=== PATIENT | male | born 1930 | race Caucasian/White ===

== ENCOUNTER 2019-08-16 08:43 | Outpatient (CLI) | payer MEDICARE, OTHER ==
--- NOTE | 2019-08-16 09:22 | XRAY Report ---
Reason: EMPHYSEMA Procedure Date: 08/16/2019 Accession Number: [id number] / [id number] Procedure: XRN - Chest 2 View X-Ray CPT Code: 70067 FULL RESULT: EXAM: CHEST RADIOGRAPHY EXAM DATE: 08/16/2019 08:55 AM. CLINICAL HISTORY: EMPHYSEMA. COMPARISON: XR CHEST PA AND LAT 10/31/2008 12:58 PM; not available. TECHNIQUE: 2 views. FINDINGS: Lungs/Pleura: Mild hyperinflation. No suspicious mass. No pleural effusion. Mediastinum: Heart and mediastinal contours are unremarkable. Other: None. IMPRESSION: 1. COPD. 2. Otherwise negative examination. No acute or suspicious finding. RADIA
== END 2019-08-16 08:44 | disposition home or self-care (01) ==
LOC: DI.N 08:43
PROVIDERS: ATTEND Internal Medicine
DX: J44.9 Chronic obstructive pulmonary disease, unspecified (principal)
CPT/HCPCS: 71046

== ENCOUNTER 2019-08-19 09:09 | Outpatient (CLI) | payer MEDICARE, OTHER | END 2019-08-19 09:10 | disposition home or self-care (01) | LOC: RT 09:09 | PROVIDERS: ATTEND Internal Medicine | DX: J43.9 Emphysema, unspecified (principal); I35.0 Nonrheumatic aortic (valve) stenosis | CPT/HCPCS: 94010 ==

== ENCOUNTER 2020-01-10 10:36 | Outpatient (CLI) | payer MEDICARE, OTHER | END 2020-01-10 10:37 | disposition critical access hospital (66) | LOC: EMS 10:36 | PROVIDERS: ATTEND Surgery | DX: R10.9 Unspecified abdominal pain (principal); R11.2 Nausea with vomiting, unspecified | CPT/HCPCS: A0425; A0427 ==

== ENCOUNTER 2020-01-10 10:50 | Inpatient (IN) | payer MEDICARE, OTHER ==
--- NOTE | 2020-01-10 11:24 | ED Physician Documentation ---
PD HPI ABD PAIN - Stated complaint Stated Complaint: POSS GI BLEED - Chief complaint Chief Complaint: Abd Pain - History obtained from History obtained from: Patient - History of Present Illness Timing - onset: How many days ago (4) Timing - duration: Days (3-4) Timing - details: Gradual onset, Still present, Waxing and waning (more consistent the past day) Quality: Cramping (upper abd), Aching, Fullness/distended, Pain Location: Other (The patient states he had onset of crampy upper abdominal pain associated with a feeling of bloating. He is had nausea with poor appetite and minimal intake the last few days. He did have some vomiting last night overnight and noticed it to be coffee ground type appearance. He has not had any bowel movements. He denies any prior abdominal surgery. He does feel distended in the upper abdomen) Radiation: Upper back. No: Chest Improved by: Vomiting Worsened by: Eating, Palpation. No: Moving, Breathing Associated symptoms: Nausea, Vomiting (just couple of times), Hematemesis (possibly, with cofee ground appearance. No hany blood.), Loss of appetite. No: Fever, Constipation, Melena, Hematochezia, Dysuria, Weight loss Similar symptoms before: Has not had sx before Review of Systems Constitutional: denies: Fever, Chills Nose: denies: Rhinorrhea / runny nose, Congestion Throat: denies: Sore throat Cardiac: denies: Chest pain / pressure, Palpitations Respiratory: denies: Dyspnea GI: reports: Abdominal Pain, Abdominal Swelling, Nausea, Vomiting. denies: Constipation (has not had BM for 3 days though), Diarrhea, Bloody / black stool : denies: Dysuria, Frequency Neurologic: reports: Generalized weakness. denies: Focal weakness, Numbness, Near syncope PD PAST MEDICAL HISTORY - Past Medical History Past Medical History: Yes Cardiovascular: Hypertension, High cholesterol, Murmur Respiratory: None Endocrine/Autoimmune: Type 2 diabetes GI: None, Diverticulitis (He believes he has had a prior episode of diverticulitis or at least diverticula.) : Benign prostate hypertrophy, Retention HEENT: Macular degeneration Psych: None Musculoskeletal: None Derm: None - Past Surgical History Past Surgical History: Yes General: Other (Denies prior abdominal surgery.) HEENT: Tonsil/Adenoidectomy Derm: Other - Present Medications Home Medications: Ambulatory Orders Medication Instructions Recorded Confirmed Glipizide [Glipizide Xl] 2.5 mg ORAL DAILY 07/05/14 01/10/20 Lisinopril 10 mg ORAL BID 07/05/14 01/10/20 Aspirin [Adult Low Dose Aspirin EC] 81 mg PO DAILY 01/10/20 01/10/20 Doxazosin Mesylate 8 mg PO DAILY 01/10/20 01/10/20 Multivit-Min/FA/Lycopen/Lutein 1 each PO DAILY 01/10/20 01/10/20 [Centrum Silver Men Tablet] Rosuvastatin Calcium 20 mg PO DAILY 01/10/20 01/10/20 - Allergies Allergies/Adverse Reactions: Allergies Allergy/AdvReac Type Severity Reaction Status Date / Time No Known Drug Allergies Allergy Verified 01/10/20 11:00 - Social History Does the pt smoke?: No Smoking Status: Never smoker Does the pt drink ETOH?: Yes ETOH Use: Wine Does the pt have substance abuse?: No - Immunizations Immunizations: TDAP >10years/unknown PD ED PE NORMAL - Vitals Vital signs reviewed: Yes - General General: Alert and oriented X 3, Well developed/nourished, Other (He is not in significant distress but does seem a little uncomfortable. His abdomen is distended in the upper aspect. There is no tympany to percussion.) - HEENT HEENT: Pharynx benign - Neck Neck: Supple, no meningeal sign, No adenopathy - Cardiac Cardiac: RRR, No murmur - Respiratory Respiratory: Clear bilaterally - Abdomen Abdomen: No organomegaly, Other (Tender in the upper abdomen with the distention in the upper aspect. Bowel sounds are present and hypoactive. The lower abdomen is less distended. There is no percussion no rebound tenderness. There is no CVA tenderness.) - Male Male : Deferred - Rectal Rectal: Deferred - Back Back: No CVA TTP - Derm Derm: Normal color, Warm and dry - Extremities Extremities: No tenderness to palpate, Normal ROM s pain, No edema - Neuro Neuro: Alert and oriented X 3, No motor deficit, Normal speech Results - Vitals Vitals: Vital Signs - 24 hr 01/10/20 01/10/20 01/10/20 10:52 13:00 14:07 Temperature 37.3 C Heart Rate 95 79 76 Respiratory 15 20 24 Rate Blood Pressure 142/63 H 125/58 L 118/64 O2 Saturation 99 97 97 01/10/20 01/10/20 14:15 14:30 Temperature Heart Rate 78 78 Respiratory 24 19 Rate Blood Pressure 118/64 149/74 H O2 Saturation 98 98 Oxygen O2 Source Room air - Labs Labs: Laboratory Tests 01/10/20 01/10/20 01/10/20 11:38 11:38 12:12 WBC 8.2 RBC 4.07 L Hgb 13.4 L Hct 39.6 L MCV 97.3 H MCH 32.9 H MCHC 33.8 RDW 13.1 Plt Count 215 MPV 10.9 Neut # (Auto) 7.1 H Lymph # (Auto) 0.5 L [place] # (Auto) 0.7 Eos # (Auto) 0.0 Baso # (Auto) 0.0 Absolute Nucleated RBC 0.00 Nucleated RBC % 0.0 Sodium 132 L Potassium 4.3 Chloride 96 L Carbon Dioxide 26 Anion Gap 10.0 BUN 31 H Creatinine 1.1 Estimated GFR (MDRD) 63 L Glucose 171 H Lactic Acid Calcium 8.8 Magnesium 2.2 Total Bilirubin 1.0 AST 20 ALT 17 Alkaline Phosphatase 34 L Total Protein 6.4 L Albumin 4.0 Globulin 2.4 Albumin/Globulin Ratio 1.7 Lipase 25 Urine Color Urine Clarity Urine pH Ur Specific [place] Urine Protein Urine Glucose (UA) Urine Ketones Urine Occult Blood Urine Nitrite Urine Bilirubin Urine Urobilinogen Ur Leukocyte Esterase Ur Microscopic Review Urine Culture Comments 01/10/20 01/10/20 12:12 14:10 WBC RBC Hgb Hct MCV MCH MCHC RDW Plt Count MPV Neut # (Auto) Lymph # (Auto) [place] # (Auto) Eos # (Auto) Baso # (Auto) Absolute Nucleated RBC Nucleated RBC % Sodium Potassium Chloride Carbon Dioxide Anion Gap BUN Creatinine Estimated GFR (MDRD) Glucose Lactic Acid 1.1 Calcium Magnesium Total Bilirubin AST ALT Alkaline Phosphatase Total Protein Albumin Globulin Albumin/Globulin Ratio Lipase Urine Color YELLOW Urine Clarity CLEAR Urine pH 6.0 Ur Specific [place] 1.010 Urine Protein NEGATIVE Urine Glucose (UA) NEGATIVE Urine Ketones 15 H Urine Occult Blood NEGATIVE Urine Nitrite NEGATIVE Urine Bilirubin NEGATIVE Urine Urobilinogen 0.2 (NORMAL) Ur Leukocyte Esterase NEGATIVE Ur Microscopic Review NOT INDICATED Urine Culture Comments NOT INDICATED - Rads (name of study) abd CT Radiology: Prelim report reviewed, See rad report PD MEDICAL DECISION MAKING - ED course Complexity details: reviewed results (CT findings show bowel obstruction with transition at the right lower quadrant. There is an enhancing liver lesion of uncertain pathology. Consider metastatic lesion versus abscess versus inflammatory condition. He does have an enlarged prostate as well which appears symmetric. Appendix seems normal.), re-evaluated patient (His exam and CT scan are compatible with bowel obstruction. No free air nor perforations. No apparent prior abdominal surgery. He has had diverticula in the past so consider some adhesions related to prior diverticulitis. Otherwise consider a mass-effect such as a colon tumor. He does have an enhancing lesion in the liver diet could be consistent with a metastasis. Further evaluation with ultrasound or MRI may be indicated according to radiology.), considered differential, d/w patient, d/w method consultant Departure - Departure Disposition: 66 [facility] DC/Xfer Clinical Impression: Small bowel obstruction, Liver lesion Nausea & vomiting Qualifiers: Vomiting type: unspecified Vomiting Intractability: non-intractable Qualified Code(s): R11.2 - Nausea with vomiting, unspecified Condition: Stable
[2020-01-10 11:43] LABS: BASOPHILS % (AUTO) 0.2 %; EOSINOPHILS % (AUTO) 0.1 %; HGB - HEMOGLOBIN 13.4 g/dL (14.0-18.0); LYMPHOCYTES # (AUTO) 0.5 10^3/uL (1.5-3.5); LYMPHOCYTES % (AUTO) 5.6 %; MEAN CORPUSCULAR HEMOGLOBIN 32.9 pg (27.0-31.0); MEAN CORPUSCULAR HGB CONC 33.8 g/dL (32.0-36.0); MEAN CORPUSCULAR VOLUME 97.3 fL (80.0-94.0); MEAN PLATELET VOLUME 10.9 fL (7.4-11.4); MONOCYTES # (AUTO) 0.7 10^3/uL (0.0-1.0); MONOCYTES % (AUTO) 7.9 %; NEUTROPHILS # (AUTO) 7.1 10^3/uL (1.5-6.6); NEUTROPHILS % (AUTO) 85.8 %; PLT - PLATELET COUNT 215 10^3/uL (130-450); RED BLOOD COUNT 4.07 10^6/uL (4.70-6.10); RED CELL DISTRIBUTION WIDTH 13.1 % (12.0-15.0); WHITE BLOOD COUNT 8.2 x10^3/uL (4.8-10.8)
[2020-01-10] MEDS ORDERED: SODIUM CHLORIDE 0.9% 1,000 ML IV ONE ×2 (11:44→14:36)
[2020-01-10] MEDS ORDERED: MORPHINE 2 MG/ML CARPUJECT IVP STA (11:44)
[2020-01-10] MEDS ORDERED: FAMOTIDINE 20 MG/2 ML VIAL IVP STA (11:45)
[2020-01-10] MEDS ORDERED: ONDANSETRON 4 MG/2 ML VIAL IVP STA (11:45)
[2020-01-10 11:59] LABS: ALBUMIN/GLOBULIN RATIO 1.7 (1.0-2.2); CALCIUM 8.8 mg/dL (8.5-10.3); CREATININE 1.1 mg/dL (0.6-1.2); TOTAL PROTEIN 6.4 g/dL (6.7-8.2)
[2020-01-10] MEDS ORDERED: IOVERSOL 320 100 ML VIAL IVP ONE ×2 (13:11→13:32)
--- NOTE | 2020-01-10 14:11 | CT Report ---
Reason: upper abd pain for 4 days; some distension Procedure Date: 01/10/2020 Accession Number: [id number] / [id number] Procedure: CT - Abdomen/Pelvis W CPT Code: Final Report FULL RESULT: EXAM: CT ABDOMEN AND PELVIS EXAM DATE: 01/10/2020 01:32 PM. CLINICAL HISTORY: Upper abd pain for 4 days; some distension. COMPARISONS: ABDOMEN 04/18/2015 8:20 AM. TECHNIQUE: Routine helical CT imaging was performed through the abdomen and pelvis. IV contrast: 100 mL Optiray 320. Enteric contrast: No. Reconstructions: Coronal and sagittal. In accordance with CT protocol optimization, one or more of the following dose reduction techniques were utilized for this exam: automated exposure control, adjustment of mA and/or KV based on patient size, or use of iterative reconstructive technique. FINDINGS: Lung Bases: Mild dependent atelectasis bilaterally. Extensive moderate/severe three-vessel coronary artery disease versus previous placement of coronary artery stents. The heart is mildly enlarged. Liver: There is a rim-enhancing hypodense lesion in the anterior left hepatic lobe measuring 1.8 x 2.7 x 1.7 cm. Gallbladder/Bile Ducts: Unremarkable. Spleen: There are multiple nonspecific round hypodense lesions in the spleen measuring up to 7 mm in diameter. Pancreas: The pancreatic duct is mildly dilated near the confluence with the common bile duct measuring 4 mm in diameter. The pancreas is otherwise unremarkable. Adrenal Glands: Unremarkable. Kidneys: Symmetric renal enhancement. Borderline dilated ureters bilaterally. Otherwise no hydronephrosis. No nephrolithiasis. Probable cortical cysts in the mid and lower left kidney measuring up to 7 mm in diameter. Peritoneal Cavity/Bowel: There are multiple dilated small bowel loops throughout the abdomen and pelvis, which measure up to 4.3 cm in diameter and demonstrate air-fluid levels. There is a transition point in the right lower abdominal quadrant, which is best seen on the coronal series (images 22 through 28 of series 5). Somewhat dusky appearance of the dilated bowel loops in the lower abdomen/pelvis. The visualized appendix is normal. Small volume ascites. No free intraperitoneal air. Pelvic Organs: The prostate is markedly enlarged and heterogeneous measuring 6.0 x 6.2 x 8.4 cm (volume 163 mL). The enlarged prostate causes mass-effect on the adjacent urinary bladder wall. The urinary bladder otherwise appears unremarkable. Small inguinal hernias bilaterally. There is prolapse of a segment of the descending/sigmoid colon into the left inguinal hernia. No evidence of bowel obstruction. There is ascites in the right inguinal hernia. Vasculature: Calcified atherosclerotic plaque throughout the abdominal aorta and iliac arteries without evidence of aneurysm. Bones: The bones are osteopenic. Moderate multilevel degenerative facet arthropathy. Multilevel degenerative disk disease. Other: None. IMPRESSION: 1. Small bowel obstruction with transition point in the right lower abdominal quadrant. Obstruction is likely related to intra-abdominal adhesions as no obstructing mass or other cause identified. 2. Somewhat dusky appearance of the dilated small bowel loops in the lower abdomen/pelvis, which is nonspecific. Developing bowel ischemia is not excluded. 3. Nonspecific rim-enhancing hypodense lesion in the left hepatic lobe. Differential considerations include hepatocellular carcinoma, metastasis, and abscess or other infectious process. Dedicated liver MRI and/or liver ultrasound may be of further diagnostic benefit. 4. Small nonspecific hypodense lesions in the spleen. Benign and malignant etiologies are included in the differential, as well as microabscesses. 5. Marked prostatomegaly. 6. Mild cardiomegaly. 7. Mild nonspecific dilation of the pancreatic duct near the confluence with the common bile duct. 8. Small volume ascites. 9. Bilateral inguinal hernias, as described above in the "pelvic organs" section. RADIA The call report notification system was initiated by Dr. Markie Camacho at 02:05 PM on 01/10/2020. The above call report findings were discussed with mArik Joaquin by Dr. Markie Camacho at 02:12 PM on 01/10/2020.
[2020-01-10 14:20] LABS: BILIRUBIN,URINE NEGATIVE (NEGATIVE); GLUCOSE, URINE (UA) NEGATIVE (NEGATIVE); KETONES,URINE (UA) 15 mg/dL (NEGATIVE); LEUKOCYTE ESTERASE, URINE NEGATIVE (NEGATIVE); NITRITE,URINE NEGATIVE (NEGATIVE); OCCULT BLOOD,URINE NEGATIVE (NEGATIVE); PROTEIN,URINE NEGATIVE (NEGATIVE); UROBILINOGEN,URINE 0.2 (NORMAL) E.U./dL (NORMAL)
[2020-01-10 14:25] LABS: CLARITY,URINE CLEAR (CLEAR)
[2020-01-10] MEDS ORDERED: SODIUM CHLORIDE FLUSH 0.9% 10 ML SYRINGE IVP PRN (14:58)
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
[2020-01-10] MEDS ORDERED: DIATR MEGLU/DIATRIZOATE SODIUM 120 ML BOTTLE PO ONE (15:46)
[2020-01-10] MEDS ORDERED: ACETAMINOPHEN 1,000 MG/100 ML 100 ML IV PRN (16:19)
[2020-01-10] MEDS ORDERED: HYDROmorphone 0.5 MG/0.5 ML SYRINGE IVP PRN (16:19)
[2020-01-10] MEDS ORDERED: ONDANSETRON 4 MG/2 ML VIAL IVP PRN (16:19)
[2020-01-10] MEDS: SODIUM CHLORIDE 0.9% 1,000 ML IV SCH (18:16)
[2020-01-10] MEDS: SODIUM CHLORIDE FLUSH 0.9% 10 ML SYRINGE IVP SCH (18:16)
[2020-01-10] MEDS ORDERED: DOXAZOSIN 4 MG TABLET PO SCH (21:00)
[2020-01-11] MEDS: SODIUM CHLORIDE FLUSH 0.9% 10 ML SYRINGE IVP SCH ×3 (00:13→16:44)
[2020-01-11] MEDS: SODIUM CHLORIDE 0.9% 1,000 ML IV SCH (05:12)
--- NOTE | 2020-01-11 07:37 | PHARMACY PROGRESS NOTE ---
- Best Possible Medication History Admit Date and Time: 01/10/20 1458 Processed by: Nursing Medication History completed: Yes As the person ultimately responsible for medication therapy, providers are able to order a medication from an existing home medication list in [facility] via the "Reconcile Routine" prior to Confirmation of that medication by technical support technician. Such practice is discouraged except when the physician, in their clinical judgment, deems that a medical need exists for a medication without regard to previous use.
--- NOTE | 2020-01-11 12:09 | XRAY Report ---
Reason: SBO, abdominal pain Procedure Date: 01/11/2020 Accession Number: [id number] / [id number] Procedure: XR - Abdomen 1 View X-Ray CPT Code: 40270 Final Report FULL RESULT: EXAM: ABDOMEN RADIOGRAPHY EXAM DATE: 01/11/2020 09:04 AM. CLINICAL HISTORY: SBO, abdominal pain. COMPARISON: None. TECHNIQUE: 1 view. FINDINGS: Bowel Gas Pattern: Gastrografin is seen throughout the colon and rectum. Multiple loops of air-filled dilated small bowel persist in the central abdomen. Other: None. IMPRESSION: Gastrografin is seen throughout the colon and rectum. Multiple loops of air-filled dilated small bowel persist in the central abdomen. RADIA
--- NOTE | 2020-01-11 15:26 | Discharge Plan ---
Discharge Plan Problem Reviewed?: Yes Disposition: Home, Self Care Condition: Good Prescriptions: Lisinopril [Zestril] 10 mg PO DAILY #30 tablet Wheat Dextrin [Benefiber] 1 each PO DAILY #30 packet Diet: Soft Activity Restrictions: Activity as Tolerated Shower Restrictions: No Driving Restrictions: No Health Concerns: Small bowel obstruction Abdominal pain New liver lesion Aortic stenosis Plan of Treatment: Take daily benefiber or Metamucil to keep your bowels moving nicely. Follow up with your primary care provider to discuss next plan of action since finding your liver lesions. Take of your usual Lisinopril dose because your blood pressure has been low since during your hospital stay. Care Goals: Prevent a recurrence of this event Prevent ED visits or hospital stays Prevent falls Maintain your independence Assessment: You were admitted to the hospital for a small bowel obstruction which was worrisome since it had been going on for the past 4 days. After taking gastro- grafin, this resolved. Luckily, this did not require an NG tube, or any surgical interventions. Your symptoms resolved. You were moving your bowels, and consuming food. There was no contributing factor to this event, so this may never occur again. An incidental rim-enhancing hypodense left liver lesion was discovered. The description of this is concerning for cancer. I spoke to general surgery, Dr. Gerard regarding proper follow up to the liver lesions. Since the ultrasound could not give meaningful information, please have Dr. Umaña order an MRI, which is what is suggested. Please see your PCP within one week. No Smoking: If you smoke, Please STOP! Call for help. Follow-up with: Anuj Umaña MD [Primary Care Provider] -
[2020-01-11 15:53] LABS: BASOPHILS % (AUTO) 0.2 %; EOSINOPHILS # (AUTO) 0.1 10^3/uL (0.0-0.7); EOSINOPHILS % (AUTO) 1.7 %; HGB - HEMOGLOBIN 11.9 g/dL (14.0-18.0); LYMPHOCYTES # (AUTO) 0.7 10^3/uL (1.5-3.5); LYMPHOCYTES % (AUTO) 12.4 %; MEAN CORPUSCULAR HEMOGLOBIN 33.4 pg (27.0-31.0); MEAN CORPUSCULAR HGB CONC 33.6 g/dL (32.0-36.0); MEAN CORPUSCULAR VOLUME 99.4 fL (80.0-94.0); MEAN PLATELET VOLUME 10.5 fL (7.4-11.4); MONOCYTES # (AUTO) 0.6 10^3/uL (0.0-1.0); MONOCYTES % (AUTO) 11.3 %; NEUTROPHILS # (AUTO) 3.9 10^3/uL (1.5-6.6); PLT - PLATELET COUNT 183 10^3/uL (130-450); RED BLOOD COUNT 3.56 10^6/uL (4.70-6.10); RED CELL DISTRIBUTION WIDTH 13.2 % (12.0-15.0); WHITE BLOOD COUNT 5.2 x10^3/uL (4.8-10.8)
[2020-01-11 16:03] LABS: ALBUMIN 3.2 g/dL (3.2-5.5); ALBUMIN/GLOBULIN RATIO 1.5 (1.0-2.2); BILIRUBIN,TOTAL 0.6 mg/dL (0.2-1.0); CREATININE 0.8 mg/dL (0.6-1.2); TOTAL PROTEIN 5.4 g/dL (6.7-8.2)
--- NOTE | 2020-01-11 16:09 | Ultrasound Report ---
Reason: left liver lesion Procedure Date: 01/11/2020 Accession Number: [id number] / [id number] Procedure: US - Abdomen Limited CPT Code: Final Report FULL RESULT: EXAM: ABDOMEN LIMITED EXAM DATE: 01/11/2020 03:30 PM INDICATION: Left liver lesion. COMPARISONS: ABDOMEN/PELVIS W/ 01/10/2020 1:26 PM. TECHNIQUE: Real-time scanning was performed with static images obtained. FINDINGS: Liver: Normal in size and echotexture. No mass identified in the left liver. Evaluation of the left liver is limited due to bowel gas. Right liver measures 14 cm. Main portal vein flow: Hepatopetal. Gallbladder: Gallstones are noted. No pericholecystic fluid or gallbladder wall thickening. Negative sonographic Robles's sign. Biliary System: Common hepatic duct measures 4.3 mm. No intrahepatic bile duct dilation. Common bile duct is obscured by bowel gas. Pancreas: Normal. Right kidney: 11.1 cm. No hydronephrosis. Abdominal aorta and IVC: Normal. Other: None. IMPRESSION: 1. Study limited due to bowel gas. 2. Left liver lesion not seen due to bowel gas. No obvious other liver mass or intrahepatic bile duct dilation. Portal vein is patent. 3. Cholelithiasis. No sonographic findings concerning for acute cholecystitis. Normal common hepatic duct. Common bile duct mass seen. Common bile duct was normal in caliber on the most recent CT performed 01/10/2020. RAD[facility]
[2020-01-11 16:13] LABS: HB2 TOTAL 12.2 g/dL; HEMOGLOBIN A1C 0.56 g/dL; HEMOGLOBIN A1C % 6.4 % (4.6-6.2)
[2020-01-11] MEDS ORDERED: SIMETHICONE CHEW 80 MG TABLET PO ONE (16:47)
--- NOTE | 2020-01-11 17:41 | DISCHARGE SUMMARY ---
Discharge Summary Admit Date: 01/10/20 Discharge Date: 01/11/20 Discharging Provider: TIESHA Draper Primary Care Provider: Dr. Umaña Code Status: Attempt Resuscitation Condition at Discharge: Good Discharge Disposition: 01 Home, Self Care - DIAGNOSES Admission Diagnoses: Small bowel obstruction Abdominal pain Nausea and vomiting Liver lesion Fall Hypertension Aortic stenosis Hyperlipidemia Diabetes mellitus type 2, controlled BPH (benign prostatic hyperplasia) Daily consumption of alcohol Nocturia Hearing impaired Full dentures Discharge Diagnoses with Status of Each Condition: Small bowel obstruction-Present on admission, resolved Abdominal pain-Present on admission, resolved Nausea and vomiting-Present on admission, resolved Liver lesion-New finding on imaging, needs follow up Fall-Chronic, stable Hypertension-Chronic, stable Aortic stenosis-Chronic, still noted as mild, stable Hyperlipidemia-Chronic, stable Diabetes mellitus type 2, controlled-Chronic, HgA1C is 6.4%, stable BPH (benign prostatic hyperplasia)-Chronic, stable Daily consumption of alcohol-Chronic, stable Nocturia-Chronic, stable Hearing impaired-Chronic, stable Full dentures-Chronic, stable - HPI History of Present Illness: Jelani Carreon (Dave) is a pleasant 89-year old white male with a past medical history of hypertension, hyperlipidemia, aortic stenosis, diabetes mellitus type 2, BPH, nocturia, hearing impairment, full dentures, and daily consumption of a glass of wine. The patient was brought in via EMS for a 4-day history of mid to upper abdominal pain described as cramping and severe. The patient states that he was in his usual state of health on Thursday night, then woke up at midnight in severe pain located near his navel. He states that when he went to stand up to get to the bathroom, he was disorientated, like he just got off a rollercoaster. He fell to the floor landing on his right forearm, which caused some skin tears, without losing consciousness or hitting his head. He notes that his last BM was also on Thursday shortly before bed. After getting his left arm bandaged up, he was nauseous and threw up a black substance, but he was not sure if it was blood. He states that the pain kept up, and he has ongoing nausea. He is unable to eat, but sipped on some chicken broth which seems to have stayed down. Today, he saw his PCP, Dr. Umaña, who sent him directly to the ED. Upon arrival to the ED, labs showed H/H of 13.4/39.6, MCV 97.3, sodium 132, chloride 96, BUN 31, GFR 63, glucose 171, alk phos 34, total protein 6.4, a normal urine except for urine ketones of 15 without any other lab abnormalities. Vital signs showed a temp of 37.3 C, heart rate 95, B/P 142/63, RR 15, and 99% on room air. Imaging confirmed a small bowel obstruction concerning for bowel ischemia, hypodense lesions of the left hepatic lobe, recommending further imaging, bilateral inguinal hernias. A general surgery consult was made. I spoke with Dr. Gerard, who will plan to see the patient tomorrow. Given the patients known aortic stenosis, he may not be an ideal surgical candidate, so we will start with Gastro-grafin contrast with abdominal x-rays, NPO, IV fluids, and symptom management. - HOSPITAL COURSE Hospital Course: The patient was admitted to the hospital for a small bowel obstruction which was worrisome since it had been going on for the past 4 days. After taking gastro- grafin, this resolved. Luckily, this did not require an NG tube, or any surgical interventions. The patient's presenting symptoms resolved. He was moving his bowels, and consuming food. There was no contributing factor to this event, so this may never occur again. An incidental rim-enhancing hypodense left liver lesion was discovered. The description of this is concerning for cancer. I spoke to general surgery, Dr. Gerard regarding proper follow up to the liver lesions. Since the ultrasound could not give meaningful information, please have Dr. Umaña order an MRI, which is what is suggested. Please see your PCP within one week. - ALLERGIES Allergies/Adverse Reactions: Allergies Allergy/AdvReac Type Severity Reaction Status Date / Time No Known Drug Allergies Allergy Verified 01/11/20 22:20 - MEDICATIONS Home Medications: Ambulatory Orders Medication Instructions Recorded Confirmed Glipizide [Glipizide Xl] 2.5 mg ORAL DAILY 07/05/14 01/10/20 Aspirin [Adult Low Dose Aspirin EC] 81 mg PO DAILY 01/10/20 01/10/20 Doxazosin Mesylate 8 mg PO DAILY 01/10/20 01/10/20 Multivit-Min/FA/Lycopen/Lutein 1 each PO DAILY 01/10/20 01/10/20 [Centrum Silver Men Tablet] Rosuvastatin Calcium 20 mg PO DAILY 01/10/20 01/10/20 Lisinopril [Zestril] 10 mg PO DAILY #30 tablet 01/11/20 Wheat Dextrin [Benefiber] 1 each PO DAILY #30 packet 01/11/20 - PHYSICAL EXAM AT DISCHARGE General Appearance: positive: No acute distress, Alert Eyes Bilateral: positive: Normal inspection, PERRL ENT: positive: Pharynx nml, No signs of dehydration Neck: positive: Thyroid nml, No JVD, Trachea midline Respiratory: positive: Chest non-tender, No respiratory distress, Breath sounds nml Cardiovascular: positive: Regular rate & rhythm, No gallop, Systolic murmur Peripheral Pulses: positive: 2+ Abdomen: positive: Non-tender, No organomegaly, Nml bowel sounds Back: positive: Nml inspection Skin: positive: Color nml, No rash, Warm, Dry Extremities: positive: Non-tender, Full ROM, Nml appearance, No pedal edema Neurologic/Psychiatric: positive: Oriented x3, CN's nml (2-12), Motor nml, Sensation nml, Mood/affect nml Reflexes: Bicep (R): 3+, Bicep (L): 3+ - LABS Result Diagrams: 01/11/20 15:45 01/11/20 15:45 - FOLLOW UP Follow Up: Since the ultrasound could not give meaningful information, please have Dr. Umaña order an MRI, which is what is suggested. Please see your PCP within one week. - TIME SPENT Time Spent in Discharge (Minutes): 55
[2020-01-11 17:51] VITALS: BP 105/42
== END 2020-01-11 18:09 | disposition home or self-care (01) | DRG 389 ==
LOC: EDBD → EDUNIT# → ED 10:50 → MS2 14:58
PROVIDERS: ADMIT Nurse Practitioner; ATTEND Nurse Practitioner
DX: K56.609 Unspecified intestinal obstruction, unspecified as to partial versus complete obstruction (principal); K76.9 Liver disease, unspecified; C22.8 Malignant neoplasm of liver, primary, unspecified as to type; I11.9 Hypertensive heart disease without heart failure; I10 Essential (primary) hypertension; I35.0 Nonrheumatic aortic (valve) stenosis; E78.5 Hyperlipidemia, unspecified; E11.9 Type 2 diabetes mellitus without complications; N40.1 Benign prostatic hyperplasia with lower urinary tract symptoms; R35.1 Nocturia; R33.8 Other retention of urine; R35.0 Frequency of micturition; H91.90 Unspecified hearing loss, unspecified ear; Z91.81 History of falling; Z79.84 Long term (current) use of oral hypoglycemic drugs; Z79.82 Long term (current) use of aspirin; Z79.899 Other long term (current) drug therapy; Z87.19 Personal history of other diseases of the digestive system
CPT/HCPCS: 36415; 74018; 74177; 76705; 80053; 81003; 82977; 83036; 83605; 83690; 83735; 85025; 93005; 93306; 96361; 96374; 96375; 99284; 99285; A9270; Q9963; Q9967; 81001; 87086

== ENCOUNTER 2020-01-11 22:16 | Emergency (ER) | payer MEDICARE, OTHER ==
[2020-01-11] MEDS ORDERED: SODIUM CHLORIDE 0.9% 500 ML IV STA (22:47)
[2020-01-11 23:10] LABS: BASOPHILS % (AUTO) 0.3 %; EOSINOPHILS # (AUTO) 0.1 10^3/uL (0.0-0.7); EOSINOPHILS % (AUTO) 1.2 %; HGB - HEMOGLOBIN 13.1 g/dL (14.0-18.0); LYMPHOCYTES # (AUTO) 0.8 10^3/uL (1.5-3.5); LYMPHOCYTES % (AUTO) 12.7 %; MEAN CORPUSCULAR HEMOGLOBIN 33.4 pg (27.0-31.0); MEAN CORPUSCULAR HGB CONC 33.5 g/dL (32.0-36.0); MEAN CORPUSCULAR VOLUME 99.7 fL (80.0-94.0); MEAN PLATELET VOLUME 10.7 fL (7.4-11.4); MONOCYTES # (AUTO) 0.6 10^3/uL (0.0-1.0); MONOCYTES % (AUTO) 10.3 %; NEUTROPHILS # (AUTO) 4.5 10^3/uL (1.5-6.6); NEUTROPHILS % (AUTO) 75.2 %; PLT - PLATELET COUNT 197 10^3/uL (130-450); RED BLOOD COUNT 3.92 10^6/uL (4.70-6.10); RED CELL DISTRIBUTION WIDTH 13.2 % (12.0-15.0)
[2020-01-11 23:19] LABS: ALBUMIN 3.7 g/dL (3.2-5.5); ALBUMIN/GLOBULIN RATIO 1.4 (1.0-2.2); BILIRUBIN,TOTAL 0.8 mg/dL (0.2-1.0); CALCIUM 8.3 mg/dL (8.5-10.3); CREATININE 0.9 mg/dL (0.6-1.2); TOTAL PROTEIN 6.3 g/dL (6.7-8.2)
[2020-01-12] MEDS ORDERED: IOVERSOL 320 100 ML VIAL IVP ONE ×2 (00:14→00:48)
--- NOTE | 2020-01-12 01:47 | CT Report ---
Reason: recurrent abdominal pain. hx of SBO Procedure Date: 01/12/2020 Accession Number: [id number] / [id number] Procedure: CT - Abdomen/Pelvis W CPT Code: Final Report FULL RESULT: EXAM: CT ABDOMEN AND PELVIS EXAM DATE: 01/12/2020 12:46 AM. CLINICAL HISTORY: Recurrent abdominal pain. hx of SBO. COMPARISONS: ABDOMEN/PELVIS W/ 01/10/2020 1:26 PM. TECHNIQUE: Routine helical CT imaging was performed through the abdomen and pelvis. IV contrast: 100 cc OPTIRAY 320. Enteric contrast: No. Reconstructions: Coronal and sagittal. In accordance with CT protocol optimization, one or more of the following dose reduction techniques were utilized for this exam: automated exposure control, adjustment of mA and/or KV based on patient size, or use of iterative reconstructive technique. FINDINGS: ABDOMEN: Lung Bases: Incompletely included lower lungs demonstrate dependent atelectasis. Cardiomegaly. Severe coronary artery and aortic valvular calcifications. Liver: Hypoattenuating lesion with rim enhancement measuring 1.8 cm is again seen in the left hepatic lobe. Spleen: Stable multiple low attenuating lesions measuring up to 7 mm. Pancreas: Dilatation of the pancreatic duct to 4 mm at the pancreatic head is again seen. Gallbladder/Bile Ducts: Multiple gallstones are present. Biliary tree is normal caliber. Adrenal Glands: Unremarkable. Kidneys: No mass, calculi, or hydronephrosis. 9 mm low attenuating lesion in the left kidney, likely a cyst. Peritoneum/Mesentery/Bowel: No free fluid, free air, or collection. Persistent small bowel dilatation, with a transition in the left mid abdomen (3/40). Proximal bowel dilatation is improved. Contrast is present throughout nondilated colon and rectum. The appendix is within normal limits. Lymph nodes: No mesenteric, periportal, or retroperitoneal lymphadenopathy. Vasculature: Abdominal aorta is nonaneurysmal. Portal vein is patent. Hepatic veins are patent. PELVIS: Contrast present within the bladder. Large heterogeneous prostate is present. No pelvic lymphadenopathy. Left angle hernia containing otherwise unremarkable sigmoid colon. Right angle hernia containing fluid. Bones: No suspicious osseous lesions. Osteopenia and multilevel degenerative disk disease. IMPRESSION: Small bowel obstruction with improved proximal bowel dilatation. Enteric contrast is present throughout nondilated colon and rectum. Stable indeterminate 1.8 cm low attenuating lesion in the left hepatic lobe with rim enhancement. Contrast enhanced MRI is recommended for further evaluation. This could reflect neoplasm or abscess. Cardiomegaly and extensive coronary artery and aortic valvular calcifications. [facility]
[2020-01-12 02:11] LABS: BILIRUBIN,URINE NEGATIVE (NEGATIVE); GLUCOSE, URINE (UA) NEGATIVE (NEGATIVE); KETONES,URINE (UA) 15 mg/dL (NEGATIVE); LEUKOCYTE ESTERASE, URINE NEGATIVE (NEGATIVE); NITRITE,URINE NEGATIVE (NEGATIVE); OCCULT BLOOD,URINE TRACE-INTA (NEGATIVE); PH,URINE 5.5 PH (5.0-7.5); PROTEIN,URINE NEGATIVE (NEGATIVE); UROBILINOGEN,URINE 0.2 (NORMAL) E.U./dL (NORMAL)
[2020-01-12 02:12] LABS: CLARITY,URINE CLEAR (CLEAR)
--- NOTE | 2020-01-12 02:16 | ED Physician Documentation ---
History of Present Illness - Stated complaint Stated Complaint: ABD PX - Chief complaint Chief Complaint: Abd Pain - History obtained from History obtained from: Patient, Family - History of Present Illness Timing: Prior to arrival Quality: DULL Radiates to: NONE Improved by: NOTHING Worsened by: POSSIBLY AFTER EATING - Additonal information Additional information: 89 YEAR OLD MALE WITH HTN, HLP, DM, WHO WAS RECENTLY ADMITTED TO THE HOSPITAL FOR SMALL BOWEL OBSTRUCTION, RETURNED TO THE EMERGENCY DEPARTMENT WITH MID ABDOMINAL PAIN. PATIENT AND DAUGHTER REPORTED THAT WHILE HE WAS AT THE HOSPITAL, HE WAS HAVING CLEAR LIQUID DIET. PAIN RESOLVED. HE HAD A BOWEL MOVEMENT DURING HOSPITALIZATION. HE WAS AN ABDOMINAL XRAY AFTER ORAL BARIUM CONTRAST THAT SHOWED CONTRAST THROUGHOUT THE COLONS. HE WAS SOFT LIQUID PRIOR TO DISCHARGE AROUND 4PM. DAUGHTER REPORTED THAT THE DIET CHANGE MAY HAVE EXACERBATED HIS SYMPTOMS. PATIENT HAD NO VOMITING. HE DENIES CHEST PAIN, SHORTNESS OF BREATH, DIZZINESS, SYNCOPE OR NEAR SYNCOPE. Review of Systems Constitutional: denies: Fever, Chills Eyes: denies: Photophobia, Discharge Ears: denies: Drainage/discharge Nose: reports: Congestion. denies: Rhinorrhea / runny nose Throat: denies: Sore throat Cardiac: denies: Chest pain / pressure, Palpitations Respiratory: denies: Dyspnea, Cough GI: reports: Abdominal Pain, Nausea. 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 : Benign prostate hypertrophy, Retention, Nocturia, Frequency HEENT: Chronic vision loss, Chronic sinusitis, Macular degeneration, Chronic hearing loss Psych: None Musculoskeletal: None Derm: None - Past Surgical History Past Surgical History: Yes General: Other HEENT: Cataracts, Tonsil/Adenoidectomy Derm: Skin cancer surgery - Present Medications Home Medications: Ambulatory Orders Medication Instructions Recorded Confirmed Glipizide [Glipizide Xl] 2.5 mg ORAL DAILY 07/05/14 01/10/20 Aspirin [Adult Low Dose Aspirin EC] 81 mg PO DAILY 01/10/20 01/10/20 Doxazosin Mesylate 8 mg PO DAILY 01/10/20 01/10/20 Multivit-Min/FA/Lycopen/Lutein 1 each PO DAILY 01/10/20 01/10/20 [Centrum Silver Men Tablet] Rosuvastatin Calcium 20 mg PO DAILY 01/10/20 01/10/20 Lisinopril [Zestril] 10 mg PO DAILY #30 tablet 01/11/20 Wheat Dextrin [Benefiber] 1 each PO DAILY #30 packet 01/11/20 - Allergies Allergies/Adverse Reactions: Allergies Allergy/AdvReac Type Severity Reaction Status Date / Time No Known Drug Allergies Allergy Verified 01/11/20 22:20 - Social History Does the pt smoke?: No Smoking Status: Never smoker Does the pt drink ETOH?: Yes Does the pt have substance abuse?: No - Immunizations Immunizations: TDAP >10years/unknown - POLST Patient has POLST: No POLST Status: Full Code PD ED PE NORMAL - Vitals Vital signs reviewed: Yes - General General: Alert and oriented X 3, No acute distress - HEENT HEENT: Atraumatic, EOMI - Neck Neck: Supple, no meningeal sign - Cardiac Cardiac: RRR - Respiratory Respiratory: No respiratory distress - Abdomen Abdomen: Normal bowel sounds, Soft, Non tender, Non distended - Back Back: No CVA TTP, No spinal TTP - Derm Derm: Normal color, Warm and dry - Extremities Extremities: No deformity, No tenderness to palpate, Normal ROM s pain, No edema - Neuro Neuro: Alert and oriented X 3, salvage diver 2-12 intact Eye Opening: Spontaneous Motor: Obeys Commands Verbal: Oriented GCS Score: 15 Results - Vitals Vitals: Oxygen O2 Source Room air - Labs Labs: Laboratory Tests 01/11/20 01/11/20 01/12/20 22:56 22:56 02:05 WBC 6.0 RBC 3.92 L Hgb 13.1 L Hct 39.1 L MCV 99.7 H MCH 33.4 H MCHC 33.5 RDW 13.2 Plt Count 197 MPV 10.7 Neut # (Auto) 4.5 Lymph # (Auto) 0.8 L [place] # (Auto) 0.6 Eos # (Auto) 0.1 Baso # (Auto) 0.0 Absolute Nucleated RBC 0.00 Nucleated RBC % 0.0 Sodium 137 Potassium 3.9 Chloride 103 Carbon Dioxide 25 Anion Gap 9.0 BUN 27 H Creatinine 0.9 Estimated GFR (MDRD) 80 L Glucose 145 H Calcium 8.3 L Total Bilirubin 0.8 AST 21 ALT 20 Alkaline Phosphatase 32 L Total Protein 6.3 L Albumin 3.7 Globulin 2.6 Albumin/Globulin Ratio 1.4 Lipase 32 Urine Color YELLOW Urine Clarity CLEAR Urine pH 5.5 Ur Specific [place] 1.010 Urine Protein NEGATIVE Urine Glucose (UA) NEGATIVE Urine Ketones 15 H Urine Occult Blood TRACE-INTA Urine Nitrite NEGATIVE Urine Bilirubin NEGATIVE Urine Urobilinogen 0.2 (NORMAL) Ur Leukocyte Esterase NEGATIVE Ur Microscopic Review NOT INDICATED Urine Culture Comments NOT INDICATED PD MEDICAL DECISION MAKING - ED course Complexity details: re-evaluated patient, d/w patient, d/w family ED course: 89 YEAR OLD MALE WITH RECENTLY ADMISSION FOR SMALL BOWEL OBSTRUCTION AND WAS JUST DISCHARGED TODAY, RETURNED TO THE EMERGENCY DEPARTMENT WITH RECURRENT ABDOMINAL PAIN. LABS WERE REVIEWED. WBC WAS NORMAL. MILD ANEMIA NOTED AND PATIENT WAS NOT SHOWING SIGNS OF BLEEDING AT THIS TIME. UA WAS NOT CONSISTENT WITH UTI. CT ABD/ PELVIS WAS REPEATED AND THERE WAS BOWEL DILATATION AND CONTRAST WAS SEEN THROUGHOUT THE COLON. PATIENT HAD 2 BOWEL MOVEMENTS HERE IN THE EMERGENCY DEPARTMENT. THE FIRST ONE WAS PEBBLE LIKE FORMED STOOLS. HE SUBSEQUENTLY HAD ANOTHER BOWEL MOVEMENT WHICH WAS BROWN AND WATERY. OVERALL, HIS PAIN HAS IMPROVED. HE TOLERATED WATER WITHOUT VOMITING OR WORSENING ABDOMINAL PAIN. CLINICALLY, PATIENT IS NOT OBSTRUCTED AT THIS TIME. HE HAD TWO BOWEL MOVEMENTS WHICH IMPROVED HIS ABDOMINAL PAIN. RE-EXAMINATION SHOWED NO ABDOMINAL DISTENTION, TENDERNESS, REBOUND OR GUARDING. BOWEL SOUNDS WERE PRESENT. HE CAN BE DISCHARGED AND CLOSE OUTPATIENT FOLLOW UP WITH PCP. I RECOMMENDED TO CONTINUE TO CLEAR LIQUID DIET IN THE NEXT 3 DAYS TO ENSURE RESOLUTION OF SYMPTOMS. STRICT RETURN INSTRUCTIONS WERE GIVEN. PATIENT AND DAUGHTER EXPRESSED VERBAL UNDERSTANDING. HE WAS DISCHARGED IN IMPROVED CONIDITION. Departure - Departure Disposition: 01 Home, Self Care Clinical Impression: Abdominal pain, History of small bowel obstruction, Liver lesion, left lobe Condition: Stable Instructions: Abdominal Pain, ED Diet Clear Liquid Follow-Up: Anuj Umaña MD [Primary Care Provider] - Within 3 Days Comments: PLEASE CONTINUE WITH CLEAR LIQUID DIET FOR THE NEXT 3 DAYS OR UNTIL YOU ARE 100% BETTER. PLEASE RETURN TO THE EMERGENCY DEPARTMENT IF SYMPTOMS RETURN, WORSEN, FEVER OF 100.4 OR GREATER DEVELOP OR ANY NEW OR CONCERNING SYMPTOMS DEVELOP. PLEASE FOLLOW UP WITH YOUR DOCTOR IN 3 DAYS. Discharge Date/Time: 01/12/20 02:44
[2020-01-12 02:33] VITALS: BP 127/54
== END 2020-01-12 02:44 | disposition home or self-care (01) ==
LOC: ED 22:16
DX: R10.9 Unspecified abdominal pain (principal); K76.9 Liver disease, unspecified; Z87.19 Personal history of other diseases of the digestive system; D64.9 Anemia, unspecified; I10 Essential (primary) hypertension; E78.5 Hyperlipidemia, unspecified; E11.9 Type 2 diabetes mellitus without complications; Z79.84 Long term (current) use of oral hypoglycemic drugs; Z79.82 Long term (current) use of aspirin
CPT/HCPCS: 36415; 74177; 80053; 81003; 83690; 85025; 96360; 99284; Q9967; 81001; 87086

== ENCOUNTER 2021-04-02 07:40 | Outpatient (CLI) | payer MEDICARE, OTHER ==
[2021-04-02 07:59] LABS: BASOPHILS % (AUTO) 0.6 %; EOSINOPHILS # (AUTO) 0.1 10^3/uL (0.0-0.7); EOSINOPHILS % (AUTO) 2.6 %; HGB - HEMOGLOBIN 12.9 g/dL (14.0-18.0); LYMPHOCYTES # (AUTO) 1.7 10^3/uL (1.5-3.5); LYMPHOCYTES % (AUTO) 30.4 %; MEAN CORPUSCULAR HGB CONC 33.1 g/dL (32.0-36.0); MEAN CORPUSCULAR VOLUME 99.7 fL (80.0-94.0); MEAN PLATELET VOLUME 10.5 fL (7.4-11.4); MONOCYTES # (AUTO) 0.7 10^3/uL (0.0-1.0); NEUTROPHILS # (AUTO) 2.9 10^3/uL (1.5-6.6); PLT - PLATELET COUNT 207 10^3/uL (130-450); RED BLOOD COUNT 3.91 10^6/uL (4.70-6.10); RED CELL DISTRIBUTION WIDTH 13.2 % (12.0-15.0); WHITE BLOOD COUNT 5.4 x10^3/uL (4.8-10.8)
[2021-04-02 08:18] LABS: ALBUMIN 4.2 g/dL (3.2-5.5); ALBUMIN/GLOBULIN RATIO 1.6 (1.0-2.2); ALKALINE PHOSPHATASE 41 IU/L (42-121); ALT ALANINE AMINOTRANSFERASE 15 IU/L (10-60); AMYLASE 54 U/L (28-100); AST ASPARTATE AMINOTRANSFERASE 17 IU/L (10-42); BILIRUBIN,TOTAL 0.8 mg/dL (0.2-1.0); BUN - BLOOD UREA NITROGEN 16 mg/dL (6-20); CALCIUM 9.2 mg/dL (8.5-10.3); CARBON DIOXIDE - CO2 28 mmol/L (21-32); CHLORIDE 104 mmol/L (101-111); CHOL/HDL RATIO 2.1 (<5.0); CHOLESTEROL 130 mg/dL; CREATININE 0.9 mg/dL (0.6-1.2); GFR - MDRD 79 (>89); GLUCOSE 125 mg/dL (70-100); HDL CHOLESTEROL 61 mg/dL; LDL CHOLESTEROL,CALCULATED 60 mg/dL; POTASSIUM 4.3 mmol/L (3.5-5.0); SODIUM 140 mmol/L (135-145); TOTAL PROTEIN 6.8 g/dL (6.7-8.2); TRIGLYCERIDES 44 mg/dL; VLDL CHOLESTEROL 9 mg/dL
[2021-04-02 12:59] LABS: ESTIMATED AVERAGE GLUCOSE 166 mg/dL (70-100); HEMOGLOBIN A1c% 7.4 % (4.27-6.07)
== END 2021-04-02 07:41 | disposition home or self-care (01) ==
LOC: LAB 07:40
PROVIDERS: ATTEND Internal Medicine
DX: E11.9 Type 2 diabetes mellitus without complications (principal); I10 Essential (primary) hypertension; E78.5 Hyperlipidemia, unspecified; I35.0 Nonrheumatic aortic (valve) stenosis; I73.9 Peripheral vascular disease, unspecified
CPT/HCPCS: 36415; 80053; 80061; 82150; 83036; 83721; 84443; 85025

== ENCOUNTER 2021-04-18 11:07 | Outpatient (CLI) | payer MEDICARE, OTHER ==
[2021-04-18] MEDS ORDERED: IOVERSOL 320 100 ML VIAL IVP ONE ×2 (11:14→13:14)
[2021-04-18] MEDS ORDERED: IOPAMIDOL-300 50 ML VIAL ONE (11:14)
[2021-04-18] MEDS ORDERED: IOPAMIDOL-300 50 ML VIAL PO ONE (13:14)
--- NOTE | 2021-04-18 17:43 | CT Report ---
PROCEDURE: Abdomen/Pelvis W INDICATIONS: Gastrointestinal disorder CONTRAST: IV CONTRAST: Optiray 320 ml: 100 PO CONTRAST: Isovue 300 ml50 TECHNIQUE: After the administration of intravenous contrast, 5 mm thick sections acquired from the diaphragms to the symphysis. 5 mm thick coronal and sagittal reformats were acquired. For radiation dose reducti on, the following was used: automated exposure control, adjustment of mA and/or kV according to elisa ent size. COMPARISON: None. FINDINGS: Image quality: Excellent. ABDOMEN: Lung bases: Mild bibasilar atelectasis. Liver: There are a total of 3 new liver lesions which were not present on the 01/12/2020 examination. One of these measures approximately 1.9 cm and the right hepatic dome on series 3 image 17. Another i s in the lateral aspect of the right hepatic lobe on series 3 image 21 measuring 1.3 cm. Finally, the re is a hyperenhancing/hyperdense lesion in the inferior right hepatic lobe on series 3 image 32 gwen uring approximately 9 mm. There is a peripherally enhancing lesion in the left hepatic dome on series 3 image 11 which was present on the prior study and most likely represents a hemangioma. The other l esions are indeterminate and because they are new are suspicious for malignancy, specifically metasta tic disease in the context of the suspicious sigmoid wall thickening and suspected regional lymphaden opathy (both described below). Remaining solid abdominal visceral structures: No acute finding of the spleen or pancreas. The gallbl adder is within normal limits. No definite adrenal gland mass, though there is some adrenal form thic kening on the left. No suspicious renal mass, hydronephrosis, or hydroureter. Peritoneum and bowel: An area of eccentric wall thickening in the distal sigmoid colon on series 3 im age 70 measuring up to 1.8 cm is suspicious for malignancy. There is a large volume of formed stool t hroughout the colon. There is no abnormally dilated or obviously thickened loop of bowel otherwise. T here are bilateral inguinal hernias, larger on the right and containing a small short knuckle of larg e bowel along with some omental fat. Nodes and vessels: No retroperitoneal or mesenteric adenopathy by size criteria. Aorta and inferior vena cava are normal in size. Miscellaneous: No ventral hernias. PELVIS: Genitourinary: Markedly enlarged prostate. Urinary bladder is within normal limits. Miscellaneous: There are several suspicious lymph nodes adjacent to the distal sigmoid and proximal r ectum as well as in the left pelvic sidewall. These are not abnormally or threshold enlarged however they are definitely asymmetrically enlarged when compared with nodes in the same stations on the righ t, and a lack a definite fatty hilum. Bones: No suspicious bony lesions. No vertebral body compression fractures. IMPRESSION: Suspicious eccentric wall thickening in the sigmoid colon, concerning for adenocarcinoma or other mal ignancy. Regional pathologic appearing but not threshold enlarged lymph nodes, suspicious for emmanuel metastatic disease. New liver lesions, suspicious for metastatic lesions in the context of the sigmoid mass. If clinically feasible, sigmoidoscopy and colonoscopy is recommended for direct evaluation and visual ization of the sigmoid mass. The liver lesions can further be evaluated with via hepatic protocol MRI. Reviewed by: Chan Root MD on 04/18/2021 5:41 PM PDT Approved by: Chan Root MD on 04/18/2021 5:41 PM PDT Station ID: [id number]
== END 2021-04-18 11:08 | disposition home or self-care (01) ==
LOC: DI 11:07
PROVIDERS: ATTEND Internal Medicine
DX: R59.0 Localized enlarged lymph nodes (principal); R93.2 Abnormal findings on diagnostic imaging of liver and biliary tract; R19.09 Other intra-abdominal and pelvic swelling, mass and lump; A08.39 Other viral enteritis
CPT/HCPCS: 36415; 74177; 82378; 84520; Q9967

== ENCOUNTER 2021-05-14 06:45 | Inpatient (IN) | payer MEDICARE, OTHER ==
[2021-05-14] MEDS ORDERED: LACTATED RINGERS 1,000 ML IV ONE ×3 (06:53→10:31)
[2021-05-14] MEDS ORDERED: MIDAZOLAM 2 MG/2 ML VIAL ONE ×2 (09:32)
[2021-05-14] MEDS ORDERED: fentaNYL 250 MCG/5 ML VIAL ONE (09:32)
--- NOTE | 2021-05-14 11:36 | PHARMACY PROGRESS NOTE ---
- Best Possible Medication History Admit Date and Time: 05/14/21 1050 Processed by: Nursing Medication History completed: Yes As the person ultimately responsible for medication therapy, providers are able to order a medication from an existing home medication list in [facility] via the "Reconcile Routine" prior to Confirmation of that medication by administrative support clerk. Such practice is discouraged except when the physician, in their clinical judgment, deems that a medical need exists for a medication without regard to previous use.
[2021-05-14] MEDS: PANTOPRAZOLE 40 MG VIAL IVP SCH (11:51)
[2021-05-14] MEDS: SODIUM CHLORIDE 0.9% 1,000 ML IV SCH (11:53)
[2021-05-14] MEDS: INSULIN ASPART 300 UNIT/3 ML PEN SUBQ SCH ×3 (11:55→20:15)
[2021-05-14] MEDS: SODIUM CHLORIDE FLUSH 0.9% 10 ML SYRINGE IVP SCH (17:01)
[2021-05-14 18:39] LABS: B. PARAPERTUSSIS- RESP PCR PAN NOT DETECTED; B. PERTUSSIS- RESP PCR PANEL NOT DETECTED; C. PNEUMONIAE- RESP PCR PANEL NOT DETECTED; CORONAVIRUS 229E-RESP PCR NOT DETECTED; CORONAVIRUS HKU1-RESP PCR NOT DETECTED; CORONAVIRUS NL63-RESP PCR NOT DETECTED; CORONAVIRUS OC43-RESP PCR NOT DETECTED; HUMAN METAPNEUMOVIRUS NOT DETECTED; INFLUENZA A- RESP PCR PANEL NOT DETECTED; INFLUENZA B - RESP PCR PANEL NOT DETECTED; M. PNEUMONIAE- RESP PCR PANEL NOT DETECTED; PARAINFLUENZA VIRUS 1 NOT DETECTED; PARAINFLUENZA VIRUS 2 NOT DETECTED; PARAINFLUENZA VIRUS 3 NOT DETECTED; PARAINFLUENZA VIRUS 4 NOT DETECTED; RHINOVIRUS/ENTEROVIRUS NOT DETECTED; RSV- RESP PCR PANEL NOT DETECTED; SARS-CoV-2 -RESP PCR PANEL NOT DETECTED
[2021-05-14] MEDS: DOXAZOSIN 4 MG TABLET PO SCH (20:12)
[2021-05-14] MEDS: ATORVASTATIN 40 MG TABLET PO SCH (20:12)
[2021-05-15] MEDS: SODIUM CHLORIDE 0.9% 1,000 ML IV SCH (00:09)
[2021-05-15] MEDS: SODIUM CHLORIDE FLUSH 0.9% 10 ML SYRINGE IVP SCH ×3 (00:09→17:01)
[2021-05-15 05:38] LABS: INR 1.2 (0.8-1.2); PT - PROTHROMBIN TIME 13.6 secs (9.9-12.6)
[2021-05-15 05:39] LABS: BASOPHILS % (AUTO) 0.6 %; EOSINOPHILS # (AUTO) 0.1 10^3/uL (0.0-0.7); EOSINOPHILS % (AUTO) 1.7 %; HCT - HEMATOCRIT 35.4 % (42.0-52.0); HGB - HEMOGLOBIN 11.9 g/dL (14.0-18.0); LYMPHOCYTES % (AUTO) 15.5 %; MEAN CORPUSCULAR HEMOGLOBIN 32.4 pg (27.0-31.0); MEAN CORPUSCULAR HGB CONC 33.6 g/dL (32.0-36.0); MEAN CORPUSCULAR VOLUME 96.5 fL (80.0-94.0); MEAN PLATELET VOLUME 10.5 fL (7.4-11.4); MONOCYTES # (AUTO) 0.7 10^3/uL (0.0-1.0); MONOCYTES % (AUTO) 11.4 %; NEUTROPHILS # (AUTO) 4.6 10^3/uL (1.5-6.6); NEUTROPHILS % (AUTO) 70.6 %; PLT - PLATELET COUNT 243 10^3/uL (130-450); RED BLOOD COUNT 3.67 10^6/uL (4.70-6.10); RED CELL DISTRIBUTION WIDTH 13.1 % (12.0-15.0); WHITE BLOOD COUNT 6.5 x10^3/uL (4.8-10.8)
[2021-05-15 05:43] LABS: ALBUMIN 3.2 g/dL (3.2-5.5); ALBUMIN/GLOBULIN RATIO 1.6 (1.0-2.2); BILIRUBIN,TOTAL 1.2 mg/dL (0.2-1.0); CALCIUM 7.9 mg/dL (8.5-10.3); CREATININE 0.7 mg/dL (0.6-1.2); POTASSIUM 3.6 mmol/L (3.5-5.0); TOTAL PROTEIN 5.2 g/dL (6.7-8.2)
[2021-05-15] MEDS: PANTOPRAZOLE 40 MG VIAL IVP SCH (06:27)
[2021-05-15] MEDS: INSULIN ASPART 300 UNIT/3 ML PEN SUBQ SCH ×4 (07:41→20:54)
[2021-05-15] MEDS: ENOXAPARIN 40 MG/0.4 ML SYRINGE SUBQ SCH (07:48)
[2021-05-15] MEDS: lisinopriL 5 MG TABLET PO SCH (08:15)
[2021-05-15] MEDS ORDERED: LIDOCAINE-MPF 0.5% 50 ML VIAL ONE (10:00)
[2021-05-15] MEDS ORDERED: fentaNYL 100 MCG/2 ML VIAL ONE ×2 (10:08→13:51)
[2021-05-15] MEDS ORDERED: MIDAZOLAM 2 MG/2 ML VIAL ONE (10:08)
[2021-05-15] MEDS ORDERED: PROPOFOL 200 MG/20 ML VIAL IVP ONE (10:09)
[2021-05-15] MEDS ORDERED: KETAMINE 500 MG/10 ML VIAL ONE (10:09)
[2021-05-15] MEDS ORDERED: CIPROFLOXACIN 400 MG/200 ML 400 MG/200 ML BAG IV ONE (10:40)
[2021-05-15] MEDS ORDERED: metroNIDAZOLE 500 MG/100 ML 500 MG/100 ML BAG ONE (10:40)
--- NOTE | 2021-05-15 10:43 | ANESTHESIA ---
Pre-Anesthesia VS, & Labs - Diagnosis colon mass - Procedure colostomy Vital Signs: Temp Pulse Resp BP Pulse Ox 36.6 C 55 L 18 135/44 H 95 05/15/21 07:37 05/15/21 07:37 05/15/21 07:37 05/15/21 07:37 05/15/21 07:37 Height: 6 ft Weight (kg): 64 kg Body Mass Index: 19.1 BMI Classification: Healthy weight - NPO >8 hours - Lab Results Current Lab Results: Laboratory Tests 05/15/21 07:36: POC Whole Bld Glucose 109 H 05/15/21 04:55: Sodium 138, Potassium 3.6, Chloride 102, Carbon Dioxide 26, Anion Gap 10.0, BUN 10, Creatinine 0.7, Estimated GFR (MDRD) 106, Glucose 102 H, Calcium 7.9 L, Total Bilirubin 1.2 H, AST 14, ALT 12, Alkaline Phosphatase 37 L, Total Protein 5.2 L, Albumin 3.2, Globulin 2.0 L, Albumin/Globulin Ratio 1.6 05/15/21 04:55: PT 13.6 H, INR 1.2 05/15/21 04:55: WBC 6.5, RBC 3.67 L, Hgb 11.9 L, Hct 35.4 L, MCV 96.5 H, MCH 32.4 H, MCHC 33.6, RDW 13.1, Plt Count 243, MPV 10.5, Neut # (Auto) 4.6, Lymph # (Auto) 1.0 L, [place] # (Auto) 0.7, Eos # (Auto) 0.1, Baso # (Auto) 0.0, Absolute Nucleated RBC 0.00, Nucleated RBC % 0.0 05/14/21 20:14: POC Whole Bld Glucose 151 H 05/14/21 16:52: POC Whole Bld Glucose 166 H 05/14/21 11:43: POC Whole Bld Glucose 76 05/14/21 07:14: POC Whole Bld Glucose 124 H Fish Bones: 05/15/21 04:55 05/15/21 04:55 Home Medications and Allergies Home Medications: Ambulatory Orders metFORMIN [Glucophage] 250 mg PO BIDWM 05/13/21 Active Medications Atorvastatin Calcium (Atorvastatin 40 Mg Tablet) 40 mg PO QPM [facility] Last Admin: 05/14/21 20:12 Dose: 40 mg Documented by: Doxazosin Mesylate (Doxazosin 4 Mg Tablet) 8 mg PO QPM [facility] Last Admin: 05/14/21 20:12 Dose: 8 mg Documented by: Enoxaparin Sodium (Enoxaparin 40 Mg/0.4 Ml Syringe) 40 mg SUBQ DAILY [facility] Last Admin: 05/15/21 07:48 Dose: Not Given Documented by: Sodium Chloride (Normal Saline 0.9%) 1,000 mls @ 75 mls/hr IV .[id number] [facility] Last Admin: 05/15/21 00:09 Dose: 75 mls/hr Documented by: Insulin Aspart (Insulin Aspart 300 Unit/3 Ml Pen) 1 - 9 unit SUBQ 0800,1200,1700,2100 [facility]; Protocol Last Admin: 05/15/21 07:41 Dose: Not Given Documented by: Lisinopril (Lisinopril 5 Mg Tablet) 10 mg PO DAILY [facility] Last Admin: 05/15/21 08:15 Dose: 10 mg Documented by: Pantoprazole Sodium (Pantoprazole 40 Mg Vial) 40 mg IVP QDAC [facility] Last Admin: 05/15/21 06:27 Dose: 40 mg Documented by: Sodium Chloride (Sodium Chloride Flush 0.9% 10 Ml Syringe) 10 ml IVP 0100,0900,1700 [facility] Last Admin: 05/15/21 08:15 Dose: Not Given Documented by: Sodium Chloride (Sodium Chloride Flush 0.9% 10 Ml Syringe) 10 ml IVP PRN PRN PRN Reason: NEEDED PER PROVIDER ORDERS Aspirin [Adult Low Dose Aspirin EC] 81 mg PO DAILY 01/10/20 Doxazosin Mesylate 8 mg PO DAILY 01/10/20 Multivit-Min/FA/Lycopen/Lutein [Centrum Silver Men Tablet] 1 each PO DAILY 01/10/20 Rosuvastatin Calcium 20 mg PO DAILY 01/10/20 metFORMIN [Glucophage] 250 mg PO BIDWM 05/13/21 Allergies/Adverse Reactions: Allergies Allergy/AdvReac Type Severity Reaction Status Date / Time No Known Drug Allergies Allergy Verified 05/13/21 13:20 Anes History & Medical History - Anesthetic History Anesthesia Complications: reports: No previous complications Family history of Anesthesia Complications: Denies Family history of Malignant Hyperthermia: Denies - Medical History Cardiovascular: reports: Hypertension, High cholesterol, Murmur Pulmonary: reports: Other Gastrointestinal: reports: GERD, Diverticulitis Urinary: reports: Benign prostate hypertrophy, Retention, Nocturia, Frequency Neuro: reports: None Musculoskeletal: reports: None Endocrine/Autoimmune: reports: Type 2 diabetes Skin: reports: None Smoking Status: Never smoker - Surgical History General: reports: Other Eyes Ears Nose Throat (EENT): reports: Cataracts, Tonsil/Adenoidectomy Dermatologic: reports: Other Exam General: Alert, Oriented x3, Cooperative Dental: Dentures full Upper, Dentures full Lower Mouth Openin Fingerbreadth Neck Mobility: Normal Mallampati classification: I Thyromental Distance: 4-6 cm Respiratory: Lungs clear Cardiovascular: Regular rate Plan Anesthesia Type: General, Transverse Abdominis Plane (TAP) Block Regional Block: Per Surgeon's request for Post Op pain control Consent for Procedure(s) Verified and Reviewed: Yes Code Status: Attempt Resuscitation ASA classification: 2-Mild systemic disease Is this case an emergency?: No
--- NOTE | 2021-05-15 12:34 | SURGERY HX AND PHYSICAL(T) ---
Surgical History & Physical - Chief Complaint/HPI Chief Complaint: Obstructing colon cancer History of Present Illness: 89-year-old male presenting for obstructing sigmoid lesion. Recent development of nausea vomiting and findings concerning for small bowel obstruction. CT at the time of that hospital admission revealed left hepatic node lesion. Unintended weight loss. Colonoscopy the day prior with sigmoid mass not traversable. Questionable history of colon cancer in his father family history. Notable past surgical history to include no prior. Patient denies change in bowel function, denies bleeding per rectum, and also denies reflux associated symptoms. Patient does not use tobacco. Patient has a history of alcohol use but denies any associated abuse. No history of heart attack or stroke. Patient takes no systemic anticoagulation. Endoscopic history includes colonoscopy this week. 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 Urinary: Benign prostate hypertrophy, Retention, Nocturia, Frequency Musculoskeletal: None Psychiatric: None General: Other Eyes Ears Nose Throat (EENT): Cataracts, Tonsil/Adenoidectomy Dermatologic: Other Smoking Status: Never smoker Does the pt drink ETOH?: Yes Frequency: Daily Number: 1 Amount/day: Glasses/day Does the pt have substance abuse?: No - Home Meds and Allergies Home Medications: Aspirin [Adult Low Dose Aspirin EC] 81 mg PO DAILY 01/10/20 Doxazosin Mesylate 8 mg PO DAILY 01/10/20 Multivit-Min/FA/Lycopen/Lutein [Centrum Silver Men Tablet] 1 each PO DAILY 01/10/20 Rosuvastatin Calcium 20 mg PO DAILY 01/10/20 metFORMIN [Glucophage] 250 mg PO BIDWM 05/13/21 Allergies/Adverse Reactions: Allergies Allergy/AdvReac Type Severity Reaction Status Date / Time No Known Drug Allergies Allergy Verified 05/13/21 13:20 - Review of Systems Constitutional: Fatigue, Weakness Gastrointestinal: Nausea, Vomiting - Vital Signs Heart Rate: 49 Blood Pressure: 143/50 Temperature: 36.6 C Respiratory Rate: 18 O2 Saturation: 95 Weight (kg): 64 kg Height: 1.83 m - Physical Exam Comments/Other: General Appearance: positive: No acute distress Eyes Bilateral: positive: Normal inspection ENT: positive: ENT inspection nml Neck: positive: Nml inspection Respiratory: positive: Chest non-tender, No respiratory distress, Breath sounds nml. negative: Wheezes, Rales, Rhonchi Cardiovascular: positive: Regular rate & rhythm Abdomen: positive: No distention, Other. negative: Guarding, Rebound Extremities: positive: Non-tender, Full ROM, Nml appearance Neurologic/Psychiatric: positive: Oriented x3, CN's nml (2-12) - Patient Review Patient Review: Problems were reviewed with the patient during this visit. Medications were reviewed with the patient during this visit. Allergies were reviewed this patient during this visit. Pertinent Tests Reviewed: All pertitent test for this patient were reviewed. 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 Endoscopically not traversable. Discussed options and this case was referred to me by Dr. Fiona Hernández who performed the colonoscopy. We will proceed with laparoscopic loop colostomy. Defer Mediport placement at this time. Intraoperative core needle biopsy to evaluate for metastatic disease. Palliative intent. Patient was advised of risks as a relates to colectomy including but not limited to, anastomotic leak, injury to local structures including the ureter and nerves, potential for proximal diversion including loop ileostomy, possible conversion to open intervention, need for additional surgeries, as well as the development of postoperative surgical site hernias and infection. Moreover, there were the anesthesia and operative risks of heart attack, stroke, . Please note that voice recognition software was used to transcribe this note and inadvertent errors might persist in spite of review and editing. I am obliged to you for your attention. I am thankful to you for allowing me to participate with you in this care of this patient.
[2021-05-15] MEDS ORDERED: ePHEDrine 50 MG/ML VIAL IVP ONE (13:00)
[2021-05-15] MEDS ORDERED: ROPIVACAINE 0.5% PF 20 ML AMPULE ONE (13:50)
[2021-05-15] MEDS ORDERED: SODIUM CHLORIDE 0.9% 10 ML VIAL IVP ONE ×2 (13:51→14:40)
[2021-05-15] MEDS ORDERED: DEXAMETHASONE 4 MG/ML VIAL ONE ×2 (13:51→14:40)
[2021-05-15] MEDS ORDERED: SUGAMMADEX 200 MG/2 ML VIAL IVP ONE (14:38)
[2021-05-15] MEDS ORDERED: ONDANSETRON 4 MG/2 ML VIAL ONE (15:17)
[2021-05-15] MEDS ORDERED: oxyCODONE 5 MG TABLET PO PRN (15:31)
[2021-05-15] MEDS ORDERED: ONDANSETRON 4 MG/2 ML VIAL IVP PRN ×2 (15:31→15:55)
[2021-05-15] MEDS ORDERED: LACTATED RINGERS 1,000 ML IV ONE (15:37)
--- NOTE | 2021-05-15 15:44 | OPERATIVE REPORT ---
Operative Report - General Admit Date: 05/14/21 Procedure Date: 05/15/21 Planned Procedure: 1. Diagnostic laparoscopy 2. Laparoscopic-assisted loop colostomy 3. Laparoscopic assisted possible core biopsies 4. Laparoscopic assisted peritoneal washings and aspiration 5. Other indicated procedures Pre-Op Diagnosis: Obstructing sigmoid colonic mass; likely metastatic disease hepatic mets Procedure Performed: 1. Diagnostic laparoscopy 2. Laparoscopic-assisted loop colostomy 3. Laparoscopic assisted Left lobe of liver core biopsies 4. Laparoscopic assisted peritoneal washings and aspiration 5. Transversus abdominis plane block per anesthesia 6. Open umbilical hernia repair Post Op Diagnosis: Same; umbilical hernia; liver mass biopsied; viable loop colostomy - Procedure Note Primary Surgeon: Jesus Secondary Surgeon: Libby Anesthesia Provider: Della Anesthesia Technique: General ET tube, Local, Regional block Pathology: 1. Left liver lobe biopsies multiple 2. Peritoneal washings and aspirate Estimated Blood Loss (mL): 20 Drain/Tube Type: Other (Stoma bolster) Indications: See EMR Findings: 1. Umbilical hernia performed for repair 2. Sparse adhesions lysed 3. Left hepatic lobe mass biopsied 4. No diffuse peritoneal studding or omental caking 5. Fiber loop colostomy 6. Obvious distal sigmoid/rectosigmoid mass with tattoo 7. Viable colostomy, loop over bolster Complications: None - Other Other Information/Narrative: Procedure report: The patient was taken to the operating room, placed supine on the operating table. Informed consent was confirmed. The patient was placed for bilateral lower extremity serial compression devices and thereafter induced for general endotracheal anesthesia. The patient at this time was placed in lithotomy with Fernando stirrups with all pressure points offloaded and padded. The patient had already been placed for a Hernadez catheter. Abdomen was prepped and draped in the usual sterile fashion. A time-out was called and agreed to by all in the room. We planned to proceed as follows: 1. Diagnostic laparoscopy 2. Laparoscopic-assisted loop colostomy 3. Laparoscopic assisted liver biopsy 4. Laparoscopic adhesiolysis 5. Laparoscopic assisted abdominal washings with aspirate 6. Open umbilical hernia repair Diagnostic laparoscopy was performed through an open Nayana technique with a 10 mm trocar through the umbilicus which was achieved by incising sharply, dividing down through the fascia using Bovie electrocautery, elevating fascia, dividing the peritoneum, and entering sharply without any noted injury. A [facility] umbilical hernia was noted for which the defect was enlarged in order to accommodate the Chun trocar. This was plan to be close at the conclusion of the case. Nayana trocar was inserted. Abdomen was insufflated without any complication. A laparoscope was thereafter placed, and the abdomen was examined. There were minimal adhesions. There were no areas of gross peritoneal studding or omental metastatic disease. We proceeded with peritoneal lavage and aspirate for cytology. This was performed laparoscopically after additional trochars were placed as follows: 1. Suprapubic 5 mm trocar 2. Right lower quadrant 5 mm trocar 3. Right upper quadrant 5 mm trocar These were performed under direct vision with laparoscopic guidance. Once these 2 ports were placed, the patient was placed in steep Trendelenburg with left side up, and the small bowel was reflected into the right upper quadrant. Once additional trochars were placed we performed laparoscopic adhesiolysis. Case began with adhesiolysis as follows: Trochars were sequentially placed towards affording appropriate abdominal access for laparoscopic and ultimately laparoscopic adhesiolysis and enterolysis. This was performed in such a way as to maximize exposure and minimize abdominal trauma. We clearly visualized, after appropriate and lengthy laparoscopic adhesiolysis, each trocar placement. Thereafter once appropriate and safe exposure was achieved without any inadvertent injuries or other complicating factors, we proceeded in such a way as to take down the patient's intra-abdominal adhesions using sharp laparoscopic dissection, diligent electrocautery, and appropriate countertraction. Please note for multiple reasons as listed above under brief procedural findings, this patient was best suited to minimal access adhesiolysis towards avoiding open intervention, reducing the associated risks thereof, maximizing recovery, minimizing postoperative morbidity and associated stigmata, and enhancing the patient's convalescence towards assuring safe and expeditious ushering of patient into the next step of therapeutic intervention which was crucial in overall plan of care. This proceeded without any untoward complications, and without any inadvertent injuries or other adverse effect events. Please note a great amount of time was spent deciding how to proceed appropriately in this patient's unique case. In the setting of radiographic concerns for metastatic disease, obstructing cancer, advanced age, performing any oncologic resection would be futile and could potentially delay the possibility for consideration of palliative chemotherapy. Thus laparoscopic loop colostomy was the optimal choice. The patient could be considered for transfer for endoluminal stenting however given the size of the tumor and the need for hepatic biopsies this appeared the best of all possible options given the opportunity to endoscopically stage this patient as well. Sigmoid colon at this time was elevated, and the white line of Toldt was divided laparoscopically using laparoscopic norris with cautery. This was performed all of the way through to the splenic flexure. This afforded adequate mobilization of the left colon, and at this time, the patient was felt appropriate to proceed with diverting colostomy. There was no attempt at dividing any mesentery and the plan was to perform a diverting loop descending colostomy. Before completing the colostomy we proceeded with laparoscopic assisted hepatic biopsy. There was in a area over the left lobe of the liver that was concerning for abnormality. This was plan for localized core needle biopsy. A final trocar was placed in the epigastrium for access. Under direct laparoscopic vision several passes was made with the laparoscopic core needle biopsy device through the trocar to avoid any seeding of the skin and subcutaneous fat. These were 2 passes and sent for permanent pathology. Hemostasis was achieved with Bovie electrocautery. Through a stoma marking performed preoperatively by me and which consequently was scored prior to abdominal prepping, an ultimate trephine of skin was excised and discarded. This was, thereafter, divided for its subcutaneous fat using Bovie electrocautery. Once the fascia was encountered, this was divided with electrocautery as well. The rectus muscle was using Meghan clamps, and the underlying peritoneum was elevated using hemostats. This was ultimately divided, and thereafter, pneumoperitoneum was discontinued. An small Adam wound ring was placed through the stoma site, and the sigmoid colon was thereafter and passed through the Adam ring using a Zenon. Please note that the colon was already oriented with a laparoscopic clip cooperage shop supervisor to assure efferent and afferent loops were identified for appropriate brooking. The red rubber catheter was used as a bolster. The proximal end was able to be adequately prolapsed without excess tension or torsion, and it was felt appropriate to proceed with colostomy maturation. With this completed, the trocar sites thereafter were appropriately closed with the umbilical trocar reapproximated with multiple [id number] of 0 Vicryl, in the manner of an umbilical hernia repair. Umbilical plasty was performed also. Skin was reapproximated after irrigation with skin staplers. The 5 mm trocar sites were similarly reapproximated with a skin stapler as well. The Adam wound ring was divided and thereafter removed. With Babcocks in place along the colon, it was partially divided and thereafter sutured to the deep dermis through the associated tenia as part of colostomy maturation. This was performed circumferentially as we slowly continued to divide the colon and ultimately circumferentially mature this colostomy to its mucocutaneous junction, again, assuring full-thickness bites and involving the deep dermal layer at the cutaneous aspect. This was performed in a Lin fashion. With the mucocutaneous junction created and efferent limb of the stoma patent, we proceeded to place a stoma appliance, with the stoma pink and viable. Patient tolerated procedure well which is no complication. All counts for sponges, needles and instruments were correct conclusion of the case. I was present for the entirety of this operative intervention. No complications. Patient was taken to postanesthesia care unit in stable condition. Please note that voice recognition software was used to transcribe this note and inadvertent errors might persist in spite of review and editing. I am obliged to you for your attention. I am thankful to you for allowing me to participate with you in this care of this patient.
[2021-05-15] MEDS ORDERED: fentaNYL 100 MCG/2 ML VIAL IVP PRN (15:55)
[2021-05-15] MEDS ORDERED: ATROPINE ABBOJECT 1 MG/10 ML SYRINGE IVP PRN (15:55)
[2021-05-15] MEDS ORDERED: HYDROmorphone 0.5 MG/0.5 ML SYRINGE IVP PRN (15:55)
[2021-05-15] MEDS ORDERED: NALOXONE 0.4 MG/ML VIAL IVP PRN (15:55)
[2021-05-15] MEDS ORDERED: METOCLOPRAMIDE 10 MG/2 ML VIAL IVP PRN (15:55)
[2021-05-15] MEDS ORDERED: ePHEDrine 50 MG/ML VIAL IVP PRN (15:55)
[2021-05-15] MEDS ORDERED: MORPHINE 2 MG/ML CARPUJECT IVP PRN (15:55)
[2021-05-15] MEDS ORDERED: LACTATED RINGERS 1,000 ML IV SCH (16:00)
--- NOTE | 2021-05-15 16:00 | PROVIDER PROGRESS NOTE ---
Progress Note BRIEF Operative Report - General Admit Date: 05/14/21 Procedure Date: 05/15/21 Planned Procedure: 1. Diagnostic laparoscopy 2. Laparoscopic-assisted loop colostomy 3. Laparoscopic assisted possible core biopsies 4. Laparoscopic assisted peritoneal washings and aspiration 5. Other indicated procedures Pre-Op Diagnosis: Obstructing sigmoid colonic mass; likely metastatic disease hepatic mets Procedure Performed: 1. Diagnostic laparoscopy 2. Laparoscopic-assisted loop colostomy 3. Laparoscopic assisted Left lobe of liver core biopsies 4. Laparoscopic assisted peritoneal washings and aspiration 5. Transversus abdominis plane block per anesthesia 6. Open umbilical hernia repair - Procedure Note Primary Surgeon: Jesus Secondary Surgeon: Libby Anesthesia Provider: Della Anesthesia Technique: General ET tube, Local, Regional block Pathology: 1. Left liver lobe biopsies multiple 2. Peritoneal washings and aspirate Estimated Blood Loss (mL): 20 Drain/Tube Type: Other (Stoma bolster) Indications: See EMR Findings: See Below Complications: None
[2021-05-15] MEDS: D5NS W/20 MEQ KCL 1,000 ML IV SCH (17:01)
[2021-05-15] MEDS: KETOROLAC 15 MG/ML VIAL IVP SCH (17:20)
[2021-05-15] MEDS: METOCLOPRAMIDE 10 MG/2 ML VIAL IVP SCH (18:10)
[2021-05-15] MEDS: methocarbamoL 500 MG TABLET PO SCH (18:13)
[2021-05-15] MEDS: ATORVASTATIN 40 MG TABLET PO SCH (20:27)
[2021-05-15] MEDS: DOCUSATE SODIUM 100 MG CAPSULE PO SCH (20:27)
[2021-05-15] MEDS: DOXAZOSIN 4 MG TABLET PO SCH (20:28)
[2021-05-15] MEDS: polyethylene glycoL 3350 17 GM PACKET PO SCH (20:28)
[2021-05-15] MEDS: PREGABALIN 100 MG CAPSULE PO SCH (20:28)
[2021-05-16] MEDS ORDERED: IOVERSOL 320 100 ML VIAL IVP ONE ×2 (00:46→01:47)
[2021-05-16] MEDS: METOCLOPRAMIDE 10 MG/2 ML VIAL IVP SCH ×4 (00:47→18:22)
[2021-05-16] MEDS: methocarbamoL 500 MG TABLET PO SCH ×4 (00:47→18:21)
[2021-05-16] MEDS: SODIUM CHLORIDE FLUSH 0.9% 10 ML SYRINGE IVP PRN ×4 (00:48→12:28)
[2021-05-16] MEDS: SODIUM CHLORIDE FLUSH 0.9% 10 ML SYRINGE IVP SCH ×3 (00:48→17:05)
[2021-05-16] MEDS: D5NS W/20 MEQ KCL 1,000 ML IV SCH ×2 (00:48→08:13)
[2021-05-16] MEDS: KETOROLAC 15 MG/ML VIAL IVP SCH ×4 (00:48→18:22)
[2021-05-16 04:42] LABS: BASOPHILS % (AUTO) 0.1 %; HCT - HEMATOCRIT 36.9 % (42.0-52.0); LYMPHOCYTES # (AUTO) 0.3 10^3/uL (1.5-3.5); LYMPHOCYTES % (AUTO) 2.8 %; MEAN CORPUSCULAR HEMOGLOBIN 32.3 pg (27.0-31.0); MEAN CORPUSCULAR HGB CONC 32.5 g/dL (32.0-36.0); MEAN CORPUSCULAR VOLUME 99.5 fL (80.0-94.0); MEAN PLATELET VOLUME 10.5 fL (7.4-11.4); MONOCYTES # (AUTO) 0.6 10^3/uL (0.0-1.0); MONOCYTES % (AUTO) 5.5 %; NEUTROPHILS # (AUTO) 9.5 10^3/uL (1.5-6.6); NEUTROPHILS % (AUTO) 91.2 %; PLT - PLATELET COUNT 235 10^3/uL (130-450); RED BLOOD COUNT 3.71 10^6/uL (4.70-6.10); RED CELL DISTRIBUTION WIDTH 13.3 % (12.0-15.0); WHITE BLOOD COUNT 10.4 x10^3/uL (4.8-10.8)
[2021-05-16 04:48] LABS: ALBUMIN 2.9 g/dL (3.2-5.5); ALBUMIN/GLOBULIN RATIO 1.3 (1.0-2.2); BILIRUBIN,TOTAL 0.9 mg/dL (0.2-1.0); CALCIUM 7.6 mg/dL (8.5-10.3); CREATININE 0.7 mg/dL (0.6-1.2); MAGNESIUM 1.9 mg/dL (1.7-2.8); PHOSPHORUS 3.7 mg/dL (2.5-4.6); POTASSIUM 4.2 mmol/L (3.5-5.0); TOTAL PROTEIN 5.2 g/dL (6.7-8.2)
[2021-05-16] MEDS: PANTOPRAZOLE 40 MG VIAL IVP SCH (05:49)
[2021-05-16] MEDS ORDERED: INSULIN ASPART 300 UNIT/3 ML PEN SUBQ SCH (08:00)
[2021-05-16] MEDS ORDERED: INSULIN REGULAR HUMAN 300 UNIT/3 ML VIAL SUBQ SCH (08:00)
[2021-05-16] MEDS: lisinopriL 5 MG TABLET PO SCH (08:10)
[2021-05-16] MEDS: TAMSULOSIN 0.4 MG CAPSULE PO SCH (08:10)
[2021-05-16] MEDS: PREGABALIN 100 MG CAPSULE PO SCH ×2 (08:10→20:43)
[2021-05-16] MEDS: ENOXAPARIN 40 MG/0.4 ML SYRINGE SUBQ SCH (08:11)
[2021-05-16] MEDS: DOCUSATE SODIUM 100 MG CAPSULE PO SCH ×2 (08:11→20:43)
[2021-05-16] MEDS: polyethylene glycoL 3350 17 GM PACKET PO SCH ×3 (08:12→20:42)
--- NOTE | 2021-05-16 11:59 | CT Report ---
PROCEDURE: CHEST W INDICATIONS: evaluate for metastases CONTRAST: IV CONTRAST: Optiray 320 ml: 100 PO CONTRAST: *NO PO CONTRAST TECHNIQUE: After the administration of intravenous contrast, 5 mm thick sections acquired from the pulmonary api silva to the posterior costophrenic angles. 7 mm thick coronal MIP reformats were acquired. For radia tion dose reduction, the following was used: automated exposure control, adjustment of mA and/or kV according to patient size. COMPARISON: CT abdomen and pelvis with contrast, 04/18/2021. FINDINGS: Image quality: Excellent. Lungs and pleura: Small pleural effusions are present. There are bibasilar consolidation or atelecta sis. Central and peripheral airways are patent and normal in caliber. Mediastinum: Heart size is normal. Severe coronary medications.. No pericardial effusion. No media stinal or hilar adenopathy by size criteria. Thoracic aorta and central pulmonary arteries are magui l in size. Esophagus is normal in caliber. No hiatal hernia. Bones and chest wall: No suspicious bony lesions. No vertebral body compression fractures. No axil khoa or supraclavicular adenopathy by size criteria. The thyroid is normal in size and there are no incidental findings.. Abdomen: Small amount of free air present in peritoneal cavity likely related to recent surgery. There is a 3.2 x 4.6 cm exophytic mass in the left upper anterior abdominal wall, partially visualize d. There are multiple hepatic and splenic masses suspicious for liver metastases. These lesions were see n on 04/18/2021 and appear minimally changed. There are gallstones. A small low-density cortical nodule in the superior pole of the left kidney is most likely renal cyst. IMPRESSION: 1. Small pleural effusions laterally with bibasilar consolidations or atelectasis. 2. No pulmonary nodules. 3. There are multiple masses in liver and spleen, consistent with metastases. 4. Cholelithiasis. 5. Free peritoneal air likely related to recent surgery. 6. Partial visualization of a mass in the left anterior abdominal wall. Please correlate clinically. No significant discrepancy with the preliminary interpretation. CLINICAL RECOMMENDATION STATEMENTS: In patients <35 years with an ITN detected on CT, MRI, or extrathyroidal ultrasound, the Committee re commends further evaluation with dedicated thyroid ultrasound if the nodule is ?1 cm and has no suspi cious imaging features, and if the patient has normal life expectancy. In patients ?35 years with an ITN detected on CT, MRI, or extrathyroidal ultrasound, the Committee re commends further evaluation with dedicated thyroid ultrasound if the nodule is ?1.5 cm and has no torres picious imaging features, and if the patient has normal life expectancy. (ACR, 2014) Reviewed by: Italo Dodson MD on 05/16/2021 11:58 AM PDT Approved by: Italo Dodson MD on 05/16/2021 11:58 AM PDT Station ID: [id number]
[2021-05-16] MEDS: INSULIN ASPART 300 UNIT/3 ML PEN SUBQ SCH ×3 (12:26→20:43)
--- NOTE | 2021-05-16 12:56 | PROVIDER PROGRESS NOTE ---
Progress Note Subjective Stop day #1. Positive flatus per stoma. No pain. Pending trial of void. Objective Zeinab hemodynamically acceptable. General Appearance: positive: No acute distress Eyes Bilateral: positive: Normal inspection ENT: positive: ENT inspection nml Neck: positive: Nml inspection Respiratory: positive: Chest non-tender, No respiratory distress, Breath sounds nml. negative: Wheezes, Rales, Rhonchi Cardiovascular: positive: Regular rate & rhythm Abdomen: positive: No distention, Other. negative: Guarding, Rebound Extremities: positive: Non-tender, Full ROM, Nml appearance Neurologic/Psychiatric: positive: Oriented x3, CN's nml (2-12) Stoma pink and productive of flatus only. No stool. Impression/Plan Obstructing colon cancer. Metastatic. Status post loop colostomy. Awaiting liver biopsy. CT chest with no evidence of pulmonary metastases. (1) GI - IVF, bowel regimen, advance diet as tolerated. GI ppx. Opiate sparring analgesia. (2) SURGERY - May need port for palliative chemotherapy pending oncology referral. (3) Renal/Lytes - continue IVF. Renal indices within normal limits. Trial of void. (4) Respiratory - O2 as necessary. Continue IS. (5) Heme - Will continue with DVT ppx. H/H stable. (6) Cardiovascular - HD acceptable. (7) Neuro - Opiate sparring analgesia. Antispasmodics with Robaxin. Neuropathic agents. (8) PT OT and discharge planning
[2021-05-16] MEDS: DOXAZOSIN 4 MG TABLET PO SCH (20:42)
[2021-05-16] MEDS: ATORVASTATIN 40 MG TABLET PO SCH (20:43)
[2021-05-17] MEDS: methocarbamoL 500 MG TABLET PO SCH ×4 (00:19→18:51)
[2021-05-17] MEDS: KETOROLAC 15 MG/ML VIAL IVP SCH ×4 (00:19→18:51)
[2021-05-17] MEDS: METOCLOPRAMIDE 10 MG/2 ML VIAL IVP SCH ×4 (00:19→18:51)
[2021-05-17] MEDS: SODIUM CHLORIDE FLUSH 0.9% 10 ML SYRINGE IVP PRN ×2 (00:20→05:34)
[2021-05-17] MEDS: SODIUM CHLORIDE FLUSH 0.9% 10 ML SYRINGE IVP SCH ×3 (00:20→17:04)
[2021-05-17] MEDS: PANTOPRAZOLE 40 MG VIAL IVP SCH (05:34)
[2021-05-17 05:44] LABS: BASOPHILS % (AUTO) 0.4 %; EOSINOPHILS # (AUTO) 0.1 10^3/uL (0.0-0.7); EOSINOPHILS % (AUTO) 1.6 %; HCT - HEMATOCRIT 35.5 % (42.0-52.0); HGB - HEMOGLOBIN 11.6 g/dL (14.0-18.0); LYMPHOCYTES # (AUTO) 1.2 10^3/uL (1.5-3.5); LYMPHOCYTES % (AUTO) 17.1 %; MEAN CORPUSCULAR HEMOGLOBIN 31.9 pg (27.0-31.0); MEAN CORPUSCULAR HGB CONC 32.7 g/dL (32.0-36.0); MEAN CORPUSCULAR VOLUME 97.5 fL (80.0-94.0); MEAN PLATELET VOLUME 10.5 fL (7.4-11.4); MONOCYTES # (AUTO) 0.5 10^3/uL (0.0-1.0); MONOCYTES % (AUTO) 7.8 %; NEUTROPHILS # (AUTO) 4.9 10^3/uL (1.5-6.6); NEUTROPHILS % (AUTO) 72.5 %; PLT - PLATELET COUNT 232 10^3/uL (130-450); RED BLOOD COUNT 3.64 10^6/uL (4.70-6.10); RED CELL DISTRIBUTION WIDTH 13.2 % (12.0-15.0); WHITE BLOOD COUNT 6.8 x10^3/uL (4.8-10.8)
[2021-05-17 05:54] LABS: ALBUMIN 2.6 g/dL (3.2-5.5); ALBUMIN/GLOBULIN RATIO 1.2 (1.0-2.2); BILIRUBIN,TOTAL 0.7 mg/dL (0.2-1.0); CALCIUM 7.9 mg/dL (8.5-10.3); CREATININE 0.8 mg/dL (0.6-1.2); MAGNESIUM 2.2 mg/dL (1.7-2.8); PHOSPHORUS 2.3 mg/dL (2.5-4.6); POTASSIUM 3.8 mmol/L (3.5-5.0); TOTAL PROTEIN 4.7 g/dL (6.7-8.2)
[2021-05-17] MEDS: INSULIN ASPART 300 UNIT/3 ML PEN SUBQ SCH ×4 (09:16→20:57)
[2021-05-17] MEDS: ENOXAPARIN 40 MG/0.4 ML SYRINGE SUBQ SCH (09:27)
[2021-05-17] MEDS: PREGABALIN 100 MG CAPSULE PO SCH ×2 (09:27→20:56)
[2021-05-17] MEDS: TAMSULOSIN 0.4 MG CAPSULE PO SCH (09:27)
[2021-05-17] MEDS: lisinopriL 5 MG TABLET PO SCH (09:27)
[2021-05-17] MEDS: DOCUSATE SODIUM 100 MG CAPSULE PO SCH ×2 (09:27→20:56)
[2021-05-17] MEDS: polyethylene glycoL 3350 17 GM PACKET PO SCH ×2 (09:27→20:56)
[2021-05-17] MEDS: ATORVASTATIN 40 MG TABLET PO SCH (20:56)
[2021-05-17] MEDS: DOXAZOSIN 4 MG TABLET PO SCH (20:56)
[2021-05-18] MEDS: SODIUM CHLORIDE FLUSH 0.9% 10 ML SYRINGE IVP SCH ×2 (01:08→08:38)
[2021-05-18] MEDS: SODIUM CHLORIDE FLUSH 0.9% 10 ML SYRINGE IVP PRN ×2 (01:08→07:05)
[2021-05-18] MEDS: methocarbamoL 500 MG TABLET PO SCH ×3 (04:59→11:19)
[2021-05-18] MEDS: KETOROLAC 15 MG/ML VIAL IVP SCH ×3 (04:59→11:19)
[2021-05-18] MEDS: METOCLOPRAMIDE 10 MG/2 ML VIAL IVP SCH ×3 (05:00→11:20)
[2021-05-18 05:53] LABS: BASOPHILS % (AUTO) 0.5 %; EOSINOPHILS # (AUTO) 0.2 10^3/uL (0.0-0.7); EOSINOPHILS % (AUTO) 3.4 %; HCT - HEMATOCRIT 39.9 % (42.0-52.0); HGB - HEMOGLOBIN 13.1 g/dL (14.0-18.0); LYMPHOCYTES # (AUTO) 1.1 10^3/uL (1.5-3.5); LYMPHOCYTES % (AUTO) 18.4 %; MEAN CORPUSCULAR HGB CONC 32.8 g/dL (32.0-36.0); MEAN CORPUSCULAR VOLUME 97.6 fL (80.0-94.0); MEAN PLATELET VOLUME 10.4 fL (7.4-11.4); MONOCYTES # (AUTO) 0.6 10^3/uL (0.0-1.0); MONOCYTES % (AUTO) 9.5 %; NEUTROPHILS % (AUTO) 67.9 %; PLT - PLATELET COUNT 270 10^3/uL (130-450); RED BLOOD COUNT 4.09 10^6/uL (4.70-6.10); RED CELL DISTRIBUTION WIDTH 13.2 % (12.0-15.0); WHITE BLOOD COUNT 5.9 x10^3/uL (4.8-10.8)
[2021-05-18 06:10] LABS: ALBUMIN 2.9 g/dL (3.2-5.5); ALBUMIN/GLOBULIN RATIO 1.3 (1.0-2.2); BILIRUBIN,TOTAL 0.7 mg/dL (0.2-1.0); CALCIUM 8.2 mg/dL (8.5-10.3); CREATININE 0.7 mg/dL (0.6-1.2); PHOSPHORUS 2.7 mg/dL (2.5-4.6); POTASSIUM 4.1 mmol/L (3.5-5.0); TOTAL PROTEIN 5.1 g/dL (6.7-8.2)
[2021-05-18] MEDS: PANTOPRAZOLE 40 MG VIAL IVP SCH (07:05)
[2021-05-18] MEDS: INSULIN ASPART 300 UNIT/3 ML PEN SUBQ SCH ×2 (08:36→11:17)
[2021-05-18] MEDS: polyethylene glycoL 3350 17 GM PACKET PO SCH (08:37)
[2021-05-18] MEDS: ENOXAPARIN 40 MG/0.4 ML SYRINGE SUBQ SCH (08:37)
[2021-05-18] MEDS: DOCUSATE SODIUM 100 MG CAPSULE PO SCH (08:37)
[2021-05-18] MEDS: lisinopriL 5 MG TABLET PO SCH (08:37)
[2021-05-18] MEDS: TAMSULOSIN 0.4 MG CAPSULE PO SCH (08:38)
[2021-05-18] MEDS: PREGABALIN 100 MG CAPSULE PO SCH (08:38)
--- NOTE | 2021-05-18 10:24 | PROVIDER PROGRESS NOTE ---
Progress Note Subjective Stop day #2. Positive flatus per stoma. No pain. 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 Diagnostic laparoscopy 2. Laparoscopic-assisted loop colostomy 3. Laparoscopic assisted Left lobe of liver core biopsies 4. Laparoscopic assisted peritoneal washings and aspiration 5. Transversus abdominis plane block per anesthesia 6. Open umbilical hernia repair Objective Zeinab hemodynamically acceptable. General Appearance: positive: No acute distress Eyes Bilateral: positive: Normal inspection ENT: positive: ENT inspection nml Neck: positive: Nml inspection Respiratory: positive: Chest non-tender, No respiratory distress, Breath sounds nml. negative: Wheezes, Rales, Rhonchi Cardiovascular: positive: Regular rate & rhythm Abdomen: positive: No distention, Other. negative: Guarding, Rebound Extremities: positive: Non-tender, Full ROM, Nml appearance Neurologic/Psychiatric: positive: Oriented x3, CN's nml (2-12) Stoma pink and productive of flatus only. No stool. Impression/Plan Obstructing colon cancer. Metastatic. Status post loop colostomy. Awaiting liver biopsy. CT chest with no evidence of pulmonary metastases. (1) GI - IVF, bowel regimen, advance diet as tolerated. GI ppx. Opiate sparring analgesia. (2) SURGERY - May need port for palliative chemotherapy pending oncology referral. (3) Renal/Lytes - continue IVF. Renal indices within normal limits. Trial of void. (4) Respiratory - O2 as necessary. Continue IS. (5) Heme - Will continue with DVT ppx. H/H stable. (6) Cardiovascular - HD acceptable. (7) Neuro - Opiate sparring analgesia. Antispasmodics with Robaxin. Neuropathic agents. (8) PT OT and discharge planning likely within 24 hours
[2021-05-18 14:03] VITALS: BP 100/50
--- NOTE | 2021-05-18 14:05 | Discharge Plan ---
Discharge Plan Problem Reviewed?: Yes Disposition: Home, Self Care Condition: Good Diet: Regular Activity Restrictions: Activity as Tolerated Shower Restrictions: No (you may shower and get the dressings wet) Weight Bearing: Full Weight Additional Instructions or Follow Up instructions: Call the surgery office to make a follow up appointment for this coming week [phone] No Smoking: If you smoke, Please STOP! Call for help. Follow-up with: Anuj Umaña MD [Primary Care Provider] -
--- NOTE | 2021-05-18 14:07 | DISCHARGE SUMMARY ---
"Discharge Summary Admit Date: 06/14/21 Discharge Date: 05/18/21 Code Status: Attempt Resuscitation - DIAGNOSES Admission Diagnoses: obstructing colon mass Discharge Diagnoses with Status of Each Condition: Home in good condition after loop colostomy procedure. Tolerating diet. Family feels comfortable with care. - HPI History of Present Illness: Present with large bowel obstruction. - CONSULTS | PROCEDURES Procedures: Loop colostomy procedure for obstructing mass - HOSPITAL COURSE Hospital Course: Unremarkable hospital course. Doing well, taking diet well, ambulating shortly after surgery. - ALLERGIES Allergies/Adverse Reactions: Allergies Allergy/AdvReac Type Severity Reaction Status Date / Time No Known Drug Allergies Allergy Verified 05/13/21 13:20 - MEDICATIONS Home Medications: Ambulatory Orders Medication Instructions Recorded Confirmed Aspirin [Adult Low Dose Aspirin EC] 81 mg PO DAILY 01/10/20 05/13/21 Doxazosin Mesylate 8 mg PO DAILY 01/10/20 05/13/21 Multivit-Min/FA/Lycopen/Lutein 1 each PO DAILY 01/10/20 05/13/21 [Centrum Silver Men Tablet] Rosuvastatin Calcium 20 mg PO DAILY 01/10/20 05/13/21 Lisinopril [Zestril] 10 mg PO DAILY #30 tablet 01/11/20 05/13/21 metFORMIN [Glucophage] 250 mg PO BIDWM 05/13/21 05/13/21 - PHYSICAL EXAM AT DISCHARGE General Appearance: positive: Alert Eyes Bilateral: positive: PERRL, EOMI ENT: positive: No signs of dehydration Neck: positive: No JVD Respiratory: positive: No respiratory distress Abdomen: positive: Non-tender, No distention, Other (pink functional stoma. dressings c/d/i) Neurologic/Psychiatric: positive: Oriented x3 - LABS Result Diagrams: 05/18/21 05:36 05/18/21 05:36 - FOLLOW UP Follow Up: Surgery office. Please call with any concerns and call to make a follow up appointment in the surgery office this coming week [phone]"
== END 2021-05-18 14:53 | disposition home or self-care (01) | DRG 330 ==
LOC: SDS 06:45 → MS3 10:50 → MS2 10:51
PROVIDERS: ADMIT Surgery; ATTEND Surgery
PROC: 0DBN8ZX Excision of Sigmoid Colon, Via Natural or Artificial Opening Endoscopic, Diagnostic (ICD-10-PCS; 2021-05-14)
PROC: 0FB20ZX Excision of Left Lobe Liver, Open Approach, Diagnostic (ICD-10-PCS; 2021-05-15)
PROC: 3E1M38X Irrigation of Peritoneal Cavity using Irrigating Substance, Percutaneous Approach, Diagnostic (ICD-10-PCS; 2021-05-15)
PROC: 0D1M0Z4 Bypass Descending Colon to Cutaneous, Open Approach (ICD-10-PCS; principal; 2021-05-15 11:45)
DX: C18.7 Malignant neoplasm of sigmoid colon (principal); Z68.1 Body mass index [BMI] 19.9 or less, adult; R63.4 Abnormal weight loss; D64.9 Anemia, unspecified; K86.9 Disease of pancreas, unspecified; K76.9 Liver disease, unspecified; K42.9 Umbilical hernia without obstruction or gangrene; R59.9 Enlarged lymph nodes, unspecified; I10 Essential (primary) hypertension; E11.9 Type 2 diabetes mellitus without complications; K21.9 Gastro-esophageal reflux disease without esophagitis; E78.00 Pure hypercholesterolemia, unspecified; R01.1 Cardiac murmur, unspecified; N40.1 Benign prostatic hyperplasia with lower urinary tract symptoms; R33.9 Retention of urine, unspecified; R35.1 Nocturia; R35.0 Frequency of micturition; H54.7 Unspecified visual loss; H35.30 Unspecified macular degeneration; H91.90 Unspecified hearing loss, unspecified ear; Z20.822 Contact with and (suspected) exposure to COVID-19; Z79.84 Long term (current) use of oral hypoglycemic drugs; Z79.82 Long term (current) use of aspirin; K64.4 Residual hemorrhoidal skin tags; Z79.899 Other long term (current) drug therapy; Z87.19 Personal history of other diseases of the digestive system
CPT/HCPCS: 36415; 45380; 45381; 71260; 80053; 82378; 83735; 84100; 85025; 85610; 87631; 97112; 97116; 97161; 97165; 97535; A9270; J1650; J1815; J2765; J3010; J3490; J7120; Q9967; 0202U

== ENCOUNTER 2021-05-18 20:52 | Outpatient (CLI) | payer MEDICARE, OTHER | END 2021-05-18 20:53 | disposition critical access hospital (66) | LOC: EMS 20:52 | DX: G89.18 Other acute postprocedural pain (principal); R53.1 Weakness | CPT/HCPCS: A0425; A0427 ==

== ENCOUNTER 2021-05-18 21:21 | Inpatient (IN) | payer MEDICARE, OTHER ==
[2021-05-18 21:50] LABS: BASOPHILS % (AUTO) 0.3 %; EOSINOPHILS % (AUTO) 0.3 %
[2021-05-18 21:53] LABS: HCT - HEMATOCRIT 41.1 % (42.0-52.0); HGB - HEMOGLOBIN 13.8 g/dL (14.0-18.0); LYMPHOCYTES % (AUTO) 9.1 %; MEAN CORPUSCULAR HEMOGLOBIN 32.6 pg (27.0-31.0); MEAN CORPUSCULAR HGB CONC 33.6 g/dL (32.0-36.0); MEAN CORPUSCULAR VOLUME 97.2 fL (80.0-94.0); MEAN PLATELET VOLUME 10.1 fL (7.4-11.4); MONOCYTES % (AUTO) 5.6 %; NEUTROPHILS % (AUTO) 84.4 %; PLT - PLATELET COUNT 264 10^3/uL (130-450); RED BLOOD COUNT 4.23 10^6/uL (4.70-6.10); RED CELL DISTRIBUTION WIDTH 13.2 % (12.0-15.0); WHITE BLOOD COUNT 3.7 x10^3/uL (4.8-10.8)
[2021-05-18 21:58] LABS: SLIDE REVIEW? Indicated
[2021-05-18 22:00] LABS: ABNORMAL LYMPHS % (MANUAL) 0 %
[2021-05-18 22:03] LABS: ALBUMIN 3.4 g/dL (3.2-5.5); ALBUMIN/GLOBULIN RATIO 1.4 (1.0-2.2); BILIRUBIN,TOTAL 0.9 mg/dL (0.2-1.0); CALCIUM 8.4 mg/dL (8.5-10.3); CREATININE 0.9 mg/dL (0.6-1.2); POTASSIUM 4.2 mmol/L (3.5-5.0); TOTAL PROTEIN 5.8 g/dL (6.7-8.2)
--- NOTE | 2021-05-18 22:03 | ED Physician Documentation ---
PD HPI ABD PAIN - Stated complaint Stated Complaint: ABD PAIN S/P COLOSTOMY PLACEMENT 2 DAYS AGO - Chief complaint Chief Complaint: Abd Pain - History obtained from History obtained from: Patient - History of Present Illness Timing - onset: Today (recent colostomy due to obstructing mass, with mets. Discharged okay earlier in the day. Onset of abd pain with feeling of bloating abruptly this evening.) Timing - duration: Hours (onset significant abd pain and bloating the past few hours. Just released from hospital earlier in the day today.) Quality: Cramping, Aching, Fullness/distended Location: Periumbilical, Other (lower abd in particular but feeling of bloating diffusely.) Radiation: Lower back. No: Chest, Left flank, Right flank Worsened by: Moving, Palpation Associated symptoms: Nausea, Loss of appetite. No: Fever, Vomiting, Dysuria, Near syncope / syncope Recently seen: Emergency Dept, Admitted, Surgery (had colostomy 5 days ago due to obstructing mass. Was doing okay with pain meds in hospital. Discharged this morning feeling okay. Onset of pain few hours ago.) Review of Systems Constitutional: denies: Fever, Chills Nose: denies: Rhinorrhea / runny nose, Congestion Throat: denies: Sore throat Cardiac: reports: Palpitations. denies: Chest pain / pressure, Pedal edema Respiratory: denies: Cough GI: reports: Abdominal Pain, Nausea, Vomiting. denies: Constipation (he is still having output from ostomy.), Diarrhea PD PAST MEDICAL HISTORY - Past Medical History Past Medical History: Yes Cardiovascular: Hypertension, High cholesterol, Atrial fibrillation (noted on ECHO report in the past and possible on telemetry recent admission. ), Murmur Respiratory: Other Neuro: None Endocrine/Autoimmune: Type 2 diabetes GI: GERD, Diverticulitis, Other (colon cancer with liver mets. 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 : Benign prostate hypertrophy, Retention, Nocturia, Frequency HEENT: Chronic vision loss, Chronic sinusitis, Macular degeneration, Chronic hearing loss Psych: None Musculoskeletal: None Derm: None - Past Surgical History Past Surgical History: Yes General: Other HEENT: Cataracts, Tonsil/Adenoidectomy Derm: Other - Present Medications Home Medications: Ambulatory Orders Medication Instructions Recorded Confirmed Aspirin [Adult Low Dose Aspirin EC] 81 mg PO DAILY 01/10/20 05/18/21 Doxazosin Mesylate 8 mg PO DAILY 01/10/20 05/18/21 Multivit-Min/FA/Lycopen/Lutein 1 each PO DAILY 01/10/20 05/18/21 [Centrum Silver Men Tablet] Rosuvastatin Calcium 20 mg PO DAILY 01/10/20 05/18/21 Lisinopril [Zestril] 10 mg PO DAILY #30 tablet 01/11/20 05/18/21 metFORMIN [Glucophage] 250 mg PO BIDWM 05/13/21 05/18/21 - Allergies Allergies/Adverse Reactions: Allergies Allergy/AdvReac Type Severity Reaction Status Date / Time No Known Drug Allergies Allergy Verified 05/13/21 13:20 - Social History Does the pt smoke?: No Smoking Status: Never smoker Does the pt drink ETOH?: Yes Does the pt have substance abuse?: No - Immunizations Immunizations are current?: No Immunizations: TDAP >10years/unknown - POLST Patient has POLST: No POLST Status: Full Code PD ED PE NORMAL - Vitals Vital signs reviewed: Yes - General General: Alert and oriented X 3, Well developed/nourished, Other (appears in pain mid to lower abd, with some bloating. There is output from the ostomy. No apparent infection of skin at the area. ) - HEENT HEENT: Pharynx benign - Neck Neck: Supple, no meningeal sign, No adenopathy - Cardiac Cardiac: No murmur. No: RRR (irregular and mild tachycardia c/w atrial fib, and may be appropriate for condition.) - Respiratory Respiratory: No respiratory distress. No: Clear bilaterally (mild crackles at lower bases. ) - Abdomen Abdomen: Other (Some distention of the abdomen with general tenderness. Mostly tender in the lower abdomen. Bowel sounds are slightly hyperactive. Output from the ostomy.) - Male Male : Deferred - Rectal Rectal: Deferred - Back Back: No CVA TTP - Derm Derm: Warm and dry. No: Normal color (pallor) - Extremities Extremities: No tenderness to palpate, No edema, No calf tenderness / cord - Neuro Neuro: Alert and oriented X 3, No motor deficit, Normal speech Results - Vitals Vitals: Vital Signs - 24 hr 05/18/21 05/18/21 05/18/21 21:20 21:33 21:57 Temperature 37.3 C 37.7 C 36.8 C Heart Rate 116 H 115 H 118 H Heart Rate [ Brachial] Respiratory 24 25 H 26 H Rate Blood Pressure 115/70 135/74 H 135/74 H Blood Pressure [Right Brachial artery] O2 Saturation 94 94 94 05/18/21 05/18/21 05/19/21 23:20 23:26 01:00 Temperature 37.1 C 36.6 C Heart Rate 112 H 110 H 112 H Heart Rate [ Brachial] Respiratory 18 18 15 Rate Blood Pressure 95/54 L 96/56 L 87/51 L Blood Pressure [Right Brachial artery] O2 Saturation 96 96 97 05/19/21 05/19/21 02:20 04:50 Temperature 36.4 C L 37.4 C Heart Rate Heart Rate [ 109 H 107 H Brachial] Respiratory 21 18 Rate Blood Pressure Blood Pressure 141/121 H 79/40 L [Right Brachial artery] O2 Saturation 90 L 91 L Oxygen O2 Source Oxymask - EKG (time done) 23:48 Rate: Rate (enter#) (112) Rhythm: Atrial fibrillation QRS: Low voltage Ischemia: Normal ST segments, ST depression (anterior). No: ST elevation c/w ischemia - Labs Labs: Laboratory Tests 05/18/21 05/18/21 05/18/21 21:45 21:45 22:33 WBC 3.7 L RBC 4.23 L Hgb 13.8 L Hct 41.1 L MCV 97.2 H MCH 32.6 H MCHC 33.6 RDW 13.2 Plt Count 264 MPV 10.1 Neut # (Auto) Not Reportable Lymph # (Auto) Not Reportable Drew # (Auto) Not Reportable Eos # (Auto) Not Reportable Baso # (Auto) Not Reportable Absolute Nucleated RBC Not Reportable Total Counted 100 Band Neuts % (Manual) 13 H Abnorm Lymph % (Manual) 0 Metamyelocytes % 4 H Nucleated RBC % Not Reportable Neutrophils # (Manual) 3.1 Lymphocytes # (Manual) 0.3 L Monocytes # (Manual) 0.1 Eosinophils # (Manual) 0.0 Basophils # (Manual) 0.0 Differential Comment MANUAL DIFFERENTIAL Manual Slide Review Indicated Platelet Estimate NORMAL (130-450,000) Platelet Morphology NORMAL APPEARANCE RBC Morph Micro Appear NORMAL APPEARANCE Sodium 135 Potassium 4.2 Chloride 101 Carbon Dioxide 25 Anion Gap 9.0 BUN 18 Creatinine 0.9 Estimated GFR (MDRD) 79 L Glucose 234 H Lactic Acid 1.8 Calcium 8.4 L Total Bilirubin 0.9 AST 18 ALT 18 Alkaline Phosphatase 43 Total Protein 5.8 L Albumin 3.4 Globulin 2.4 Albumin/Globulin Ratio 1.4 Lipase 24 - Rads (name of study) abd/pelvic CT Radiology: Prelim report reviewed (free air (likely post operative still), some mild free fluid. Atelectasis lower lung. Some effusion in both bases lungs. Prior mets again seen. ), See rad report PD MEDICAL DECISION MAKING - ED course Complexity details: re-evaluated patient (Concern for post op complication but hard to distinguish post op free air from new perf or such. Abrupt worse pain today with some bloating concerning. ), considered differential (recent colostomy due to obstructing mass, with mets. Discharged okay earlier in the day. Onset of abd pain with feeling of bloating abruptly this evening. ), d/w patient, d/w hospice care consultant (Dr. Marcus, inclusion special educator for Surgery. ) Departure - Departure Disposition: ED Place in Observation Condition: Stable Discharge Date/Time: 05/19/21 01:09
[2021-05-18 22:13] LABS: BAND NEUTROPHILS % (MANUAL) 13 %; LYMPHOCYTES # (MANUAL) 0.3 10^3/uL (1.5-3.5); LYMPHOCYTES % (MANUAL) 9 %; METAMYELOCYTES % (MANUAL) 4 %; MONOCYTES # (MANUAL) 0.1 10^3/uL (0.0-1.0); NEUTROPHILS # (MANUAL) 3.1 10^3/uL (1.5-6.6)
[2021-05-18 22:15] LABS: DIFFERENTIAL COMMENT MANUAL DIFFERENTIAL; PLATELET ESTIMATE, MANUAL NORMAL (130-450,000) (NORMAL); PLATELET MORPHOLOGY NORMAL APPEARANCE (NORMAL); RBC MORPHOLOGY (MULTIPLE) NORMAL APPEARANCE (NORMAL)
[2021-05-18] MEDS ORDERED: HYDROmorphone 1 MG/ML CARPUJECT IVP STA (22:22)
[2021-05-18] MEDS ORDERED: SODIUM CHLORIDE 0.9% 1,000 ML IV STA ×3 (22:22→23:46)
[2021-05-18] MEDS ORDERED: ONDANSETRON 4 MG/2 ML VIAL IVP STA (22:22)
[2021-05-18] MEDS ORDERED: IOVERSOL 320 100 ML VIAL IVP ONE ×2 (22:32→23:24)
[2021-05-18] MEDS ORDERED: D5.45NS W/20 MEQ KCL 1,000 ML IV SCH (23:45)
[2021-05-18] MEDS ORDERED: SODIUM CHLORIDE FLUSH 0.9% 10 ML SYRINGE IVP PRN (23:57)
[2021-05-18] MEDS ORDERED: ONDANSETRON ODT 4 MG TABLET TL PRN (23:57)
[2021-05-18] MEDS ORDERED: HYDROmorphone 0.5 MG/0.5 ML SYRINGE IVP PRN (23:57)
[2021-05-19] MEDS ORDERED: SODIUM CHLORIDE FLUSH 0.9% 10 ML SYRINGE IVP SCH (01:00)
--- NOTE | 2021-05-19 04:56 | CONSULTATION NOTE ---
Referring Provider Name of Referring Provider:: Dr Charles Marcus Chief Complaint - Chief Complaint Chief Complaint: Hypotension History of Present Illness - Admitted From Admitted From:: ED - History Obtained From History obtained from: Chart and patient - History of Present Illness HPI Comment/Other: This is an 89-year-old WM with history of diabetes on Metformin, hypertension on lisinopril, hyperlipidemia on Crestor, aortic stenosis mild-moderate by Echo done 12/2019, who was recently admitted with an obstructing sigmoid mass and underwent a loop colostomy 2 days ago. Metastases were found. 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 The patient and family had training for colostomy care. He was discharged yesterday. He developed abdominal pain upon return home and presented to the emergency room yesterday evening and is admitted on the surgical service. Several hours after admission the RN informed the surgeon that the patient's blood pressure was 79/40. IV fluids of D5 LR are infusing at 100 cc/hr. A Medicine consult has been requested to evaluate and manage hypotension. Review of the recent events from his chart show: The patient had normal sinus rhythm on his EKG in December 2019. A telemetry strip from the admission 3 days ago shows that he was in atrial fib. He was not on telemetry during that hospitalization 3 days ago. The progress notes indicate that he was in regular rate and rhythm however. The EKG on presentation last night shows that he is in atrial fib and also findings of low voltage in the limb leads, inferior Q waves with ST elevation in lead II and also diffusely flat T waves, suggesting ischemia, which are all new findings since his 12-lead EKG from December 2019. There is no past cardiac history. There was no recent preop evaluation by [facility], no new Echo or [facility]. The surgical report shows that he had uncomplicated procedure and was able to pass flatus and was discharged yesterday daytime in stable condition. A CT abdomen was done and showed recto-sigmoid colitis, free air in the abdomen, bilateral moderate pleural effusions. Labs from this admission show that his lactic acid is normal, hemoglobin is 13.8 (and was 13 at discharge yesterday), normal white blood count, and no fever. History - Past Medical History Cardiovascular: reports: Hypertension, High cholesterol, Murmur Respiratory: reports: Other Neuro: reports: None Endocrine/Autoimmune: reports: Type 2 diabetes GI: reports: GERD, Diverticulitis WATER TAXI CAPTAIN: reports: None : reports: Benign prostate hypertrophy, Retention, Nocturia, Frequency HEENT: reports: Chronic vision loss, Chronic sinusitis, Macular degeneration, Chronic hearing loss Psych: reports: None Musculoskeletal: reports: None Derm: reports: None MRSA Hx?: No - Past Surgical History General: reports: Other HEENT: reports: Cataracts, Tonsil/Adenoidectomy Derm: reports: Other - Family & Social History Family History: Mother: , Father: Family History Comment/Other: Mother: lived until age 94, HTN. Father: Had rectal cancer, at age 62 from other causes. 2 brothers: both smoked, of CAD, aortic anerysm Social History Notes: The patient is retired and lives alone since being 8 years ago when his from lung CA. He is retired after working off duty, and at [employer] since 1995. 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 He enjoys cross word puzzles, taking care of his home but gave up mowing his lawn last summer due to his age. He works out at [employer] several times per week. He has very supportive and attentive neighbors close by. He has a great relationship with is daughter and son who live near [place]. He states that he often drives to [place] to visit. He denies tobacco or illicit drug use. He admits to one glass of wine nightly. He wishes to be a FULL code. - Substance History Use: Uses substance without health or social issues: NONE - POLST Patient has POLST: No POLST Status: Full Code Meds/Allgy - Home Medications Home Medications: Ambulatory Orders Medication Instructions Recorded Confirmed Aspirin [Adult Low Dose Aspirin EC] 81 mg PO DAILY 01/10/20 05/18/21 Doxazosin Mesylate 8 mg PO DAILY 01/10/20 05/18/21 Multivit-Min/FA/Lycopen/Lutein 1 each PO DAILY 01/10/20 05/18/21 [Centrum Silver Men Tablet] Rosuvastatin Calcium 20 mg PO DAILY 01/10/20 05/18/21 Lisinopril [Zestril] 10 mg PO DAILY #30 tablet 01/11/20 05/18/21 metFORMIN [Glucophage] 250 mg PO BIDWM 05/13/21 05/18/21 - Allergies Allergies/Adverse Reactions: Allergies Allergy/AdvReac Type Severity Reaction Status Date / Time No Known Drug Allergies Allergy Verified 05/13/21 13:20 Review of Systems - Cardiovascular Cariovascular: reports: Other (Daughter is at bedside and was able to tell me he had no complaints of chest pain) - Respiratory Respiratory: reports: Other (He is currently somnolent from having received Dilaudid several hours ago) - All Other Systems All Other Systems: reports: Other (Despite the daughter being at bedside, he is not awake to do a complete set of review of systems) Exam - Vital Signs Vital Signs: Vital Signs x48h Temp Pulse Pulse Resp BP BP Pulse Ox 05/19/21 02:20 36.4 C L 109 H 21 141/121 H 90 L 05/19/21 01:00 36.6 C 112 H 15 87/51 L 97 05/18/21 23:26 110 H 18 96/56 L 96 05/18/21 23:20 37.1 C 112 H 18 95/54 L 96 05/18/21 21:57 36.8 C 118 H 26 H 135/74 H 94 05/18/21 21:33 37.7 C 115 H 25 H 135/74 H 94 05/18/21 21:20 37.3 C 116 H 24 115/70 94 - Physical Exam General Appearance: positive: Other (Sleeping comfortably on O2 to supplemental. He appears cachectic, temporal wasting, eyes are sunken) Eyes Bilateral: positive: Other (sleeping, eyes are closed) ENT: positive: No signs of dehydration Neck: positive: Other ((+) LVD at a 45 degree upright angle) Respiratory: positive: Other (Diminished and both ant bases, thin chest ribs palpable) Cardiovascular: positive: Tachycardia, Systolic murmur (2/6 harsh syst murmur) Abdomen: positive: No distention, Other (No bowel sounds) Skin: positive: Warm, Dry Extremities: positive: No pedal edema Neurologic/Psychiatric: positive: Other (Currently sedated after Dilaudid iv was given) Conclusion/Plan - Diagnosis Diagnosis: Shock, R/O septic vs cardiogenic shock. Acute respiratory failure with hypoxia. Afib with RVR (?new Afib during the last admnission). Pleural effusion. Abnormal EKG suggesting diffuse ischemia. Colitis on CT imaging. S/P colostomy with free air in abdomen on imaging. Adenocarcinoma of colon with mets. DM. Aortic stenosis - Plan Plan: Transfer patient to the ICU. I discussed the plan with his daughter, who was at bedside. Order a CVP line. Cycle troponins x3. Obtain new EKG to look for evolving changes. Resume aspirin daily, if okay from a surgical standpoint. Obtain lactic acid level. Draw blood culture x1. Begin empiric IV antibiotic coverage for GI source of potential sepsis using Vanco, Zosyn and Flagyl. Begin Levophed for blood pressure support, titrating to keep mean arterial pressure 60 mmHg or greater. Continue with Hernadez and monitor I's and O's carefully. Digoxin for rate control will be given IV x1. Continue IV fluids but slow rate down to 40 cc an hour, due moderate-sized pleural effusions. Lasix cannot be given until blood pressure has improved to about 90 systolic or better. Continue with supplemental oxygen. Obtain a chest x-ray. Obtain abdomen flatplate x-ray. Stop the BPH medication which is lowering his blood pressure, since he has a Hernadez currently. Decrease and spread out the use of the Dilaudid which is adding to the low blood pressure. Give Narcan x1, less sedation desired. His condition is now critical. I confirmed with the daughter that his CODE STATUS that he wishes is Full Code. Critical care time spent: 75 minutes (reviewing the chart, speaking to the ED provider, speaking to the daughter, examining the patient, reviewing the current orders, writing new orders, writing the consult note) - Lab Results Fish Bones: 05/18/21 21:45 05/18/21 21:45 - EKG Results EKG Interpreted Independently: Yes EKG Comparison: Changed from prior EKG EKG Findings: A. fib, ventricular rate 1012, low voltage in the limb leads, Q wave inferiorly, possible ST elevation inferiorly, diffusely flat T waves in all leads suggesting diffuse ischemia.
[2021-05-19 05:47] LABS: ABG PH 7.42 (7.35-7.45)
[2021-05-19 05:48] LABS: ABG BASE EXCESS -1.7 mmol/L (-2.0-3.0); ABG HCO3 22.4 mmol/L (22.0-26.0); ABG OXYGEN SATURATION 95 % (94-98); ABG PCO2 36 mmHg (34-45); ABG PO2 71 mmHg (80-100); ABG TCO2 23.5 MMOL/L (21.0-29.0); ALLEN TEST POSITIVE
[2021-05-19] MEDS ORDERED: NALOXONE 0.4 MG/ML VIAL IVP ONE (05:52)
[2021-05-19] MEDS ORDERED: PIPERACILLIN/TAZOBACTAM 3.375 GM in SODIUM CHLORIDE 0.9% MINIBAG 100 ML IV SCH ×2 (06:00→10:00)
[2021-05-19] MEDS: INSULIN REGULAR HUMAN 300 UNIT/3 ML VIAL SUBQ SCH ×3 (06:16→17:57)
[2021-05-19] MEDS ORDERED: DIGOXIN 500 MCG/2 ML AMP IVP ONE (06:16)
[2021-05-19] MEDS ORDERED: D5.45NS W/20 MEQ KCL 1,000 ML IV SCH (06:17)
[2021-05-19 06:32] LABS: BILIRUBIN,URINE NEGATIVE (NEGATIVE); GLUCOSE, URINE (UA) 250 mg/dL (NEGATIVE); KETONES,URINE (UA) TRACE mg/dL (NEGATIVE); LEUKOCYTE ESTERASE, URINE NEGATIVE (NEGATIVE); NITRITE,URINE NEGATIVE (NEGATIVE); OCCULT BLOOD,URINE NEGATIVE (NEGATIVE); PH,URINE 5.5 PH (5.0-7.5); PROTEIN,URINE TRACE mg/dL (NEGATIVE); UROBILINOGEN,URINE 0.2 (NORMAL) E.U./dL (NORMAL)
[2021-05-19 06:33] LABS: CLARITY,URINE CLEAR (CLEAR)
[2021-05-19] MEDS: metroNIDAZOLE 500 MG/100 ML 500 MG/100 ML BAG IV SCH ×3 (06:38→22:22)
[2021-05-19] MEDS ORDERED: VANCOMYCIN INJ 1 GM, VANCOMYCIN INJ 500 MG in SODIUM CHLORIDE 0.9% 500 ML IV SCH (08:00)
--- NOTE | 2021-05-19 08:15 | CT Report ---
PROCEDURE: Abdomen/Pelvis W INDICATIONS: abrupt abd pain, 4 days s/p colostomy CONTRAST: IV CONTRAST: Optiray 320 ml: 100 PO CONTRAST: *NO PO CONTRAST TECHNIQUE: After the administration of intravenous contrast, 5 mm thick sections acquired from the diaphragms to the symphysis. 5 mm thick coronal and sagittal reformats were acquired. For radiation dose reducti on, the following was used: automated exposure control, adjustment of mA and/or kV according to elisa ent size. COMPARISON: 04/18/2021 FINDINGS: Image quality: Excellent. ABDOMEN: Lung bases: Small bilateral pleural effusions and bibasilar atelectasis. Heart size is normal. Moder ately severe diffuse coronary artery calcifications. Solid organs: Definite interval increase in the size and number of hepatic metastatic lesions. Exampl es are as follows: On image 32/3, there are 3 separate right lobe liver lesions which were not identifiable on the previ ous study. Each of these lesions measure slightly less than 1 cm. An example of a lesion which has increased in size is a posterior segment right lobe liver lesion jay r the inferior tip of the liver, on current image 42/3. It previously measured 1.3 cm and currently m easures 2.1 cm. Gallbladder is distended. There are multiple layering gallstones. There is no gallbladder wall thicke ashleigh. Biliary system is non dilated. Pancreas enhances normally. Multiple nonspecific splenic hypod ensities. These are typically benign. No adrenal nodules. Kidneys demonstrate normal size and enhanc ement, without hydronephrosis. Peritoneum and bowel: Recent colostomy. Prominent amount of free air may be postsurgical. Mild genera lized ascites. Large amount of fecal debris in the cecum. No abnormal dilated bowel loops. Sigmoid re gion wall thickening. Nodes and vessels: No retroperitoneal or mesenteric adenopathy by size criteria. Aorta and inferior vena cava are normal in size. Atherosclerotic calcifications. Miscellaneous: No ventral hernias. Diffuse anasarca. PELVIS: Genitourinary: Enlarged prostate. Minimal bladder wall prominence. Air in the bladder may be from rec ent Hernadez. Miscellaneous: No inguinal hernias or adenopathy. Bones: No suspicious bony lesions. No vertebral body compression fractures. Lumbar degenerative shobha nge. IMPRESSION: 1. Small bilateral pleural effusions and bibasilar atelectasis. 2. Recent colostomy. Generalized free air may be secondary to recent surgery. 3. Interval progression of hepatic metastatic disease. 4. Anasarca 5. Cholelithiasis. 6. Prostate enlargement. 7. Air present in the bladder may be secondary to previous Hernadez. 8. Moderately severe coronary artery calcifications. Findings are concordant with the preliminary report provided at the time of the study by [facility]. Reviewed by: Ambrocio Arredondo MD on 05/19/2021 7:14 AM JORGITO Approved by: Ambrocio Arredondo MD on 05/19/2021 7:14 AM JORGITO Station ID: [id number]
[2021-05-19] MEDS ORDERED: VANCOMYCIN INJ 1 GM, VANCOMYCIN INJ 500 MG in SODIUM CHLORIDE 0.9% 500 ML IV ONE (08:30)
[2021-05-19] MEDS ORDERED: DOXAZOSIN 1 MG TABLET PO SCH (09:00)
[2021-05-19] MEDS ORDERED: DOXAZOSIN 4 MG TABLET PO SCH ×2 (09:00→21:00)
[2021-05-19] MEDS ORDERED: SODIUM CHLORIDE 0.9% 1,000 ML IV ONE ×2 (09:16→12:11)
[2021-05-19] MEDS ORDERED: SODIUM CHLORIDE 0.9% 500 ML IV ONE (09:18)
--- NOTE | 2021-05-19 09:27 | PROVIDER PROGRESS NOTE ---
Subjective - Prog Note Date Prog Note Date: 05/19/21 - Subjective Pt reports feeling: Worse (came in not feeling well and with low bp) Objective - Vital Signs/Intake & Output Reviewed Vital Signs: Yes Vital Signs: Vital Signs x48h Temp Pulse Pulse Resp BP BP Pulse Ox 05/19/21 08:36 90 22 61/41 L 92 05/19/21 08:30 86 19 70/52 L 97 05/19/21 08:20 96 22 70/41 L 93 05/19/21 08:13 89 05/19/21 08:00 101 H 22 61/41 L 92 05/19/21 07:55 91 75/37 L 05/19/21 07:50 72 23 63/35 L 94 05/19/21 07:45 96 70/39 L 05/19/21 07:40 87 65/38 L 05/19/21 07:35 95 61/42 L 05/19/21 07:30 99 118/30 L 05/19/21 07:25 94 73/47 L 05/19/21 07:20 94 68/38 L 05/19/21 07:15 91 72/45 L 05/19/21 07:10 88 69/45 L 05/19/21 07:06 88 22 68/43 L 97 05/19/21 07:02 95 24 71/41 L 96 05/19/21 07:00 97 25 H 67/43 L 97 05/19/21 06:56 93 24 69/48 L 98 05/19/21 06:52 92 23 61/42 L 97 05/19/21 06:50 90 24 72/37 L 97 05/19/21 06:45 98 26 H 71/46 L 98 05/19/21 06:40 96 26 H 71/35 L 101 H 05/19/21 06:37 103 H 28 H 92/42 L 98 05/19/21 06:32 97 22 77/44 L 98 05/19/21 06:30 96 21 64/40 L 98 05/19/21 06:27 95 20 66/46 L 98 05/19/21 06:26 96 20 59/45 L 98 05/19/21 06:24 95 20 66/33 L 98 05/19/21 06:22 97 19 62/33 L 98 05/19/21 06:19 94 21 72/41 L 99 05/19/21 06:18 96 20 90/45 L 98 05/19/21 06:16 98 20 63/39 L 99 05/19/21 06:15 94 21 80/54 L 98 05/19/21 06:12 93 19 71/49 L 99 05/19/21 06:10 98 20 66/37 L 98 05/19/21 06:05 95 20 73/41 L 98 05/19/21 06:00 100 21 64/37 L 98 05/19/21 05:55 106 H 24 77/38 L 97 05/19/21 05:51 102 H 20 72/39 L 97 05/19/21 05:46 107 H 96/65 94 05/19/21 04:50 37.4 C 107 H 18 79/40 L 91 L 05/19/21 02:20 36.4 C L 109 H 21 141/121 H 90 L Intake & Output: Intake & Output 05/16/21 05/17/21 05/18/21 05/19/21 23:59 23:59 23:59 23:59 Intake Total 1236.375 Output Total 295 Balance 941.375 - Objective General Appearance: positive: Mild distress Eyes Bilateral: positive: Other (closed) Respiratory: positive: No respiratory distress Cardiovascular: positive: Irregularly irregular Abdomen: positive: Non-tender, No distention, Other (pink loop colostomy with output. benign abdomen) Neurologic/Psychiatric: positive: Weakness - Lab Results Fish Bones: 05/18/21 21:45 05/18/21 21:45 Other Labs: Lab Results x24hrs 05/19/21 05/19/21 05/19/21 Range/Units 06:05 06:00 05:35 WBC (4.8-10.8) x10^3/uL RBC (4.70-6.10) 10^6/uL Hgb (14.0-18.0) g/dL Hct (42.0-52.0) % MCV (80.0-94.0) fL MCH (27.0-31.0) pg MCHC (32.0-36.0) g/dL RDW (12.0-15.0) % Plt Count (130-450) 10^3/uL MPV (7.4-11.4) fL Neut # (Auto) Lymph # (Auto) [place] # (Auto) Eos # (Auto) Baso # (Auto) Absolute Nucleated RBC Total Counted Band Neuts % (Manual) (0 - 10) % Abnorm Lymph % (Manual) % Metamyelocytes % ( - 0) % Nucleated RBC % Neutrophils # (Manual) (1.5-6.6) 10^3/uL Lymphocytes # (Manual) (1.5-3.5) 10^3/uL Monocytes # (Manual) (0.0-1.0) 10^3/uL Eosinophils # (Manual) (0-0.7) 10^3/uL Basophils # (Manual) (0-0.1) 10^3/uL Differential Comment Manual Slide Review Platelet Estimate (NORMAL) Platelet Morphology (NORMAL) RBC Morph Micro Appear (NORMAL) Bld Gas Analysis Time 0545 Sample Site RIGHT RADIAL ABG pH 7.42 (7.35-7.45) ABG pCO2 36 (34-45) mmHg ABG pO2 71 L (80-100) mmHg ABG HCO3 22.4 (22.0-26.0) mmol/L ABG Total CO2 23.5 (21.0-29.0) MMOL/L ABG O2 Saturation 95 (94-98) % ABG Base Excess -1.7 (-2.0-3.0) mmol/L Fernando Test POSITIVE O2 Delivery Device NON REBREATHER MASK O2 Liters/Min 15.00 LPM FiO2 100.00 Sodium (135-145) mmol/L Potassium (3.5-5.0) mmol/L Chloride (101-111) mmol/L Carbon Dioxide (21-32) mmol/L Anion Gap (6-13) BUN (6-20) mg/dL Creatinine (0.6-1.2) mg/dL Estimated GFR (MDRD) (>89) Glucose (70-100) mg/dL Lactic Acid (0.5-2.2) mmol/L Calcium (8.5-10.3) mg/dL Total Bilirubin (0.2-1.0) mg/dL AST (10-42) IU/L ALT (10-60) IU/L Alkaline Phosphatase (42-121) IU/L Troponin I High Sens (2.3-19.7) ng/L B-Natriuretic Peptide (5-100) pg/mL Total Protein (6.7-8.2) g/dL Albumin (3.2-5.5) g/dL Globulin (2.1-4.2) g/dL Albumin/Globulin Ratio (1.0-2.2) Lipase (22-51) U/L Urine Color YELLOW Urine Clarity CLEAR (CLEAR) Urine pH 5.5 (5.0-7.5) PH Ur Specific [place] <=1.005 (1.002-1.030) Urine Protein TRACE (NEGATIVE) mg/dL Urine Glucose (UA) 250 H (NEGATIVE) mg/dL Urine Ketones TRACE (NEGATIVE) mg/dL Urine Occult Blood NEGATIVE (NEGATIVE) Urine Nitrite NEGATIVE (NEGATIVE) Urine Bilirubin NEGATIVE (NEGATIVE) Urine Urobilinogen 0.2 (NORMAL) (NORMAL) E.U./dL Ur Leukocyte Esterase NEGATIVE (NEGATIVE) Ur Microscopic Review NOT INDICATED Urine Culture Comments NOT INDICATED Nasal Screen MRSA (PCR) NEGATIVE (NEGATIVE) 05/19/21 05/19/21 05/19/21 Range/Units 05:20 05:20 05:20 WBC (4.8-10.8) x10^3/uL RBC (4.70-6.10) 10^6/uL Hgb (14.0-18.0) g/dL Hct (42.0-52.0) % MCV (80.0-94.0) fL MCH (27.0-31.0) pg MCHC (32.0-36.0) g/dL RDW (12.0-15.0) % Plt Count (130-450) 10^3/uL MPV (7.4-11.4) fL Neut # (Auto) Lymph # (Auto) [place] # (Auto) Eos # (Auto) Baso # (Auto) Absolute Nucleated RBC Total Counted Band Neuts % (Manual) (0 - 10) % Abnorm Lymph % (Manual) % Metamyelocytes % ( - 0) % Nucleated RBC % Neutrophils # (Manual) (1.5-6.6) 10^3/uL Lymphocytes # (Manual) (1.5-3.5) 10^3/uL Monocytes # (Manual) (0.0-1.0) 10^3/uL Eosinophils # (Manual) (0-0.7) 10^3/uL Basophils # (Manual) (0-0.1) 10^3/uL Differential Comment Manual Slide Review Platelet Estimate (NORMAL) Platelet Morphology (NORMAL) RBC Morph Micro Appear (NORMAL) Bld Gas Analysis Time Sample Site ABG pH (7.35-7.45) ABG pCO2 (34-45) mmHg ABG pO2 (80-100) mmHg ABG HCO3 (22.0-26.0) mmol/L ABG Total CO2 (21.0-29.0) MMOL/L ABG O2 Saturation (94-98) % ABG Base Excess (-2.0-3.0) mmol/L Fernando Test O2 Delivery Device O2 Liters/Min LPM FiO2 Sodium (135-145) mmol/L Potassium (3.5-5.0) mmol/L Chloride (101-111) mmol/L Carbon Dioxide (21-32) mmol/L Anion Gap (6-13) BUN (6-20) mg/dL Creatinine (0.6-1.2) mg/dL Estimated GFR (MDRD) (>89) Glucose (70-100) mg/dL Lactic Acid 2.4 H (0.5-2.2) mmol/L Calcium (8.5-10.3) mg/dL Total Bilirubin (0.2-1.0) mg/dL AST (10-42) IU/L ALT (10-60) IU/L Alkaline Phosphatase (42-121) IU/L Troponin I High Sens 16.6 (2.3-19.7) ng/L B-Natriuretic Peptide 569 H (5-100) pg/mL Total Protein (6.7-8.2) g/dL Albumin (3.2-5.5) g/dL Globulin (2.1-4.2) g/dL Albumin/Globulin Ratio (1.0-2.2) Lipase (22-51) U/L Urine Color Urine Clarity (CLEAR) Urine pH (5.0-7.5) PH Ur Specific [place] (1.002-1.030) Urine Protein (NEGATIVE) mg/dL Urine Glucose (UA) (NEGATIVE) mg/dL Urine Ketones (NEGATIVE) mg/dL Urine Occult Blood (NEGATIVE) Urine Nitrite (NEGATIVE) Urine Bilirubin (NEGATIVE) Urine Urobilinogen (NORMAL) E.U./dL Ur Leukocyte Esterase (NEGATIVE) Ur Microscopic Review Urine Culture Comments Nasal Screen MRSA (PCR) (NEGATIVE) 05/18/21 05/18/21 05/18/21 Range/Units 22:33 21:45 21:45 WBC 3.7 L (4.8-10.8) x10^3/uL RBC 4.23 L (4.70-6.10) 10^6/uL Hgb 13.8 L (14.0-18.0) g/dL Hct 41.1 L (42.0-52.0) % MCV 97.2 H (80.0-94.0) fL MCH 32.6 H (27.0-31.0) pg MCHC 33.6 (32.0-36.0) g/dL RDW 13.2 (12.0-15.0) % Plt Count 264 (130-450) 10^3/uL MPV 10.1 (7.4-11.4) fL Neut # (Auto) Not Reportable Lymph # (Auto) Not Reportable [place] # (Auto) Not Reportable Eos # (Auto) Not Reportable Baso # (Auto) Not Reportable Absolute Nucleated RBC Not Reportable Total Counted 100 Band Neuts % (Manual) 13 H (0 - 10) % Abnorm Lymph % (Manual) 0 % Metamyelocytes % 4 H ( - 0) % Nucleated RBC % Not Reportable Neutrophils # (Manual) 3.1 (1.5-6.6) 10^3/uL Lymphocytes # (Manual) 0.3 L (1.5-3.5) 10^3/uL Monocytes # (Manual) 0.1 (0.0-1.0) 10^3/uL Eosinophils # (Manual) 0.0 (0-0.7) 10^3/uL Basophils # (Manual) 0.0 (0-0.1) 10^3/uL Differential Comment MANUAL DIFFERENTIAL Manual Slide Review Indicated Platelet Estimate NORMAL (130-450,000) (NORMAL) Platelet Morphology NORMAL APPEARANCE (NORMAL) RBC Morph Micro Appear NORMAL APPEARANCE (NORMAL) Bld Gas Analysis Time Sample Site ABG pH (7.35-7.45) ABG pCO2 (34-45) mmHg ABG pO2 (80-100) mmHg ABG HCO3 (22.0-26.0) mmol/L ABG Total CO2 (21.0-29.0) MMOL/L ABG O2 Saturation (94-98) % ABG Base Excess (-2.0-3.0) mmol/L Fernando Test O2 Delivery Device O2 Liters/Min LPM FiO2 Sodium 135 (135-145) mmol/L Potassium 4.2 (3.5-5.0) mmol/L Chloride 101 (101-111) mmol/L Carbon Dioxide 25 (21-32) mmol/L Anion Gap 9.0 (6-13) BUN 18 (6-20) mg/dL Creatinine 0.9 (0.6-1.2) mg/dL Estimated GFR (MDRD) 79 L (>89) Glucose 234 H (70-100) mg/dL Lactic Acid 1.8 (0.5-2.2) mmol/L Calcium 8.4 L (8.5-10.3) mg/dL Total Bilirubin 0.9 (0.2-1.0) mg/dL AST 18 (10-42) IU/L ALT 18 (10-60) IU/L Alkaline Phosphatase 43 (42-121) IU/L Troponin I High Sens (2.3-19.7) ng/L B-Natriuretic Peptide (5-100) pg/mL Total Protein 5.8 L (6.7-8.2) g/dL Albumin 3.4 (3.2-5.5) g/dL Globulin 2.4 (2.1-4.2) g/dL Albumin/Globulin Ratio 1.4 (1.0-2.2) Lipase 24 (22-51) U/L Urine Color Urine Clarity (CLEAR) Urine pH (5.0-7.5) PH Ur Specific [place] (1.002-1.030) Urine Protein (NEGATIVE) mg/dL Urine Glucose (UA) (NEGATIVE) mg/dL Urine Ketones (NEGATIVE) mg/dL Urine Occult Blood (NEGATIVE) Urine Nitrite (NEGATIVE) Urine Bilirubin (NEGATIVE) Urine Urobilinogen (NORMAL) E.U./dL Ur Leukocyte Esterase (NEGATIVE) Ur Microscopic Review Urine Culture Comments Nasal Screen MRSA (PCR) (NEGATIVE) - Diagnostic Imaging Diagnostic Imaging Results: positive: Read independently (normal postop change and bilateral pleural effusions and progressive liver disease) Assessment/Plan - Problem List (1) Aortic stenosis Impression: normal postop ct and abdominal exam. no evidence bleeding or abdominal sepsis. he had a loop colostomy without resection. his bowel is clearly viable. appreciate medical care and treatment for his low blood pressure/ heart disease
--- NOTE | 2021-05-19 09:52 | XRAY Report ---
PROCEDURE: Abdomen 1 View X-Ray INDICATIONS: abd pain, post-op colostomy TECHNIQUE: 1 view of the abdomen were acquired. COMPARISON: CT abdomen and pelvis dated 05/18/2021 FINDINGS: Surgical changes and devices: None. Bowel: No pneumoperitoneum. Question mild postoperative ileus pattern. Colostomy. Soft tissues: No masses; visualized solid organ contours appear normal in size. No suspicious abdom inal calcifications. Contrast is present in the collecting systems of the kidneys from recent CT. Bones: No suspicious bony abnormalities. IMPRESSION: Question postop ileus. Findings are concordant with the preliminary report provided at the time of the study by [email or web address]. Reviewed by: Ambrocio Arredondo MD on 05/19/2021 8:50 AM JOR[place] Approved by: Ambrocio Arredondo MD on 05/19/2021 8:50 AM J[place] Station ID: [id number]
--- NOTE | 2021-05-19 09:54 | XRAY Report ---
PROCEDURE: Chest 1 View X-Ray INDICATIONS: Oxygen Desaturation TECHNIQUE: One view of the chest was acquired. COMPARISON: Chest film dated 08/16/2019, CT abdomen and pelvis from yesterday FINDINGS: Surgical changes and devices: None. Lungs and pleura: No pleural effusions or pneumothorax. Lungs are clear. There is postoperative fr ee air noted. Patchy bibasilar atelectasis and small bilateral pleural effusions. Mediastinum: Mediastinal contours appear normal. Heart size is normal. Bones and chest wall: No suspicious bony lesions. Overlying soft tissues appear unremarkable. IMPRESSION: 1. Patchy bibasilar atelectasis and small bilateral pleural effusions. 2. Postoperative free abdominal air noted. Findings are concordant with the preliminary report provided at the time of the study by [employer] [facility]. Reviewed by: Ambrocio Arredondo MD on 05/19/2021 8:53 AM JORGITO Approved by: Ambrocio Arredondo MD on 05/19/2021 8:53 AM [place] Station ID: [id number]
--- NOTE | 2021-05-19 09:55 | XRAY Report ---
PROCEDURE: Chest for Line Placement INDICATIONS: central line placed TECHNIQUE: One view of the chest was acquired. COMPARISON: 05/19/2021 at 0430 hours FINDINGS: Surgical changes and devices: Interval placement of a right IJ line, the tip of which projects to the SVC right atrial junction. Lungs and pleura: Patchy bibasilar atelectasis and small bilateral pleural effusions. Mediastinum: Mediastinal contours appear normal. Heart size is normal. Bones and chest wall: No suspicious bony lesions. Overlying soft tissues appear unremarkable. IMPRESSION: 1. Central line projects to SVC right atrial junction. 2. Patchy bibasilar atelectasis and small bilateral pleural effusions. Reviewed by: Ambrocio Arredondo MD on 05/19/2021 8:54 AM J[place] Approved by: Ambrocio Arredondo MD on 05/19/2021 8:54 AM [place] Station ID: [id number]
[2021-05-19] MEDS ORDERED: SODIUM CHLORIDE 0.9% 1,000 ML IV SCH (10:00)
--- NOTE | 2021-05-19 10:39 | ANESTHESIA PROCEDURE NOTE ---
Anesth Central Line Template - Central Line Central Line Preparation: Unable to obtain consent (emergency CVL access requ ested by hospitalist) Central line location: Right IJ Central line type: Triple lumen Central line catheter tip site resides: [facility], right
[2021-05-19] MEDS: ACETAMINOPHEN 325 MG TABLET PO PRN (10:40)
[2021-05-19] MEDS: SODIUM CHLORIDE FLUSH 0.9% 10 ML SYRINGE IVP SCH ×2 (10:40→17:22)
--- NOTE | 2021-05-19 10:45 | CONSULTATION NOTE ---
Consultation Report: consulted by Hospitalist for emergency CVL access due to hemodynamic instability and need for vasopressor treatment. Daughter at the bedisde. Pt and daughter informed. 7Fr 3-lumen CVL placed in RIJ under U/S guidance. Sterile technique maintained. All ports flushed easily and aspirated heme easily. Line secured at 17cm. Portable CXR obtained and tip verified in the RA. No change in pt condition while performing procedure. See anesthesia record.
[2021-05-19] MEDS: FAMOTIDINE 20 MG TABLET PO SCH (10:49)
[2021-05-19 11:05] LABS: BASOPHILS % (AUTO) 0.4 %; MONOCYTES # (AUTO) 0.4 10^3/uL (0.0-1.0); PLT - PLATELET COUNT 235 10^3/uL (130-450)
[2021-05-19 11:08] LABS: CALCIUM 7.8 mg/dL (8.5-10.3); CREATININE 1.4 mg/dL (0.6-1.2); POTASSIUM 4.1 mmol/L (3.5-5.0)
[2021-05-19 11:09] LABS: EOSINOPHILS # (AUTO) 0.2 10^3/uL (0.0-0.7); EOSINOPHILS % (AUTO) 7.1 %; HCT - HEMATOCRIT 35.3 % (42.0-52.0); HGB - HEMOGLOBIN 11.5 g/dL (14.0-18.0); LYMPHOCYTES # (AUTO) 0.2 10^3/uL (1.5-3.5); LYMPHOCYTES % (AUTO) 8.1 %; MEAN CORPUSCULAR HEMOGLOBIN 32.5 pg (27.0-31.0); MEAN CORPUSCULAR HGB CONC 32.6 g/dL (32.0-36.0); MEAN CORPUSCULAR VOLUME 99.7 fL (80.0-94.0); MEAN PLATELET VOLUME 11.5 fL (7.4-11.4); MONOCYTES % (AUTO) 12.7 %; RED BLOOD COUNT 3.54 10^6/uL (4.70-6.10); RED CELL DISTRIBUTION WIDTH 13.5 % (12.0-15.0); WHITE BLOOD COUNT 2.8 x10^3/uL (4.8-10.8)
[2021-05-19] MEDS: HEPARIN 5,000 UNIT/ML VIAL SUBQ SCH ×2 (11:22→21:37)
[2021-05-19] MEDS: SODIUM CHLORIDE 0.9% 1,000 ML IV SCH ×2 (11:28→16:33)
[2021-05-19 11:55] LABS: RBC MORPHOLOGY (MULTIPLE) 1+ OVALOCYTES (NORMAL)
[2021-05-19 11:56] LABS: DIFFERENTIAL COMMENT Y; PLATELET ESTIMATE, MANUAL NORMAL (130-450,000) (NORMAL); PLATELET MORPHOLOGY NORMAL APPEARANCE (NORMAL); WBC MORPHOLOGY (MULTIPLE) NORMAL APPEARANCE (NORMAL)
[2021-05-19] MEDS: VASOPRESSIN 20 UNIT in DEXTROSE 5% 99 ML IV SCH ×2 (13:07→19:47)
[2021-05-19 13:10] LABS: CALCIUM 7.1 mg/dL (8.5-10.3); CREATININE 1.3 mg/dL (0.6-1.2); MAGNESIUM 1.5 mg/dL (1.7-2.8); PHOSPHORUS 2.8 mg/dL (2.5-4.6); POTASSIUM 4.1 mmol/L (3.5-5.0)
[2021-05-19 13:13] LABS: BASOPHILS % (AUTO) 0.7 %; EOSINOPHILS % (AUTO) 0.2 %; HCT - HEMATOCRIT 32.5 % (42.0-52.0); HGB - HEMOGLOBIN 10.8 g/dL (14.0-18.0); LYMPHOCYTES # (AUTO) 0.3 10^3/uL (1.5-3.5); LYMPHOCYTES % (AUTO) 7.7 %; MEAN CORPUSCULAR HEMOGLOBIN 32.9 pg (27.0-31.0); MEAN CORPUSCULAR HGB CONC 33.2 g/dL (32.0-36.0); MEAN CORPUSCULAR VOLUME 99.1 fL (80.0-94.0); MEAN PLATELET VOLUME 11.2 fL (7.4-11.4); MONOCYTES # (AUTO) 0.3 10^3/uL (0.0-1.0); NEUTROPHILS # (AUTO) 3.5 10^3/uL (1.5-6.6); NEUTROPHILS % (AUTO) 82.9 %; PLT - PLATELET COUNT 232 10^3/uL (130-450); RED BLOOD COUNT 3.28 10^6/uL (4.70-6.10); RED CELL DISTRIBUTION WIDTH 13.6 % (12.0-15.0); WHITE BLOOD COUNT 4.3 x10^3/uL (4.8-10.8)
[2021-05-19] MEDS: SODIUM CHLORIDE FLUSH 0.9% 10 ML SYRINGE IVP PRN (13:40)
[2021-05-19] MEDS: CEFEPIME 2 GM in SODIUM CHLORIDE 0.9% MINIBAG 100 ML IV SCH ×2 (13:50→21:23)
[2021-05-19] MEDS ORDERED: MAGNESIUM SULFATE 2 GRAM 2 GM/50 ML BAG IV ONE (13:55)
[2021-05-19] MEDS ORDERED: CEFEPIME 2 GM in SODIUM CHLORIDE 0.9% MINIBAG 100 ML IV SCH (14:00)
[2021-05-19 14:14] LABS: DIFFERENTIAL COMMENT Y; PLATELET ESTIMATE, MANUAL NORMAL (130-450,000) (NORMAL); PLATELET MORPHOLOGY NORMAL APPEARANCE (NORMAL); WBC MORPHOLOGY (MULTIPLE) 1+ DOHLE B (NORMAL)
[2021-05-19] MEDS: HYDROmorphone 0.5 MG/0.5 ML SYRINGE IVP PRN (14:41)
--- NOTE | 2021-05-19 16:29 | XRAY Report ---
PROCEDURE: Chest 1 View X-Ray INDICATIONS: hypoxia, elevated BNP, ?fluid overload TECHNIQUE: One view of the chest was acquired. COMPARISON: Prior chest x-ray studies from 05/19/2021 and 05/16/[address] FINDINGS: Surgical changes and devices: Right internal jugular catheter redemonstrated with the tip extending t o the cavoatrial junction. Lungs and pleura: There are low lung volumes. Increased bony edema is demonstrated bilaterally. Pers istent small bilateral pleural effusions are present as well as medial bibasilar atelectasis or conso lidation. No pneumothorax. Mediastinum: Mediastinal contours appear unchanged. Heart size is mildly enlarged. Bones and chest wall: No suspicious bony lesions. Overlying soft tissues appear unremarkable. IMPRESSION: 1. Increased pulmonary edema with persistent small pleural effusions and medial bibasilar atelectasis or consolidation. Reviewed by: Fran Pope MD on 05/19/2021 4:28 PM PDT Approved by: Fran Pope MD on 05/19/2021 4:28 PM PDT Station ID: [id number]
--- NOTE | 2021-05-19 16:40 | PROVIDER PROGRESS NOTE ---
Progress Note At the beginning of shift this morning the patient's blood pressure was in the 60s. Levophed drip had been initiated. I reached out to anesthesia who came in and placed a central line. A liter bolus of normal saline was ordered to be administered over 2 hours. The patient's fluids were switched to normal saline at 150 mL/h. His systolic blood pressure mainly fluctuated between 60 and 70. As a result a second bolus of fluid was administered over 2 more hours. By early afternoon Levophed had been titrated to the maximum level as a result vasopressin was initiated. Initially the patient's urine output was 20 to 30 mL of urine per hour. This steadily decreased to 10 and then 2 0 by late afternoon. The patient's daughter was at bedside. I updated her each step of the patient's treatment. I highlighted that #1 working diagnosis was sepsis/septic shock. And stated we were not definite on the source at the moment but the patient was covered with broad-spectrum antibiotics. His troponin trend was 16.6, 27.1, 46.2, 83.5. I also had a conversation with the patient's son and her Y highlighting how critical the patient's clinical condition was. I revisited the topic of the patient's CODE STATUS with the daughter and son individually and together. They wanted to come for a month himself before making any decision. I am still waiting to hear their final decision. For now the patient remains full code. His initial lactic acid was 1.8. This was trended. The highest reading was 3.9 and The most recent lactic acid level by end of shift was 2.5. The patient's heart rate was mostly in the high 90s. He would intermittently go into Atrial fibrillation and then converted back to sinus. His initial BMP was 569. Repeat level later in the afternoon was 1426. By the end of shift the patient's systolic blood pressure was in the 80s. This was at max level of Levophed and vasopressin. Assessment and plan: Septic shock: Etiology undetermined but possibly due to pneumonia and colitis. Patient is on broad-spectrum antibiotics to include vancomycin, cefepime, Flagyl and azithromycin. NSTEMI: This is likely related to demand ischemia due to patient's septic shock. His troponin trend was 16.6, 27.1, 46.2, 83.5. 90 minutes of critical care time was spent on this patient's care today.
--- NOTE | 2021-05-19 21:35 | PROVIDER PROGRESS NOTE ---
Speech Language Pathologist Note - Speech Language Pathologist Note Speech Language Pathologist Note: I was asked to address that he is on maximum doses of 2 pressors. Blood pressure is 90s/50s and the patient is awake, lethargic, answers appropriately however. I reviewed the chart and the labs. Troponins are increasing from 20 to 40 to 80 consistent with NSTEMI, this is probably demand ischemia from his hypotension. BNP is 1400's. The daughter reported to me today that he sees a Job Developer once a year for his heart murmur, except he probably did not go in 2019 dye to [facility]. There has been no Hx of CAD or CHF, per the daughter. Lactic acid is 3.9 and the entire picture is consistent with septic shock. I performed a limited bedside Echo (as a Job Developer), to eval LV function and the murmur. The Echo showed 4-chamber dilitation, severe global LV hypokinesis, LVEF 20% (approx), depressed RVEF also, very calcified aortic valve with restricted mobility, gradient across Aov is 36mmHg peak, in face of low cardiac output (from low LVEF), this suggests severe . 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 Will give iv albumen with iv Lasix. If BP improves will start low dose B-blockers. Continue empiric iv antibx for GI source and add Zithromax for pneumonia. Await cx results Bowel rest Colostomy care, per surgery service Check TSH, regarding the ? cause of Afib I updated the daughter, otside the patient's room, about all the above. He is critical and has a very poor prognosis. She had told Dr Rush that the patient is a Full Code. I readdressed that after the information about the severe and severe cardiomyopathy and that he may not survive a Code Blue. She does want him to remain a Full Code. CRITICAL CARE TIME SPENT: 45 MIN (chart review, performing bedside Echo, discussion with daughter, new orders, writing this note).
[2021-05-19] MEDS: ACETAMINOPHEN 1,000 MG/100 ML 100 ML IV PRN (21:42)
[2021-05-19] MEDS: AZITHROMYCIN INJ 500 MG in SODIUM CHLORIDE 0.9% 250 ML IV SCH (22:23)
[2021-05-20] MEDS: INSULIN REGULAR HUMAN 300 UNIT/3 ML VIAL SUBQ SCH ×4 (00:04→18:51)
[2021-05-20] MEDS: SODIUM CHLORIDE FLUSH 0.9% 10 ML SYRINGE IVP SCH ×3 (00:05→17:04)
[2021-05-20] MEDS: VASOPRESSIN 20 UNIT in DEXTROSE 5% 99 ML IV SCH ×2 (00:31→05:42)
[2021-05-20] MEDS ORDERED: ALBUMIN 25% 12.5 GM/50 ML VIAL IV STA ×2 (00:37→13:55)
[2021-05-20] MEDS ORDERED: FUROSEMIDE 20 MG/2 ML VIAL IVP ONE (01:30)
[2021-05-20] MEDS: HYDROmorphone 0.5 MG/0.5 ML SYRINGE IVP PRN (02:35)
[2021-05-20] MEDS: CEFEPIME 2 GM in SODIUM CHLORIDE 0.9% MINIBAG 100 ML IV SCH ×3 (05:44→21:44)
[2021-05-20] MEDS: metroNIDAZOLE 500 MG/100 ML 500 MG/100 ML BAG IV SCH ×3 (05:45→22:51)
[2021-05-20] MEDS: SODIUM CHLORIDE FLUSH 0.9% 10 ML SYRINGE IVP PRN (05:54)
[2021-05-20 06:58] LABS: CALCIUM 7.4 mg/dL (8.5-10.3); CREATININE 1.1 mg/dL (0.6-1.2); POTASSIUM 4.2 mmol/L (3.5-5.0)
[2021-05-20 07:27] LABS: BASOPHILS % (AUTO) 0.1 %; EOSINOPHILS % (AUTO) 0.2 %; HCT - HEMATOCRIT 32.2 % (42.0-52.0); HGB - HEMOGLOBIN 10.6 g/dL (14.0-18.0); LYMPHOCYTES # (AUTO) 0.5 10^3/uL (1.5-3.5); LYMPHOCYTES % (AUTO) 5.5 %; MEAN CORPUSCULAR HEMOGLOBIN 32.6 pg (27.0-31.0); MEAN CORPUSCULAR HGB CONC 32.9 g/dL (32.0-36.0); MEAN CORPUSCULAR VOLUME 99.1 fL (80.0-94.0); MEAN PLATELET VOLUME 11.6 fL (7.4-11.4); MONOCYTES # (AUTO) 0.6 10^3/uL (0.0-1.0); MONOCYTES % (AUTO) 6.6 %; NEUTROPHILS # (AUTO) 6.7 10^3/uL (1.5-6.6); NEUTROPHILS % (AUTO) 77.8 %; PLT - PLATELET COUNT 190 10^3/uL (130-450); RED BLOOD COUNT 3.25 10^6/uL (4.70-6.10); RED CELL DISTRIBUTION WIDTH 13.9 % (12.0-15.0); WHITE BLOOD COUNT 8.6 x10^3/uL (4.8-10.8)
[2021-05-20 07:36] LABS: MAGNESIUM 1.9 mg/dL (1.7-2.8); PHOSPHORUS 3.8 mg/dL (2.5-4.6)
[2021-05-20 08:19] LABS: PLATELET ESTIMATE, MANUAL NORMAL (130-450,000) (NORMAL); PLATELET MORPHOLOGY NORMAL APPEARANCE (NORMAL); RBC MORPHOLOGY (MULTIPLE) 2+ BURR CELLS (NORMAL)
[2021-05-20 08:20] LABS: DIFFERENTIAL COMMENT Y; WBC MORPHOLOGY (MULTIPLE) 1+ DOHLE BODIES (NORMAL)
--- NOTE | 2021-05-20 09:02 | PROVIDER PROGRESS NOTE ---
Assessment/Plan - Current Meds Current Meds: Current Medications Generic Name Dose Route Start Last Admin Trade Name Freq PRN Reason Stop Dose Admin Acetaminophen 650 mg 05/18/21 23:57 05/19/21 10:40 Acetaminophen 325 Mg Tablet PO 650 mg Q4HR PRN Administration Pain 1 to 4 Famotidine 20 mg 05/19/21 09:00 05/19/21 10:49 Famotidine 20 Mg Tablet PO 20 mg DAILY DOROTHEA Administration Heparin Sodium (Porcine) 5,000 unit 05/19/21 09:00 05/19/21 21:37 Heparin 5,000 Unit/Ml Vial SUBQ 5,000 unit BID DOROTHEA Administration Hydromorphone HCl 0.5 mg 05/19/21 05:22 05/20/21 02:35 Hydromorphone 0.5 Mg/0.5 Ml Syringe IVP 0.5 mg Q6H PRN Administration Pain 8 to 10 Norepinephrine Bitartrate 8 mg 250 mls @ 15 mls/hr 05/19/21 06:00 05/20/21 07:07 / Dextrose IV 29.97 mcg/min .[id number] DOROTHEA 56.194 mls/hr Administration Protocol 8 MCG/MIN Metronidazole 500 mg in 100 mls @ 100 mls/hr 05/19/21 06:00 05/20/21 07:10 Flagyl 500 Mg/100 Ml IV Infused Q8H DOROTHEA Infusion Cefepime HCl 2 gm/ Sodium 100 mls @ 200 mls/hr 05/19/21 14:00 05/20/21 07:10 Chloride IV Infused TID DOROTHEA Infusion Vasopressin 20 unit/ Dextrose 100 mls @ 6 mls/hr 05/19/21 13:00 05/20/21 06:04 IV 0.03 unit/min .[id number] DOROTHEA 9 mls/hr Titration 0.02 UNIT/MIN Acetaminophen 100 mls @ 400 mls/hr 05/19/21 16:23 05/19/21 22:11 Ofirmev IV Infused Q8HR PRN Infusion PAIN Azithromycin 500 mg/ Sodium 250 mls @ 250 mls/hr 05/19/21 21:00 05/19/21 23:25 Chloride IV 05/21/21 21:59 Infused Q24H DOROTHEA Infusion Insulin Human Regular 1 - 5 unit 05/19/21 06:00 05/20/21 06:39 Insulin Regular Human 300 Unit/3 Ml Vial SUBQ 2 unit Q6HR DOROTHEA Administration Protocol Sodium Chloride 10 ml 05/19/21 09:00 05/20/21 00:05 Sodium Chloride Flush 0.9% 10 Ml Syringe IVP 20 ml 0100,[id number],1700 DOROTHEA Administration Sodium Chloride 20 ml 05/19/21 13:49 05/20/21 05:54 Sodium Chloride Flush 0.9% 10 Ml Syringe IVP 20 ml PRN PRN Administration After Blood Draw - Lab Result Fish Bone Diagrams: 05/20/21 05:50 05/20/21 05:50 - Additional Planning My Orders: My Active Orders 05/19/21 13:00 Dextrose 5% [D5w] 99 ml Vasopressin 20 unit IV 0.02 unit/min 05/19/21 14:00 Cefepime 2 gm Sodium Chloride 0.9% Minibag [Normal Saline 0.9% Minibag] 100 ml IV TID 05/19/21 16:23 Acetaminophen 1,000 mg/100 ml [Ofirmev] 100 ml IV Q8HR 05/19/21 21:00 Azithromycin Inj [Zithromax Inj] 500 mg Sodium Chloride 0.9% [Normal Saline 0.9%] 250 ml IV Q24H 05/21/21 05:00 BMP - BASIC METABOLIC PANEL [CHEM] DAILYLAB CBC - COMP BLD CT W/AUTO DIFF [HEME] DAILYLAB MAGNESIUM [CHEM] DAILYLAB PHOSPHORUS [CHEM] DAILYLAB 05/22/21 05:00 BMP - BASIC METABOLIC PANEL [CHEM] DAILYLAB CBC - COMP BLD CT W/AUTO DIFF [HEME] DAILYLAB MAGNESIUM [CHEM] DAILYLAB PHOSPHORUS [CHEM] DAILYLAB 05/23/21 05:00 BMP - BASIC METABOLIC PANEL [CHEM] DAILYLAB CBC - COMP BLD CT W/AUTO DIFF [HEME] DAILYLAB MAGNESIUM [CHEM] DAILYLAB PHOSPHORUS [CHEM] DAILYLAB 05/24/21 05:00 BMP - BASIC METABOLIC PANEL [CHEM] DAILYLAB CBC - COMP BLD CT W/AUTO DIFF [HEME] DAILYLAB Additional Planning Notes: Assessment/Plan: 1. Septic Shock: Etiology: Likely Colitis and/or Pneumonia Patient was maxed out on Levophed and vasopressin yesterday. He received a total of about 6 L of IV fluid yesterday. Blood cultures appear to be growing Gram variable bacilli and anaerobic cultures. This is a likely contaminant versus gastrointestinal source given recent colectomy. Patient was weaned off vasopressin today. Levophed is being titrated down with intention to wean off. IV fluids were discontinued at the end of shift on 05/19/21 due to CHF exacerbation/significant pulmonary edema Clinically the patient appears to be doing better today. He was more alert, awake and oriented to the point that he could follow attending's program on TV. 2. CHF Exacerbation: Patient received about 6 L of IV fluids yesterday 05/19/21 in an attempt to treat a suspected septic shock. The fluids were discontinued by his 7 PM. On 05/19/21. Chest x-ray showed pulmonary edema. BNP was 1421. Bedside echocardiogram showed an EF of about 20%. The patient was administered Lasix and albumin. 20 mg Lasix and 12.5 g albumin was repeated this afternoon. The patient has been diuresing well. His systolic blood pressure has fluctuated between 90 and low 100. Coreg 3.125 mg p.o. twice daily was ordered to be given if the patient's blood pressure tolerates. 3. NSTEMI: Suspect this was due to demand ischemia. Patient's troponin trend was 16.6, 27.1, 46.2 and 83.5. 4. Paroxysmal Atrial Fibrillation: He is currently in sinus rhythm. Will administer Coreg when patient's blood pressure permits. 5. Aortic Stenosis: Will obtain an official 2D echocardiogram when available. Probably on 05/21/21 6. 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 This is managed by Dr. Charles Marcus with general surgery. I had a conversation with the patient's son and daughter yesterday when his clinical condition was critical regarding CODE STATUS. After deliberation amongst themselves they maintain that they wish for him to be a full code. To intubate and or do CPR if indicated. Subjective - Subjective Patient Reports: Other (Patient was very awake alert and oriented today. He appeared very comfortable and was intently following tennis on TV.) Objective Vital Signs: Vital Signs - 24 hr 05/19/21 05/19/21 05/19/21 09:10 09:20 09:30 Temperature Heart Rate Heart Rate [ 100 93 92 Brachial] Heart Rate [ Monitoring electrodes] Respiratory Rate Blood Pressure Blood Pressure 56/36 L 73/46 L 67/41 L [Left Brachial artery] Blood Pressure [Right Brachial artery] O2 Saturation 05/19/21 05/19/21 05/19/21 09:40 09:50 10:00 Temperature Heart Rate Heart Rate [ 92 92 93 Brachial] Heart Rate [ Monitoring electrodes] Respiratory 22 Rate Blood Pressure Blood Pressure 68/43 L 64/45 L 73/43 L [Left Brachial artery] Blood Pressure [Right Brachial artery] O2 Saturation 91 L 05/19/21 05/19/21 05/19/21 10:10 10:20 10:30 Temperature Heart Rate Heart Rate [ 93 94 102 H Brachial] Heart Rate [ Monitoring electrodes] Respiratory Rate Blood Pressure Blood Pressure 61/42 L 74/48 L 78/46 L [Left Brachial artery] Blood Pressure [Right Brachial artery] O2 Saturation 05/19/21 05/19/21 05/19/21 10:40 10:50 11:00 Temperature Heart Rate Heart Rate [ 96 94 103 H Brachial] Heart Rate [ Monitoring electrodes] Respiratory 22 Rate Blood Pressure Blood Pressure 65/51 L 59/47 L 59/47 L [Left Brachial artery] Blood Pressure [Right Brachial artery] O2 Saturation 94 05/19/21 05/19/21 05/19/21 11:10 11:20 11:30 Temperature Heart Rate Heart Rate [ 101 H 102 H 103 H Brachial] Heart Rate [ Monitoring electrodes] Respiratory Rate Blood Pressure Blood Pressure 66/43 L 64/41 L 66/38 L [Left Brachial artery] Blood Pressure [Right Brachial artery] O2 Saturation 05/19/21 05/19/21 05/19/21 11:40 11:50 12:00 Temperature 37.2 C Heart Rate Heart Rate [ 102 H 106 H 112 H Brachial] Heart Rate [ Monitoring electrodes] Respiratory 24 Rate Blood Pressure Blood Pressure 67/47 L 95/72 66/40 L [Left Brachial artery] Blood Pressure [Right Brachial artery] O2 Saturation 94 05/19/21 05/19/21 05/19/21 13:00 13:10 13:20 Temperature Heart Rate Heart Rate [ 103 H 107 H 101 H Brachial] Heart Rate [ Monitoring electrodes] Respiratory 23 Rate Blood Pressure Blood Pressure 70/43 L 68/43 L 72/45 L [Left Brachial artery] Blood Pressure [Right Brachial artery] O2 Saturation 95 05/19/21 05/19/21 05/19/21 13:30 14:00 14:20 Temperature Heart Rate Heart Rate [ 99 105 H 102 H Brachial] Heart Rate [ Monitoring electrodes] Respiratory 23 Rate Blood Pressure Blood Pressure 74/47 L 68/44 L 89/69 L [Left Brachial artery] Blood Pressure [Right Brachial artery] O2 Saturation 96 05/19/21 05/19/21 05/19/21 14:30 15:16 15:51 Temperature Heart Rate Heart Rate [ 102 H 104 H 96 Brachial] Heart Rate [ Monitoring electrodes] Respiratory 17 16 Rate Blood Pressure Blood Pressure 90/48 L 86/45 L 74/45 L [Left Brachial artery] Blood Pressure [Right Brachial artery] O2 Saturation 92 91 L 05/19/21 05/19/21 05/19/21 16:00 16:34 17:00 Temperature Heart Rate Heart Rate [ 86 90 87 Brachial] Heart Rate [ Monitoring electrodes] Respiratory 18 21 22 Rate Blood Pressure Blood Pressure 72/48 L 69/52 L 77/55 L [Left Brachial artery] Blood Pressure [Right Brachial artery] O2 Saturation 91 L 95 96 05/19/21 05/19/21 05/19/21 17:21 17:25 17:30 Temperature Heart Rate 91 101 H 103 H Heart Rate [ Brachial] Heart Rate [ Monitoring electrodes] Respiratory 22 23 22 Rate Blood Pressure Blood Pressure [Left Brachial artery] Blood Pressure [Right Brachial artery] O2 Saturation 05/19/21 05/19/21 05/19/21 17:35 17:39 17:40 Temperature Heart Rate 97 93 95 Heart Rate [ Brachial] Heart Rate [ Monitoring electrodes] Respiratory 21 20 19 Rate Blood Pressure 76/44 L Blood Pressure [Left Brachial artery] Blood Pressure [Right Brachial artery] O2 Saturation 05/19/21 05/19/21 05/19/21 17:41 17:45 17:50 Temperature Heart Rate 103 H 91 103 H Heart Rate [ Brachial] Heart Rate [ Monitoring electrodes] Respiratory 24 25 H 24 Rate Blood Pressure Blood Pressure [Left Brachial artery] Blood Pressure [Right Brachial artery] O2 Saturation 05/19/21 05/19/21 05/19/21 17:55 17:59 18:00 Temperature Heart Rate 102 H 104 H 96 Heart Rate [ 103 H Brachial] Heart Rate [ Monitoring electrodes] Respiratory 21 21 22 Rate Blood Pressure 79/63 L Blood Pressure 79/63 L [Left Brachial artery] Blood Pressure [Right Brachial artery] O2 Saturation 98 05/19/21 05/19/21 05/19/21 18:01 18:05 18:10 Temperature Heart Rate 94 104 H 92 Heart Rate [ Brachial] Heart Rate [ Monitoring electrodes] Respiratory 20 25 H 24 Rate Blood Pressure Blood Pressure [Left Brachial artery] Blood Pressure [Right Brachial artery] O2 Saturation 05/19/21 05/19/21 05/19/21 18:15 18:19 18:20 Temperature Heart Rate 95 97 96 Heart Rate [ Brachial] Heart Rate [ Monitoring electrodes] Respiratory 23 24 22 Rate Blood Pressure 90/69 Blood Pressure [Left Brachial artery] Blood Pressure [Right Brachial artery] O2 Saturation 05/19/21 05/19/21 05/19/21 18:21 18:25 18:30 Temperature Heart Rate 87 94 102 H Heart Rate [ Brachial] Heart Rate [ Monitoring electrodes] Respiratory 21 29 H 24 Rate Blood Pressure Blood Pressure [Left Brachial artery] Blood Pressure [Right Brachial artery] O2 Saturation 05/19/21 05/19/21 05/19/21 18:35 18:39 18:40 Temperature Heart Rate 105 H 100 85 Heart Rate [ Brachial] Heart Rate [ Monitoring electrodes] Respiratory 23 23 21 Rate Blood Pressure 83/54 L Blood Pressure [Left Brachial artery] Blood Pressure [Right Brachial artery] O2 Saturation 05/19/21 05/19/21 05/19/21 18:41 18:45 18:50 Temperature Heart Rate 98 97 95 Heart Rate [ Brachial] Heart Rate [ Monitoring electrodes] Respiratory 23 20 21 Rate Blood Pressure Blood Pressure [Left Brachial artery] Blood Pressure [Right Brachial artery] O2 Saturation 05/19/21 05/19/21 05/19/21 18:55 18:59 19:00 Temperature Heart Rate 97 104 H 101 H Heart Rate [ 100 Brachial] Heart Rate [ Monitoring electrodes] Respiratory 24 20 21 Rate Blood Pressure 74/54 L Blood Pressure 74/54 L [Left Brachial artery] Blood Pressure [Right Brachial artery] O2 Saturation 98 05/19/21 05/19/21 05/19/21 19:01 19:05 19:40 Temperature Heart Rate 99 92 101 H Heart Rate [ Brachial] Heart Rate [ Monitoring electrodes] Respiratory 20 21 19 Rate Blood Pressure Blood Pressure [Left Brachial artery] Blood Pressure [Right Brachial artery] O2 Saturation 05/19/21 05/19/21 05/19/21 19:41 19:42 20:00 Temperature 37.0 C Heart Rate 100 100 Heart Rate [ 97 Brachial] Heart Rate [ Monitoring electrodes] Respiratory 19 19 22 Rate Blood Pressure 87/49 L Blood Pressure 89/49 L [Left Brachial artery] Blood Pressure [Right Brachial artery] O2 Saturation 98 05/19/21 05/19/21 05/19/21 20:09 20:10 20:15 Temperature Heart Rate 99 99 99 Heart Rate [ Brachial] Heart Rate [ Monitoring electrodes] Respiratory 23 22 24 Rate Blood Pressure 89/49 L Blood Pressure [Left Brachial artery] Blood Pressure [Right Brachial artery] O2 Saturation 05/19/21 05/19/21 05/19/21 20:19 20:20 20:21 Temperature Heart Rate 98 98 104 H Heart Rate [ Brachial] Heart Rate [ Monitoring electrodes] Respiratory 21 22 21 Rate Blood Pressure 94/56 L Blood Pressure [Left Brachial artery] Blood Pressure [Right Brachial artery] O2 Saturation 05/19/21 05/19/21 05/19/21 20:25 20:52 21:00 Temperature Heart Rate 98 86 Heart Rate [ 100 Brachial] Heart Rate [ Monitoring electrodes] Respiratory 21 23 22 Rate Blood Pressure Blood Pressure 87/49 L [Left Brachial artery] Blood Pressure [Right Brachial artery] O2 Saturation 98 05/19/21 05/19/21 05/19/21 21:05 21:37 21:38 Temperature Heart Rate 80 85 91 Heart Rate [ Brachial] Heart Rate [ Monitoring electrodes] Respiratory 21 24 24 Rate Blood Pressure Blood Pressure [Left Brachial artery] Blood Pressure [Right Brachial artery] O2 Saturation 05/19/21 05/19/21 05/19/21 21:39 21:40 21:41 Temperature Heart Rate 90 92 95 Heart Rate [ Brachial] Heart Rate [ Monitoring electrodes] Respiratory 23 24 26 H Rate Blood Pressure 109/65 97/72 Blood Pressure [Left Brachial artery] Blood Pressure [Right Brachial artery] O2 Saturation 05/19/21 05/19/21 05/19/21 21:45 21:46 22:00 Temperature Heart Rate 91 84 Heart Rate [ 91 Brachial] Heart Rate [ Monitoring electrodes] Respiratory 24 24 20 Rate Blood Pressure Blood Pressure 96/52 L [Left Brachial artery] Blood Pressure [Right Brachial artery] O2 Saturation 95 05/19/21 05/19/21 05/19/21 22:06 22:10 22:15 Temperature Heart Rate 89 88 88 Heart Rate [ Brachial] Heart Rate [ Monitoring electrodes] Respiratory 19 17 16 Rate Blood Pressure Blood Pressure [Left Brachial artery] Blood Pressure [Right Brachial artery] O2 Saturation 05/19/21 05/19/21 05/19/21 22:20 22:21 22:33 Temperature Heart Rate 85 88 91 Heart Rate [ Brachial] Heart Rate [ Monitoring electrodes] Respiratory 24 18 19 Rate Blood Pressure 96/52 L 96/52 L Blood Pressure [Left Brachial artery] Blood Pressure [Right Brachial artery] O2 Saturation 05/19/21 05/19/21 05/19/21 22:38 22:39 22:40 Temperature Heart Rate 93 92 84 Heart Rate [ Brachial] Heart Rate [ Monitoring electrodes] Respiratory 25 H 25 H 24 Rate Blood Pressure 103/62 Blood Pressure [Left Brachial artery] Blood Pressure [Right Brachial artery] O2 Saturation 05/19/21 05/19/21 05/19/21 22:41 22:49 22:50 Temperature Heart Rate 93 93 91 Heart Rate [ Brachial] Heart Rate [ Monitoring electrodes] Respiratory 23 27 H 26 H Rate Blood Pressure Blood Pressure [Left Brachial artery] Blood Pressure [Right Brachial artery] O2 Saturation 05/19/21 05/19/21 05/19/21 22:55 22:59 23:00 Temperature Heart Rate 92 92 95 Heart Rate [ 92 Brachial] Heart Rate [ Monitoring electrodes] Respiratory 27 H Rate Blood Pressure 91/62 Blood Pressure [Left Brachial artery] Blood Pressure 91/62 [Right Brachial artery] O2 Saturation 96 05/19/21 05/19/21 05/19/21 23:12 23:29 23:30 Temperature Heart Rate 93 93 93 Heart Rate [ Brachial] Heart Rate [ Monitoring electrodes] Respiratory 25 H 25 H 25 H Rate Blood Pressure 91/62 Blood Pressure [Left Brachial artery] Blood Pressure [Right Brachial artery] O2 Saturation 05/19/21 05/19/21 05/20/21 23:35 23:58 00:00 Temperature Heart Rate 92 89 Heart Rate [ Brachial] Heart Rate [ 89 Monitoring electrodes] Respiratory 21 21 Rate Blood Pressure Blood Pressure 103/63 [Left Brachial artery] Blood Pressure [Right Brachial artery] O2 Saturation 98 05/20/21 05/20/21 05/20/21 00:03 00:05 00:20 Temperature Heart Rate 88 76 89 Heart Rate [ Brachial] Heart Rate [ Monitoring electrodes] Respiratory 24 25 H 20 Rate Blood Pressure Blood Pressure [Left Brachial artery] Blood Pressure [Right Brachial artery] O2 Saturation 07/05/21 07/05/21 07/05/21 00:21 00:24 00:25 Temperature Heart Rate 88 89 80 Heart Rate [ Brachial] Heart Rate [ Monitoring electrodes] Respiratory 22 22 20 Rate Blood Pressure 106/69 106/69 Blood Pressure [Left Brachial artery] Blood Pressure [Right Brachial artery] O2 Saturation 05/20/21 05/20/21 05/20/21 00:30 00:35 00:45 Temperature Heart Rate 86 87 80 Heart Rate [ Brachial] Heart Rate [ Monitoring electrodes] Respiratory 20 18 22 Rate Blood Pressure Blood Pressure [Left Brachial artery] Blood Pressure [Right Brachial artery] O2 Saturation 05/20/21 05/20/21 05/20/21 00:50 00:55 00:59 Temperature Heart Rate 87 90 86 Heart Rate [ Brachial] Heart Rate [ Monitoring electrodes] Respiratory 19 22 22 Rate Blood Pressure Blood Pressure [Left Brachial artery] Blood Pressure [Right Brachial artery] O2 Saturation 05/20/21 05/20/21 05/20/21 01:00 01:01 01:05 Temperature Heart Rate 86 77 88 Heart Rate [ Brachial] Heart Rate [ 86 Monitoring electrodes] Respiratory 18 19 20 Rate Blood Pressure 111/59 L Blood Pressure [Left Brachial artery] Blood Pressure 103/73 [Right Brachial artery] O2 Saturation 97 05/20/21 05/20/21 05/20/21 01:10 01:15 01:19 Temperature Heart Rate 91 82 76 Heart Rate [ Brachial] Heart Rate [ Monitoring electrodes] Respiratory 20 18 17 Rate Blood Pressure Blood Pressure [Left Brachial artery] Blood Pressure [Right Brachial artery] O2 Saturation 05/20/21 05/20/21 05/20/21 01:20 01:21 01:25 Temperature Heart Rate 77 80 85 Heart Rate [ Brachial] Heart Rate [ Monitoring electrodes] Respiratory 17 17 21 Rate Blood Pressure 103/73 Blood Pressure [Left Brachial artery] Blood Pressure [Right Brachial artery] O2 Saturation 05/20/21 05/20/21 05/20/21 01:30 01:35 01:39 Temperature Heart Rate 76 91 85 Heart Rate [ Brachial] Heart Rate [ Monitoring electrodes] Respiratory 16 23 20 Rate Blood Pressure Blood Pressure [Left Brachial artery] Blood Pressure [Right Brachial artery] O2 Saturation 05/20/21 05/20/21 05/20/21 01:40 01:41 01:45 Temperature Heart Rate 84 83 70 Heart Rate [ Brachial] Heart Rate [ Monitoring electrodes] Respiratory 18 18 17 Rate Blood Pressure 110/74 Blood Pressure [Left Brachial artery] Blood Pressure [Right Brachial artery] O2 Saturation 05/20/21 05/20/21 05/20/21 01:50 01:55 01:59 Temperature Heart Rate 76 83 82 Heart Rate [ Brachial] Heart Rate [ Monitoring electrodes] Respiratory 16 18 17 Rate Blood Pressure Blood Pressure [Left Brachial artery] Blood Pressure [Right Brachial artery] O2 Saturation 05/20/21 05/20/21 05/20/21 02:00 02:01 02:05 Temperature Heart Rate 87 90 86 Heart Rate [ Brachial] Heart Rate [ 77 Monitoring electrodes] Respiratory 24 21 20 Rate Blood Pressure 86/58 L Blood Pressure [Left Brachial artery] Blood Pressure 86/58 L [Right Brachial artery] O2 Saturation 96 05/20/21 05/20/21 05/20/21 02:10 02:15 02:19 Temperature Heart Rate 85 88 88 Heart Rate [ Brachial] Heart Rate [ Monitoring electrodes] Respiratory 23 29 H 21 Rate Blood Pressure Blood Pressure [Left Brachial artery] Blood Pressure [Right Brachial artery] O2 Saturation 05/20/21 05/20/21 05/20/21 02:20 02:21 02:25 Temperature Heart Rate 87 85 72 Heart Rate [ Brachial] Heart Rate [ Monitoring electrodes] Respiratory 27 H 20 24 Rate Blood Pressure 107/59 L Blood Pressure [Left Brachial artery] Blood Pressure [Right Brachial artery] O2 Saturation 05/20/21 05/20/21 05/20/21 02:30 02:35 02:39 Temperature Heart Rate 86 70 69 Heart Rate [ Brachial] Heart Rate [ Monitoring electrodes] Respiratory 24 21 19 Rate Blood Pressure Blood Pressure [Left Brachial artery] Blood Pressure [Right Brachial artery] O2 Saturation 05/20/21 05/20/21 05/20/21 02:40 02:41 02:45 Temperature Heart Rate 78 82 84 Heart Rate [ Brachial] Heart Rate [ Monitoring electrodes] Respiratory 18 17 15 Rate Blood Pressure 97/62 Blood Pressure [Left Brachial artery] Blood Pressure [Right Brachial artery] O2 Saturation 05/20/21 05/20/21 05/20/21 02:50 02:55 03:00 Temperature Heart Rate 75 84 84 Heart Rate [ Brachial] Heart Rate [ 85 Monitoring electrodes] Respiratory 13 14 14 Rate Blood Pressure Blood Pressure [Left Brachial artery] Blood Pressure 89/59 L [Right Brachial artery] O2 Saturation 97 05/20/21 05/20/21 05/20/21 03:01 03:05 03:10 Temperature Heart Rate 78 78 78 Heart Rate [ Brachial] Heart Rate [ Monitoring electrodes] Respiratory 13 13 12 Rate Blood Pressure 89/59 L Blood Pressure [Left Brachial artery] Blood Pressure [Right Brachial artery] O2 Saturation 05/20/21 05/20/21 05/20/21 03:15 03:19 03:20 Temperature Heart Rate 85 85 85 Heart Rate [ Brachial] Heart Rate [ Monitoring electrodes] Respiratory 13 13 12 Rate Blood Pressure 96/61 Blood Pressure [Left Brachial artery] Blood Pressure [Right Brachial artery] O2 Saturation 05/20/21 05/20/21 05/20/21 03:21 03:25 03:30 Temperature Heart Rate 86 84 85 Heart Rate [ Brachial] Heart Rate [ Monitoring electrodes] Respiratory 13 12 12 Rate Blood Pressure Blood Pressure [Left Brachial artery] Blood Pressure [Right Brachial artery] O2 Saturation 05/20/21 05/20/21 05/20/21 03:35 03:39 03:40 Temperature Heart Rate 79 78 77 Heart Rate [ Brachial] Heart Rate [ Monitoring electrodes] Respiratory 13 14 13 Rate Blood Pressure 95/53 L Blood Pressure [Left Brachial artery] Blood Pressure [Right Brachial artery] O2 Saturation 05/20/21 05/20/21 05/20/21 03:41 03:45 03:50 Temperature Heart Rate 79 72 79 Heart Rate [ Brachial] Heart Rate [ Monitoring electrodes] Respiratory 13 12 13 Rate Blood Pressure Blood Pressure [Left Brachial artery] Blood Pressure [Right Brachial artery] O2 Saturation 05/20/21 05/20/21 05/20/21 03:55 04:00 05:00 Temperature 37.0 C Heart Rate 72 Heart Rate [ Brachial] Heart Rate [ 83 74 Monitoring electrodes] Respiratory 13 13 12 Rate Blood Pressure Blood Pressure [Left Brachial artery] Blood Pressure 99/57 L 99/59 L [Right Brachial artery] O2 Saturation 97 97 05/20/21 05/20/21 05/20/21 05:07 05:10 05:15 Temperature Heart Rate 83 72 83 Heart Rate [ Brachial] Heart Rate [ Monitoring electrodes] Respiratory 12 13 12 Rate Blood Pressure Blood Pressure [Left Brachial artery] Blood Pressure [Right Brachial artery] O2 Saturation 05/20/21 05/20/21 05/20/21 05:20 05:25 06:00 Temperature Heart Rate 83 80 Heart Rate [ Brachial] Heart Rate [ 81 Monitoring electrodes] Respiratory 13 12 21 Rate Blood Pressure Blood Pressure [Left Brachial artery] Blood Pressure 105/57 L [Right Brachial artery] O2 Saturation 94 05/20/21 07:00 Temperature Heart Rate Heart Rate [ Brachial] Heart Rate [ 81 Monitoring electrodes] Respiratory 21 Rate Blood Pressure Blood Pressure [Left Brachial artery] Blood Pressure 99/47 L [Right Brachial artery] O2 Saturation 95 Oxygen O2 Source Oxymask I&O (Last 24 Hrs): Intake and Output Totals x24h 05/18/21 05/19/21 05/20/21 23:59 23:59 23:59 Intake Total 8866.125 954.2 Output Total 659 1506 Balance 8207.125 -551.8 General: Alert, Oriented x3, No acute distress HEENT: PERRLA, EOMI Neck: Supple, No JVD Neuro: Alert, Non Focal, Oriented Times 3 Cardiovascular: Regular rate Respiratory: Chest non-tender, No respiratory distress, Breath sounds nml, Other (coarse breath sound,) Abdomen: Normal bowel sounds, Soft, Other (mild abdominal tenderness) Extremities: No clubbing, No cyanosis, No edema, No tenderness/swelling Skin: No rashes, No breakdown, No significant lesion - Results Results: Laboratory Results WBC 8.6 x10^3/uL (4.8-10.8) 05/20/21 05:50 RBC 3.25 10^6/uL (4.70-6.10) L 05/20/21 05:50 Hgb 10.6 g/dL (14.0-18.0) L 05/20/21 05:50 Hct 32.2 % (42.0-52.0) L 05/20/21 05:50 MCV 99.1 fL (80.0-94.0) H 05/20/21 05:50 MCH 32.6 pg (27.0-31.0) H 05/20/21 05:50 MCHC 32.9 g/dL (32.0-36.0) 05/20/21 05:50 RDW 13.9 % (12.0-15.0) 05/20/21 05:50 Plt Count 190 10^3/uL (130-450) 05/20/21 05:50 MPV 11.6 fL (7.4-11.4) H 05/20/21 05:50 Neut # (Auto) 6.7 10^3/uL (1.5-6.6) H 05/20/21 05:50 Lymph # (Auto) 0.5 10^3/uL (1.5-3.5) L 05/20/21 05:50 [place] # (Auto) 0.6 10^3/uL (0.0-1.0) 05/20/21 05:50 Eos # (Auto) 0.0 10^3/uL (0.0-0.7) 05/20/21 05:50 Baso # (Auto) 0.0 10^3/uL (0.0-0.1) 05/20/21 05:50 Absolute Nucleated RBC 0.00 x10^3/uL 05/20/21 05:50 Total Counted 100 05/18/21 21:45 Band Neuts % (Manual) Not Reportable 05/20/21 05:50 Abnorm Lymph % (Manual) Not Reportable 05/20/21 05:50 Metamyelocytes % 4 % (-0) H 05/18/21 21:45 Nucleated RBC % 0.0 /100WBC 05/20/21 05:50 Neutrophils # (Manual) Not Reportable 05/20/21 05:50 Lymphocytes # (Manual) Not Reportable 05/20/21 05:50 Monocytes # (Manual) Not Reportable 05/20/21 05:50 Eosinophils # (Manual) Not Reportable 05/20/21 05:50 Basophils # (Manual) Not Reportable 05/20/21 05:50 Differential Comment Y 05/20/21 05:50 Manual Slide Review Indicated 05/18/21 21:45 WBC Morphology 1+ DOHLE BODIES (NORMAL) 05/20/21 05:50 Platelet Estimate NORMAL (130-450,000) (NORMAL) 05/20/21 05:50 Platelet Morphology NORMAL APPEARANCE (NORMAL) 05/20/21 05:50 RBC Morph Micro Appear 2+ MERRY CELLS (NORMAL) 05/20/21 05:50 Bld Gas Analysis Time 0545 05/19/21 05:35 Sample Site RIGHT RADIAL 05/19/21 05:35 ABG pH 7.42 (7.35-7.45) 05/19/21 05:35 ABG pCO2 36 mmHg (34-45) 05/19/21 05:35 ABG pO2 71 mmHg (80-100) L 05/19/21 05:35 ABG HCO3 22.4 mmol/L (22.0-26.0) 05/19/21 05:35 ABG Total CO2 23.5 MMOL/L (21.0-29.0) 05/19/21 05:35 ABG O2 Saturation 95 % (94-98) 05/19/21 05:35 ABG Base Excess -1.7 mmol/L (-2.0-3.0) 05/19/21 05:35 Fernando Test POSITIVE 05/19/21 05:35 O2 Delivery Device NON REBREATHER MASK 05/19/21 05:35 O2 Liters/Min 15.00 LPM 05/19/21 05:35 FiO2 100.00 05/19/21 05:35 Sodium 134 mmol/L (135-145) L 05/20/21 05:50 Potassium 4.2 mmol/L (3.5-5.0) 05/20/21 05:50 Chloride 106 mmol/L (101-111) 05/20/21 05:50 Carbon Dioxide 21 mmol/L (21-32) 05/20/21 05:50 Anion Gap 7.0 (6-13) 05/20/21 05:50 BUN 30 mg/dL (6-20) H 05/20/21 05:50 Creatinine 1.1 mg/dL (0.6-1.2) 05/20/21 05:50 Estimated GFR (MDRD) 63 (>89) L 05/20/21 05:50 Glucose 203 mg/dL (70-100) H 05/20/21 05:50 Lactic Acid 2.4 mmol/L (0.5-2.2) H 05/19/21 21:20 Calcium 7.4 mg/dL (8.5-10.3) L 05/20/21 05:50 Phosphorus 3.8 mg/dL (2.5-4.6) 05/20/21 05:50 Magnesium 1.9 mg/dL (1.7-2.8) 05/20/21 05:50 Total Bilirubin 0.9 mg/dL (0.2-1.0) 05/18/21 21:45 AST 18 IU/L (10-42) 05/18/21 21:45 ALT 18 IU/L (10-60) 05/18/21 21:45 Alkaline Phosphatase 43 IU/L (42-121) 05/18/21 21:45 Troponin I High Sens 83.5 ng/L (2.3-19.7) H* 05/19/21 17:40 B-Natriuretic Peptide 1426 pg/mL (5-100) H 05/19/21 17:40 Total Protein 5.8 g/dL (6.7-8.2) L 05/18/21 21:45 Albumin 2.5 g/dL (3.2-5.5) L 05/20/21 05:50 Globulin 2.4 g/dL (2.1-4.2) 05/18/21 21:45 Albumin/Globulin Ratio 1.4 (1.0-2.2) 05/18/21 21:45 Lipase 24 U/L (22-51) 05/18/21 21:45 Urine Color YELLOW 05/19/21 06:05 Urine Clarity CLEAR (CLEAR) 05/19/21 06:05 Urine pH 5.5 PH (5.0-7.5) 05/19/21 06:05 Ur Specific [place] <=1.005 (1.002-1.030) 05/19/21 06:05 Urine Protein TRACE mg/dL (NEGATIVE) 05/19/21 06:05 Urine Glucose (UA) 250 mg/dL (NEGATIVE) H 05/19/21 06:05 Urine Ketones TRACE mg/dL (NEGATIVE) 05/19/21 06:05 Urine Occult Blood NEGATIVE (NEGATIVE) 05/19/21 06:05 Urine Nitrite NEGATIVE (NEGATIVE) 05/19/21 06:05 Urine Bilirubin NEGATIVE (NEGATIVE) 05/19/21 06:05 Urine Urobilinogen 0.2 (NORMAL) E.U./dL (NORMAL) 05/19/21 06:05 Ur Leukocyte Esterase NEGATIVE (NEGATIVE) 05/19/21 06:05 Ur Microscopic Review NOT INDICATED 05/19/21 06:05 Urine Culture Comments NOT INDICATED 05/19/21 06:05 Nasal Screen MRSA (PCR) NEGATIVE (NEGATIVE) 05/19/21 06:00 - Procedures Procedures: Procedures CATARAC PHACOEMULS/ASPIR (12/28/14) INSERT LENS AT CATAR EXT (12/28/14) ABX Reporting Has patient been on IV antibiotics over the past 48 hours?: Yes
[2021-05-20] MEDS: VANCOMYCIN INJ 1 GM in SODIUM CHLORIDE 0.9% 250 ML IV SCH (09:38)
[2021-05-20] MEDS: FAMOTIDINE 20 MG TABLET PO SCH (09:40)
[2021-05-20] MEDS: HEPARIN 5,000 UNIT/ML VIAL SUBQ SCH ×2 (09:40→21:31)
[2021-05-20] MEDS ORDERED: FUROSEMIDE 20 MG/2 ML VIAL IVP SCH (12:00)
--- NOTE | 2021-05-20 16:18 | PHARMACY PROGRESS NOTE ---
- Best Possible Medication History Admit Date and Time: 05/19/21 0519 Processed by: Nursing Medication History completed: Yes As the person ultimately responsible for medication therapy, providers are able to order a medication from an existing home medication list in [facility] via the "Reconcile Routine" prior to Confirmation of that medication by microcomputer support specialist. Such practice is discouraged except when the physician, in their clinical judgment, deems that a medical need exists for a medication without regard to previous use.
[2021-05-20] MEDS: ACETAMINOPHEN 1,000 MG/100 ML 100 ML IV PRN (19:43)
[2021-05-20] MEDS: carvediloL 3.125 MG TABLET PO SCH (21:27)
[2021-05-20] MEDS: AZITHROMYCIN INJ 500 MG in SODIUM CHLORIDE 0.9% 250 ML IV SCH (21:28)
[2021-05-20] MEDS: ONDANSETRON 4 MG/2 ML VIAL IVP PRN (22:47)
[2021-05-21] MEDS: SODIUM CHLORIDE FLUSH 0.9% 10 ML SYRINGE IVP SCH ×3 (00:41→17:00)
[2021-05-21] MEDS: INSULIN REGULAR HUMAN 300 UNIT/3 ML VIAL SUBQ SCH ×4 (00:41→18:00)
[2021-05-21] MEDS: ONDANSETRON 4 MG/2 ML VIAL IVP PRN ×2 (05:06→11:48)
[2021-05-21] MEDS: SODIUM CHLORIDE FLUSH 0.9% 10 ML SYRINGE IVP PRN ×2 (05:06→12:07)
[2021-05-21] MEDS: metroNIDAZOLE 500 MG/100 ML 500 MG/100 ML BAG IV SCH ×3 (05:23→22:13)
[2021-05-21] MEDS: CALCIUM CARBONATE CHEW 500 MG TABLET PO PRN ×2 (05:28→13:28)
[2021-05-21] MEDS: CEFEPIME 2 GM in SODIUM CHLORIDE 0.9% MINIBAG 100 ML IV SCH ×3 (05:46→21:30)
[2021-05-21 06:02] LABS: BASOPHILS % (AUTO) 0.1 %; EOSINOPHILS % (AUTO) 0.2 %; HCT - HEMATOCRIT 31.3 % (42.0-52.0); HGB - HEMOGLOBIN 10.6 g/dL (14.0-18.0); LYMPHOCYTES % (AUTO) 4.6 %; MEAN CORPUSCULAR HEMOGLOBIN 32.5 pg (27.0-31.0); MEAN CORPUSCULAR HGB CONC 33.9 g/dL (32.0-36.0); MEAN PLATELET VOLUME 10.8 fL (7.4-11.4); NEUTROPHILS % (AUTO) 90.7 %; PLT - PLATELET COUNT 150 10^3/uL (130-450); RED BLOOD COUNT 3.26 10^6/uL (4.70-6.10); RED CELL DISTRIBUTION WIDTH 13.7 % (12.0-15.0); WHITE BLOOD COUNT 8.1 x10^3/uL (4.8-10.8)
[2021-05-21 06:03] LABS: ABNORMAL LYMPHS % (MANUAL) 0 %
[2021-05-21 06:15] LABS: CALCIUM 7.5 mg/dL (8.5-10.3); CREATININE 0.9 mg/dL (0.6-1.2); PHOSPHORUS 2.4 mg/dL (2.5-4.6); POTASSIUM 3.7 mmol/L (3.5-5.0)
[2021-05-21 06:39] LABS: BAND NEUTROPHILS % (MANUAL) 5 %; LYMPHOCYTES # (MANUAL) 0.8 10^3/uL (1.5-3.5); LYMPHOCYTES % (MANUAL) 10 %; METAMYELOCYTES % (MANUAL) 1 %; MONOCYTES # (MANUAL) 0.3 10^3/uL (0.0-1.0); NEUTROPHILS # (MANUAL) 6.9 10^3/uL (1.5-6.6)
[2021-05-21 06:40] LABS: DIFFERENTIAL COMMENT MANUAL DIFFERENTIAL; PLATELET ESTIMATE, MANUAL NORMAL (130-450,000) (NORMAL); PLATELET MORPHOLOGY NORMAL APPEARANCE (NORMAL); RBC MORPHOLOGY (MULTIPLE) 2+ BURR CELLS (NORMAL); WBC MORPHOLOGY (MULTIPLE) NORMAL APPEARANCE (NORMAL)
[2021-05-21] MEDS: carvediloL 3.125 MG TABLET PO SCH (08:01)
[2021-05-21] MEDS: VANCOMYCIN INJ 1 GM in SODIUM CHLORIDE 0.9% 250 ML IV SCH (08:14)
--- NOTE | 2021-05-21 08:19 | PROVIDER PROGRESS NOTE ---
Subjective - Prog Note Date Prog Note Date: 05/21/21 - Subjective Subjective: He reports feeling like there is fluid in his lungs and that he is drowning. He does feel short of breath. He denies any chest pain or abdominal pain. Current Medications - Current Medications Current Medications: Active Medications Acetaminophen (Acetaminophen 325 Mg Tablet) 650 mg PO Q4HR PRN PRN Reason: Pain 1 to 4 Last Admin: 05/21/21 09:34 Dose: 650 mg Documented by: Calcium Carbonate/Glycine (Calcium Carbonate Chew 500 Mg Tablet) 500 mg PO BID PRN PRN Reason: NEEDED PER PROVIDER ORDERS Last Admin: 05/21/21 05:28 Dose: 500 mg Documented by: Famotidine (Famotidine 20 Mg Tablet) 20 mg PO DAILY [facility] Last Admin: 05/21/21 09:34 Dose: 20 mg Documented by: Heparin Sodium (Porcine) (Heparin 1,000 Unit/Ml Vial) 1,950 unit 25 unit/kg (1950 unit) IVP Q6H PRN PRN Reason: ANTI-XA < 0.2 Heparin Sodium (Porcine) (Heparin 1,000 Unit/Ml Vial) 3,950 unit 50 unit/kg (3950 unit) IVP ONCE ONE Stop: 05/21/21 11:02 Hydromorphone HCl (Hydromorphone 0.5 Mg/0.5 Ml Syringe) 0.5 mg IVP Q6H PRN PRN Reason: Pain 8 to 10 Last Admin: 05/20/21 02:35 Dose: 0.5 mg Documented by: Norepinephrine Bitartrate 8 mg (/ Dextrose) 250 mls @ 15 mls/hr IV .[id number] [facility]; Protocol Last Titration: 05/21/21 02:49 Dose: 0 mcg/min, 0 mls/hr Documented by: Metronidazole (Flagyl 500 Mg/100 Ml) 500 mg in 100 mls @ 100 mls/hr IV Q8H [facility] Last Admin: 05/21/21 05:23 Dose: Not Given Documented by: Vancomycin HCl 1 gm/ Sodium (Chloride) 250 mls @ 250 mls/hr IV Q24H [facility] Last Infusion: 05/21/21 09:35 Dose: Infused Documented by: Cefepime HCl 2 gm/ Sodium (Chloride) 100 mls @ 200 mls/hr IV TID [facility] Last Infusion: 05/21/21 06:20 Dose: Infused Documented by: Vasopressin 20 unit/ Dextrose 100 mls @ 6 mls/hr IV .[id number] [facility] Last Titration: 05/20/21 11:15 Dose: 0 unit/min, 0 mls/hr Documented by: Acetaminophen (Ofirmev) 100 mls @ 400 mls/hr IV Q8HR PRN PRN Reason: PAIN Last Infusion: 05/20/21 20:13 Dose: Infused Documented by: Azithromycin 500 mg/ Sodium (Chloride) 250 mls @ 250 mls/hr IV Q24H [facility] Stop: 05/21/21 21:59 Last Infusion: 05/20/21 22:30 Dose: Infused Documented by: Sodium Chloride (Normal Saline 0.9%) 500 mls @ 20 mls/hr IV Q24H PRN PRN Reason: TKO RATE Potassium Phosphate 15 mmol/ (Sodium Chloride) 255 mls @ 63 mls/hr IV ONCE ONE; Protocol Stop: 05/21/21 13:02 Heparin Sodium/Dextrose (Heparin Sodium/Dextrose) 25,000 unit in 500 mls @ 18.84 mls/hr IV .[id number] [facility]; Protocol Insulin Human Regular (Insulin Regular Human 300 Unit/3 Ml Vial) 1 - 5 unit SUBQ Q6HR [facility]; Protocol Last Admin: 05/21/21 05:46 Dose: Not Given Documented by: Ondansetron HCl (Ondansetron Odt 4 Mg Tablet) 4 mg TL Q6HR PRN PRN Reason: Nausea / Vomiting Ondansetron HCl (Ondansetron 4 Mg/2 Ml Vial) 4 mg IVP Q6HR PRN PRN Reason: Nausea / Vomiting Last Admin: 05/21/21 05:06 Dose: 4 mg Documented by: Sodium Chloride (Sodium Chloride Flush 0.9% 10 Ml Syringe) 10 ml IVP 0100,0900,1700 [facility] Last Admin: 05/21/21 00:41 Dose: 10 ml Documented by: Sodium Chloride (Sodium Chloride Flush 0.9% 10 Ml Syringe) 10 ml IVP PRN PRN PRN Reason: NEEDED PER PROVIDER ORDERS Sodium Chloride (Sodium Chloride Flush 0.9% 10 Ml Syringe) 20 ml IVP PRN PRN PRN Reason: After Blood Draw Last Admin: 05/21/21 05:06 Dose: 20 ml Documented by: Aspirin [Adult Low Dose Aspirin EC] 81 mg PO DAILY 01/10/20 Doxazosin Mesylate 8 mg PO DAILY 01/10/20 Multivit-Min/FA/Lycopen/Lutein [Centrum Silver Men Tablet] 1 each PO DAILY 01/10/20 Rosuvastatin Calcium 20 mg PO DAILY 01/10/20 metFORMIN [Glucophage] 250 mg PO BIDWM 05/13/21 Objective - Vital Signs/Intake & Output Reviewed Vital Signs: Yes Vital Signs: Vital Signs Temp Pulse Resp BP Pulse Ox 05/21/21 07:57 36.4 C L 96 21 95/62 05/21/21 07:00 97 22 95/62 96 05/21/21 06:00 96 19 94/61 96 05/21/21 05:00 90 24 98/67 96 Intake & Output: Intake & Output 05/18/21 05/19/21 05/20/21 05/21/21 23:59 23:59 23:59 23:59 Intake Total 8866.125 3524.450 155.188 Output Total 659 3416 386 Balance 8207.125 108.450 -230.812 - Objective General Appearance: positive: No acute distress, Alert Eyes Bilateral: positive: Normal inspection, Conjunctivae nml ENT: positive: ENT inspection nml Neck: positive: Nml inspection Respiratory: positive: No respiratory distress, Rales. negative: Wheezes Cardiovascular: positive: Irregularly irregular, Systolic murmur. negative: No murmur, Tachycardia, Bradycardia Abdomen: positive: Nml bowel sounds, Tenderness (Mild diffuse tenderness.), Other (Colostomy in place with minimal output.). negative: Guarding, Rebound Skin: positive: Warm, Dry Extremities: positive: Pedal edema (+2 pitting edema in bilateral lower extremities.) Neurologic/Psychiatric: negative: Disoriented to person, Disoriented to place - Lab Results Fish Bones: 05/21/21 05:10 05/21/21 05:10 Other Labs: Lab Results x24hrs 05/21/21 05/21/21 05/21/21 Range/Units 05:10 05:10 05:10 WBC 8.1 (4.8-10.8) x10^3/uL RBC 3.26 L (4.70-6.10) 10^6/uL Hgb 10.6 L (14.0-18.0) g/dL Hct 31.3 L (42.0-52.0) % MCV 96.0 H (80.0-94.0) fL MCH 32.5 H (27.0-31.0) pg MCHC 33.9 (32.0-36.0) g/dL RDW 13.7 (12.0-15.0) % Plt Count 150 (130-450) 10^3/uL MPV 10.8 (7.4-11.4) fL Neut # (Auto) Not Reportable Lymph # (Auto) Not Reportable [place] # (Auto) Not Reportable Eos # (Auto) Not Reportable Baso # (Auto) Not Reportable Absolute Nucleated RBC Not Reportable Total Counted 100 Band Neuts % (Manual) 5 Abnorm Lymph % (Manual) 0 Metamyelocytes % 1 H ( - 0) % Nucleated RBC % Not Reportable Neutrophils # (Manual) 6.9 H Lymphocytes # (Manual) 0.8 L Monocytes # (Manual) 0.3 Eosinophils # (Manual) 0.0 Basophils # (Manual) 0.0 Differential Comment MANUAL DIFFERENTIAL WBC Morphology NORMAL APPEARANCE (NORMAL) Platelet Estimate NORMAL (130-450,000) (NORMAL) Platelet Morphology NORMAL APPEARANCE (NORMAL) RBC Morph Micro Appear 2+ MERRY CELLS (NORMAL) Sodium 134 L (135-145) mmol/L Potassium 3.7 (3.5-5.0) mmol/L Chloride 104 (101-111) mmol/L Carbon Dioxide 23 (21-32) mmol/L Anion Gap 7.0 (6-13) BUN 30 H (6-20) mg/dL Creatinine 0.9 (0.6-1.2) mg/dL Estimated GFR (MDRD) 79 L (>89) Glucose 98 (70-100) mg/dL Calcium 7.5 L (8.5-10.3) mg/dL Phosphorus 2.4 L (2.5-4.6) mg/dL Magnesium 2.0 (1.7-2.8) mg/dL Albumin 2.4 L (3.2-5.5) g/dL 05/20/21 05/20/21 Range/Units 05:50 05:50 WBC (4.8-10.8) x10^3/uL RBC (4.70-6.10) 10^6/uL Hgb (14.0-18.0) g/dL Hct (42.0-52.0) % MCV (80.0-94.0) fL MCH (27.0-31.0) pg MCHC (32.0-36.0) g/dL RDW (12.0-15.0) % Plt Count (130-450) 10^3/uL MPV (7.4-11.4) fL Neut # (Auto) Lymph # (Auto) [place] # (Auto) Eos # (Auto) Baso # (Auto) Absolute Nucleated RBC Total Counted Band Neuts % (Manual) Not Reportable Abnorm Lymph % (Manual) Not Reportable Metamyelocytes % ( - 0) % Nucleated RBC % Neutrophils # (Manual) Not Reportable Lymphocytes # (Manual) Not Reportable Monocytes # (Manual) Not Reportable Eosinophils # (Manual) Not Reportable Basophils # (Manual) Not Reportable Differential Comment Y WBC Morphology 1+ DOHLE BODIES (NORMAL) Platelet Estimate NORMAL (130-450,000) (NORMAL) Platelet Morphology NORMAL APPEARANCE (NORMAL) RBC Morph Micro Appear 2+ MERRY CELLS (NORMAL) Sodium (135-145) mmol/L Potassium (3.5-5.0) mmol/L Chloride (101-111) mmol/L Carbon Dioxide (21-32) mmol/L Anion Gap (6-13) BUN (6-20) mg/dL Creatinine (0.6-1.2) mg/dL Estimated GFR (MDRD) (>89) Glucose (70-100) mg/dL Calcium (8.5-10.3) mg/dL Phosphorus (2.5-4.6) mg/dL Magnesium (1.7-2.8) mg/dL Albumin 2.5 L (3.2-5.5) g/dL Assessment/Plan - Problem List (1) Septic shock Impression: He was hypotensive requiring pressor support with norepinephrine and vasopressin. The concern was for sepsis given his blood cultures are positive. I also do believe there is concern for cardiogenic shock given his NSTEMI. This morning his blood pressure was still low with a mean arterial pressure of 60 mmHg. Although he is improved, we will keep him on IV antibiotics with vancomycin, cefepime, Flagyl IV. We do not have an obvious source of infection except for his positive blood culture as his chest x-ray and urinalysis are unremarkable. His chest x-ray is more suggestive of pulmonary edema. He could have had bacterial translocation secondary to his recent surgical intervention. We will also restart him on norepinephrine for goal mean arterial pressure greater than 65 mmHg. We will repeat blood cultures. (2) NSTEMI (non-ST elevated myocardial infarction) Impression: Her repeat troponin was checked today as it had been increasing slowly but was not checked in over a day. Today it was nearly 8000. Repeat EKG showed atrial relation without any evidence of obvious ischemia. He also has no chest pain. The concern is for NSTEMI and so we have given him aspirin and start him on a heparin drip. We have ordered an echocardiogram for today and this is pending. We have started him on norepinephrine as well given the hypotension and concern for a component of cardiogenic shock. We did discuss potential transfer to higher level of care but we are awaiting the echocardiogram results first and then will discuss with patient and family as they are not sure if they would want more advanced measures given his advanced age and recent diagnosis of colon cancer. (3) Bacteremia Impression: His blood cultures are positive for gram variable bacilli. Clinically he appears to be improving and is only on a touch of Levophed which was resumed this morning. The vasopressin has been discontinued. We will keep him on vancomycin, cefepime, Flagyl IV for the time being. We will repeat blood cultures today. 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 Biopsies from the liver lesion are still pending but concern is for metastatic colon cancer. He will need outpatient follow-up with oncology once discharged depending on his clinical course. (5) Status post colostomy Impression: He is status post a loop colostomy with general surgery last week after colonoscopy revealed a mass in the sigmoid/rectal junction which ultimately has revealed invasive adenocarcinoma. (6) Aortic stenosis Impression: His last echocardiogram revealed moderate stenosis. Repeat echocardiogram today is pending. (7) Diabetes mellitus type 2, controlled Impression: His blood glucose is well controlled. We will continue sliding scale.
[2021-05-21] MEDS ORDERED: POTASSIUM PHOSPHATE 15 MMOL in SODIUM CHLORIDE 0.9% 250 ML IV ONE (09:00)
[2021-05-21] MEDS: FAMOTIDINE 20 MG TABLET PO SCH (09:34)
[2021-05-21] MEDS: ACETAMINOPHEN 325 MG TABLET PO PRN (09:34)
[2021-05-21] MEDS: HEPARIN 5,000 UNIT/ML VIAL SUBQ SCH (09:38)
[2021-05-21] MEDS ORDERED: ASPIRIN CHEW 81 MG TABLET PO STA (10:32)
[2021-05-21] MEDS: HEPARIN 25000UNITS/500ML (D5W) 25,000 UNIT/500 ML BAG IV SCH (12:22)
[2021-05-21] MEDS ORDERED: PROCHLORPERAZINE 10 MG/2 ML VIAL IVP PRN (14:24)
[2021-05-21] MEDS: oxyCODONE 5 MG TABLET PO PRN (15:37)
[2021-05-21] MEDS: AZITHROMYCIN INJ 500 MG in SODIUM CHLORIDE 0.9% 250 ML IV SCH (21:25)
[2021-05-21] MEDS: VASOPRESSIN 20 UNIT in DEXTROSE 5% 99 ML IV SCH (21:34)
[2021-05-21] MEDS ORDERED: TEMAZEPAM 15 MG CAPSULE PO PRN (21:37)
[2021-05-22] MEDS: INSULIN REGULAR HUMAN 300 UNIT/3 ML VIAL SUBQ SCH ×4 (01:17→18:19)
[2021-05-22] MEDS: SODIUM CHLORIDE FLUSH 0.9% 10 ML SYRINGE IVP SCH ×3 (01:19→18:21)
[2021-05-22] MEDS: SODIUM CHLORIDE 0.9% 500 ML IV PRN (01:20)
[2021-05-22 05:14] LABS: BASOPHILS % (AUTO) 0.9 %; EOSINOPHILS % (AUTO) 0.2 %; HGB - HEMOGLOBIN 10.9 g/dL (14.0-18.0); LYMPHOCYTES % (AUTO) 3.2 %; MEAN CORPUSCULAR HEMOGLOBIN 32.5 pg (27.0-31.0); MEAN CORPUSCULAR HGB CONC 34.1 g/dL (32.0-36.0); MEAN CORPUSCULAR VOLUME 95.5 fL (80.0-94.0); MEAN PLATELET VOLUME 11.7 fL (7.4-11.4); MONOCYTES % (AUTO) 4.2 %; NEUTROPHILS % (AUTO) 90.5 %; PLT - PLATELET COUNT 146 10^3/uL (130-450); RED BLOOD COUNT 3.35 10^6/uL (4.70-6.10); RED CELL DISTRIBUTION WIDTH 13.7 % (12.0-15.0); WHITE BLOOD COUNT 11.7 x10^3/uL (4.8-10.8)
[2021-05-22 05:22] LABS: CALCIUM 7.7 mg/dL (8.5-10.3); CREATININE 0.9 mg/dL (0.6-1.2); MAGNESIUM 2.2 mg/dL (1.7-2.8); PHOSPHORUS 2.4 mg/dL (2.5-4.6); POTASSIUM 3.6 mmol/L (3.5-5.0)
[2021-05-22 05:26] LABS: ABNORMAL LYMPHS % (MANUAL) 0 %
[2021-05-22] MEDS: CEFEPIME 2 GM in SODIUM CHLORIDE 0.9% MINIBAG 100 ML IV SCH ×3 (05:37→21:53)
[2021-05-22 05:51] LABS: BAND NEUTROPHILS % (MANUAL) 13 %; DIFFERENTIAL COMMENT MANUAL DIFFERENTIAL; LYMPHOCYTES # (MANUAL) 0.6 10^3/uL (1.5-3.5); LYMPHOCYTES % (MANUAL) 5 %; MONOCYTES # (MANUAL) 0.4 10^3/uL (0.0-1.0); NEUTROPHILS # (MANUAL) 10.8 10^3/uL (1.5-6.6); PLATELET ESTIMATE, MANUAL NORMAL (130-450,000) (NORMAL); RBC MORPHOLOGY (MULTIPLE) NORMAL APPEARANCE (NORMAL)
[2021-05-22] MEDS: metroNIDAZOLE 500 MG/100 ML 500 MG/100 ML BAG IV SCH ×3 (06:22→21:53)
[2021-05-22] MEDS: VASOPRESSIN 20 UNIT in DEXTROSE 5% 99 ML IV SCH (07:42)
[2021-05-22] MEDS: VANCOMYCIN INJ 1 GM in SODIUM CHLORIDE 0.9% 250 ML IV SCH (08:05)
--- NOTE | 2021-05-22 08:18 | PROVIDER PROGRESS NOTE ---
Subjective - Prog Note Date Prog Note Date: 05/22/21 - Subjective Subjective: He reports doing well today. He feels like his abdominal distention has improved. No nausea or vomiting today. Denies any dyspnea or chest pain. He is having output from the ostomy. Current Medications - Current Medications Current Medications: Active Medications Acetaminophen (Acetaminophen 325 Mg Tablet) 650 mg PO Q4HR PRN PRN Reason: Pain 1 to 4 Last Admin: 05/21/21 09:34 Dose: 650 mg Documented by: Calcium Carbonate/Glycine (Calcium Carbonate Chew 500 Mg Tablet) 500 mg PO BID PRN PRN Reason: NEEDED PER PROVIDER ORDERS Last Admin: 05/21/21 13:28 Dose: 500 mg Documented by: Famotidine (Famotidine 20 Mg Tablet) 20 mg PO DAILY [facility] Last Admin: 05/22/21 09:03 Dose: 20 mg Documented by: Heparin Sodium (Porcine) (Heparin 1,000 Unit/Ml Vial) 1,950 unit 25 unit/kg (1950 unit) IVP Q6H PRN PRN Reason: ANTI-XA < 0.2 Last Admin: 05/22/21 05:40 Dose: 1,950 unit Documented by: Hydromorphone HCl (Hydromorphone 0.5 Mg/0.5 Ml Syringe) 0.5 mg IVP Q6H PRN PRN Reason: Pain 8 to 10 Last Admin: 05/20/21 02:35 Dose: 0.5 mg Documented by: Norepinephrine Bitartrate 8 mg (/ Dextrose) 250 mls @ 15 mls/hr IV .[id number] [facility]; Protocol Last Admin: 05/22/21 05:46 Dose: 8 mcg/min, 15 mls/hr Documented by: Metronidazole (Flagyl 500 Mg/100 Ml) 500 mg in 100 mls @ 100 mls/hr IV Q8H [facility] [place] Last Admin: 05/22/21 14:27 Dose: 100 mls/hr Documented by: Vancomycin HCl 1 gm/ Sodium (Chloride) 250 mls @ 250 mls/hr IV Q24H [facility] [place] Last Infusion: 05/22/21 09:05 Dose: Infused Documented by: Cefepime HCl 2 gm/ Sodium (Chloride) 100 mls @ 200 mls/hr IV TID [facility] [place] Last Admin: 05/22/21 13:43 Dose: 200 mls/hr Documented by: Acetaminophen (Ofirmev) 100 mls @ 400 mls/hr IV Q8HR PRN PRN Reason: PAIN Last Infusion: 05/20/21 20:13 Dose: Infused Documented by: Sodium Chloride (Normal Saline 0.9%) 500 mls @ 20 mls/hr IV Q24H PRN PRN Reason: TKO RATE Last Admin: 05/22/21 01:20 Dose: 20 mls/hr Documented by: Heparin Sodium/Dextrose (Heparin Sodium/Dextrose) 25,000 unit in 500 mls @ 18.84 mls/hr IV .[id number] [facility]; Protocol Last Admin: 05/22/21 14:34 Dose: 20 unit/kg/hr, 31.4 mls/hr Documented by: Insulin Human Regular (Insulin Regular Human 300 Unit/3 Ml Vial) 1 - 5 unit SUBQ Q6HR [facility]; Protocol Last Admin: 05/22/21 11:50 Dose: 1 unit Documented by: Ondansetron HCl (Ondansetron Odt 4 Mg Tablet) 4 mg TL Q6HR PRN PRN Reason: Nausea / Vomiting Ondansetron HCl (Ondansetron 4 Mg/2 Ml Vial) 4 mg IVP Q6HR PRN PRN Reason: Nausea / Vomiting Last Admin: 05/21/21 11:48 Dose: 4 mg Documented by: Oxycodone HCl (Oxycodone 5 Mg Tablet) 5 mg PO Q4HR PRN PRN Reason: PAIN Last Admin: 05/21/21 15:37 Dose: 5 mg Documented by: Prochlorperazine Edisylate (Prochlorperazine 10 Mg/2 Ml Vial) 10 mg IVP Q6HR PRN PRN Reason: Nausea / Vomiting Last Admin: 05/21/21 15:38 Dose: 10 mg Documented by: Sodium Chloride (Sodium Chloride Flush 0.9% 10 Ml Syringe) 10 ml IVP 0100,0900,1700 [facility] [place] Last Admin: 05/22/21 09:03 Dose: 10 ml Documented by: Sodium Chloride (Sodium Chloride Flush 0.9% 10 Ml Syringe) 10 ml IVP PRN PRN PRN Reason: NEEDED PER PROVIDER ORDERS Last Admin: 05/22/21 16:57 Dose: 10 ml Documented by: Sodium Chloride (Sodium Chloride Flush 0.9% 10 Ml Syringe) 20 ml IVP PRN PRN PRN Reason: After Blood Draw Last Admin: 05/22/21 12:03 Dose: 20 ml Documented by: Temazepam (Temazepam 15 Mg Capsule) 15 mg PO QPM PRN PRN Reason: Insomnia Aspirin [Adult Low Dose Aspirin EC] 81 mg PO DAILY 01/10/20 Doxazosin Mesylate 8 mg PO DAILY 01/10/20 Multivit-Min/FA/Lycopen/Lutein [Centrum Silver Men Tablet] 1 each PO DAILY 01/10/20 Rosuvastatin Calcium 20 mg PO DAILY 01/10/20 metFORMIN [Glucophage] 250 mg PO BIDWM 05/13/21 Objective - Vital Signs/Intake & Output Reviewed Vital Signs: Yes Vital Signs: Vital Signs Pulse Resp BP Pulse Ox 05/22/21 07:00 94 15 98/53 L 95 05/22/21 06:00 85 15 104/63 95 05/22/21 05:00 90 14 88/60 L 93 Intake & Output: Intake & Output 05/19/21 05/20/21 05/21/21 05/22/21 23:59 23:59 23:59 23:59 Intake Total 8866.125 3524.450 1496.915 459.713 Output Total 659 3416 700 304 Balance 8207.125 108.450 796.915 155.713 - Objective General Appearance: positive: No acute distress, Alert Eyes Bilateral: positive: Normal inspection, Conjunctivae nml ENT: positive: ENT inspection nml Neck: positive: Nml inspection Respiratory: positive: No respiratory distress. negative: Wheezes, Rales Cardiovascular: positive: Irregularly irregular, Systolic murmur. negative: Regular rate & rhythm, Tachycardia Abdomen: positive: Tenderness (Minimal epigastric tenderness.), Other (Colostomy with liquid brown output.). negative: Guarding, Rebound Skin: positive: Warm, Dry Extremities: positive: Pedal edema (+2 pitting edema in bilateral lower extremities.) Neurologic/Psychiatric: negative: Disoriented to person, Disoriented to place - Lab Results Fish Bones: 05/22/21 04:20 05/22/21 04:20 Other Labs: Lab Results x24hrs 05/22/21 05/22/21 05/22/21 Range/Units 04:20 04:20 04:20 WBC (4.8-10.8) x10^3/uL RBC (4.70-6.10) 10^6/uL Hgb (14.0-18.0) g/dL Hct (42.0-52.0) % MCV (80.0-94.0) fL MCH (27.0-31.0) pg MCHC (32.0-36.0) g/dL RDW (12.0-15.0) % Plt Count (130-450) 10^3/uL MPV (7.4-11.4) fL Neut # (Auto) Lymph # (Auto) [place] # (Auto) Eos # (Auto) Baso # (Auto) Absolute Nucleated RBC Total Counted Band Neuts % (Manual) (0 - 10) % Abnorm Lymph % (Manual) % Nucleated RBC % Neutrophils # (Manual) (1.5-6.6) 10^3/uL Lymphocytes # (Manual) (1.5-3.5) 10^3/uL Monocytes # (Manual) (0.0-1.0) 10^3/uL Eosinophils # (Manual) (0-0.7) 10^3/uL Basophils # (Manual) (0-0.1) 10^3/uL Differential Comment Platelet Estimate (NORMAL) RBC Morph Micro Appear (NORMAL) Anti-Xa Level 0.1 ( - 0.7) U/mL Sodium 138 (135-145) mmol/L Potassium 3.6 (3.5-5.0) mmol/L Chloride 108 (101-111) mmol/L Carbon Dioxide 20 L (21-32) mmol/L Anion Gap 10.0 (6-13) BUN 39 H (6-20) mg/dL Creatinine 0.9 (0.6-1.2) mg/dL Estimated GFR (MDRD) 79 L (>89) Glucose 168 H (70-100) mg/dL Lactic Acid (0.5-2.2) mmol/L Calcium 7.7 L (8.5-10.3) mg/dL Phosphorus 2.4 L (2.5-4.6) mg/dL Magnesium 2.2 (1.7-2.8) mg/dL Troponin I High Sens (2.3-19.7) ng/L Albumin 2.2 L (3.2-5.5) g/dL 05/22/21 05/21/21 05/21/21 Range/Units 04:20 21:23 12:13 WBC 11.7 H (4.8-10.8) x10^3/uL RBC 3.35 L (4.70-6.10) 10^6/uL Hgb 10.9 L (14.0-18.0) g/dL Hct 32.0 L (42.0-52.0) % MCV 95.5 H (80.0-94.0) fL MCH 32.5 H (27.0-31.0) pg MCHC 34.1 (32.0-36.0) g/dL RDW 13.7 (12.0-15.0) % Plt Count 146 (130-450) 10^3/uL MPV 11.7 H (7.4-11.4) fL Neut # (Auto) Not Reportable Lymph # (Auto) Not Reportable [place] # (Auto) Not Reportable Eos # (Auto) Not Reportable Baso # (Auto) Not Reportable Absolute Nucleated RBC Not Reportable Total Counted 100 Band Neuts % (Manual) 13 H (0 - 10) % Abnorm Lymph % (Manual) 0 % Nucleated RBC % Not Reportable Neutrophils # (Manual) 10.8 H (1.5-6.6) 10^3/uL Lymphocytes # (Manual) 0.6 L (1.5-3.5) 10^3/uL Monocytes # (Manual) 0.4 (0.0-1.0) 10^3/uL Eosinophils # (Manual) 0.0 (0-0.7) 10^3/uL Basophils # (Manual) 0.0 (0-0.1) 10^3/uL Differential Comment MANUAL DIFFERENTIAL Platelet Estimate NORMAL (130-450,000) (NORMAL) RBC Morph Micro Appear NORMAL APPEARANCE (NORMAL) Anti-Xa Level 0.2 ( - 0.7) U/mL Sodium (135-145) mmol/L Potassium (3.5-5.0) mmol/L Chloride (101-111) mmol/L Carbon Dioxide (21-32) mmol/L Anion Gap (6-13) BUN (6-20) mg/dL Creatinine (0.6-1.2) mg/dL Estimated GFR (MDRD) (>89) Glucose (70-100) mg/dL Lactic Acid (0.5-2.2) mmol/L Calcium (8.5-10.3) mg/dL Phosphorus (2.5-4.6) mg/dL Magnesium (1.7-2.8) mg/dL Troponin I High Sens 6861.0 H* (2.3-19.7) ng/L Albumin (3.2-5.5) g/dL 05/21/21 05/21/21 05/21/21 Range/Units 11:20 09:08 09:08 WBC (4.8-10.8) x10^3/uL RBC (4.70-6.10) 10^6/uL Hgb (14.0-18.0) g/dL Hct (42.0-52.0) % MCV (80.0-94.0) fL MCH (27.0-31.0) pg MCHC (32.0-36.0) g/dL RDW (12.0-15.0) % Plt Count (130-450) 10^3/uL MPV (7.4-11.4) fL Neut # (Auto) Lymph # (Auto) [place] # (Auto) Eos # (Auto) Baso # (Auto) Absolute Nucleated RBC Total Counted Band Neuts % (Manual) (0 - 10) % Abnorm Lymph % (Manual) % Nucleated RBC % Neutrophils # (Manual) (1.5-6.6) 10^3/uL Lymphocytes # (Manual) (1.5-3.5) 10^3/uL Monocytes # (Manual) (0.0-1.0) 10^3/uL Eosinophils # (Manual) (0-0.7) 10^3/uL Basophils # (Manual) (0-0.1) 10^3/uL Differential Comment Platelet Estimate (NORMAL) RBC Morph Micro Appear (NORMAL) Anti-Xa Level 0.0 ( - 0.7) U/mL Sodium (135-145) mmol/L Potassium (3.5-5.0) mmol/L Chloride (101-111) mmol/L Carbon Dioxide (21-32) mmol/L Anion Gap (6-13) BUN (6-20) mg/dL Creatinine (0.6-1.2) mg/dL Estimated GFR (MDRD) (>89) Glucose (70-100) mg/dL Lactic Acid 1.5 (0.5-2.2) mmol/L Calcium (8.5-10.3) mg/dL Phosphorus (2.5-4.6) mg/dL Magnesium (1.7-2.8) mg/dL Troponin I High Sens 7932.4 H* (2.3-19.7) ng/L Albumin (3.2-5.5) g/dL Assessment/Plan - Problem List (1) Septic shock Impression: Concern for septic shock and a component of cardiogenic shock given the NSTEMI. He does remain on low-dose norepinephrine. Clinically he appears improved overall. Vasopressin has been discontinued and we are weaning his norepinephrine as tolerated. He will need to be diuresed at some point given the heart failure but given he is on room air and still on norepinephrine we will hold off on this for the time being. We believe the sepsis secondary to his bacteremia although the etiology of this is not clear. We have ordered repeat cultures. We will continue broad-spectrum antibiotics. We will continue norepinephrine for a goal mean arterial pressure of 65 mmHg. We will continue to follow-up cultures. I am hopeful to wean the norepinephrine over next 24 hours. (2) NSTEMI (non-ST elevated myocardial infarction) Impression: We are treating him for NSTEMI given his troponin was nearly 8000. His EKG did not reveal any obvious ischemia. Echocardiogram revealed ejection fraction abou t 40 to 45%. No obvious wall motion abnormalities. Continue IV heparin for 48 hours. Continue daily aspirin and Lipitor. He is not on beta-tom given concern for component of cardiogenic shock. We did discuss once again potential need for transfer but at this time he will continue to manage his other acute problem putting sepsis his recent gastrointestinal surgery. Family will consider cardiology evaluation at some point. (3) Bacteremia Impression: Initial blood culture grew gram variable bacilli and repeat cultures are pending. This was the cause of his sepsis and the concern for possible translocation given his recent surgical intervention. He remains on vancomycin, cefepime, Flagyl IV until we have speciation sensitivities. Follow-up blood cultures. (4) Ileus following gastrointestinal surgery Impression: He does appear that he had a ileus following his surgical intervention. CT today is concerning for ileus versus obstruction. Clinically he appears to be improved now as he is having output from his colostomy and no nausea or vomiting. We will start him on a clear liquid diet and monitor. 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 He will need outpatient follow-up once discharged with oncology. (6) Atrial fibrillation Impression: This is new this admission. He is rate controlled at this time. Will consider beta-tom once he is off of the norepinephrine. He is on heparin for the NSTEMI and we will need to discuss the risks and benefit of continuing anticoagulation. (7) Status post colostomy Impression: He is status post a loop colostomy with general surgery last week after colonoscopy revealed a mass in the sigmoid/rectal junction which ultimately has revealed invasive adenocarcinoma. (8) Aortic stenosis Impression: Echocardiogram reveals moderate to severe aortic stenosis with an aortic valve area of 1.0 cm. (9) Diabetes mellitus type 2, controlled Impression: His blood glucose is well controlled. We will continue sliding scale.
[2021-05-22] MEDS ORDERED: POTASSIUM PHOSPHATE 15 MMOL in SODIUM CHLORIDE 0.9% 250 ML IV ONE (09:00)
[2021-05-22] MEDS ORDERED: IOVERSOL 320 100 ML VIAL IVP ONE ×2 (09:03→13:51)
[2021-05-22] MEDS: FAMOTIDINE 20 MG TABLET PO SCH (09:03)
[2021-05-22] MEDS ORDERED: IOVERSOL 320 50 ML VIAL ONE (09:03)
[2021-05-22] MEDS: SODIUM CHLORIDE FLUSH 0.9% 10 ML SYRINGE IVP PRN ×2 (12:03→16:57)
[2021-05-22] MEDS ORDERED: IOVERSOL 320 50 ML VIAL PO ONE (13:51)
--- NOTE | 2021-05-22 14:26 | CT Report ---
PROCEDURE: Abdomen/Pelvis W INDICATIONS: no bowel bmm, distension, postop CONTRAST: IV CONTRAST: Optiray 320 ml: 100 PO CONTRAST: Isovue 300 ml50 TECHNIQUE: After the administration of intravenous contrast, 5 mm thick sections acquired from the diaphragms to the symphysis. 5 mm thick coronal and sagittal reformats were acquired. For radiation dose reducti on, the following was used: automated exposure control, adjustment of mA and/or kV according to elisa ent size. COMPARISON: CT abdomen and pelvis 02/16/2021. FINDINGS: Image quality: Excellent. ABDOMEN: Lung bases: Bilateral pleural effusions, increased. Bibasilar compressive atelectasis. Heart size is prominent. Solid organs: Bolus timing is in the arterial phase. Several hypodense hepatic lesions are not well e valuated due to contrast bolus timing. Suspect rim calcified lesion in the left lobe liver. Gallbladd er is not significantly distended. Small layering gallstones. Biliary system is non dilated. Pancre as enhances normally. No adrenal nodules. Kidneys demonstrate normal size and enhancement, without hydronephrosis. Peritoneum and bowel: Gaseous distention of the stomach. Small lipoma suspected in the third portion the duodenum, (3/48). Recent colostomy. Left paramedian ostomy. Majority of the oral contrast is in the proximal small bowel. There are dilated loops of small bowel in the left abdomen measuring up to 3.7 cm in diameter, (6/20). No discrete transition point is identified. There are air-fluid levels. T here is a small volume of pneumoperitoneum which appears decreased and is likely iatrogenic from rece nt surgery. Moderate volume of ascites. Presacral edema. Nodes and vessels: No retroperitoneal or mesenteric adenopathy by size criteria. Aorta and inferior vena cava are normal in size. Miscellaneous: No ventral hernias. Anasarca. PELVIS: Genitourinary: Bladder is decompressed with Hernadez catheter. Prostatomegaly. Miscellaneous: Right inguinal hernia containing ascites fluid. Bones: No suspicious bony lesions. No vertebral body compression fractures. IMPRESSION: 1. Dilated loops of small bowel in the left abdomen. Small air-fluid levels. Findings suspect for connor namic ileus versus small bowel obstruction. Gaseous distention of the stomach. 2. Moderate volume of ascites, increased. Anasarca. 3. Bilateral pleural effusions, increased. 4. Hypodense hepatic lesions most compatible with metastatic disease. These are not well evaluated on this exam due to contrast bolus timing. 5. Small volume of pneumoperitoneum is decreased. This is likely iatrogenic from recent colectomy. Reviewed by: Omar Shen MD on 05/22/2021 2:25 PM PDT Approved by: Omar Shen MD on 05/22/2021 2:25 PM PDT Station ID: [id number]
[2021-05-22] MEDS: HEPARIN 25000UNITS/500ML (D5W) 25,000 UNIT/500 ML BAG IV SCH (14:34)
[2021-05-22] MEDS ORDERED: SODIUM CHLORIDE 0.9% 500 ML IV ONE (19:00)
[2021-05-22] MEDS: ATORVASTATIN 40 MG TABLET PO SCH (20:47)
[2021-05-23] MEDS: INSULIN REGULAR HUMAN 300 UNIT/3 ML VIAL SUBQ SCH ×5 (00:49→23:16)
[2021-05-23] MEDS: SODIUM CHLORIDE FLUSH 0.9% 10 ML SYRINGE IVP SCH ×4 (00:50→23:17)
[2021-05-23] MEDS: SODIUM CHLORIDE FLUSH 0.9% 10 ML SYRINGE IVP PRN ×5 (02:36→07:30)
[2021-05-23] MEDS: HEPARIN 25000UNITS/500ML (D5W) 25,000 UNIT/500 ML BAG IV SCH ×2 (04:42→21:12)
[2021-05-23] MEDS: metroNIDAZOLE 500 MG/100 ML 500 MG/100 ML BAG IV SCH ×3 (05:44→21:15)
[2021-05-23] MEDS: CEFEPIME 2 GM in SODIUM CHLORIDE 0.9% MINIBAG 100 ML IV SCH ×3 (05:44→21:13)
[2021-05-23 05:50] LABS: BASOPHILS % (AUTO) 0.8 %; EOSINOPHILS % (AUTO) 0.1 %; HGB - HEMOGLOBIN 11.1 g/dL (14.0-18.0); LYMPHOCYTES % (AUTO) 5.2 %; MEAN CORPUSCULAR HEMOGLOBIN 32.3 pg (27.0-31.0); MEAN CORPUSCULAR HGB CONC 33.6 g/dL (32.0-36.0); MEAN CORPUSCULAR VOLUME 95.9 fL (80.0-94.0); MEAN PLATELET VOLUME 11.9 fL (7.4-11.4); MONOCYTES % (AUTO) 5.1 %; NEUTROPHILS % (AUTO) 86.1 %; PLT - PLATELET COUNT 137 10^3/uL (130-450); RED BLOOD COUNT 3.44 10^6/uL (4.70-6.10); RED CELL DISTRIBUTION WIDTH 13.6 % (12.0-15.0); WHITE BLOOD COUNT 10.8 x10^3/uL (4.8-10.8)
[2021-05-23 06:00] LABS: CALCIUM 7.7 mg/dL (8.5-10.3); CREATININE 0.8 mg/dL (0.6-1.2); MAGNESIUM 2.1 mg/dL (1.7-2.8); PHOSPHORUS 2.4 mg/dL (2.5-4.6); POTASSIUM 3.6 mmol/L (3.5-5.0)
[2021-05-23 06:05] LABS: ABNORMAL LYMPHS % (MANUAL) 0 %
[2021-05-23 06:27] LABS: BAND NEUTROPHILS % (MANUAL) 11 %; DIFFERENTIAL COMMENT MANUAL DIFFERENTIAL; LYMPHOCYTES # (MANUAL) 0.8 10^3/uL (1.5-3.5); LYMPHOCYTES % (MANUAL) 7 %; MONOCYTES # (MANUAL) 0.4 10^3/uL (0.0-1.0); NEUTROPHILS # (MANUAL) 9.6 10^3/uL (1.5-6.6); PLATELET ESTIMATE, MANUAL NORMAL (130-450,000) (NORMAL); RBC MORPHOLOGY (MULTIPLE) NORMAL APPEARANCE (NORMAL)
--- NOTE | 2021-05-23 08:03 | PROVIDER PROGRESS NOTE ---
Subjective - Prog Note Date Prog Note Date: 05/23/21 - Subjective Subjective: He reports feeling well today. He denies any abdominal pain today. No nausea or vomiting. He has been tolerating a clear liquid diet. No chest pain or dyspnea. Current Medications - Current Medications Current Medications: Active Medications Acetaminophen (Acetaminophen 325 Mg Tablet) 650 mg PO Q4HR PRN PRN Reason: Pain 1 to 4 Last Admin: 05/21/21 09:34 Dose: 650 mg Documented by: Aspirin (Aspirin Chew 81 Mg Tablet) 81 mg PO DAILY [facility] Last Admin: 05/23/21 08:33 Dose: 81 mg Documented by: Atorvastatin Calcium (Atorvastatin 40 Mg Tablet) 40 mg PO QPM [facility] Last Admin: 05/22/21 20:47 Dose: 40 mg Documented by: Calcium Carbonate/Glycine (Calcium Carbonate Chew 500 Mg Tablet) 500 mg PO BID PRN PRN Reason: NEEDED PER PROVIDER ORDERS Last Admin: 05/21/21 13:28 Dose: 500 mg Documented by: Famotidine (Famotidine 20 Mg Tablet) 20 mg PO DAILY [facility] Last Admin: 05/23/21 08:35 Dose: 20 mg Documented by: Heparin Sodium (Porcine) (Heparin 1,000 Unit/Ml Vial) 1,950 unit 25 unit/kg (1950 unit) IVP Q6H PRN PRN Reason: ANTI-XA < 0.2 Last Admin: 05/22/21 05:40 Dose: 1,950 unit Documented by: Hydromorphone HCl (Hydromorphone 0.5 Mg/0.5 Ml Syringe) 0.5 mg IVP Q6H PRN PRN Reason: Pain 8 to 10 Last Admin: 05/20/21 02:35 Dose: 0.5 mg Documented by: Norepinephrine Bitartrate 8 mg (/ Dextrose) 250 mls @ 15 mls/hr IV .[id number] [facility]; Protocol Last Titration: 05/23/21 00:58 Dose: Infused Documented by: Metronidazole (Flagyl 500 Mg/100 Ml) 500 mg in 100 mls @ 100 mls/hr IV Q8H [facility] Last Infusion: 05/23/21 06:55 Dose: Infused Documented by: Cefepime HCl 2 gm/ Sodium (Chloride) 100 mls @ 200 mls/hr IV TID [facility] Last Infusion: 05/23/21 06:33 Dose: Infused Documented by: Sodium Chloride (Normal Saline 0.9%) 500 mls @ 20 mls/hr IV Q24H PRN PRN Reason: TKO RATE Last Infusion: 05/23/21 02:34 Dose: Infused Documented by: Heparin Sodium/Dextrose (Heparin Sodium/Dextrose) 25,000 unit in 500 mls @ 18.84 mls/hr IV .[id number] [facility]; Protocol Last Admin: 05/23/21 04:42 Dose: 20 unit/kg/hr, 31.4 mls/hr Documented by: Potassium Phosphate 15 mmol/ (Sodium Chloride) 255 mls @ 63 mls/hr IV ONCE ONE; Protocol Stop: 05/23/21 13:02 Last Admin: 05/23/21 08:55 Dose: 63 mls/hr Documented by: Vancomycin HCl 1 gm/Vancomycin HCl 500 mg/ Sodium Chloride 500 mls @ 250 mls/hr IV ONCE [facility] Stop: 05/23/21 13:00 Last Admin: 05/23/21 10:18 Dose: 250 mls/hr Documented by: Vancomycin HCl 1 gm/ Sodium (Chloride) 250 mls @ 167 mls/hr IV Q12H [facility] Insulin Human Regular (Insulin Regular Human 300 Unit/3 Ml Vial) 1 - 5 unit SUBQ Q6HR [facility]; Protocol Last Admin: 05/23/21 06:08 Dose: 1 unit Documented by: Ondansetron HCl (Ondansetron Odt 4 Mg Tablet) 4 mg TL Q6HR PRN PRN Reason: Nausea / Vomiting Ondansetron HCl (Ondansetron 4 Mg/2 Ml Vial) 4 mg IVP Q6HR PRN PRN Reason: Nausea / Vomiting Last Admin: 05/21/21 11:48 Dose: 4 mg Documented by: Oxycodone HCl (Oxycodone 5 Mg Tablet) 5 mg PO Q4HR PRN PRN Reason: PAIN Last Admin: 05/21/21 15:37 Dose: 5 mg Documented by: Polyethylene Glycol (Polyethylene Glycol 3350 17 Gm Packet) 17 gm PO DAILY [facility] Last Admin: 05/23/21 08:32 Dose: 17 gm Documented by: Prochlorperazine Edisylate (Prochlorperazine 10 Mg/2 Ml Vial) 10 mg IVP Q6HR PRN PRN Reason: Nausea / Vomiting Last Admin: 05/21/21 15:38 Dose: 10 mg Documented by: Sodium Chloride (Sodium Chloride Flush 0.9% 10 Ml Syringe) 10 ml IVP 0100,0900,1700 [facility] Last Admin: 05/23/21 08:38 Dose: 10 ml Documented by: Sodium Chloride (Sodium Chloride Flush 0.9% 10 Ml Syringe) 10 ml IVP PRN PRN PRN Reason: NEEDED PER PROVIDER ORDERS Last Admin: 05/23/21 04:57 Dose: 10 ml Documented by: Sodium Chloride (Sodium Chloride Flush 0.9% 10 Ml Syringe) 20 ml IVP PRN PRN PRN Reason: After Blood Draw Last Admin: 05/23/21 07:30 Dose: 20 ml Documented by: Temazepam (Temazepam 15 Mg Capsule) 15 mg PO QPM PRN PRN Reason: Insomnia Aspirin [Adult Low Dose Aspirin EC] 81 mg PO DAILY 01/10/20 Doxazosin Mesylate 8 mg PO DAILY 01/10/20 Multivit-Min/FA/Lycopen/Lutein [Centrum Silver Men Tablet] 1 each PO DAILY 01/10/20 Rosuvastatin Calcium 20 mg PO DAILY 01/10/20 metFORMIN [Glucophage] 250 mg PO BIDWM 05/13/21 Objective - Vital Signs/Intake & Output Reviewed Vital Signs: Yes Vital Signs: Vital Signs Temp Pulse Resp BP Pulse Ox 05/23/21 07:54 36.7 C 89 27 H 99/63 94 05/23/21 07:00 92 17 98/68 92 05/23/21 06:06 89 22 98/64 93 05/23/21 05:00 85 20 99/61 93 Intake & Output: Intake & Output 05/20/21 05/21/21 05/22/21 05/23/21 23:59 23:59 23:59 23:59 Intake Total 3524.450 5879.593 2029.023 1145.849 Output Total 3416 700 905 288 Balance 108.450 796.915 856.023 857.849 - Lab Results Fish Bones: 05/23/21 05:00 05/23/21 05:00 Other Labs: Lab Results x24hrs 05/23/21 05/23/21 05/23/21 Range/Units 05:00 05:00 05:00 WBC 10.8 (4.8-10.8) x10^3/uL RBC 3.44 L (4.70-6.10) 10^6/uL Hgb 11.1 L (14.0-18.0) g/dL Hct 33.0 L (42.0-52.0) % MCV 95.9 H (80.0-94.0) fL MCH 32.3 H (27.0-31.0) pg MCHC 33.6 (32.0-36.0) g/dL RDW 13.6 (12.0-15.0) % Plt Count 137 (130-450) 10^3/uL MPV 11.9 H (7.4-11.4) fL Neut # (Auto) Not Reportable Lymph # (Auto) Not Reportable [place] # (Auto) Not Reportable Eos # (Auto) Not Reportable Baso # (Auto) Not Reportable Absolute Nucleated RBC Not Reportable Total Counted 100 Band Neuts % (Manual) 11 H (0 - 10) % Abnorm Lymph % (Manual) 0 % Nucleated RBC % Not Reportable Neutrophils # (Manual) 9.6 H (1.5-6.6) 10^3/uL Lymphocytes # (Manual) 0.8 L (1.5-3.5) 10^3/uL Monocytes # (Manual) 0.4 (0.0-1.0) 10^3/uL Eosinophils # (Manual) 0.0 (0-0.7) 10^3/uL Basophils # (Manual) 0.0 (0-0.1) 10^3/uL Differential Comment MANUAL DIFFERENTIAL Platelet Estimate NORMAL (130-450,000) (NORMAL) RBC Morph Micro Appear NORMAL APPEARANCE (NORMAL) Anti-Xa Level ( - 0.7) U/mL Sodium 137 (135-145) mmol/L Potassium 3.6 (3.5-5.0) mmol/L Chloride 108 (101-111) mmol/L Carbon Dioxide 21 (21-32) mmol/L Anion Gap 8.0 (6-13) BUN 37 H (6-20) mg/dL Creatinine 0.8 (0.6-1.2) mg/dL Estimated GFR (MDRD) 91 (>89) Glucose 165 H (70-100) mg/dL Calcium 7.7 L (8.5-10.3) mg/dL Phosphorus 2.4 L (2.5-4.6) mg/dL Magnesium 2.1 (1.7-2.8) mg/dL Albumin 2.0 L (3.2-5.5) g/dL 05/23/21 05/22/21 05/22/21 Range/Units 02:35 20:35 12:00 WBC (4.8-10.8) x10^3/uL RBC (4.70-6.10) 10^6/uL Hgb (14.0-18.0) g/dL Hct (42.0-52.0) % MCV (80.0-94.0) fL MCH (27.0-31.0) pg MCHC (32.0-36.0) g/dL RDW (12.0-15.0) % Plt Count (130-450) 10^3/uL MPV (7.4-11.4) fL Neut # (Auto) Lymph # (Auto) [place] # (Auto) Eos # (Auto) Baso # (Auto) Absolute Nucleated RBC Total Counted Band Neuts % (Manual) (0 - 10) % Abnorm Lymph % (Manual) % Nucleated RBC % Neutrophils # (Manual) (1.5-6.6) 10^3/uL Lymphocytes # (Manual) (1.5-3.5) 10^3/uL Monocytes # (Manual) (0.0-1.0) 10^3/uL Eosinophils # (Manual) (0-0.7) 10^3/uL Basophils # (Manual) (0-0.1) 10^3/uL Differential Comment Platelet Estimate (NORMAL) RBC Morph Micro Appear (NORMAL) Anti-Xa Level 0.3 0.3 0.2 ( - 0.7) U/mL Sodium (135-145) mmol/L Potassium (3.5-5.0) mmol/L Chloride (101-111) mmol/L Carbon Dioxide (21-32) mmol/L Anion Gap (6-13) BUN (6-20) mg/dL Creatinine (0.6-1.2) mg/dL Estimated GFR (MDRD) (>89) Glucose (70-100) mg/dL Calcium (8.5-10.3) mg/dL Phosphorus (2.5-4.6) mg/dL Magnesium (1.7-2.8) mg/dL Albumin (3.2-5.5) g/dL Assessment/Plan - Problem List (1) Septic shock Impression: He is now off of the norepinephrine. Suspect this shock was multifactorial related to sepsis and potentially cardiogenic given the NSTEMI. We are continuing IV antibiotics given the bacteremia and we are still awaiting speciation and sensitivities. He remains on vancomycin, cefepime, Flagyl. Overall he is improving we will continue supportive measures. (2) NSTEMI (non-ST elevated myocardial infarction) Impression: We are treating him for NSTEMI given his troponin was nearly 8000. His EKG did not reveal any obvious ischemia. Echocardiogram revealed ejection fraction about 40 to 45%. No obvious wall motion abnormalities. We will discontinue the IV heparin once it has been for 8 hours of anticoagulation. We will continue aspirin and Lipitor. We will look to resume a beta-tom now that he is off of pressors. Will discuss with his shade bander once he improves from a sepsis standpoint regarding consideration of an angiogram although family still wants to discuss this further in the evening considering doing this on an outpatient basis. He will also need diuresis given his edema we will hold off on this until ensure his hemodynamics are stable. (3) Bacteremia Impression: Initial blood cultures grew gram variable bacilli. Speciation and sensitivities are still pending as this required to be sent out. Repeat cultures are negative to date for 24 hours. We will continue him on vancomycin, cefepime, Fl agyl until we have the results of the blood cultures. (4) Atrial fibrillation Impression: He currently is rate controlled. We are unable to use any AV emmanuel blocking agents due to his hypotension. If he does develop bradycardic response we can consider the use of amiodarone or digoxin. We will continue to monitor on telemetry. As he medically improves, will need to discuss anticoagulation to reduce risk of stroke. (5) Colon cancer Impression: He is status post loop colostomy. There is concern this is metastatic initially given the liver lesion but pathology came back negative malignant cells and this was more consistent with hemangioma. 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 He will follow-up with oncology once discharged. (6) Status post colostomy Impression: He is status post a loop colostomy with general surgery last week after colonoscopy revealed a mass in the sigmoid/rectal junction which ultimately has revealed invasive adenocarcinoma. (7) Aortic stenosis Impression: Echocardiogram revealed moderate to severe aortic stenosis with an aortic valve area of 1.0 cm. (8) Diabetes mellitus type 2, controlled Impression: Stable. Continue diet as tolerated which will be advanced to full liquid diet today. Continue sliding scale. (9) Ileus following gastrointestinal surgery Impression: This has resolved. He is tolerating a diet. Continue bowel regimen and advance diet to full liquid diet today.
[2021-05-23 08:08] LABS: VANCOMYCIN,TROUGH 10.7 ug/mL (10.0-20.0)
[2021-05-23] MEDS: polyethylene glycoL 3350 17 GM PACKET PO SCH (08:32)
[2021-05-23] MEDS: ASPIRIN CHEW 81 MG TABLET PO SCH (08:33)
[2021-05-23] MEDS: FAMOTIDINE 20 MG TABLET PO SCH (08:35)
[2021-05-23] MEDS ORDERED: POTASSIUM PHOSPHATE 15 MMOL in SODIUM CHLORIDE 0.9% 250 ML IV ONE (09:00)
[2021-05-23] MEDS ORDERED: VANCOMYCIN INJ 1 GM, VANCOMYCIN INJ 500 MG in SODIUM CHLORIDE 0.9% 500 ML IV SCH (10:00)
--- NOTE | 2021-05-23 20:02 | Ultrasound Report ---
PROCEDURE: Duplex Ext Veins Bilateral INDICATIONS: HILLARY YOURADHIKA TECHNIQUE: Real-time imaging, as well as color and pulse Doppler interrogation, were performed of the deep veins of both legs from the inguinal ligament to the popliteal fossa. COMPARISON: None FINDINGS: The deep veins are normally compressible, and free of intraluminal thrombus. Color and pu lse Doppler demonstrate normal phasic intravascular flow. There is normal augmentation response to d istal compression maneuver. A right Wilkinson's cyst measures 4.7 x 0.8 x 4.3 cm. A left Wilkinson's cyst measures 5.3 x 0.9 x 3.4 cm. IMPRESSION: 1. No evidence of DVT bilaterally. 2. Bilateral Wilkinson cysts. 3. Fluid collection in the left proximal calf, of uncertain cause, possibly a hematoma, but benign in appearance. Reviewed by: Meng Dickinson on 05/23/2021 8:00 PM PDT Approved by: Meng Dickinson on 05/23/2021 8:00 PM PDT Station ID: [id number]
[2021-05-23] MEDS: guaiFENesin 600 MG TABLET PO SCH (20:14)
[2021-05-23] MEDS: ATORVASTATIN 40 MG TABLET PO SCH (20:14)
[2021-05-23] MEDS ORDERED: VANCOMYCIN INJ 1 GM in SODIUM CHLORIDE 0.9% 250 ML IV SCH (22:00)
[2021-05-24 05:08] LABS: BASOPHILS % (AUTO) 0.7 %; EOSINOPHILS % (AUTO) 0.8 %; HGB - HEMOGLOBIN 11.5 g/dL (14.0-18.0); LYMPHOCYTES % (AUTO) 8.1 %; MEAN CORPUSCULAR HGB CONC 33.8 g/dL (32.0-36.0); MEAN CORPUSCULAR VOLUME 94.7 fL (80.0-94.0); MEAN PLATELET VOLUME 11.7 fL (7.4-11.4); NEUTROPHILS % (AUTO) 78.7 %; PLT - PLATELET COUNT 150 10^3/uL (130-450); RED BLOOD COUNT 3.59 10^6/uL (4.70-6.10); WHITE BLOOD COUNT 10.6 x10^3/uL (4.8-10.8)
[2021-05-24 05:16] LABS: CALCIUM 7.7 mg/dL (8.5-10.3); CREATININE 0.8 mg/dL (0.6-1.2); POTASSIUM 3.4 mmol/L (3.5-5.0)
[2021-05-24 05:35] LABS: ABNORMAL LYMPHS % (MANUAL) 2 %; BAND NEUTROPHILS % (MANUAL) 1 %; LYMPHOCYTES # (MANUAL) 0.8 10^3/uL (1.5-3.5); LYMPHOCYTES % (MANUAL) 6 %; MONOCYTES # (MANUAL) 0.8 10^3/uL (0.0-1.0); MYELOCYTES % (MANUAL) 1 %; NEUTROPHILS # (MANUAL) 8.8 10^3/uL (1.5-6.6)
[2021-05-24 05:37] LABS: DIFFERENTIAL COMMENT MANUAL DIFFERENTIAL; PLATELET ESTIMATE, MANUAL NORMAL (130-450,000) (NORMAL); PLATELET MORPHOLOGY NORMAL APPEARANCE (NORMAL); RBC MORPHOLOGY (MULTIPLE) 1+ BURR CELLS (NORMAL); WBC MORPHOLOGY (MULTIPLE) NORMAL APPEARANCE (NORMAL)
[2021-05-24] MEDS: CEFEPIME 2 GM in SODIUM CHLORIDE 0.9% MINIBAG 100 ML IV SCH ×3 (05:40→21:21)
[2021-05-24] MEDS: metroNIDAZOLE 500 MG/100 ML 500 MG/100 ML BAG IV SCH ×3 (05:41→22:23)
[2021-05-24] MEDS: SODIUM CHLORIDE FLUSH 0.9% 10 ML SYRINGE IVP PRN ×5 (05:50→14:56)
[2021-05-24] MEDS: SODIUM CHLORIDE 0.9% 500 ML IV PRN (05:50)
[2021-05-24] MEDS: INSULIN REGULAR HUMAN 300 UNIT/3 ML VIAL SUBQ SCH (06:05)
[2021-05-24] MEDS: POTASSIUM CHLOR 20 MEQ/100 ML 20 MEQ/100 ML BAG IV SCH ×2 (07:00→08:03)
[2021-05-24 08:15] LABS: MAGNESIUM 2.4 mg/dL (1.7-2.8); PHOSPHORUS 2.6 mg/dL (2.5-4.6)
[2021-05-24] MEDS ORDERED: FUROSEMIDE 20 MG/2 ML VIAL IVP STA (08:43)
[2021-05-24] MEDS: guaiFENesin 600 MG TABLET PO SCH ×2 (08:48→20:16)
[2021-05-24] MEDS: ASPIRIN CHEW 81 MG TABLET PO SCH (08:48)
[2021-05-24] MEDS: ACETAMINOPHEN 325 MG TABLET PO PRN ×2 (08:48→18:22)
[2021-05-24] MEDS: FAMOTIDINE 20 MG TABLET PO SCH (08:48)
--- NOTE | 2021-05-24 08:49 | PROVIDER PROGRESS NOTE ---
Subjective - Prog Note Date Prog Note Date: 05/24/21 - Subjective Subjective: Reports that he feels quite well today. Feels stronger each day. Has been tolerating a diet without nausea or vomiting. Has had good output from the ostomy. Has been able to walk and work with physical therapy. Still has lower extremity edema but no dyspnea. Current Medications - Current Medications Current Medications: Active Medications Acetaminophen (Acetaminophen 325 Mg Tablet) 650 mg PO Q4HR PRN PRN Reason: Pain 1 to 4 Last Admin: 05/21/21 09:34 Dose: 650 mg Documented by: Aspirin (Aspirin Chew 81 Mg Tablet) 81 mg PO DAILY [facility] Last Admin: 05/23/21 08:33 Dose: 81 mg Documented by: Atorvastatin Calcium (Atorvastatin 40 Mg Tablet) 40 mg PO QPM [facility] Last Admin: 05/23/21 20:14 Dose: 40 mg Documented by: Calcium Carbonate/Glycine (Calcium Carbonate Chew 500 Mg Tablet) 500 mg PO BID PRN PRN Reason: NEEDED PER PROVIDER ORDERS Last Admin: 05/21/21 13:28 Dose: 500 mg Documented by: Enoxaparin Sodium (Enoxaparin 40 Mg/0.4 Ml Syringe) 40 mg SUBQ DAILY [facility] Famotidine (Famotidine 20 Mg Tablet) 20 mg PO DAILY [facility] Last Admin: 05/23/21 08:35 Dose: 20 mg Documented by: Guaifenesin (Guaifenesin 600 Mg Tablet) 600 mg PO BID [facility] Last Admin: 05/23/21 20:14 Dose: 600 mg Documented by: Hydromorphone HCl (Hydromorphone 0.5 Mg/0.5 Ml Syringe) 0.5 mg IVP Q6H PRN PRN Reason: Pain 8 to 10 Last Admin: 05/20/21 02:35 Dose: 0.5 mg Documented by: Metronidazole (Flagyl 500 Mg/100 Ml) 500 mg in 100 mls @ 100 mls/hr IV Q8H [facility] Last Infusion: 05/24/21 06:57 Dose: Infused Documented by: Cefepime HCl 2 gm/ Sodium (Chloride) 100 mls @ 200 mls/hr IV TID [facility] Last Infusion: 05/24/21 06:57 Dose: Infused Documented by: Sodium Chloride (Normal Saline 0.9%) 500 mls @ 20 mls/hr IV Q24H PRN PRN Reason: TKO RATE Last Admin: 05/24/21 05:50 Dose: 20 mls/hr Documented by: Vancomycin HCl 1 gm/ Sodium (Chloride) 250 mls @ 167 mls/hr IV Q12H [facility] Last Infusion: 05/24/21 00:58 Dose: Infused Documented by: Potassium Chloride (Potassium Chloride) 20 meq in 100 mls @ 100 mls/hr IV Q1H [facility] Stop: 05/24/21 08:59 Last Admin: 05/24/21 08:03 Dose: 100 mls/hr Documented by: Insulin Human Regular (Insulin Regular Human 300 Unit/3 Ml Vial) 1 - 5 unit SUBQ Q6HR [facility]; Protocol Last Admin: 05/24/21 06:05 Dose: 1 unit Documented by: Ondansetron HCl (Ondansetron Odt 4 Mg Tablet) 4 mg TL Q6HR PRN PRN Reason: Nausea / Vomiting Ondansetron HCl (Ondansetron 4 Mg/2 Ml Vial) 4 mg IVP Q6HR PRN PRN Reason: Nausea / Vomiting Last Admin: 05/21/21 11:48 Dose: 4 mg Documented by: Oxycodone HCl (Oxycodone 5 Mg Tablet) 5 mg PO Q4HR PRN PRN Reason: PAIN Last Admin: 05/21/21 15:37 Dose: 5 mg Documented by: Polyethylene Glycol (Polyethylene Glycol 3350 17 Gm Packet) 17 gm PO DAILY [facility] Last Admin: 05/23/21 08:32 Dose: 17 gm Documented by: Prochlorperazine Edisylate (Prochlorperazine 10 Mg/2 Ml Vial) 10 mg IVP Q6HR PRN PRN Reason: Nausea / Vomiting Last Admin: 05/21/21 15:38 Dose: 10 mg Documented by: Sodium Chloride (Sodium Chloride Flush 0.9% 10 Ml Syringe) 10 ml IVP 0100,0900,1700 [facility] Last Admin: 05/23/21 23:17 Dose: 10 ml Documented by: Sodium Chloride (Sodium Chloride Flush 0.9% 10 Ml Syringe) 10 ml IVP PRN PRN PRN Reason: NEEDED PER PROVIDER ORDERS Last Admin: 05/24/21 05:50 Dose: 10 ml Documented by: Sodium Chloride (Sodium Chloride Flush 0.9% 10 Ml Syringe) 20 ml IVP PRN PRN PRN Reason: After Blood Draw Last Admin: 05/24/21 05:50 Dose: 20 ml Documented by: Temazepam (Temazepam 15 Mg Capsule) 15 mg PO QPM PRN PRN Reason: Insomnia Last Admin: 05/23/21 23:16 Dose: 15 mg Documented by: Aspirin [Adult Low Dose Aspirin EC] 81 mg PO DAILY 01/10/20 Doxazosin Mesylate 8 mg PO DAILY 01/10/20 Multivit-Min/FA/Lycopen/Lutein [Centrum Silver Men Tablet] 1 each PO DAILY 01/10/20 Rosuvastatin Calcium 20 mg PO DAILY 01/10/20 metFORMIN [Glucophage] 250 mg PO BIDWM 05/13/21 Objective - Vital Signs/Intake & Output Reviewed Vital Signs: Yes Vital Signs: Vital Signs Temp Pulse Resp BP Pulse Ox 05/24/21 08:46 36.3 C L 05/24/21 08:00 106 H 26 H 103/60 05/24/21 07:00 93 14 98/66 92 05/24/21 06:00 105 H 20 104/65 93 05/24/21 05:00 109 H 14 90/60 92 Intake & Output: Intake & Output 05/21/21 05/22/21 05/23/21 05/24/21 23:59 23:59 23:59 23:59 Intake Total 4011.172 8559.023 2800.849 888 Output Total 700 935 798 290 Balance 796.915 205.933 7309.849 598 - Objective General Appearance: positive: No acute distress, Alert Eyes Bilateral: positive: Normal inspection ENT: positive: ENT inspection nml Neck: positive: Nml inspection Respiratory: positive: No respiratory distress, Rales. negative: Wheezes Cardiovascular: positive: Irregularly irregular, Systolic murmur. negative: Tachycardia Extremities: positive: Pedal edema (+2 pitting edema in bilateral lower extremities.) - Lab Results Fish Bones: 05/24/21 04:40 05/24/21 04:40 Other Labs: Lab Results x24hrs 05/24/21 05/24/21 05/24/21 Range/Units 05:45 04:40 04:40 WBC (4.8-10.8) x10^3/uL RBC (4.70-6.10) 10^6/uL Hgb (14.0-18.0) g/dL Hct (42.0-52.0) % MCV (80.0-94.0) fL MCH (27.0-31.0) pg MCHC (32.0-36.0) g/dL RDW (12.0-15.0) % Plt Count (130-450) 10^3/uL MPV (7.4-11.4) fL Neut # (Auto) Lymph # (Auto) [place] # (Auto) Eos # (Auto) Baso # (Auto) Absolute Nucleated RBC Total Counted Band Neuts % (Manual) (0 - 10) % Abnorm Lymph % (Manual) % Myelocytes % ( - 0) % Nucleated RBC % Neutrophils # (Manual) (1.5-6.6) 10^3/uL Lymphocytes # (Manual) (1.5-3.5) 10^3/uL Monocytes # (Manual) (0.0-1.0) 10^3/uL Eosinophils # (Manual) (0-0.7) 10^3/uL Basophils # (Manual) (0-0.1) 10^3/uL Differential Comment WBC Morphology (NORMAL) Platelet Estimate (NORMAL) Platelet Morphology (NORMAL) RBC Morph Micro Appear (NORMAL) Anti-Xa Level 0.4 ( - 0.7) U/mL Sodium (135-145) mmol/L Potassium (3.5-5.0) mmol/L Chloride (101-111) mmol/L Carbon Dioxide (21-32) mmol/L Anion Gap (6-13) BUN (6-20) mg/dL Creatinine (0.6-1.2) mg/dL Estimated GFR (MDRD) (>89) Glucose (70-100) mg/dL Calcium (8.5-10.3) mg/dL Phosphorus 2.6 (2.5-4.6) mg/dL Magnesium 2.4 (1.7-2.8) mg/dL Albumin 2.1 L (3.2-5.5) g/dL 05/24/21 05/24/21 Range/Units 04:40 04:40 WBC 10.6 (4.8-10.8) x10^3/uL RBC 3.59 L (4.70-6.10) 10^6/uL Hgb 11.5 L (14.0-18.0) g/dL Hct 34.0 L (42.0-52.0) % MCV 94.7 H (80.0-94.0) fL MCH 32.0 H (27.0-31.0) pg MCHC 33.8 (32.0-36.0) g/dL RDW 14.0 (12.0-15.0) % Plt Count 150 (130-450) 10^3/uL MPV 11.7 H (7.4-11.4) fL Neut # (Auto) Not Reportable Lymph # (Auto) Not Reportable [place] # (Auto) Not Reportable Eos # (Auto) Not Reportable Baso # (Auto) Not Reportable Absolute Nucleated RBC Not Reportable Total Counted 100 Band Neuts % (Manual) 1 (0 - 10) % Abnorm Lymph % (Manual) 2 % Myelocytes % 1 H ( - 0) % Nucleated RBC % Not Reportable Neutrophils # (Manual) 8.8 H (1.5-6.6) 10^3/uL Lymphocytes # (Manual) 0.8 L (1.5-3.5) 10^3/uL Monocytes # (Manual) 0.8 (0.0-1.0) 10^3/uL Eosinophils # (Manual) 0.0 (0-0.7) 10^3/uL Basophils # (Manual) 0.0 (0-0.1) 10^3/uL Differential Comment MANUAL DIFFERENTIAL WBC Morphology NORMAL APPEARANCE (NORMAL) Platelet Estimate NORMAL (130-450,000) (NORMAL) Platelet Morphology NORMAL APPEARANCE (NORMAL) RBC Morph Micro Appear 1+ MERRY CELLS (NORMAL) Anti-Xa Level ( - 0.7) U/mL Sodium 140 (135-145) mmol/L Potassium 3.4 L (3.5-5.0) mmol/L Chloride 110 (101-111) mmol/L Carbon Dioxide 22 (21-32) mmol/L Anion Gap 8.0 (6-13) BUN 35 H (6-20) mg/dL Creatinine 0.8 (0.6-1.2) mg/dL Estimated GFR (MDRD) 91 (>89) Glucose 179 H (70-100) mg/dL Calcium 7.7 L (8.5-10.3) mg/dL Phosphorus (2.5-4.6) mg/dL Magnesium (1.7-2.8) mg/dL Albumin (3.2-5.5) g/dL Assessment/Plan - Problem List (1) Acute on chronic systolic heart failure Impression: Although he is not hypoxic, he does have significant lower extremity edema. His echocardiogram revealed an ejection fraction of 40 to 45%. He received multiple liters of IV fluids when he was in shock initially. Now that he is off of norepinephrine for 24 hours and his blood pressure stable, we will start to gently diurese him. We will start him on Lasix 20 mg IV with first dose being today. We will encourage him to get out of bed and ambulate to assist with mobilization of fluid. We did do a duplex of his lower extremities yesterday which did not reveal a DVT. (2) NSTEMI (non-ST elevated myocardial infarction) Impression: He has now completed 48 hours of heparin. He remains on aspirin and Lipitor. We will look to initiate beta-tom today if his blood pressure can tolerate it. Fortunately, echocardiogram did not reveal any wall motion abnormalities although his EF was depressed at 40 to 45%. (3) Bacteremia Impression: His blood cultures from admission grew gram variable bacilli. Repeat cultures have been negative. We are still awaiting speciation as these cultures needed to be sent out. We will discontinue vancomycin today but continue cefepime and Flagyl as this is likely an anaerobic bacteria. We will continue to follow-up cultures and de-escalate based off of sensitivities. (4) Atrial fibrillation Impression: He remains rate controlled. Now that his blood pressure is improved, will consider adding an AV emmanuel blocking agent especially given his mildly depressed ejection fraction. We have discontinued heparin for the NSTEMI. We will be discussing long-term anticoagulation but unfortunately were unable to discuss this today but we will look to address this tomorrow. (5) Colon cancer Impression: He is status post loop colostomy. There is concern this is metastatic initially given the liver lesion but pathology came back negative malignant cells and this was more consistent with hemangioma. 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 He will follow-up with oncology once discharged. (6) Status post colostomy Impression: He is status post a loop colostomy with general surgery last week after colonoscopy revealed a mass in the sigmoid/rectal junction which ultimately has revealed invasive adenocarcinoma. (7) Aortic stenosis Impression: Echocardiogram revealed moderate to severe aortic stenosis with an aortic valve area of 1.0 cm. (8) Diabetes mellitus type 2, controlled Impression: Stable. We will look to advance his diet to soft diet today. Continue sliding scale. (9) Ileus following gastrointestinal surgery Impression: This has resolved. He has been tolerating a diet and will continue to advance as tolerated. (10) Septic shock Impression: This has resolved. He has not been off of norepinephrine for more than 24 hours. This was believed to be secondary to sepsis but also potential component of cardiogenic shock given the NSTEMI.
[2021-05-24] MEDS: polyethylene glycoL 3350 17 GM PACKET PO SCH (08:50)
[2021-05-24] MEDS: SODIUM CHLORIDE FLUSH 0.9% 10 ML SYRINGE IVP SCH ×2 (10:18→17:23)
[2021-05-24] MEDS: INSULIN ASPART 300 UNIT/3 ML PEN SUBQ SCH ×3 (12:16→20:23)
[2021-05-24] MEDS: MIN OIL/DIMETHICON/COCONUT OIL 92 GM TUBE TOP PRN ×2 (14:46→17:22)
[2021-05-24] MEDS: ATORVASTATIN 40 MG TABLET PO SCH (20:16)
[2021-05-25] MEDS: SODIUM CHLORIDE FLUSH 0.9% 10 ML SYRINGE IVP SCH ×3 (01:12→17:21)
[2021-05-25 05:35] LABS: CALCIUM 7.9 mg/dL (8.5-10.3); CREATININE 0.9 mg/dL (0.6-1.2); MAGNESIUM 2.1 mg/dL (1.7-2.8); PHOSPHORUS 2.4 mg/dL (2.5-4.6); POTASSIUM 3.5 mmol/L (3.5-5.0)
[2021-05-25] MEDS ORDERED: POTASSIUM PHOSPHATE 15 MMOL in SODIUM CHLORIDE 0.9% 250 ML IV ONE ×2 (05:41→09:00)
[2021-05-25] MEDS: CEFEPIME 2 GM in SODIUM CHLORIDE 0.9% MINIBAG 100 ML IV SCH ×3 (06:23→21:37)
[2021-05-25] MEDS: metroNIDAZOLE 500 MG/100 ML 500 MG/100 ML BAG IV SCH ×3 (06:23→21:37)
[2021-05-25 06:35] LABS: BASOPHILS # (AUTO) 0.1 10^3/uL (0.0-0.1); BASOPHILS % (AUTO) 0.4 %; EOSINOPHILS # (AUTO) 0.1 10^3/uL (0.0-0.7); EOSINOPHILS % (AUTO) 0.4 %; HCT - HEMATOCRIT 34.7 % (42.0-52.0); HGB - HEMOGLOBIN 11.5 g/dL (14.0-18.0); LYMPHOCYTES % (AUTO) 7.2 %; MEAN CORPUSCULAR HEMOGLOBIN 31.4 pg (27.0-31.0); MEAN CORPUSCULAR HGB CONC 33.1 g/dL (32.0-36.0); MEAN CORPUSCULAR VOLUME 94.8 fL (80.0-94.0); MEAN PLATELET VOLUME 11.4 fL (7.4-11.4); MONOCYTES # (AUTO) 0.9 10^3/uL (0.0-1.0); MONOCYTES % (AUTO) 6.9 %; NEUTROPHILS # (AUTO) 10.8 10^3/uL (1.5-6.6); NEUTROPHILS % (AUTO) 80.7 %; PLT - PLATELET COUNT 194 10^3/uL (130-450); RED BLOOD COUNT 3.66 10^6/uL (4.70-6.10); RED CELL DISTRIBUTION WIDTH 13.9 % (12.0-15.0); WHITE BLOOD COUNT 13.4 x10^3/uL (4.8-10.8)
[2021-05-25 07:14] LABS: DIFFERENTIAL COMMENT MANUAL=AUTO DIFF; PLATELET ESTIMATE, MANUAL NORMAL (130-450,000) (NORMAL); PLATELET MORPHOLOGY NORMAL APPEARANCE (NORMAL)
--- NOTE | 2021-05-25 07:23 | PROVIDER PROGRESS NOTE ---
Subjective - Prog Note Date Prog Note Date: 05/25/21 - Subjective Subjective: He continues to report feeling well. Has been tolerating soft diet. No nausea or vomiting. Reports a very mild right-sided abdominal pain today. Still has lower extremity edema but does not feel short of breath. He has been walking with physical therapy. Current Medications - Current Medications Current Medications: Active Medications Acetaminophen (Acetaminophen 325 Mg Tablet) 650 mg PO Q4HR PRN PRN Reason: Pain 1 to 4 Last Admin: 05/24/21 18:22 Dose: 650 mg Documented by: Aspirin (Aspirin Chew 81 Mg Tablet) 81 mg PO DAILY [facility] Last Admin: 05/24/21 08:48 Dose: 81 mg Documented by: Atorvastatin Calcium (Atorvastatin 40 Mg Tablet) 40 mg PO QPM [facility] Last Admin: 05/24/21 20:16 Dose: 40 mg Documented by: Calcium Carbonate/Glycine (Calcium Carbonate Chew 500 Mg Tablet) 500 mg PO BID PRN PRN Reason: NEEDED PER PROVIDER ORDERS Last Admin: 05/21/21 13:28 Dose: 500 mg Documented by: Enoxaparin Sodium (Enoxaparin 40 Mg/0.4 Ml Syringe) 40 mg SUBQ DAILY [facility] Famotidine (Famotidine 20 Mg Tablet) 20 mg PO DAILY [facility] Last Admin: 05/24/21 08:48 Dose: 20 mg Documented by: Guaifenesin (Guaifenesin 600 Mg Tablet) 600 mg PO BID [facility] Last Admin: 05/24/21 20:16 Dose: 600 mg Documented by: Hydromorphone HCl (Hydromorphone 0.5 Mg/0.5 Ml Syringe) 0.5 mg IVP Q6H PRN PRN Reason: Pain 8 to 10 Last Admin: 05/20/21 02:35 Dose: 0.5 mg Documented by: Metronidazole (Flagyl 500 Mg/100 Ml) 500 mg in 100 mls @ 100 mls/hr IV Q8H [facility] Last Admin: 05/25/21 06:23 Dose: 100 mls/hr Documented by: Cefepime HCl 2 gm/ Sodium (Chloride) 100 mls @ 200 mls/hr IV TID [facility] Last Infusion: 05/25/21 06:55 Dose: Infused Documented by: Sodium Chloride (Normal Saline 0.9%) 500 mls @ 20 mls/hr IV Q24H PRN PRN Reason: TKO RATE Last Infusion: 05/24/21 12:18 Dose: 20 mls/hr Documented by: Potassium Phosphate 15 mmol/ (Sodium Chloride) 255 mls @ 63 mls/hr IV ONCE ONE; Protocol Stop: 05/25/21 13:02 Insulin Aspart (Insulin Aspart 300 Unit/3 Ml Pen) 1 - 5 unit SUBQ 0800,1200,1700,2100 [facility]; Protocol Last Admin: 05/24/21 20:23 Dose: 2 unit Documented by: Mineral Oil (Min Oil/Dimethicon/Coconut Oil 92 Gm Tube) 1 applic TOP PRN PRN PRN Reason: Skin Care Last Admin: 05/24/21 17:22 Dose: 1 applic Documented by: Multivitamins/Minerals (Multivitamin W/Minerals Tablet) 1 tab PO DAILYWM [facility] Ondansetron HCl (Ondansetron Odt 4 Mg Tablet) 4 mg TL Q6HR PRN PRN Reason: Nausea / Vomiting Ondansetron HCl (Ondansetron 4 Mg/2 Ml Vial) 4 mg IVP Q6HR PRN PRN Reason: Nausea / Vomiting Last Admin: 05/21/21 11:48 Dose: 4 mg Documented by: Oxycodone HCl (Oxycodone 5 Mg Tablet) 5 mg PO Q4HR PRN PRN Reason: PAIN Last Admin: 05/21/21 15:37 Dose: 5 mg Documented by: Polyethylene Glycol (Polyethylene Glycol 3350 17 Gm Packet) 17 gm PO DAILY [facility] Last Admin: 05/24/21 08:50 Dose: 17 gm Documented by: Prochlorperazine Edisylate (Prochlorperazine 10 Mg/2 Ml Vial) 10 mg IVP Q6HR PRN PRN Reason: Nausea / Vomiting Last Admin: 05/21/21 15:38 Dose: 10 mg Documented by: Sodium Chloride (Sodium Chloride Flush 0.9% 10 Ml Syringe) 10 ml IVP 0100,0900,1700 [facility] Last Admin: 05/25/21 01:12 Dose: 10 ml Documented by: Sodium Chloride (Sodium Chloride Flush 0.9% 10 Ml Syringe) 10 ml IVP PRN PRN PRN Reason: NEEDED PER PROVIDER ORDERS Last Admin: 05/24/21 14:56 Dose: 10 ml Documented by: Sodium Chloride (Sodium Chloride Flush 0.9% 10 Ml Syringe) 20 ml IVP PRN PRN PRN Reason: After Blood Draw Last Admin: 05/24/21 05:50 Dose: 20 ml Documented by: Aspirin [Adult Low Dose Aspirin EC] 81 mg PO DAILY 01/10/20 Doxazosin Mesylate 8 mg PO DAILY 01/10/20 Multivit-Min/FA/Lycopen/Lutein [Centrum Silver Men Tablet] 1 each PO DAILY 01/10/20 Rosuvastatin Calcium 20 mg PO DAILY 01/10/20 metFORMIN [Glucophage] 250 mg PO BIDWM 05/13/21 Objective - Vital Signs/Intake & Output Reviewed Vital Signs: Yes Vital Signs: Vital Signs x48h Temp Pulse Resp BP Pulse Ox 05/25/21 07:00 105 H 14 104/58 L 93 05/25/21 06:00 36.8 C 111 H 23 101/71 97 05/25/21 05:00 100 15 107/57 L 97 05/25/21 04:00 124 H 20 108/68 97 05/25/21 03:00 112 H 14 101/64 95 05/25/21 02:00 106 H 18 107/72 98 05/25/21 01:00 109 H 20 92/73 96 05/25/21 00:00 102 H 16 95/66 96 Intake & Output: Intake & Output 05/22/21 05/23/21 05/24/21 05/25/21 23:59 23:59 23:59 23:59 Intake Total 0158.347 2908.849 2367.333 100 Output Total 287 038 9961 375 Balance 972.181 0331.849 752.333 -275 - Objective General Appearance: positive: No acute distress, Alert Eyes Bilateral: positive: Normal inspection ENT: positive: ENT inspection nml Neck: positive: Nml inspection Respiratory: positive: No respiratory distress. negative: Wheezes, Rales Cardiovascular: positive: Irregularly irregular, Tachycardia, Systolic murmur. negative: No murmur Abdomen: positive: No distention, Tenderness (Minimal right-sided tenderness.), Other (Colostomy with liquid brown output.) Skin: positive: Warm, Dry Extremities: positive: Pedal edema (+2 pitting edema in bilateral lower extremities.) Neurologic/Psychiatric: positive: Motor nml. negative: Disoriented to person, Disoriented to place, Disoriented to time - Lab Results Fish Bones: 05/25/21 06:15 05/25/21 04:22 Other Labs: Lab Results x24hrs 05/25/21 05/25/21 05/25/21 Range/Units 06:15 04:22 04:22 WBC 13.4 H (4.8-10.8) x10^3/uL RBC 3.66 L (4.70-6.10) 10^6/uL Hgb 11.5 L (14.0-18.0) g/dL Hct 34.7 L (42.0-52.0) % MCV 94.8 H (80.0-94.0) fL MCH 31.4 H (27.0-31.0) pg MCHC 33.1 (32.0-36.0) g/dL RDW 13.9 (12.0-15.0) % Plt Count 194 (130-450) 10^3/uL MPV 11.4 (7.4-11.4) fL Neut # (Auto) 10.8 H (1.5-6.6) 10^3/uL Lymph # (Auto) 1.0 L (1.5-3.5) 10^3/uL Jack # (Auto) 0.9 (0.0-1.0) 10^3/uL Eos # (Auto) 0.1 (0.0-0.7) 10^3/uL Baso # (Auto) 0.1 (0.0-0.1) 10^3/uL Absolute Nucleated RBC 0.00 x10^3/uL Band Neuts % (Manual) Not Reportable Abnorm Lymph % (Manual) Not Reportable Nucleated RBC % 0.0 /100WBC Neutrophils # (Manual) Not Reportable Lymphocytes # (Manual) Not Reportable Monocytes # (Manual) Not Reportable Eosinophils # (Manual) Not Reportable Basophils # (Manual) Not Reportable Differential Comment MANUAL=AUTO DIFF Platelet Estimate NORMAL (130-450,000) (NORMAL) Platelet Morphology NORMAL APPEARANCE (NORMAL) RBC Morph Micro Appear 1+ OVALOCYTES (NORMAL) Sodium 143 (135-145) mmol/L Potassium 3.5 (3.5-5.0) mmol/L Chloride 111 (101-111) mmol/L Carbon Dioxide 22 (21-32) mmol/L Anion Gap 10.0 (6-13) BUN 33 H (6-20) mg/dL Creatinine 0.9 (0.6-1.2) mg/dL Estimated GFR (MDRD) 79 L (>89) Glucose 174 H (70-100) mg/dL Calcium 7.9 L (8.5-10.3) mg/dL Phosphorus 2.4 L (2.5-4.6) mg/dL Magnesium 2.1 (1.7-2.8) mg/dL Albumin 2.1 L (3.2-5.5) g/dL 05/24/21 Range/Units 04:40 WBC (4.8-10.8) x10^3/uL RBC (4.70-6.10) 10^6/uL Hgb (14.0-18.0) g/dL Hct (42.0-52.0) % MCV (80.0-94.0) fL MCH (27.0-31.0) pg MCHC (32.0-36.0) g/dL RDW (12.0-15.0) % Plt Count (130-450) 10^3/uL MPV (7.4-11.4) fL Neut # (Auto) (1.5-6.6) 10^3/uL Lymph # (Auto) (1.5-3.5) 10^3/uL Jack # (Auto) (0.0-1.0) 10^3/uL Eos # (Auto) (0.0-0.7) 10^3/uL Baso # (Auto) (0.0-0.1) 10^3/uL Absolute Nucleated RBC x10^3/uL Band Neuts % (Manual) Abnorm Lymph % (Manual) Nucleated RBC % /100WBC Neutrophils # (Manual) Lymphocytes # (Manual) Monocytes # (Manual) Eosinophils # (Manual) Basophils # (Manual) Differential Comment Platelet Estimate (NORMAL) Platelet Morphology (NORMAL) RBC Morph Micro Appear (NORMAL) Sodium (135-145) mmol/L Potassium (3.5-5.0) mmol/L Chloride (101-111) mmol/L Carbon Dioxide (21-32) mmol/L Anion Gap (6-13) BUN (6-20) mg/dL Creatinine (0.6-1.2) mg/dL Estimated GFR (MDRD) (>89) Glucose (70-100) mg/dL Calcium (8.5-10.3) mg/dL Phosphorus 2.6 (2.5-4.6) mg/dL Magnesium 2.4 (1.7-2.8) mg/dL Albumin (3.2-5.5) g/dL ABX Reporting Has patient been on IV antibiotics over the past 48 hours?: No Assessment/Plan - Problem List (1) Acute on chronic systolic heart failure Impression: He remains on room air and denies any dyspnea. He still has significant lower extremity edema and we have continued to diurese him. We will give another dose of 20 mg IV Lasix today. We will reassess daily and his blood pressure can tolerate, I would like to increase this to 40 mg daily. He is still quite edematous and I would like to see this improve further before we discharge him home. Nonetheless, we are still awaiting a plan regarding his bacteremia. Daily weights. Strict I's and O's. (2) NSTEMI (non-ST elevated myocardial infarction) Impression: He completed 40 hours of heparin. We have continued aspirin and Lipitor. We have started Eliquis today for his age fibrillation and have also started him on metoprolol. Echocardiogram revealed an ejection fraction of 40 to 45% and the basal anterior/anterior septal wall segment is hypokinetic. We will discuss with his switchboard operator helper, Dr. Estrella prior to discharge if there is need for transfer for further evaluation but suspect this can likely be deferred to an outpatient basis given his other comorbidities including the bacteremia and new diagnosis of colon cancer. Family is also leaning towards outpatient follow-up. (3) Bacteremia Impression: Blood culture admission grew gram variable bacilli. Repeat blood cultures have been negative. I did speak with microbiology today and they stated given this was anaerobic growth, it had to be sent out to [facility] in [place] and this was just done yesterday. They believe will not have results for another couple of days. In the time being, we will keep him on cefepime and Flagyl. Will likely need to discuss with infectious disease once we have the speciation regarding length of treatment. (4) Atrial fibrillation Impression: His heart rate is elevated today in the 110s. Given his blood pressure stable, we will add metoprolol 25 mg daily. We will consider digoxin if he remains tachycardic. We did discuss anticoagulation including risks and benefits. He is agreeable to trying Eliquis and we will start this today. Will monitor for signs of bleeding. (5) Colon cancer Impression: He is status post loop colostomy. There is concern this is metastatic initially given the liver lesion but pathology came back negative malignant cells and this was more consistent with hemangioma. 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 He will follow-up with oncology once discharged. (6) Status post colostomy Impression: He is status post a loop colostomy with general surgery last week after colonoscopy revealed a mass in the sigmoid/rectal junction which ultimately has revealed invasive adenocarcinoma. (7) Aortic stenosis Impression: Echocardiogram revealed moderate stenosis with an aortic valve area of 1.0 cm. He will need outpatient follow-up with his switchboard operator helper on discharge. (8) Diabetes mellitus type 2, controlled Impression: His blood glucose is more elevated today now that he is taking more p.o. We will add Lantus in the evening. Continue sliding scale. (9) Ileus following gastrointestinal surgery Impression: Resolved. (10) Septic shock Impression: Resolved.
[2021-05-25] MEDS: ACETAMINOPHEN 325 MG TABLET PO PRN (08:53)
[2021-05-25] MEDS: FAMOTIDINE 20 MG TABLET PO SCH (08:55)
[2021-05-25] MEDS: MULTIVITAMIN W/MINERALS TABLET PO SCH (08:56)
[2021-05-25] MEDS: METOPROLOL SUCCINATE 25 MG TABLET PO SCH (08:57)
[2021-05-25] MEDS: ASPIRIN CHEW 81 MG TABLET PO SCH (08:57)
[2021-05-25] MEDS: guaiFENesin 600 MG TABLET PO SCH ×2 (08:58→21:05)
[2021-05-25] MEDS ORDERED: ENOXAPARIN 40 MG/0.4 ML SYRINGE SUBQ SCH (09:00)
[2021-05-25] MEDS: polyethylene glycoL 3350 17 GM PACKET PO SCH (09:00)
[2021-05-25] MEDS: INSULIN ASPART 300 UNIT/3 ML PEN SUBQ SCH ×4 (09:01→21:38)
[2021-05-25] MEDS: FUROSEMIDE 20 MG/2 ML VIAL IVP SCH (09:21)
[2021-05-25] MEDS: APIXABAN 5 MG TABLET PO SCH ×2 (09:29→21:05)
[2021-05-25] MEDS: SODIUM CHLORIDE FLUSH 0.9% 10 ML SYRINGE IVP PRN ×2 (14:37→15:21)
[2021-05-25] MEDS: ATORVASTATIN 40 MG TABLET PO SCH (21:05)
[2021-05-25] MEDS: INSULIN GLARGINE 300 UNIT/3 ML PEN SUBQ SCH (21:37)
[2021-05-26] MEDS: SODIUM CHLORIDE FLUSH 0.9% 10 ML SYRINGE IVP SCH ×3 (04:34→17:24)
[2021-05-26] MEDS: SODIUM CHLORIDE FLUSH 0.9% 10 ML SYRINGE IVP PRN (04:34)
[2021-05-26 05:26] LABS: BASOPHILS % (AUTO) 0.4 %; EOSINOPHILS % (AUTO) 0.4 %; HCT - HEMATOCRIT 35.1 % (42.0-52.0); LYMPHOCYTES % (AUTO) 6.8 %; MEAN CORPUSCULAR HEMOGLOBIN 32.1 pg (27.0-31.0); MEAN CORPUSCULAR HGB CONC 34.2 g/dL (32.0-36.0); MEAN CORPUSCULAR VOLUME 93.9 fL (80.0-94.0); MEAN PLATELET VOLUME 11.3 fL (7.4-11.4); MONOCYTES % (AUTO) 6.4 %; NEUTROPHILS % (AUTO) 81.5 %; PLT - PLATELET COUNT 275 10^3/uL (130-450); RED BLOOD COUNT 3.74 10^6/uL (4.70-6.10); WHITE BLOOD COUNT 16.8 x10^3/uL (4.8-10.8)
[2021-05-26 05:29] LABS: ABNORMAL LYMPHS % (MANUAL) 0 %; BAND NEUTROPHILS % (MANUAL) 0 %
[2021-05-26 05:36] LABS: CALCIUM 7.8 mg/dL (8.5-10.3); CREATININE 0.8 mg/dL (0.6-1.2); PHOSPHORUS 2.2 mg/dL (2.5-4.6)
[2021-05-26 05:48] LABS: DIFFERENTIAL COMMENT MANUAL DIFFERENTIAL; LYMPHOCYTES # (MANUAL) 1.3 10^3/uL (1.5-3.5); LYMPHOCYTES % (MANUAL) 8 %; MONOCYTES # (MANUAL) 0.8 10^3/uL (0.0-1.0); NEUTROPHILS # (MANUAL) 14.6 10^3/uL (1.5-6.6); PLATELET ESTIMATE, MANUAL NORMAL (130-450,000) (NORMAL); PLATELET MORPHOLOGY NORMAL APPEARANCE (NORMAL); WBC MORPHOLOGY (MULTIPLE) NORMAL APPEARANCE (NORMAL)
[2021-05-26] MEDS: CEFEPIME 2 GM in SODIUM CHLORIDE 0.9% MINIBAG 100 ML IV SCH ×3 (05:50→22:40)
[2021-05-26] MEDS: metroNIDAZOLE 500 MG/100 ML 500 MG/100 ML BAG IV SCH ×3 (05:50→23:01)
--- NOTE | 2021-05-26 08:09 | PROVIDER PROGRESS NOTE ---
Subjective - Prog Note Date Prog Note Date: 05/26/21 - Subjective Subjective: He denies abdominal pain today. Reports no dyspnea. Family has noted that he is coughing less. He is tolerating a diet. Current Medications - Current Medications Current Medications: Active Medications Acetaminophen (Acetaminophen 325 Mg Tablet) 650 mg PO Q4HR PRN PRN Reason: Pain 1 to 4 Last Admin: 05/25/21 08:53 Dose: 650 mg Documented by: Apixaban (Apixaban 5 Mg Tablet) 5 mg PO BID [facility] Last Admin: 05/26/21 10:12 Dose: 5 mg Documented by: Aspirin (Aspirin Chew 81 Mg Tablet) 81 mg PO DAILY [facility] Last Admin: 05/26/21 10:12 Dose: 81 mg Documented by: Atorvastatin Calcium (Atorvastatin 40 Mg Tablet) 40 mg PO QPM [facility] Last Admin: 05/25/21 21:05 Dose: 40 mg Documented by: Calcium Carbonate/Glycine (Calcium Carbonate Chew 500 Mg Tablet) 500 mg PO BID PRN PRN Reason: NEEDED PER PROVIDER ORDERS Last Admin: 05/26/21 17:34 Dose: 500 mg Documented by: Famotidine (Famotidine 20 Mg Tablet) 20 mg PO DAILY [facility] Last Admin: 05/26/21 10:12 Dose: 20 mg Documented by: Furosemide (Furosemide 20 Mg/2 Ml Vial) 20 mg IVP DAILY [facility] Last Admin: 05/26/21 10:12 Dose: 20 mg Documented by: Guaifenesin (Guaifenesin 600 Mg Tablet) 600 mg PO BID [facility] Last Admin: 05/26/21 10:12 Dose: 600 mg Documented by: Hydromorphone HCl (Hydromorphone 0.5 Mg/0.5 Ml Syringe) 0.5 mg IVP Q6H PRN PRN Reason: Pain 8 to 10 Last Admin: 05/20/21 02:35 Dose: 0.5 mg Documented by: Metronidazole (Flagyl 500 Mg/100 Ml) 500 mg in 100 mls @ 100 mls/hr IV Q8H [facility] Last Infusion: 05/26/21 14:42 Dose: Infused Documented by: Cefepime HCl 2 gm/ Sodium (Chloride) 100 mls @ 200 mls/hr IV TID [facility] Last Infusion: 05/26/21 14:31 Dose: Infused Documented by: Sodium Chloride (Normal Saline 0.9%) 500 mls @ 20 mls/hr IV Q24H PRN PRN Reason: TKO RATE Last Infusion: 05/25/21 08:28 Dose: Infused Documented by: Insulin Aspart (Insulin Aspart 300 Unit/3 Ml Pen) 1 - 9 unit SUBQ 0800,1200,1700,2100 [facility]; Protocol Last Admin: 05/26/21 17:19 Dose: 3 unit Documented by: Insulin Glargine (Insulin Glargine 300 Unit/3 Ml Pen) 5 unit SUBQ QPM [facility] Last Admin: 05/25/21 21:37 Dose: 5 unit Documented by: Metoprolol Succinate (Metoprolol Succinate 25 Mg Tablet) 25 mg PO DAILY [facility] Last Admin: 05/26/21 10:13 Dose: 25 mg Documented by: Mineral Oil (Min Oil/Dimethicon/Coconut Oil 92 Gm Tube) 1 applic TOP PRN PRN PRN Reason: Skin Care Last Admin: 05/24/21 17:22 Dose: 1 applic Documented by: Multi-Ingredient Ointment (Zinc Oxide 20% Oint 30 Gm Tube) 1 applic TOP PRN PRN PRN Reason: Skin Care Multivitamins/Minerals (Multivitamin W/Minerals Tablet) [facility] Admin: 05/26/21 10:12 Dose: 1 tab Documented by: Ondansetron HCl (Ondansetron Odt 4 Mg Tablet) 4 mg TL Q6HR PRN PRN Reason: Nausea / Vomiting Ondansetron HCl (Ondansetron 4 Mg/2 Ml Vial) 4 mg IVP Q6HR PRN PRN Reason: Nausea / Vomiting Last Admin: 05/21/21 11:48 Dose: 4 mg Documented by: Oxycodone HCl (Oxycodone 5 Mg Tablet) 5 mg PO Q4HR PRN PRN Reason: PAIN Last Admin: 05/21/21 15:37 Dose: 5 mg Documented by: Polyethylene Glycol (Polyethylene Glycol 3350 17 Gm Packet) 17 gm PO DAILY [facility] Last Admin: 05/26/21 10:13 Dose: 17 gm Documented by: Prochlorperazine Edisylate (Prochlorperazine 10 Mg/2 Ml Vial) 10 mg IVP Q6HR PRN PRN Reason: Nausea / Vomiting Last Admin: 05/21/21 15:38 Dose: 10 mg Documented by: Sodium Chloride (Sodium Chloride Flush 0.9% 10 Ml Syringe) 10 ml IVP 0100,0900,1700 [facility] Last Admin: 05/26/21 17:24 Dose: 10 ml Documented by: Sodium Chloride (Sodium Chloride Flush 0.9% 10 Ml Syringe) 10 ml IVP PRN PRN PRN Reason: NEEDED PER PROVIDER ORDERS Last Admin: 05/25/21 15:21 Dose: 20 ml Documented by: Sodium Chloride (Sodium Chloride Flush 0.9% 10 Ml Syringe) 20 ml IVP PRN PRN PRN Reason: After Blood Draw Last Admin: 05/26/21 04:34 Dose: 20 ml Documented by: Aspirin [Adult Low Dose Aspirin EC] 81 mg PO DAILY 01/10/20 Doxazosin Mesylate 8 mg PO DAILY 01/10/20 Multivit-Min/FA/Lycopen/Lutein [Centrum Silver Men Tablet] 1 each PO DAILY 01/10/20 Rosuvastatin Calcium 20 mg PO DAILY 01/10/20 metFORMIN [Glucophage] 250 mg PO BIDWM 05/13/21 Objective - Vital Signs/Intake & Output Reviewed Vital Signs: Yes Vital Signs: Vital Signs x48h Temp Pulse Resp BP Pulse Ox 05/26/21 03:55 36.6 C 97 16 115/55 L 96 Intake & Output: Intake & Output 05/23/21 05/24/21 05/25/21 05/26/21 23:59 23:59 23:59 23:59 Intake Total 2800.849 2367.333 2310.667 200 Output Total 798 1615 2210 350 Balance 2001.849 752.333 100.667 -150 - Objective General Appearance: positive: No acute distress, Alert Eyes Bilateral: positive: Normal inspection ENT: positive: ENT inspection nml Neck: positive: Nml inspection Respiratory: positive: No respiratory distress. negative: Wheezes, Rales Cardiovascular: positive: Irregularly irregular, Systolic murmur. negative: No murmur, Tachycardia Abdomen: positive: Non-tender, No distention, Other (Colostomy in place.). negative: Tenderness Skin: positive: Warm, Dry Extremities: positive: Pedal edema (+2 pitting edema in bilateral lower extremities.) Neurologic/Psychiatric: negative: Disoriented to person, Disoriented to place - Lab Results Fish Bones: 05/26/21 04:35 05/26/21 04:35 Other Labs: Lab Results x24hrs 05/26/21 05/26/21 Range/Units 04:35 04:35 WBC 16.8 H (4.8-10.8) x10^3/uL RBC 3.74 L (4.70-6.10) 10^6/uL Hgb 12.0 L (14.0-18.0) g/dL Hct 35.1 L (42.0-52.0) % MCV 93.9 (80.0-94.0) fL MCH 32.1 H (27.0-31.0) pg MCHC 34.2 (32.0-36.0) g/dL RDW 14.0 (12.0-15.0) % Plt Count 275 (130-450) 10^3/uL MPV 11.3 (7.4-11.4) fL Neut # (Auto) Not Reportable Lymph # (Auto) Not Reportable Nelson # (Auto) Not Reportable Eos # (Auto) Not Reportable Baso # (Auto) Not Reportable Absolute Nucleated RBC Not Reportable Total Counted 100 Band Neuts % (Manual) 0 (0 - 10) % Abnorm Lymph % (Manual) 0 % Nucleated RBC % Not Reportable Neutrophils # (Manual) 14.6 H (1.5-6.6) 10^3/uL Lymphocytes # (Manual) 1.3 L (1.5-3.5) 10^3/uL Monocytes # (Manual) 0.8 (0.0-1.0) 10^3/uL Eosinophils # (Manual) 0.0 (0-0.7) 10^3/uL Basophils # (Manual) 0.0 (0-0.1) 10^3/uL Differential Comment MANUAL DIFFERENTIAL WBC Morphology NORMAL APPEARANCE (NORMAL) Platelet Estimate NORMAL (130-450,000) (NORMAL) Platelet Morphology NORMAL APPEARANCE (NORMAL) RBC Morph Micro Appear 1+ MERRY CELLS (NORMAL) Sodium 143 (135-145) mmol/L Potassium 3.0 L (3.5-5.0) mmol/L Chloride 111 (101-111) mmol/L Carbon Dioxide 24 (21-32) mmol/L Anion Gap 8.0 (6-13) BUN 32 H (6-20) mg/dL Creatinine 0.8 (0.6-1.2) mg/dL Estimated GFR (MDRD) 91 (>89) Glucose 105 H (70-100) mg/dL Calcium 7.8 L (8.5-10.3) mg/dL Phosphorus 2.2 L (2.5-4.6) mg/dL Magnesium 2.0 (1.7-2.8) mg/dL ABX Reporting Has patient been on IV antibiotics over the past 48 hours?: Yes Assessment/Plan - Problem List (1) Acute on chronic systolic heart failure Impression: He remains on room air and denies any dyspnea. He still has significant lower extremity edema and we have continued to diurese him. We will give another dose of 20 mg IV Lasix today and increase it to 40mg daily starting tomorrow as his blood pressure is table. He is still quite edematous and I would like to see this improve further before we discharge him home. Nonetheless, we are still awaiting a plan regarding his bacteremia. Daily weights. Strict I's and O's. (2) NSTEMI (non-ST elevated myocardial infarction) Impression: He was treated with heparin during his hospitalization is now on aspirin, Lipitor, beta-tom. He is also on Eliquis given the atrial fibrillation. Echocardiogram revealed an ejection fraction of 40 to 45% and the basal anterior/anterior septal wall segment is hypokinetic. We will discuss with his glass furnace tender, Dr. Estrella prior to discharge if there is need for transfer for further evaluation but suspect this can likely be deferred to an outpatient basis given his other comorbidities including the bacteremia and new diagnosis of colon cancer. Family is also leaning towards outpatient follow-up. (3) Bacteremia Impression: Blood culture admission grew gram variable bacilli. Repeat blood cultures have been negative. I did speak with microbiology yesterday and they stated given this was anaerobic growth, it had to be sent out to [facility] in [place] and this was just done on Thursday. They believe we will not have results for another couple of days. In the time being, we will keep him on cefepime and Flagyl. Will likely need to discuss with infectious disease once we have the speciation regarding length of treatment. (4) Atrial fibrillation Impression: His heart rate is better controlled today on metoprolol which we will continue. Continue Eliquis which was started yesterday. We can consider digoxin if his rate is difficult to control. (5) Colon cancer Impression: He is status post loop colostomy. There is concern this is metastatic initially given the liver lesion but pathology came back negative malignant cells and this was more consistent with hemangioma. 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 He will follow-up with oncology once discharged. (6) Status post colostomy Impression: He is status post a loop colostomy with general surgery last week after colonoscopy revealed a mass in the sigmoid/rectal junction which ultimately has revealed invasive adenocarcinoma. (7) Aortic stenosis Impression: Echocardiogram revealed moderate stenosis with an aortic valve area of 1.0 cm. He will need outpatient follow-up with his glass furnace tender on discharge. (8) Diabetes mellitus type 2, controlled Impression: His blood glucose is better controlled on Lantus and sliding scale. We will continue his current regimen. (9) Ileus following gastrointestinal surgery Impression: Resolved. (10) Septic shock Impression: Resolved.
[2021-05-26] MEDS ORDERED: ZINC OXIDE 20% OINT 30 GM TUBE TOP PRN (08:55)
[2021-05-26] MEDS: INSULIN ASPART 300 UNIT/3 ML PEN SUBQ SCH ×4 (09:59→22:38)
[2021-05-26] MEDS: APIXABAN 5 MG TABLET PO SCH ×2 (10:12→22:38)
[2021-05-26] MEDS: FUROSEMIDE 20 MG/2 ML VIAL IVP SCH (10:12)
[2021-05-26] MEDS: FAMOTIDINE 20 MG TABLET PO SCH (10:12)
[2021-05-26] MEDS: MULTIVITAMIN W/MINERALS TABLET PO SCH (10:12)
[2021-05-26] MEDS: ASPIRIN CHEW 81 MG TABLET PO SCH (10:12)
[2021-05-26] MEDS: guaiFENesin 600 MG TABLET PO SCH ×2 (10:12→22:37)
[2021-05-26] MEDS: polyethylene glycoL 3350 17 GM PACKET PO SCH (10:13)
[2021-05-26] MEDS: METOPROLOL SUCCINATE 25 MG TABLET PO SCH (10:13)
[2021-05-26] MEDS: CALCIUM CARBONATE CHEW 500 MG TABLET PO PRN ×2 (10:15→17:34)
[2021-05-26] MEDS ORDERED: POTASSIUM CHLORIDE 20 MEQ TABLET PO ONE (11:37)
[2021-05-26] MEDS: ATORVASTATIN 40 MG TABLET PO SCH (22:38)
[2021-05-26] MEDS: INSULIN GLARGINE 300 UNIT/3 ML PEN SUBQ SCH (22:39)
[2021-05-27] MEDS: SODIUM CHLORIDE FLUSH 0.9% 10 ML SYRINGE IVP SCH ×3 (00:01→15:58)
[2021-05-27] MEDS: CEFEPIME 2 GM in SODIUM CHLORIDE 0.9% MINIBAG 100 ML IV SCH ×3 (07:07→21:52)
[2021-05-27] MEDS: SODIUM CHLORIDE FLUSH 0.9% 10 ML SYRINGE IVP PRN (07:08)
[2021-05-27] MEDS: metroNIDAZOLE 500 MG/100 ML 500 MG/100 ML BAG IV SCH ×3 (07:08→21:38)
[2021-05-27 07:46] LABS: CALCIUM 7.8 mg/dL (8.5-10.3); CREATININE 0.8 mg/dL (0.6-1.2); PHOSPHORUS 2.4 mg/dL (2.5-4.6); POTASSIUM 3.2 mmol/L (3.5-5.0)
[2021-05-27 07:50] LABS: BASOPHILS % (AUTO) 0.6 %; EOSINOPHILS % (AUTO) 0.3 %; HCT - HEMATOCRIT 36.9 % (42.0-52.0); HGB - HEMOGLOBIN 12.1 g/dL (14.0-18.0); LYMPHOCYTES % (AUTO) 5.7 %; MEAN CORPUSCULAR HEMOGLOBIN 31.2 pg (27.0-31.0); MEAN CORPUSCULAR HGB CONC 32.8 g/dL (32.0-36.0); MEAN CORPUSCULAR VOLUME 95.1 fL (80.0-94.0); MONOCYTES % (AUTO) 5.4 %; NEUTROPHILS % (AUTO) 83.8 %; PLT - PLATELET COUNT 331 10^3/uL (130-450); RED BLOOD COUNT 3.88 10^6/uL (4.70-6.10); RED CELL DISTRIBUTION WIDTH 14.4 % (12.0-15.0); WHITE BLOOD COUNT 21.7 x10^3/uL (4.8-10.8)
[2021-05-27 07:58] LABS: ABNORMAL LYMPHS % (MANUAL) 0 %
[2021-05-27] MEDS: ASPIRIN CHEW 81 MG TABLET PO SCH (08:22)
[2021-05-27] MEDS: INSULIN ASPART 300 UNIT/3 ML PEN SUBQ SCH ×4 (08:23→21:56)
[2021-05-27] MEDS: guaiFENesin 600 MG TABLET PO SCH ×2 (08:23→21:30)
[2021-05-27] MEDS: MULTIVITAMIN W/MINERALS TABLET PO SCH (08:23)
[2021-05-27] MEDS: APIXABAN 5 MG TABLET PO SCH ×2 (08:23→21:30)
[2021-05-27] MEDS: polyethylene glycoL 3350 17 GM PACKET PO SCH (08:23)
[2021-05-27] MEDS: METOPROLOL SUCCINATE 25 MG TABLET PO SCH (08:23)
[2021-05-27 08:51] LABS: BAND NEUTROPHILS % (MANUAL) 5 %; LYMPHOCYTES # (MANUAL) 1.3 10^3/uL (1.5-3.5); LYMPHOCYTES % (MANUAL) 6 %; MONOCYTES # (MANUAL) 0.9 10^3/uL (0.0-1.0); NEUTROPHILS # (MANUAL) 19.5 10^3/uL (1.5-6.6)
[2021-05-27 09:00] LABS: DIFFERENTIAL COMMENT MANUAL DIFFERENTIAL; PLATELET ESTIMATE, MANUAL NORMAL (130-450,000) (NORMAL); PLATELET MORPHOLOGY 1+ LARGE PLATELETS (NORMAL); RBC MORPHOLOGY (MULTIPLE) NORMAL APPEARANCE (NORMAL)
[2021-05-27] MEDS ORDERED: FUROSEMIDE 20 MG/2 ML VIAL IVP SCH (09:00)
--- NOTE | 2021-05-27 09:04 | PROVIDER PROGRESS NOTE ---
Subjective - Prog Note Date Prog Note Date: 05/27/21 - Subjective Subjective: He continues to report feeling quite well. Denies any abdominal pain. He does complain of occasional heartburn with certain liquids like coffee. Denies any shortness of breath. Current Medications - Current Medications Current Medications: Active Medications Acetaminophen (Acetaminophen 325 Mg Tablet) 650 mg PO Q4HR PRN PRN Reason: Pain 1 to 4 Last Admin: 05/25/21 08:53 Dose: 650 mg Documented by: Apixaban (Apixaban 5 Mg Tablet) 5 mg PO BID [facility] Last Admin: 05/27/21 08:23 Dose: 5 mg Documented by: Aspirin (Aspirin Chew 81 Mg Tablet) 81 mg PO DAILY [facility] Last Admin: 05/27/21 08:22 Dose: 81 mg Documented by: Atorvastatin Calcium (Atorvastatin 40 Mg Tablet) 40 mg PO QPM [facility] Last Admin: 05/26/21 22:38 Dose: 40 mg Documented by: Calcium Carbonate/Glycine (Calcium Carbonate Chew 500 Mg Tablet) 500 mg PO BID PRN PRN Reason: NEEDED PER PROVIDER ORDERS Last Admin: 05/26/21 17:34 Dose: 500 mg Documented by: Guaifenesin (Guaifenesin 600 Mg Tablet) 600 mg PO BID [facility] Last Admin: 05/27/21 08:23 Dose: 600 mg Documented by: Hydromorphone HCl (Hydromorphone 0.5 Mg/0.5 Ml Syringe) 0.5 mg IVP Q6H PRN PRN Reason: Pain 8 to 10 Last Admin: 05/20/21 02:35 Dose: 0.5 mg Documented by: Metronidazole (Flagyl 500 Mg/100 Ml) 500 mg in 100 mls @ 100 mls/hr IV Q8H [facility] Last Admin: 05/27/21 07:08 Dose: 100 mls/hr Documented by: Cefepime HCl 2 gm/ Sodium (Chloride) 100 mls @ 200 mls/hr IV TID [facility] Last Admin: 05/27/21 07:07 Dose: 200 mls/hr Documented by: Sodium Chloride (Normal Saline 0.9%) 500 mls @ 20 mls/hr IV Q24H PRN PRN Reason: TKO RATE Last Infusion: 05/25/21 08:28 Dose: Infused Documented by: Insulin Aspart (Insulin Aspart 300 Unit/3 Ml Pen) 1 - 9 unit SUBQ 0800,1200,1700,2100 [facility]; Protocol Last Admin: 05/27/21 08:23 Dose: Not Given Documented by: Insulin Glargine (Insulin Glargine 300 Unit/3 Ml Pen) 5 unit SUBQ QPM [facility] Last Admin: 05/26/21 22:39 Dose: 5 unit Documented by: Metoprolol Succinate (Metoprolol Succinate 25 Mg Tablet) 25 mg PO DAILY [facility] Last Admin: 05/27/21 08:23 Dose: 25 mg Documented by: Mineral Oil (Min Oil/Dimethicon/Coconut Oil 92 Gm Tube) 1 applic TOP PRN PRN PRN Reason: Skin Care Last Admin: 05/24/21 17:22 Dose: 1 applic Documented by: Multi-Ingredient Ointment (Zinc Oxide 20% Oint 30 Gm Tube) 1 applic TOP PRN PRN PRN Reason: Skin Care Multivitamins/Minerals ([facility]amin W/[facility] Last Admin: 05/27/21 08:23 Dose: 1 tab Documented by: Ondansetron HCl (Ondansetron Odt 4 Mg Tablet) 4 mg TL Q6HR PRN PRN Reason: Nausea / Vomiting Ondansetron HCl (Ondansetron 4 Mg/2 Ml Vial) 4 mg IVP Q6HR PRN PRN Reason: Nausea / Vomiting Last Admin: 05/21/21 11:48 Dose: 4 mg Documented by: Oxycodone HCl (Oxycodone 5 Mg Tablet) 5 mg PO Q4HR PRN PRN Reason: PAIN Last Admin: 05/21/21 15:37 Dose: 5 mg Documented by: Polyethylene Glycol (Polyethylene Glycol 3350 17 Gm Packet) 17 gm PO DAILY [facility] Last Admin: 05/27/21 08:23 Dose: 17 gm Documented by: Prochlorperazine Edisylate (Prochlorperazine 10 Mg/2 Ml Vial) 10 mg IVP Q6HR PRN PRN Reason: Nausea / Vomiting Last Admin: 05/21/21 15:38 Dose: 10 mg Documented by: Sodium Chloride (Sodium Chloride Flush 0.9% 10 Ml Syringe) 10 ml IVP 0100,0900,1700 [facility] Last Admin: 05/27/21 08:22 Dose: 10 ml Documented by: Sodium Chloride (Sodium Chloride Flush 0.9% 10 Ml Syringe) 10 ml IVP PRN PRN PRN Reason: NEEDED PER PROVIDER ORDERS Last Admin: 05/27/21 07:08 Dose: 70 ml Documented by: Sodium Chloride (Sodium Chloride Flush 0.9% 10 Ml Syringe) 20 ml IVP PRN PRN PRN Reason: After Blood Draw Last Admin: 05/26/21 04:34 Dose: 20 ml Documented by: Aspirin [Adult Low Dose Aspirin EC] 81 mg PO DAILY 01/10/20 Doxazosin Mesylate 8 mg PO DAILY 01/10/20 Multivit-Min/FA/Lycopen/Lutein [Centrum Silver Men Tablet] 1 each PO DAILY 01/10/20 Rosuvastatin Calcium 20 mg PO DAILY 01/10/20 metFORMIN [Glucophage] 250 mg PO BIDWM 05/13/21 Objective - Vital Signs/Intake & Output Vital Signs: Vital Signs x48h Temp Pulse Resp BP Pulse Ox 05/27/21 03:46 36.4 C L 61 20 110/76 94 Intake & Output: Intake & Output 05/24/21 05/25/21 05/26/21 05/27/21 23:59 23:59 23:59 23:59 Intake Total 2367.333 2310.667 1220 100 Output Total 1615 2210 2150 250 Balance 752.333 100.667 -930 -150 - Lab Results Fish Bones: 05/27/21 07:10 05/27/21 07:10 Other Labs: Lab Results x24hrs 05/27/21 05/27/21 Range/Units 07:10 07:10 WBC 21.7 H (4.8-10.8) x10^3/uL RBC 3.88 L (4.70-6.10) 10^6/uL Hgb 12.1 L (14.0-18.0) g/dL Hct 36.9 L (42.0-52.0) % MCV 95.1 H (80.0-94.0) fL MCH 31.2 H (27.0-31.0) pg MCHC 32.8 (32.0-36.0) g/dL RDW 14.4 (12.0-15.0) % Plt Count 331 (130-450) 10^3/uL MPV 11.0 (7.4-11.4) fL Neut # (Auto) Not Reportable Lymph # (Auto) Not Reportable [place] # (Auto) Not Reportable Eos # (Auto) Not Reportable Baso # (Auto) Not Reportable Absolute Nucleated RBC Not Reportable Total Counted 100 Band Neuts % (Manual) 5 (0 - 10) % Abnorm Lymph % (Manual) 0 % Nucleated RBC % Not Reportable Neutrophils # (Manual) 19.5 H (1.5-6.6) 10^3/uL Lymphocytes # (Manual) 1.3 L (1.5-3.5) 10^3/uL Monocytes # (Manual) 0.9 (0.0-1.0) 10^3/uL Eosinophils # (Manual) 0.0 (0-0.7) 10^3/uL Basophils # (Manual) 0.0 (0-0.1) 10^3/uL Differential Comment MANUAL DIFFERENTIAL Platelet Estimate NORMAL (130-450,000) (NORMAL) Platelet Morphology 1+ LARGE PLATELETS (NORMAL) RBC Morph Micro Appear NORMAL APPEARANCE (NORMAL) Sodium 140 (135-145) mmol/L Potassium 3.2 L (3.5-5.0) mmol/L Chloride 109 (101-111) mmol/L Carbon Dioxide 23 (21-32) mmol/L Anion Gap 8.0 (6-13) BUN 34 H (6-20) mg/dL Creatinine 0.8 (0.6-1.2) mg/dL Estimated GFR (MDRD) 91 (>89) Glucose 146 H (70-100) mg/dL Calcium 7.8 L (8.5-10.3) mg/dL Phosphorus 2.4 L (2.5-4.6) mg/dL Magnesium 2.0 (1.7-2.8) mg/dL Assessment/Plan - Problem List (1) Bacteremia Impression: Blood culture admission grew gram variable bacilli. Repeat blood cultures have been negative. I did speak with microbiology yesterday and they stated given this was anaerobic growth, it had to be sent out to [facility] in [place] and this was just done on Thursday. They believe we will not have results for another couple of days. In the time being, we will keep him on cefepime and Flagyl. Will likely need to discuss with infectious disease once we have the results. (2) Leukocytosis Impression: His white count has been rising daily and is now over 20,000. This with a left shift. There has been no obvious source of infection except for the initial blood cultures which grew gram variable bacilli. Repeat cultures have been negative. He has no complaints that would suggest infection. Given the rising white count, we will check a C. difficile given his increasing ostomy output. If this is within normal limits then we will consider repeating a chest x-ray and urinalysis. If his white count continues to rise he may also need to repeat a CT to ensure there is no developing abscess. He remains on cefepime and F lagyl IV. We will consider adding vancomycin again given his white count began to increase after this was discontinued. (3) Acute on chronic systolic heart failure Impression: He is most definitely improved from a heart failure aspect. Although he still has significant lower extremity edema, he is on room air reports no dyspnea. We discussed that the edema will improve over the next few weeks as he becomes more mobile and mobilizes the fluid. We will keep him on Lasix but will switch him to oral diuretics. (4) NSTEMI (non-ST elevated myocardial infarction) Impression: He was treated with heparin during his hospitalization is now on aspirin, Lipitor, beta-tom. He is also on Eliquis given the atrial fibrillation. Echocardiogram revealed an ejection fraction of 40 to 45% and the basal anterior/anterior septal wall segment is hypokinetic. 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 Estrella prior to discharge if there is need for transfer for further evaluation but suspect this can likely be deferred to an outpatient basis given his other comorbidities including the bacteremia and new diagnosis of colon cancer. Family is also leaning towards outpatient follow-up. (5) Atrial fibrillation Impression: His heart rate is better controlled today on metoprolol which we will continue. Continue Eliquis. (6) Colon cancer Impression: He is status post loop colostomy. There is concern this is metastatic initially given the liver lesion but pathology came back negative malignant cells and this was more consistent with hemangioma. 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 He will follow-up with oncology once discharged. (7) Status post colostomy Impression: He is status post a loop colostomy with general surgery last week after colonoscopy revealed a mass in the sigmoid/rectal junction which ultimately has revealed invasive adenocarcinoma. (8) Aortic stenosis Impression: Echocardiogram revealed moderate stenosis with an aortic valve area of 1.0 cm. He will need outpatient follow-up with his truck engine assembler on discharge. (9) Diabetes mellitus type 2, controlled Impression: His blood glucose is elevated at 200. We will increase his evening Lantus to 10 units. Continue sliding scale. (10) GERD (gastroesophageal reflux disease) Impression: We will start him on Protonix and use Tums as needed. (11) Ileus following gastrointestinal surgery Impression: Resolved. (12) Septic shock Impression: Resolved.
[2021-05-27] MEDS ORDERED: FUROSEMIDE 20 MG/2 ML VIAL IVP STA (09:09)
[2021-05-27] MEDS: PANTOPRAZOLE 40 MG TABLET PO SCH (09:36)
[2021-05-27] MEDS: ACETAMINOPHEN 325 MG TABLET PO PRN (11:53)
[2021-05-27] MEDS: HYDROmorphone 0.5 MG/0.5 ML SYRINGE IVP PRN (13:00)
[2021-05-27] MEDS: oxyCODONE 5 MG TABLET PO PRN (13:48)
[2021-05-27] MEDS: TAMSULOSIN 0.4 MG CAPSULE PO SCH (13:48)
[2021-05-27] MEDS ORDERED: POTASSIUM CHLORIDE 20 MEQ TABLET PO ONE (18:52)
[2021-05-27] MEDS ORDERED: INSULIN GLARGINE 300 UNIT/3 ML PEN SUBQ SCH (21:00)
[2021-05-27] MEDS: ATORVASTATIN 40 MG TABLET PO SCH (21:30)
[2021-05-27] MEDS: SODIUM CHLORIDE 0.9% 500 ML IV PRN (21:37)
[2021-05-28] MEDS: SODIUM CHLORIDE FLUSH 0.9% 10 ML SYRINGE IVP SCH ×4 (00:08→23:36)
[2021-05-28] MEDS: CEFEPIME 2 GM in SODIUM CHLORIDE 0.9% MINIBAG 100 ML IV SCH ×3 (06:22→21:32)
[2021-05-28] MEDS: PANTOPRAZOLE 40 MG TABLET PO SCH (06:24)
[2021-05-28 06:58] LABS: CALCIUM 7.6 mg/dL (8.5-10.3); CREATININE 0.9 mg/dL (0.6-1.2); MAGNESIUM 1.9 mg/dL (1.7-2.8); PHOSPHORUS 2.3 mg/dL (2.5-4.6); POTASSIUM 2.9 mmol/L (3.5-5.0)
[2021-05-28 07:09] LABS: BASOPHILS # (AUTO) 0.1 10^3/uL (0.0-0.1); BASOPHILS % (AUTO) 0.3 %; EOSINOPHILS # (AUTO) 0.1 10^3/uL (0.0-0.7); EOSINOPHILS % (AUTO) 0.6 %; HCT - HEMATOCRIT 36.4 % (42.0-52.0); HGB - HEMOGLOBIN 12.4 g/dL (14.0-18.0); LYMPHOCYTES # (AUTO) 1.2 10^3/uL (1.5-3.5); LYMPHOCYTES % (AUTO) 5.6 %; MEAN CORPUSCULAR HEMOGLOBIN 32.1 pg (27.0-31.0); MEAN CORPUSCULAR HGB CONC 34.1 g/dL (32.0-36.0); MEAN CORPUSCULAR VOLUME 94.3 fL (80.0-94.0); MEAN PLATELET VOLUME 10.8 fL (7.4-11.4); MONOCYTES # (AUTO) 1.2 10^3/uL (0.0-1.0); NEUTROPHILS # (AUTO) 17.2 10^3/uL (1.5-6.6); NEUTROPHILS % (AUTO) 82.9 %; PLT - PLATELET COUNT 357 10^3/uL (130-450); RED BLOOD COUNT 3.86 10^6/uL (4.70-6.10); RED CELL DISTRIBUTION WIDTH 14.5 % (12.0-15.0); WHITE BLOOD COUNT 20.8 x10^3/uL (4.8-10.8)
[2021-05-28] MEDS: metroNIDAZOLE 500 MG/100 ML 500 MG/100 ML BAG IV SCH ×3 (07:11→22:08)
[2021-05-28 07:29] LABS: RBC MORPHOLOGY (MULTIPLE) 2+ ANISOCYTOSIS (NORMAL); SLIDE REVIEW? Indicated
[2021-05-28] MEDS: SUCRALFATE 1 GM/10 ML UDC PO SCH ×4 (08:24→21:36)
[2021-05-28] MEDS: INSULIN ASPART 300 UNIT/3 ML PEN SUBQ SCH ×4 (08:27→21:40)
[2021-05-28] MEDS ORDERED: FUROSEMIDE 20 MG TABLET PO SCH (09:00)
[2021-05-28] MEDS ORDERED: DEXTROSE 5% 1,000 ML IV SCH (09:00)
[2021-05-28] MEDS: guaiFENesin 600 MG TABLET PO SCH ×2 (09:20→21:36)
[2021-05-28] MEDS: MULTIVITAMIN W/MINERALS TABLET PO SCH (09:20)
[2021-05-28] MEDS: TAMSULOSIN 0.4 MG CAPSULE PO SCH (09:20)
[2021-05-28] MEDS: APIXABAN 5 MG TABLET PO SCH ×2 (09:20→21:36)
[2021-05-28] MEDS: ASPIRIN CHEW 81 MG TABLET PO SCH (09:20)
[2021-05-28] MEDS: polyethylene glycoL 3350 17 GM PACKET PO SCH (09:20)
[2021-05-28] MEDS: POTASSIUM CHLOR 10 MEQ/100 ML 10 MEQ/100 ML BAG IV SCH ×5 (09:23→13:17)
--- NOTE | 2021-05-28 10:07 | PROVIDER PROGRESS NOTE ---
Progress Note Subjective 89-year-old male readmitted with shock following discharge from palliative diverting loop colostomy (see below): Pre-Op Diagnosis: Obstructing sigmoid colonic mass; likely metastatic disease hepatic mets Procedure Performed: 1. Diagnostic laparoscopy 2. Laparoscopic-assisted loop colostomy 3. Laparoscopic assisted Left lobe of liver core biopsies 4. Laparoscopic assisted peritoneal washings and aspiration 5. Transversus abdominis plane block per anesthesia 6. Open umbilical hernia repair Since readmission the patient had been on multiple pressors following massive fluid resuscitation. Patient had blood cultures positive for gram valuable bacilli. Had been plans for central venous access. NSTEMI secondary to demand ischemia in the setting of CHF exacerbation, aortic stenosis, atrial fibrillation (paroxysmal). Known metastatic colon cancer with abnormal imaging consistent with hepatic and splenic metastases although intraoperative biopsy negative for malignancy. Son and daughter at bedside patient overall doing much improved. Objective Zeinab hemodynamically acceptable. General Appearance: positive: No acute distress Eyes Bilateral: positive: Normal inspection ENT: positive: ENT inspection nml Neck: positive: Nml inspection Respiratory: positive: Chest non-tender, No respiratory distress, Breath sounds nml. negative: Wheezes, Rales, Rhonchi Cardiovascular: positive: Regular rate & rhythm Abdomen: positive: No distention, Other. negative: Guarding, Rebound Extremities: positive: Non-tender, Full ROM, Nml appearance Neurologic/Psychiatric: positive: Oriented x3, CN's nml (2-12) Stoma pink and productive of flatus. Positive for Brown stool. Impression/Plan 89-year-old male readmitted with shock following discharge from palliative diverting loop colostomy. Obstructing colon cancer. Metastatic. Liver biopsy nondiagnostic for metastases although imaging consistent with splenic and hepatic metastases. CT chest with no evidence of pulmonary metastases. NSTEMI, CHF exacerbation, aortic stenosis, atrial fibrillation. Bacteremia. (1) GI - IVF, bowel regimen, advance diet as tolerated. GI ppx. Opiate sparring analgesia. (2) SURGERY - May need port for palliative chemotherapy pending oncology referral. In the setting of bacteremia would consider removal of central venous catheter at soonest with a line change. We will continue to monitor and trend fever graft and white blood cell counts. No evidence of abdominal source for patient's sepsis. No fluid collections, abscesses, evidence of perforation. (3) Renal/Lytes - continue IVF. Renal indices within normal limits. Trial of void. (4) Respiratory - O2 as necessary. Continue IS. (5) Heme - Will continue with DVT ppx. H/H stable. (6) Cardiovascular - HD acceptable. (7) Neuro - Opiate sparring analgesia. Antispasmodics with Robaxin. Neuropathic agents. (8) PT OT and discharge planning likely within 24 hours (9) Infectious DISEASE - Follow-up cultures; continue broad-spectrum antibiotics. In the setting of bacteremia would consider removal of central venous catheter at soonest with a line change. We will continue to monitor and trend fever graph and white blood cell counts. Please note that voice recognition software was used to transcribe this note and inadvertent errors might persist in spite of review and editing. I am obliged to you for your attention. I am thankful to you for allowing me to participate with you in this care of this patient.
[2021-05-28] MEDS ORDERED: HYDROmorphone 0.5 MG/0.5 ML SYRINGE IVP PRN (11:59)
--- NOTE | 2021-05-28 19:20 | PROVIDER PROGRESS NOTE ---
Assessment/Plan - Problem List (1) Bacteremia Assessment/Plan: This was the source of the sepsis. He is now out of the ICU and out of septic shock. Continue with IV antibiotics. The duration will be at least for 2 weeks or until all his source of bacteremia is completely cleared (2) Leukocytosis Assessment/Plan: His white blood count continues to rise. This is despite IV antibiotics and with no steroids. He has no fever however. If it continues to rise will plan to do a CT with contrast of the abdomen pelvis to look for source, also urine and chest are potential sources Follow CBC daily (3) Acute on chronic systolic heart failure Assessment/Plan: The echo during this admission showed depressed LVEF. He has required a lot of IV fluids because of having septic shock. Will continue with daily Lasix. We will occasionally check albumin because he appears to be third spacing from hypoalbuminemia as well (4) NSTEMI (non-ST elevated myocardial infarction) Assessment/Plan: He presumably ruled in during this admission, echo showed newly depressed LVEF (5) Atrial fibrillation Assessment/Plan: As per Hx, rate is controlled (6) Colon cancer Assessment/Plan: This was the recently made diagnosis that required a colostomy in the last admission. He has not had staging yet or appointment with oncologist to plan cancer treatment. (7) Status post colostomy Assessment/Plan: He was only home 1 day after the colostomy when he developed the rigors and came in with septic shock on this admission. There had been no time for colostomy training yet. [facility] is following along with us. (8) Aortic stenosis Assessment/Plan: An Echo was done at this admission, when he presented with septic shock and elevated troponins and it showed depressed LVEF and severe aortic stenosis (low cardiac output ). (9) Diabetes mellitus type 2, controlled Assessment/Plan: As per Hx Continue with carb controlled diet and sliding scale insulin coverage (10) GERD (gastroesophageal reflux disease) Assessment/Plan: Inactive (11) Ileus following gastrointestinal surgery Assessment/Plan: Resolved, good output thru colostomy - Current Meds Current Meds: Current Medications Generic Name Dose Route Start Last Admin Trade Name Freq PRN Reason Stop Dose Admin Acetaminophen 650 mg 05/18/21 23:57 05/27/21 11:53 Acetaminophen 325 Mg Tablet PO 650 mg Q4HR PRN Administration Pain 1 to 4 Apixaban 5 mg 05/25/21 09:00 07/13/21 09:20 Apixaban 5 Mg Tablet PO 5 mg BID DOROTHEA Administration Aspirin 81 mg 05/23/21 09:00 05/28/21 09:20 Aspirin Chew 81 Mg Tablet PO 81 mg DAILY DOROTHEA Administration Atorvastatin Calcium 40 mg 05/22/21 21:00 05/27/21 21:30 Atorvastatin 40 Mg Tablet PO 40 mg QPM DOROTHEA Administration Calcium Carbonate/Glycine 500 mg 05/21/21 05:20 05/26/21 17:34 Calcium Carbonate Chew 500 Mg Tablet PO 500 mg BID PRN Administration NEEDED PER PROVIDER ORDERS Guaifenesin 600 mg 05/23/21 21:00 05/28/21 09:20 Guaifenesin 600 Mg Tablet PO 600 mg BID DOROTHEA Administration Metronidazole 500 mg in 100 mls @ 100 mls/hr 05/19/21 06:00 05/28/21 15:51 Flagyl 500 Mg/100 Ml IV Infused Q8H DOROTHEA Infusion Cefepime HCl 2 gm/ Sodium 100 mls @ 200 mls/hr 05/19/21 14:00 05/28/21 14:50 Chloride IV Infused TID DOORTHEA Infusion Sodium Chloride 500 mls @ 20 mls/hr 05/20/21 20:20 05/28/21 17:25 Normal Saline 0.9% IV 0 mls/hr Q24H PRN Infusion TKO RATE Insulin Aspart 1 - 5 unit 05/28/21 12:05 05/28/21 16:56 Insulin Aspart 300 Unit/3 Ml Pen SUBQ 4 unit 0800,1200,1700,2100 DOROTHEA Administration Protocol Mineral Oil 1 applic 05/24/21 14:36 05/24/21 17:22 Min Oil/Dimethicon/Coconut Oil 92 Gm Tube TOP 1 applic PRN PRN Administration Skin Care Multivitamins/Minerals 1 tab 05/25/21 08:00 05/28/21 09:20 Multivitamin W/Minerals Tablet PO 1 tab DAILYWM DOROTHEA Administration Ondansetron HCl 4 mg 05/18/21 23:57 05/21/21 11:48 Ondansetron 4 Mg/2 Ml Vial IVP 4 mg Q6HR PRN Administration Nausea / Vomiting Oxycodone HCl 5 mg 05/21/21 14:23 05/27/21 13:48 Oxycodone 5 Mg Tablet PO 5 mg Q4HR PRN Administration PAIN Pantoprazole Sodium 40 mg 05/27/21 10:00 05/28/21 06:24 Pantoprazole 40 Mg Tablet PO 40 mg QDAC DOROTHEA Administration Polyethylene Glycol 17 gm 05/23/21 09:00 05/28/21 09:20 Polyethylene Glycol 3350 17 Gm Packet PO 17 gm DAILY DOROTHEA Administration Prochlorperazine Edisylate 10 mg 05/21/21 14:24 05/21/21 15:38 Prochlorperazine 10 Mg/2 Ml Vial IVP 10 mg Q6HR PRN Administration Nausea / Vomiting Sodium Chloride 10 ml 05/19/21 09:00 05/28/21 16:55 Sodium Chloride Flush 0.9% 10 Ml Syringe IVP Not Given 0100,0900,1700 DOROTHEA Sodium Chloride 10 ml 05/19/21 05:23 05/27/21 07:08 Sodium Chloride Flush 0.9% 10 Ml Syringe IVP 70 ml PRN PRN Administration NEEDED PER PROVIDER ORDERS Sodium Chloride 20 ml 05/19/21 13:49 05/26/21 04:34 Sodium Chloride Flush 0.9% 10 Ml Syringe IVP 20 ml PRN PRN Administration After Blood Draw Sucralfate 1 gm 05/28/21 08:13 05/28/21 16:56 Sucralfate 1 Gm/10 Ml Udc PO 1 gm 0700,1100,1600,2200 DOROTHEA Administration Tamsulosin HCl 0.4 mg 05/27/21 13:00 05/28/21 09:20 Tamsulosin 0.4 Mg Capsule PO 0.4 mg DAILY DOROTHEA Administration - Lab Result Fish Bone Diagrams: 05/30/21 05:36 05/30/21 05:36 - Additional Planning My Orders: My Active Orders 05/28/21 Home Health Referral [CONS] Routine 05/28/21 08:13 Sucralfate [Carafate] 1 gm PO 0700,1100,1600,2200 05/28/21 11:59 HYDROmorphone 0.5MG SYRINGE [Dilaudid 0.5MG Syringe] 0.5 mg IVP Q8H PRN 05/28/21 12:00 Furosemide [Lasix] 20 mg PO DAILY 05/28/21 12:01 Metoprolol Succinate [Toprol Xl] 25 mg PO DAILY 05/28/21 21:00 Insulin Glargine [Lantus Solostar] 6 unit SUBQ QPM Subjective - Subjective Patient Reports: Resting Comfortably, Fatigue Objective Vital Signs: Vital Signs - 24 hr 05/27/21 05/28/21 05/28/21 22:00 07:02 07:45 Temperature 36.4 C L 36.7 C 36.4 C L Heart Rate [ 57 L Monitoring electrodes] Heart Rate [ 88 67 Radial] Respiratory 17 18 18 Rate Blood Pressure 100/53 L 108/61 110/55 L [Right Brachial artery] O2 Saturation 96 98 97 05/28/21 16:53 Temperature 36.7 C Heart Rate [ Monitoring electrodes] Heart Rate [ 95 Radial] Respiratory 19 Rate Blood Pressure 118/54 L [Right Brachial artery] O2 Saturation 98 Oxygen O2 Source Room air I&O (Last 24 Hrs): Intake and Output Totals x24h 05/26/21 05/27/21 05/28/21 23:59 23:59 23:59 Intake Total 1220 1380 3205.333 Output Total 2150 4500 875 Balance -930 -3120 2330.333 General: Alert HEENT: Mucous membr. moist/pink, Other (Pale. [place]) Neck: Supple, No JVD Neuro: Alert, Non Focal Cardiovascular: Regular rate, Other (Murmur 3/6 at base) Respiratory: No respiratory distress, Breath sounds nml Abdomen: Soft, No tenderness Extremities: Other (1+ hand edema, 1+ leg edema to knees) - Results Results: Laboratory Results WBC 20.8 x10^3/uL (4.8-10.8) H 05/28/21 06:43 RBC 3.86 10^6/uL (4.70-6.10) L 05/28/21 06:43 Hgb 12.4 g/dL (14.0-18.0) L 05/28/21 06:43 Hct 36.4 % (42.0-52.0) L 05/28/21 06:43 MCV 94.3 fL (80.0-94.0) H 05/28/21 06:43 MCH 32.1 pg (27.0-31.0) H 05/28/21 06:43 MCHC 34.1 g/dL (32.0-36.0) 05/28/21 06:43 RDW 14.5 % (12.0-15.0) 05/28/21 06:43 Plt Count 357 10^3/uL (130-450) 05/28/21 06:43 MPV 10.8 fL (7.4-11.4) 05/28/21 06:43 Neut # (Auto) 17.2 10^3/uL (1.5-6.6) H 05/28/21 06:43 Lymph # (Auto) 1.2 10^3/uL (1.5-3.5) L 05/28/21 06:43 Wells # (Auto) 1.2 10^3/uL (0.0-1.0) H 05/28/21 06:43 Eos # (Auto) 0.1 10^3/uL (0.0-0.7) 05/28/21 06:43 Baso # (Auto) 0.1 10^3/uL (0.0-0.1) 05/28/21 06:43 Absolute Nucleated RBC 0.00 x10^3/uL 05/28/21 06:43 Total Counted 100 05/27/21 07:10 Band Neuts % (Manual) 5 % (0-10) 05/27/21 07:10 Abnorm Lymph % (Manual) 0 % 05/27/21 07:10 Metamyelocytes % 1 % (-0) H 05/21/21 05:10 Myelocytes % 1 % (-0) H 05/24/21 04:40 Nucleated RBC % 0.0 /100WBC 05/28/21 06:43 Neutrophils # (Manual) 19.5 10^3/uL (1.5-6.6) H 05/27/21 07:10 Lymphocytes # (Manual) 1.3 10^3/uL (1.5-3.5) L 05/27/21 07:10 Monocytes # (Manual) 0.9 10^3/uL (0.0-1.0) 05/27/21 07:10 Eosinophils # (Manual) 0.0 10^3/uL (0-0.7) 05/27/21 07:10 Basophils # (Manual) 0.0 10^3/uL (0-0.1) 05/27/21 07:10 Differential Comment MANUAL DIFFERENTIAL 05/27/21 07:10 Manual Slide Review Indicated 05/28/21 06:43 WBC Morphology NORMAL APPEARANCE (NORMAL) 05/26/21 04:35 Platelet Estimate NORMAL (130-450,000) (NORMAL) 05/27/21 07:10 Platelet Morphology 1+ LARGE PLATELETS (NORMAL) 05/27/21 07:10 RBC Morph Micro Appear 2+ ANISOCYTOSIS (NORMAL) 05/28/21 06:43 Anti-Xa Level 0.4 U/mL (-0.7) 05/24/21 05:45 Bld Gas Analysis Time 0545 05/19/21 05:35 Sample Site RIGHT RADIAL 05/19/21 05:35 ABG pH 7.42 (7.35-7.45) 05/19/21 05:35 ABG pCO2 36 mmHg (34-45) 05/19/21 05:35 ABG pO2 71 mmHg (80-100) L 05/19/21 05:35 ABG HCO3 22.4 mmol/L (22.0-26.0) 05/19/21 05:35 ABG Total CO2 23.5 MMOL/L (21.0-29.0) 05/19/21 05:35 ABG O2 Saturation 95 % (94-98) 05/19/21 05:35 ABG Base Excess -1.7 mmol/L (-2.0-3.0) 05/19/21 05:35 Fernando Test POSITIVE 05/19/21 05:35 O2 Delivery Device NON REBREATHER MASK 05/19/21 05:35 O2 Liters/Min 15.00 LPM 05/19/21 05:35 FiO2 100.00 05/19/21 05:35 Sodium 144 mmol/L (135-145) 05/28/21 06:43 Potassium 2.9 mmol/L (3.5-5.0) L 05/28/21 06:43 Chloride 109 mmol/L (101-111) 05/28/21 06:43 Carbon Dioxide 25 mmol/L (21-32) 05/28/21 06:43 Anion Gap 10.0 (6-13) 05/28/21 06:43 BUN 32 mg/dL (6-20) H 05/28/21 06:43 Creatinine 0.9 mg/dL (0.6-1.2) 05/28/21 06:43 Estimated GFR (MDRD) 79 (>89) L 05/28/21 06:43 Glucose 62 mg/dL (70-100) L 05/28/21 06:43 Lactic Acid 1.5 mmol/L (0.5-2.2) 05/21/21 09:08 Calcium 7.6 mg/dL (8.5-10.3) L 05/28/21 06:43 Phosphorus 2.3 mg/dL (2.5-4.6) L 05/28/21 06:43 Magnesium 1.9 mg/dL (1.7-2.8) 05/28/21 06:43 Total Bilirubin 0.9 mg/dL (0.2-1.0) 05/18/21 21:45 AST 18 IU/L (10-42) 05/18/21 21:45 ALT 18 IU/L (10-60) 05/18/21 21:45 Alkaline Phosphatase 43 IU/L (42-121) 05/18/21 21:45 Troponin I High Sens 6861.0 ng/L (2.3-19.7) H* 05/21/21 12:13 B-Natriuretic Peptide 1426 pg/mL (5-100) H 05/19/21 17:40 Total Protein 5.8 g/dL (6.7-8.2) L 05/18/21 21:45 Albumin 2.1 g/dL (3.2-5.5) L 05/25/21 04:22 Globulin 2.4 g/dL (2.1-4.2) 05/18/21 21:45 Albumin/Globulin Ratio 1.4 (1.0-2.2) 05/18/21 21:45 Lipase 24 U/L (22-51) 05/18/21 21:45 Urine Color YELLOW 05/19/21 06:05 Urine Clarity CLEAR (CLEAR) 05/19/21 06:05 Urine pH 5.5 PH (5.0-7.5) 05/19/21 06:05 Ur Specific [place] <=1.005 (1.002-1.030) 05/19/21 06:05 Urine Protein TRACE mg/dL (NEGATIVE) 05/19/21 06:05 Urine Glucose (UA) 250 mg/dL (NEGATIVE) H 05/19/21 06:05 Urine Ketones TRACE mg/dL (NEGATIVE) 05/19/21 06:05 Urine Occult Blood NEGATIVE (NEGATIVE) 05/19/21 06:05 Urine Nitrite NEGATIVE (NEGATIVE) 05/19/21 06:05 Urine Bilirubin NEGATIVE (NEGATIVE) 05/19/21 06:05 Urine Urobilinogen 0.2 (NORMAL) E.U./dL (NORMAL) 05/19/21 06:05 Ur Leukocyte Esterase NEGATIVE (NEGATIVE) 05/19/21 06:05 Ur Microscopic Review NOT INDICATED 05/19/21 06:05 Urine Culture Comments NOT INDICATED 05/19/21 06:05 Nasal Screen MRSA (PCR) NEGATIVE (NEGATIVE) 05/19/21 06:00 Stl C. diff Tox B Gene NEGATIVE (NEGATIVE) 05/27/21 13:15 Last Dose Date UNK 05/23/21 07:36 Last Dose Time UNK 05/23/21 07:36 Vancomycin Trough 10.7 ug/mL (10.0-20.0) 05/23/21 07:36 - Procedures Procedures: Procedures CATARAC PHACOEMULS/ASPIR (12/28/14) INSERT LENS AT CATAR EXT (12/28/14)
[2021-05-28] MEDS: ATORVASTATIN 40 MG TABLET PO SCH (21:36)
[2021-05-28] MEDS: INSULIN GLARGINE 300 UNIT/3 ML PEN SUBQ SCH (21:40)
[2021-05-28] MEDS: MIN OIL/DIMETHICON/COCONUT OIL 92 GM TUBE TOP PRN (21:43)
[2021-05-28] MEDS: SODIUM CHLORIDE FLUSH 0.9% 10 ML SYRINGE IVP PRN (23:36)
[2021-05-29] MEDS: CEFEPIME 2 GM in SODIUM CHLORIDE 0.9% MINIBAG 100 ML IV SCH (06:08)
[2021-05-29] MEDS: metroNIDAZOLE 500 MG/100 ML 500 MG/100 ML BAG IV SCH ×3 (06:08→21:07)
[2021-05-29] MEDS: PANTOPRAZOLE 40 MG TABLET PO SCH (06:09)
[2021-05-29] MEDS: SUCRALFATE 1 GM/10 ML UDC PO SCH ×4 (06:09→21:07)
[2021-05-29 06:46] LABS: BASOPHILS % (AUTO) 0.4 %; EOSINOPHILS % (AUTO) 0.6 %; HCT - HEMATOCRIT 33.8 % (42.0-52.0); HGB - HEMOGLOBIN 11.2 g/dL (14.0-18.0); LYMPHOCYTES % (AUTO) 7.1 %; MEAN CORPUSCULAR HEMOGLOBIN 31.5 pg (27.0-31.0); MEAN CORPUSCULAR HGB CONC 33.1 g/dL (32.0-36.0); MEAN CORPUSCULAR VOLUME 95.2 fL (80.0-94.0); MEAN PLATELET VOLUME 11.1 fL (7.4-11.4); MONOCYTES % (AUTO) 6.8 %; NEUTROPHILS % (AUTO) 83.4 %; PLT - PLATELET COUNT 329 10^3/uL (130-450); RED BLOOD COUNT 3.55 10^6/uL (4.70-6.10); RED CELL DISTRIBUTION WIDTH 14.7 % (12.0-15.0); WHITE BLOOD COUNT 15.4 x10^3/uL (4.8-10.8)
[2021-05-29 06:49] LABS: CALCIUM 7.6 mg/dL (8.5-10.3); CREATININE 0.8 mg/dL (0.6-1.2); MAGNESIUM 1.9 mg/dL (1.7-2.8); PHOSPHORUS 2.2 mg/dL (2.5-4.6)
[2021-05-29] MEDS: INSULIN ASPART 300 UNIT/3 ML PEN SUBQ SCH ×4 (07:55→21:16)
[2021-05-29] MEDS: SODIUM CHLORIDE FLUSH 0.9% 10 ML SYRINGE IVP SCH ×3 (07:55→23:31)
[2021-05-29] MEDS ORDERED: IOVERSOL 320 50 ML VIAL ONE (08:06)
[2021-05-29] MEDS ORDERED: IOVERSOL 320 100 ML VIAL IVP ONE (08:06)
[2021-05-29] MEDS ORDERED: CARBOXYMETHYLCELLULOSE OPHTH DROPS EACHEYE PRN (10:19)
[2021-05-29] MEDS: ASPIRIN CHEW 81 MG TABLET PO SCH (10:34)
[2021-05-29] MEDS: METOPROLOL SUCCINATE 25 MG TABLET PO SCH (10:34)
[2021-05-29] MEDS: MULTIVITAMIN W/MINERALS TABLET PO SCH (10:34)
[2021-05-29] MEDS: FUROSEMIDE 20 MG TABLET PO SCH (10:34)
[2021-05-29] MEDS: TAMSULOSIN 0.4 MG CAPSULE PO SCH (10:35)
[2021-05-29] MEDS: APIXABAN 5 MG TABLET PO SCH ×2 (10:35→21:07)
[2021-05-29] MEDS: polyethylene glycoL 3350 17 GM PACKET PO SCH (10:35)
[2021-05-29] MEDS: guaiFENesin 600 MG TABLET PO SCH ×2 (10:35→21:07)
[2021-05-29] MEDS ORDERED: LIDOCAINE 2% URO-JET 5 ML SYRINGE UR ONE (10:56)
--- NOTE | 2021-05-29 11:05 | XRAY Report ---
PROCEDURE: Chest 2 View X-Ray INDICATIONS: Elev WBC, suspect infection TECHNIQUE: 2 view(s) of the chest. COMPARISON: 05/19/2021 FINDINGS: Surgical changes and devices: Right IJ central venous line.. Lungs and pleura: Moderate sized bibasilar pleural effusions and opacities. Mediastinum: Mediastinal contours are normal. Heart size is obscured by diaphragmatic shadow. Bones and chest wall: No suspicious bony abnormalities. Soft tissues appear unremarkable. IMPRESSION: 1. Bibasilar consolidations and pleural effusions. Atelectasis versus underlying pneumonia. 2. Stable position of right IJ CVL. Reviewed by: Anna Patel MD on 05/29/2021 11:04 AM PDT Approved by: Anna Patel MD on 05/29/2021 11:04 AM PDT Station ID: [id number]
--- NOTE | 2021-05-29 11:12 | CT Report ---
PROCEDURE: Abdomen/Pelvis W INDICATIONS: Colostomy,ascites,suspect infection CONTRAST: IV CONTRAST: Optiray 320 ml: 100 PO CONTRAST: Optiray 320 ml50 TECHNIQUE: After the administration of IV and oral contrast, 5 mm thick sections acquired from the diaphragms to the symphysis. 5 mm thick coronal and sagittal reformats were acquired. For radiation dose reducti on, the following was used: automated exposure control, adjustment of mA and/or kV according to elisa ent size. COMPARISON: 05/22/2021 FINDINGS: Image quality: Excellent. ABDOMEN: Lung bases: Bibasilar pleural effusions and consolidative changes, similar compared to the prior stud y. Heavy coronary artery calcification. Mildly enlarged heart. Solid organs: There is moderate subcapsular fluid scalloping margin of the right hepatic lobe, parti cularly along the liver dome and caudal to the liver tip. The encapsulated fluid is peripherally enha ncing suspicious for abscess. There is unencapsulated air within this fluid collection in the anterio r right mid abdomen. Several ill-defined hypodensities are present scattered in both hepatic lobes as well as a small ashley ngioma anteriorly in the left lobe. Gallbladder is decompressed and there is a large amount of peric holecystic fluid. There is calcified material at the gallbladder neck. The spleen is normal size and there are a few nonspecific rounded hypodensities in the spleen measuring about a centimeter in size. No adrenal nodules. Normal pancreas. Kidneys enhance normally and there is a cortical cyst left midp ole. Peritoneum and bowel: There are several loculated peripherally enhancing fluid collections within th e abdomen as well as a small amount of freely layering ascites. The largest fluid collection is in th e anterior right lower quadrant measuring 10.6 x 6.6 x 6.0 cm. There are several smaller loculated an teriorly layering, air-containing fluid collections. There is a small fluid collection in the anterio r left upper quadrant. There is a colostomy to the left midline. There is residual loops of colon are largely decompressed. Most of the small bowel loops are opacified with contrast, demonstrating air-fluid levels, and are no rmal caliber. Nodes and vessels: No retroperitoneal or mesenteric adenopathy by size criteria. Aorta and inferior vena cava are normal in size. Heavy abdominal aortic calcification. Miscellaneous: There is extensive body wall edema. PELVIS: Genitourinary: Hernadez catheter decompressing the urinary bladder. Prostate gland is enlarged. Miscellaneous: No inguinal hernias or adenopathy. Bones: No suspicious bony lesions. No vertebral body compression fractures. Degenerative changes t hroughout the lumbar and thoracic spine. IMPRESSION: 1. Interval development of several peripherally enhancing intraperitoneal fluid collections and air c ollections consistent with abscesses, particularly surrounding the liver and in the right lower quadr ant. 2. Stable bilateral pleural effusions. 3. Persistent anasarca. 4. Decreased caliber of several small bowel loops suggesting resolving ileus. 5. Cholelithiasis. 6. Liver and spleen abscesses or metastases. 7. Findings called to Dr. Ahmadi at 11:08 AM. Reviewed by: Anna Patel MD on 05/29/2021 11:10 AM PDT Approved by: Anna Patel MD on 05/29/2021 11:10 AM PDT Station ID: [id number]
[2021-05-29] MEDS ORDERED: BENZOCAINE/MENTHOL LOZENGE MM PRN (11:22)
[2021-05-29] MEDS: PIPERACILLIN/TAZOBACTAM 3.375 GM in SODIUM CHLORIDE 0.9% MINIBAG 100 ML IV SCH ×3 (12:18→23:31)
[2021-05-29] MEDS: POTASSIUM PHOSPHATE 15 MMOL in SODIUM CHLORIDE 0.9% 250 ML IV SCH ×2 (12:23→16:27)
[2021-05-29] MEDS: CHOLECALCIFEROL 400 UNIT TABLET PO SCH (12:29)
[2021-05-29] MEDS: MAGNESIUM OXIDE 400 MG TABLET PO SCH (12:29)
[2021-05-29] MEDS ORDERED: VANCOMYCIN INJ 2 GM in SODIUM CHLORIDE 0.9% 500 ML IV ONE (13:00)
[2021-05-29 14:10] LABS: BILIRUBIN,URINE NEGATIVE (NEGATIVE); GLUCOSE, URINE (UA) 100 mg/dL (NEGATIVE); KETONES,URINE (UA) TRACE mg/dL (NEGATIVE); LEUKOCYTE ESTERASE, URINE NEGATIVE (NEGATIVE); NITRITE,URINE NEGATIVE (NEGATIVE); OCCULT BLOOD,URINE LARGE (NEGATIVE); PH,URINE 5.5 PH (5.0-7.5); PROTEIN,URINE 100 mg/dL (NEGATIVE); UROBILINOGEN,URINE 0.2 (NORMAL) E.U./dL (NORMAL)
[2021-05-29 14:11] LABS: CLARITY,URINE HAZY (CLEAR)
[2021-05-29 14:21] LABS: BACTERIA,URINE Rare /HPF (None Seen); SQUAMOUS EPITHELIAL CELL,UR NONE SEEN (<= Few); WBC,URINE 0-3 /HPF (0-3)
[2021-05-29 14:22] LABS: CASTS, URINE 0-2 Course Granular /LPF
--- NOTE | 2021-05-29 15:12 | ANESTHESIA PROCEDURE NOTE ---
Anesth Central Line Template - Central Line Central Line Preparation: Consent Obtained, Time out completed, Ultrasound used, Sterile prep and drape Central line location: Left Cephalic Central line type: PICC Double Lumen Central line catheter tip site resides: Innominate vein Central line aftercare: Secured, Placement confirmed, No pneumothorax, No complications, Bundle checklist complete, Pt tolerated well
--- NOTE | 2021-05-29 15:48 | XRAY Report ---
PROCEDURE: Chest for Line Placement INDICATIONS: PICC Line insertion TECHNIQUE: One view of the chest was acquired. COMPARISON: 05/29/2021 at 9:58 AM FINDINGS: Surgical changes and devices: Left-sided PICC line tip is in the region of upper SVC. Right internal jugular central venous catheter tip is in SVC.. Lungs and pleura: No pleural effusions or pneumothorax. Lungs are clear. Mediastinum: Aortic arch calcifications are seen. Heart size is enlarged. Bones and chest wall: No suspicious bony lesions. Overlying soft tissues appear unremarkable. IMPRESSION: Left-sided PICC line tip is in the region of SVC. Right-sided central venous catheter tip is again se en in lower SVC. No focal infiltrate or pneumothorax. Cardiomegaly. Reviewed by: Valeriano Simmons MD on 05/29/2021 3:47 PM PDT Approved by: Valeriano Simmons MD on 05/29/2021 3:47 PM PDT Station ID: [id number]
--- NOTE | 2021-05-29 16:15 | PROVIDER PROGRESS NOTE ---
Assessment/Plan - Problem List (1) Bacteremia Assessment/Plan: Blood culture at admission grew gram variable bacilli. Repeat blood cultures have been negative, but one blood cx (for anaerobes) had to be sent out to [facility] in [place] He has been on empiric cefepime and Flagyl for a presumed GI source. Since the WBC is continuing to be fluctuating but very elevated (see #2), will change his coverage: Stop the cefepime, start Zosyn, continue Flagyl, add vancomycin. Family asked me to speak on the phone with one of their friends who is an archaeologist from [place] and I did this. That doctor agreed with this antibiotic coverage. (2) Leukocytosis Assessment/Plan: Because of continued high and fluctuating WBCs, and Bands of 2 today, he underwent a chest x-ray today that showed pleural effusions and atelectasis but no infiltrate. A urinalysis was done that showed no pyuria. The Hernadez catheter did not need to be changed. He underwent 1 blood culture anew today. The right IJ CVP catheter was removed and the tip sent for culture today. Abdominal CT with contrast was ordered today and this showed multiple abscess pockets in the abdomen, all containing air which is a concern for anaerobic abscesses. Because of this his antibiotic coverage will be changed to Zosyn plus Flagyl and adding Vanco. Follow CBC and differential daily. (3) Urinary retention with incomplete bladder emptying Assessment/Plan: The son and daughter at bedside and the family friend by phone requested that the Hernadez catheter not be taken out because it was very difficult to insert because of obstruction. Continue with Hernadez care (4) Acute on chronic systolic heart failure Assessment/Plan: LVEF is depressed by echo done on this admission. He continues to have mild anasarca, third spacing from all the IV fluids he got during septic shock. Will start slow diuresing using daily oral Lasix. Also check albumin, administer albumin if his oncotic pressure is low adding to the third spacing (5) Atrial fibrillation Assessment/Plan: HR is controlled (6) Colon cancer Assessment/Plan: This was the recently made diagnosis that required a colostomy in the last admission. He has not had staging yet or appointment with oncologist to plan cancer treatment. (7) Status post colostomy Assessment/Plan: He was only home 1 day after the colostomy when he developed the rigors and came in with septic shock on this admission. There had been no time for colostomy training yet. Appreciate General Surgery is following along with us. (8) Aortic stenosis Assessment/Plan: An Echo was done at this admission, when he presented with septic shock and elevated troponins and it showed depressed LVEF and severe aortic stenosis (low cardiac output ). (9) Diabetes mellitus type 2, controlled Assessment/Plan: As per Hx Continue with carb controlled diet and sliding scale insulin coverage - Current Meds Current Meds: Current Medications Generic Name Dose Route Start Last Admin Trade Name Freq PRN Reason Stop Dose Admin Acetaminophen 650 mg 05/18/21 23:57 05/27/21 11:53 Acetaminophen 325 Mg Tablet PO 650 mg Q4HR PRN Administration Pain 1 to 4 Apixaban 5 mg 05/25/21 09:00 05/29/21 10:35 Apixaban 5 Mg Tablet PO 5 mg BID DOROTHEA Administration Aspirin 81 mg 05/23/21 09:00 05/29/21 10:34 Aspirin Chew 81 Mg Tablet PO 81 mg DAILY DOROTHEA Administration Atorvastatin Calcium 40 mg 05/22/21 21:00 05/28/21 21:36 Atorvastatin 40 Mg Tablet PO 40 mg QPM DOROTHEA Administration Calcium Carbonate/Glycine 500 mg 05/21/21 05:20 05/26/21 17:34 Calcium Carbonate Chew 500 Mg Tablet PO 500 mg BID PRN Administration NEEDED PER PROVIDER ORDERS Cholecalciferol 800 unit 05/29/21 11:00 05/29/21 12:29 Cholecalciferol 400 Unit Tablet PO 800 unit DAILY DOROTHEA Administration Furosemide 20 mg 05/28/21 12:00 05/29/21 10:34 Furosemide 20 Mg Tablet PO 20 mg DAILY DOROTHEA Administration Guaifenesin 600 mg 05/23/21 21:00 05/29/21 10:35 Guaifenesin 600 Mg Tablet PO 600 mg BID DOROTHEA Administration Metronidazole 500 mg in 100 mls @ 100 mls/hr 05/19/21 06:00 05/29/21 07:10 Flagyl 500 Mg/100 Ml IV Infused Q8H DOROTHEA Infusion Piperacillin Sod/Tazobactam 100 mls @ 200 mls/hr 05/29/21 12:00 05/29/21 12:5 0 Sod 3.375 gm/ Sodium Chloride IV Infused Q6H DOROTHEA Infusion Potassium Phosphate 15 mmol/ 255 mls @ 63.75 mls/hr 05/29/21 12:00 05/29/21 12:23 Sodium Chloride IV 05/29/21 19:59 63.75 mls/hr Q4H DOROTHEA Administration Insulin Aspart 1 - 5 unit 05/28/21 12:05 05/29/21 12:27 Insulin Aspart 300 Unit/3 Ml Pen SUBQ Not Given 0800,1200,1700,2100 [facility] Protocol Insulin Glargine 6 unit 05/28/21 21:00 05/28/21 21:40 Insulin Glargine 300 Unit/3 Ml Pen SUBQ 6 unit QPM DOROTHEA Administration Magnesium Oxide 400 mg 05/29/21 12:00 05/29/21 12:29 Magnesium Oxide 400 Mg Tablet PO 400 mg DAILYWM DOROTHEA Administration Metoprolol Succinate 25 mg 05/28/21 12:01 05/29/21 10:34 Metoprolol Succinate 25 Mg Tablet PO 25 mg DAILY DOROTHEA Administration Mineral Oil 1 applic 05/24/21 14:36 05/28/21 21:43 Min Oil/Dimethicon/Coconut Oil 92 Gm Tube TOP 1 applic PRN PRN Administration Skin Care Multivitamins/Minerals 1 tab 05/25/21 08:00 05/29/21 10:34 Multivitamin W/Minerals Tablet PO 1 tab DAILYWM DOROTHEA Administration Ondansetron HCl 4 mg 05/18/21 23:57 05/21/21 11:48 Ondansetron 4 Mg/2 Ml Vial IVP 4 mg Q6HR PRN Administration Nausea / Vomiting Oxycodone HCl 5 mg 05/21/21 14:23 05/27/21 13:48 Oxycodone 5 Mg Tablet PO 5 mg Q4HR PRN Administration PAIN Pantoprazole Sodium 40 mg 05/27/21 10:00 05/29/21 06:09 Pantoprazole 40 Mg Tablet PO 40 mg QDAC DOROTHEA Administration Polyethylene Glycol 17 gm 05/23/21 09:00 05/29/21 10:35 Polyethylene Glycol 3350 17 Gm Packet PO 17 gm DAILY DOROTHEA Administration Prochlorperazine Edisylate 10 mg 05/21/21 14:24 05/21/21 15:38 Prochlorperazine 10 Mg/2 Ml Vial IVP 10 mg Q6HR PRN Administration Nausea / Vomiting Sodium Chloride 10 ml 05/19/21 09:00 05/29/21 07:55 Sodium Chloride Flush 0.9% 10 Ml Syringe IVP Not Given 0100,0900,1700 DOROTHEA Sucralfate 1 gm 05/28/21 08:13 05/29/21 10:35 Sucralfate 1 Gm/10 Ml Udc PO 1 gm 0700,1100,1600,2200 DOROTHEA Administration Tamsulosin HCl 0.4 mg 05/27/21 13:00 05/29/21 10:35 Tamsulosin 0.4 Mg Capsule PO 0.4 mg DAILY DOROTHEA Administration Throat Lozenges 1 lozenge 05/29/21 11:22 05/29/21 12:29 Benzocaine/Menthol Lozenge MM 1 lozenge Q2HR PRN Administration Throat pain - Lab Result Fish Bone Diagrams: 05/30/21 05:36 05/30/21 05:36 - Additional Planning My Orders: My Active Orders 05/28/21 21:00 Insulin Glargine [Lantus Solostar] 6 unit SUBQ QPM 05/29/21 10:19 Carboxymethylcellulose 1% Opht [Refresh 1% Ophth Drops] 1 drops EACHEYE PRN PRN 05/29/21 10:53 Hernadez Discontinuation [RC] ONCE Miscellaenous Nursing Order [RC] ONCE 05/29/21 10:55 Hernadez Continuation and Care [RC] QSHIFT Hernadez Insertion [RC] QSHIFT 05/29/21 11:00 Cholecalciferol [Vitamin D3] 800 unit PO DAILY 05/29/21 Lunch DIET [Soft (Low Fiber) Diet] [DIET] 05/29/21 11:22 Benzocaine/Menthol [Cepacol] 1 lozenge MM Q2HR PRN 05/29/21 11:36 Central Line Discontinuation [RC] .ONCE 05/29/21 11:37 PICC Line Care [RC] Q4H PICC Line Insert [RC] .ONCE 05/29/21 12:00 Magnesium Oxide [Mag Ox] 400 mg PO DAILYWM Piperacillin/Tazobactam [Zosyn] 3.375 gm Sodium Chloride 0.9% Minibag [Normal Saline 0.9% Minibag] 100 ml IV Q6H Potassium Phosphate 15 mmol Sodium Chloride 0.9% [Normal Saline 0.9%] 250 ml IV Q4H 05/29/21 12:07 CULTURE, BLOOD #1 [RM] Stat 05/30/21 01:00 Vancomycin Inj [Vancomycin] 1 gm Sodium Chloride 0.9% [Normal Saline 0.9%] 250 ml IV Q12H 05/30/21 05:00 BMP - BASIC METABOLIC PANEL [CHEM] DAILYLAB CBC - COMP BLD CT W/AUTO DIFF [HEME] DAILYLAB MAGNESIUM [CHEM] DAILYLAB PHOSPHORUS [CHEM] DAILYLAB 05/31/21 05:00 BMP - BASIC METABOLIC PANEL [CHEM] DAILYLAB CBC - COMP BLD CT W/AUTO DIFF [HEME] DAILYLAB MAGNESIUM [CHEM] DAILYLAB PHOSPHORUS [CHEM] DAILYLAB 06/01/21 05:00 BMP - BASIC METABOLIC PANEL [CHEM] DAILYLAB CBC - COMP BLD CT W/AUTO DIFF [HEME] DAILYLAB MAGNESIUM [CHEM] DAILYLAB PHOSPHORUS [CHEM] DAILYLAB 06/02/21 05:00 BMP - BASIC METABOLIC PANEL [CHEM] DAILYLAB CBC - COMP BLD CT W/AUTO DIFF [HEME] DAILYLAB MAGNESIUM [CHEM] DAILYLAB PHOSPHORUS [CHEM] DAILYLAB Subjective - Subjective Patient Reports: Feeling Better, Resting Comfortably, No Complaints, Other (Pt says he feels "the same" as yesterday.) Objective Vital Signs: Vital Signs - 24 hr 05/28/21 05/28/21 05/28/21 16:53 21:24 23:41 Temperature 36.7 C 36.6 C 36.8 C Heart Rate [ Brachial] Heart Rate [ Monitoring electrodes] Heart Rate [ 95 88 114 H Radial] Respiratory 19 16 18 Rate Blood Pressure [Left Brachial artery] Blood Pressure 118/54 L 102/71 105/61 [Right Brachial artery] O2 Saturation 98 94 95 05/29/21 05/29/21 05/29/21 06:00 07:52 10:34 Temperature 36.7 C 36.6 C Heart Rate [ 93 Brachial] Heart Rate [ 75 Monitoring electrodes] Heart Rate [ 91 Radial] Respiratory 20 18 Rate Blood Pressure 97/69 [Left Brachial artery] Blood Pressure 110/60 120/65 [Right Brachial artery] O2 Saturation 93 93 Oxygen O2 Source Room air I&O (Last 24 Hrs): Intake and Output Totals x24h 05/27/21 05/28/21 05/29/21 23:59 23:59 23:59 Intake Total 1380 3405.333 1004 Output Total 4500 1450 1000 Balance -3120 1955.333 4 General: Alert, Oriented x3 HEENT: Mucous membr. moist/pink, Other ([place]) Neck: Supple, No JVD Neuro: Alert, Non Focal Cardiovascular: Regular rate (3/6 syst murmur at base) Respiratory: No respiratory distress, Breath sounds nml Abdomen: Normal bowel sounds, Soft Genitourinary: Other (Hernadez in place) Extremities: Other (1+ hand edema, 1+ leg edema) - Results Results: Laboratory Results WBC 15.4 x10^3/uL (4.8-10.8) H 05/29/21 06:15 RBC 3.55 10^6/uL (4.70-6.10) L 05/29/21 06:15 Hgb 11.2 g/dL (14.0-18.0) L 05/29/21 06:15 Hct 33.8 % (42.0-52.0) L 05/29/21 06:15 MCV 95.2 fL (80.0-94.0) H 05/29/21 06:15 MCH 31.5 pg (27.0-31.0) H 05/29/21 06:15 MCHC 33.1 g/dL (32.0-36.0) 05/29/21 06:15 RDW 14.7 % (12.0-15.0) 05/29/21 06:15 Plt Count 329 10^3/uL (130-450) 05/29/21 06:15 MPV 11.1 fL (7.4-11.4) 05/29/21 06:15 Neut # (Auto) 12.9 10^3/uL (1.5-6.6) H 05/29/21 06:15 Lymph # (Auto) 1.1 10^3/uL (1.5-3.5) L 05/29/21 06:15 Ward # (Auto) 1.1 10^3/uL (0.0-1.0) H 05/29/21 06:15 Eos # (Auto) 0.1 10^3/uL (0.0-0.7) 05/29/21 06:15 Baso # (Auto) 0.1 10^3/uL (0.0-0.1) 05/29/21 06:15 Absolute Nucleated RBC 0.00 x10^3/uL 05/29/21 06:15 Total Counted 100 05/27/21 07:10 Band Neuts % (Manual) 5 % (0-10) 05/27/21 07:10 Abnorm Lymph % (Manual) 0 % 05/27/21 07:10 Metamyelocytes % 1 % (-0) H 05/21/21 05:10 Myelocytes % 1 % (-0) H 05/24/21 04:40 Nucleated RBC % 0.0 /100WBC 05/29/21 06:15 Neutrophils # (Manual) 19.5 10^3/uL (1.5-6.6) H 05/27/21 07:10 Lymphocytes # (Manual) 1.3 10^3/uL (1.5-3.5) L 05/27/21 07:10 Monocytes # (Manual) 0.9 10^3/uL (0.0-1.0) 05/27/21 07:10 Eosinophils # (Manual) 0.0 10^3/uL (0-0.7) 05/27/21 07:10 Basophils # (Manual) 0.0 10^3/uL (0-0.1) 05/27/21 07:10 Differential Comment MANUAL DIFFERENTIAL 05/27/21 07:10 Manual Slide Review Indicated 05/28/21 06:43 WBC Morphology NORMAL APPEARANCE (NORMAL) 05/26/21 04:35 Platelet Estimate NORMAL (130-450,000) (NORMAL) 05/27/21 07:10 Platelet Morphology 1+ LARGE PLATELETS (NORMAL) 05/27/21 07:10 RBC Morph Micro Appear 2+ ANISOCYTOSIS (NORMAL) 05/28/21 06:43 Anti-Xa Level 0.4 U/mL (-0.7) 05/24/21 05:45 Bld Gas Analysis Time 0545 05/19/21 05:35 Sample Site RIGHT RADIAL 05/19/21 05:35 ABG pH 7.42 (7.35-7.45) 05/19/21 05:35 ABG pCO2 36 mmHg (34-45) 05/19/21 05:35 ABG pO2 71 mmHg (80-100) L 05/19/21 05:35 ABG HCO3 22.4 mmol/L (22.0-26.0) 05/19/21 05:35 ABG Total CO2 23.5 MMOL/L (21.0-29.0) 05/19/21 05:35 ABG O2 Saturation 95 % (94-98) 05/19/21 05:35 ABG Base Excess -1.7 mmol/L (-2.0-3.0) 05/19/21 05:35 Fernando Test POSITIVE 05/19/21 05:35 O2 Delivery Device NON REBREATHER MASK 05/19/21 05:35 O2 Liters/Min 15.00 LPM 05/19/21 05:35 FiO2 100.00 05/19/21 05:35 Sodium 140 mmol/L (135-145) 05/29/21 06:15 Potassium 3.0 mmol/L (3.5-5.0) L 05/29/21 06:15 Chloride 108 mmol/L (101-111) 05/29/21 06:15 Carbon Dioxide 25 mmol/L (21-32) 05/29/21 06:15 Anion Gap 7.0 (6-13) 05/29/21 06:15 BUN 31 mg/dL (6-20) H 05/29/21 06:15 Creatinine 0.8 mg/dL (0.6-1.2) 05/29/21 06:15 Estimated GFR (MDRD) 91 (>89) 05/29/21 06:15 Glucose 146 mg/dL (70-100) H 05/29/21 06:15 Lactic Acid 1.5 mmol/L (0.5-2.2) 05/21/21 09:08 Calcium 7.6 mg/dL (8.5-10.3) L 05/29/21 06:15 Phosphorus 2.2 mg/dL (2.5-4.6) L 05/29/21 06:15 Magnesium 1.9 mg/dL (1.7-2.8) 05/29/21 06:15 Total Bilirubin 0.9 mg/dL (0.2-1.0) 05/18/21 21:45 AST 18 IU/L (10-42) 05/18/21 21:45 ALT 18 IU/L (10-60) 05/18/21 21:45 Alkaline Phosphatase 43 IU/L (42-121) 05/18/21 21:45 Troponin I High Sens 6861.0 ng/L (2.3-19.7) H* 05/21/21 12:13 B-Natriuretic Peptide 1426 pg/mL (5-100) H 05/19/21 17:40 Total Protein 5.8 g/dL (6.7-8.2) L 05/18/21 21:45 Albumin 2.1 g/dL (3.2-5.5) L 05/25/21 04:22 Globulin 2.4 g/dL (2.1-4.2) 05/18/21 21:45 Albumin/Globulin Ratio 1.4 (1.0-2.2) 05/18/21 21:45 Lipase 24 U/L (22-51) 05/18/21 21:45 Urine Color YELLOW 05/29/21 13:49 Urine Clarity HAZY (CLEAR) 05/29/21 13:49 Urine pH 5.5 PH (5.0-7.5) 05/29/21 13:49 Ur Specific [place] 1.015 (1.002-1.030) 05/29/21 13:49 Urine Protein 100 mg/dL (NEGATIVE) H 05/29/21 13:49 Urine Glucose (UA) 100 mg/dL (NEGATIVE) H 05/29/21 13:49 Urine Ketones TRACE mg/dL (NEGATIVE) 05/29/21 13:49 Urine Occult Blood LARGE (NEGATIVE) H 05/29/21 13:49 Urine Nitrite NEGATIVE (NEGATIVE) 05/29/21 13:49 Urine Bilirubin NEGATIVE (NEGATIVE) 05/29/21 13:49 Urine Urobilinogen 0.2 (NORMAL) E.U./dL (NORMAL) 05/29/21 13:49 Ur Leukocyte Esterase NEGATIVE (NEGATIVE) 05/29/21 13:49 Urine RBC 11-25 /HPF (0-5) H 05/29/21 13:49 Urine WBC 0-3 /HPF (0-3) 05/29/21 13:49 Ur Squamous Epith Cells NONE SEEN (<= Few) 05/29/21 13:49 Urine Bacteria Rare /HPF (None Seen) 05/29/21 13:49 Urine Casts 0-2 Course Granular /LPF 05/29/21 13:49 Ur Microscopic Review NOT INDICATED 05/19/21 06:05 Urine Culture Comments NOT INDICATED 05/29/21 13:49 Nasal Screen MRSA (PCR) NEGATIVE (NEGATIVE) 05/19/21 06:00 Stl C. diff Tox B Gene NEGATIVE (NEGATIVE) 05/27/21 13:15 Last Dose Date UNK 05/23/21 07:36 Last Dose Time UNK 05/23/21 07:36 Vancomycin Trough 10.7 ug/mL (10.0-20.0) 05/23/21 07:36 - Procedures Procedures: Procedures CATARAC PHACOEMULS/ASPIR (12/28/14) INSERT LENS AT CATAR EXT (12/28/14)
[2021-05-29 16:54] LABS: DIFFERENTIAL COMMENT MANUAL DIFFERENTIAL; PLATELET ESTIMATE, MANUAL NORMAL (130-450,000) (NORMAL); PLATELET MORPHOLOGY NORMAL APP (NORMAL); RBC MORPHOLOGY (MULTIPLE) NORMAL APPEARANCE (NORMAL); WBC MORPHOLOGY (MULTIPLE) NORMAL APPEARANCE (NORMAL)
[2021-05-29 16:59] LABS: BAND NEUTROPHILS % (MANUAL) 1 %; LYMPHOCYTES # (MANUAL) 1.2 10^3/uL (1.5-3.5); LYMPHOCYTES % (MANUAL) 8 %; MONOCYTES # (MANUAL) 0.3 10^3/uL (0.0-1.0); NEUTROPHILS # (MANUAL) 13.9 10^3/uL (1.5-6.6)
[2021-05-29] MEDS: ATORVASTATIN 40 MG TABLET PO SCH (21:07)
[2021-05-29] MEDS: INSULIN GLARGINE 300 UNIT/3 ML PEN SUBQ SCH (21:15)
[2021-05-29] MEDS: SODIUM CHLORIDE 0.9% 250 ML IV PRN (22:14)
[2021-05-30] MEDS: VANCOMYCIN INJ 1 GM in SODIUM CHLORIDE 0.9% 250 ML IV SCH ×2 (00:33→12:30)
[2021-05-30] MEDS: PIPERACILLIN/TAZOBACTAM 3.375 GM in SODIUM CHLORIDE 0.9% MINIBAG 100 ML IV SCH ×3 (05:21→17:42)
[2021-05-30 05:41] LABS: BASOPHILS % (AUTO) 0.3 %; EOSINOPHILS % (AUTO) 0.4 %; HCT - HEMATOCRIT 35.4 % (42.0-52.0); HGB - HEMOGLOBIN 12.1 g/dL (14.0-18.0); MEAN CORPUSCULAR HEMOGLOBIN 32.6 pg (27.0-31.0); MEAN CORPUSCULAR HGB CONC 34.2 g/dL (32.0-36.0); MEAN CORPUSCULAR VOLUME 95.4 fL (80.0-94.0); MONOCYTES % (AUTO) 6.9 %; NEUTROPHILS % (AUTO) 82.6 %; PLT - PLATELET COUNT 343 10^3/uL (130-450); RED BLOOD COUNT 3.71 10^6/uL (4.70-6.10); WHITE BLOOD COUNT 16.3 x10^3/uL (4.8-10.8)
[2021-05-30 05:44] LABS: ABNORMAL LYMPHS % (MANUAL) 0 %
[2021-05-30 05:53] LABS: CALCIUM 7.3 mg/dL (8.5-10.3); MAGNESIUM 1.9 mg/dL (1.7-2.8); PHOSPHORUS 3.5 mg/dL (2.5-4.6); POTASSIUM 3.4 mmol/L (3.5-5.0)
[2021-05-30 06:00] LABS: BAND NEUTROPHILS % (MANUAL) 2 %; DIFFERENTIAL COMMENT MANUAL DIFFERENTIAL; LYMPHOCYTES # (MANUAL) 1.3 10^3/uL (1.5-3.5); LYMPHOCYTES % (MANUAL) 8 %; MONOCYTES # (MANUAL) 0.5 10^3/uL (0.0-1.0); MYELOCYTES % (MANUAL) 1 %; NEUTROPHILS # (MANUAL) 14.3 10^3/uL (1.5-6.6); PLATELET ESTIMATE, MANUAL NORMAL (130-450,000) (NORMAL); RBC MORPHOLOGY (MULTIPLE) NORMAL APPEARANCE (NORMAL)
[2021-05-30] MEDS: metroNIDAZOLE 500 MG/100 ML 500 MG/100 ML BAG IV SCH ×3 (06:03→21:50)
[2021-05-30] MEDS: SUCRALFATE 1 GM/10 ML UDC PO SCH ×4 (06:03→21:50)
[2021-05-30] MEDS: PANTOPRAZOLE 40 MG TABLET PO SCH (06:03)
[2021-05-30] MEDS: INSULIN ASPART 300 UNIT/3 ML PEN SUBQ SCH ×5 (08:45→21:49)
[2021-05-30] MEDS: ASPIRIN CHEW 81 MG TABLET PO SCH (10:56)
[2021-05-30] MEDS: CALCIUM CARBONATE CHEW 500 MG TABLET PO PRN (10:56)
[2021-05-30] MEDS: TAMSULOSIN 0.4 MG CAPSULE PO SCH (10:57)
[2021-05-30] MEDS: CHOLECALCIFEROL 400 UNIT TABLET PO SCH (10:57)
[2021-05-30] MEDS: guaiFENesin 600 MG TABLET PO SCH ×2 (10:57→21:50)
[2021-05-30] MEDS: APIXABAN 5 MG TABLET PO SCH (10:57)
[2021-05-30] MEDS: polyethylene glycoL 3350 17 GM PACKET PO SCH (10:58)
[2021-05-30] MEDS: METOPROLOL SUCCINATE 25 MG TABLET PO SCH (10:58)
[2021-05-30] MEDS: MULTIVITAMIN W/MINERALS TABLET PO SCH (10:58)
[2021-05-30] MEDS: SODIUM CHLORIDE FLUSH 0.9% 10 ML SYRINGE IVP SCH ×2 (10:58→17:38)
[2021-05-30] MEDS: FUROSEMIDE 20 MG TABLET PO SCH (10:58)
[2021-05-30] MEDS: MAGNESIUM OXIDE 400 MG TABLET PO SCH (10:58)
[2021-05-30] MEDS: LACTOBACILLUS RHAMNOSUS GG CAPSULE PO SCH (12:30)
[2021-05-30 13:26] LABS: INR 2.1 (0.8-1.2)
--- NOTE | 2021-05-30 17:47 | PROVIDER PROGRESS NOTE ---
Assessment/Plan - Problem List (1) Bacteremia Assessment/Plan: Blood culture at admission grew gram variable bacilli. Repeat blood cultures have been negative, but one blood cx (for anaerobes) had to be sent out to [facility] in [place] Since the WBC was continuing to be very elevated (see #2), we changed his coverage and stopped cefepime, started Zosyn, continued Flagyl, added vancomycin. (2) Leukocytosis Assessment/Plan: Because of continued high and fluctuating WBCs, and Bands , he underwent a chest x-ray today that showed pleural effusions and atelectasis but no infiltrate. A urinalysis was done that showed no pyuria. The Hernadez catheter did not need to be changed. He underwent 1 blood culture anew. The right IJ CVP catheter was removed and the tip sent for culture. Abdominal CT with contrast was also done and showed multiple abscess pockets in the abdomen, all containing air which was a concern for anaerobic abscesses. Because of this his antibiotic coverage will be changed to Zosyn plus Flagyl and adding Vanco. Follow CBC and differential daily. (3) Urinary retention with incomplete bladder emptying Assessment/Plan: The son and daughter, who are at bedside and the family friend by phone yesterday, requested that the Hernadez catheter not be taken out because it was very difficult to insert because of obstruction. Continue with Hernadez care (4) Acute on chronic systolic heart failure Assessment/Plan: LVEF is depressed by the Echo done on this admission. He continues to have some anasarca, third spacing from all the IV fluids he got during septic shock and has a low Albumen. Will start slow diuresing using daily oral Lasix. Will administer albumin Follow Alb intermittently. (5) Atrial fibrillation Assessment/Plan: HR is controlled on cyrrent meds and management (6) Colon cancer Assessment/Plan: This was the recent diagnosis that required a colostomy in the last admission. He was home only 1 day then presented for this current admission. He has not had staging yet or appointment with oncologist to plan cancer treatment. (7) Status post colostomy Assessment/Plan: He was only home 1 day after the colostomy when he developed the rigors and came in with septic shock on this admission. There had been no time for colostomy training yet. Appreciate General Surgery following along with us. (8) Aortic stenosis Assessment/Plan: An Echo was done at this admission, when he presented with septic shock and elevated troponins, and it showed depressed LVEF and severe aortic stenosis (low cardiac output ). (9) Diabetes mellitus type 2, controlled Assessment/Plan: As per Hx Continue with carb controlled diet and sliding scale insulin coverage - Current Meds Current Meds: Current Medications Generic Name Dose Route Start Last Admin Trade Name Freq PRN Reason Stop Dose Admin Acetaminophen 650 mg 05/18/21 23:57 05/27/21 11:53 Acetaminophen 325 Mg Tablet PO 650 mg Q4HR PRN Administration Pain 1 to 4 Atorvastatin Calcium 40 mg 05/22/21 21:00 05/29/21 21:07 Atorvastatin 40 Mg Tablet PO 40 mg QPM DOROTHEA Administration Calcium Carbonate/Glycine 500 mg 05/21/21 05:20 05/30/21 10:56 Calcium Carbonate Chew 500 Mg Tablet PO 500 mg BID PRN Administration NEEDED PER PROVIDER ORDERS Cholecalciferol 800 unit 05/29/21 11:00 05/30/21 10:57 Cholecalciferol 400 Unit Tablet PO 800 unit DAILY DOROTHEA Administration Furosemide 20 mg 05/28/21 12:00 05/30/21 10:58 Furosemide 20 Mg Tablet PO 20 mg DAILY DOROTHEA Administration Guaifenesin 600 mg 05/23/21 21:00 05/30/21 10:57 Guaifenesin 600 Mg Tablet PO 600 mg BID DOROTHEA Administration Metronidazole 500 mg in 100 mls @ 100 mls/hr 05/19/21 06:00 05/30/21 15:17 Flagyl 500 Mg/100 Ml IV Infused Q8H DOROTHEA Infusion Piperacillin Sod/Tazobactam 100 mls @ 200 mls/hr 05/29/21 12:00 05/30/21 17:42 Sod 3.375 gm/ Sodium Chloride IV 200 mls/hr Q6H DOROTHEA Administration Vancomycin HCl 1 gm/ Sodium 250 mls @ 167 mls/hr 05/30/21 01:00 05/30/21 14:03 Chloride IV Infused Q12H DOROTHEA Infusion Sodium Chloride 250 mls @ 20 mls/hr 05/29/21 20:49 05/29/21 22:14 Normal Saline 0.9% IV 10 mls/hr Q24H PRN Administration TKO RATE Insulin Aspart 1 - 5 unit 05/28/21 12:05 05/30/21 17:38 Insulin Aspart 300 Unit/3 Ml Pen SUBQ 3 unit 0800,1200,1700,2100 DOROTHEA Administration Protocol Insulin Glargine 6 unit 05/28/21 21:00 05/29/21 21:15 Insulin Glargine 300 Unit/3 Ml Pen SUBQ 6 unit QPM DOROTHEA Administration Lactobacillus Rhamnosus 1 cap 05/30/21 12:00 05/30/21 12:30 Lactobacillus Rhamnosus Gg Capsule PO 1 cap DAILY DOROTHEA Administration Magnesium Oxide 400 mg 05/29/21 12:00 05/30/21 10:58 Magnesium Oxide 400 Mg Tablet PO 400 mg DAILYWM DOROTHEA Administration Metoprolol Succinate 25 mg 05/28/21 12:01 05/30/21 10:58 Metoprolol Succinate 25 Mg Tablet PO 25 mg DAILY DOROTHEA Administration Mineral Oil 1 applic 05/24/21 14:36 05/28/21 21:43 Min Oil/Dimethicon/Coconut Oil 92 Gm Tube TOP 1 applic PRN PRN Administration Skin Care Multivitamins/Minerals 1 tab 05/25/21 08:00 05/30/21 10:58 Multivitamin W/Minerals Tablet PO 1 tab DAILYWM DOROTHEA Administration Ondansetron HCl 4 mg 05/18/21 23:57 05/21/21 11:48 Ondansetron 4 Mg/2 Ml Vial IVP 4 mg Q6HR PRN Administration Nausea / Vomiting Oxycodone HCl 5 mg 05/21/21 14:23 05/27/21 13:48 Oxycodone 5 Mg Tablet PO 5 mg Q4HR PRN Administration PAIN Pantoprazole Sodium 40 mg 05/27/21 10:00 05/30/21 06:03 Pantoprazole 40 Mg Tablet PO 40 mg QDAC DOROTHEA Administration Polyethylene Glycol 17 gm 05/23/21 09:00 05/30/21 10:58 Polyethylene Glycol 3350 17 Gm Packet PO 17 gm DAILY DOORTHEA Administration Prochlorperazine Edisylate 10 mg 05/21/21 14:24 05/21/21 15:38 Prochlorperazine 10 Mg/2 Ml Vial IVP 10 mg Q6HR PRN Administration Nausea / Vomiting Sodium Chloride 10 ml 05/19/21 09:00 05/30/21 17:38 Sodium Chloride Flush 0.9% 10 Ml Syringe IVP 10 ml 0100,0900,1700 DOROTHEA Administration Sucralfate 1 gm 05/28/21 08:13 05/30/21 17:37 Sucralfate 1 Gm/10 Ml Udc PO 1 gm 0700,1100,1600,2200 DOROTHEA Administration Tamsulosin HCl 0.4 mg 05/27/21 13:00 05/30/21 10:57 Tamsulosin 0.4 Mg Capsule PO 0.4 mg DAILY DOROTHEA Administration Throat Lozenges 1 lozenge 05/29/21 11:22 05/29/21 12:29 Benzocaine/Menthol Lozenge MM 1 lozenge Q2HR PRN Administration Throat pain - Lab Result Fish Bone Diagrams: 06/05/21 06:15 06/05/21 06:15 - Additional Planning My Orders: My Active Orders 05/29/21 17:05 CUL, CATHETER TIP [RM] Urgent 05/29/21 20:49 Sodium Chloride 0.9% [Normal Saline 0.9%] 250 ml IV Q24H 05/30/21 01:00 Vancomycin Inj [Vancomycin] 1 gm Sodium Chloride 0.9% [Normal Saline 0.9%] 250 ml IV Q12H 05/30/21 11:08 Abdominal Paracentesis [US] Stat 05/30/21 12:00 Lactobacillus Rhamnosus GG [Culturelle] 1 cap PO DAILY 05/30/21 13:02 Miscellaneous Laboratory Order [LAB] Urgent 05/30/21 13:06 CUL,BODY FLUID(AEROBIC) [RM] Routine 05/30/21 13:45 CUL, ANAEROBIC (QUEST) [REFLAB] Routine 05/31/21 00:01 DIET [NPO except Meds at Midnight] [DIET] D5ns W/20 Meq KCl 1,000 ml IV 60 mls/hr 05/31/21 05:00 BMP - BASIC METABOLIC PANEL [CHEM] DAILYLAB CBC - COMP BLD CT W/AUTO DIFF [HEME] DAILYLAB MAGNESIUM [CHEM] DAILYLAB PHOSPHORUS [CHEM] DAILYLAB PT WITH INR [COAG] DAILYLAB 06/01/21 05:00 BMP - BASIC METABOLIC PANEL [CHEM] DAILYLAB CBC - COMP BLD CT W/AUTO DIFF [HEME] DAILYLAB MAGNESIUM [CHEM] DAILYLAB PHOSPHORUS [CHEM] DAILYLAB 06/02/21 05:00 BMP - BASIC METABOLIC PANEL [CHEM] DAILYLAB CBC - COMP BLD CT W/AUTO DIFF [HEME] DAILYLAB MAGNESIUM [CHEM] DAILYLAB PHOSPHORUS [CHEM] DAILYLAB Subjective - Subjective Patient Reports: Feeling Better, Resting Comfortably, No Complaints (He was able to ambulate in hallway today) Objective Vital Signs: Vital Signs - 24 hr 05/30/21 05/30/21 05/30/21 00:00 05:50 07:58 Temperature 36.5 C 36.7 C 36.7 C Heart Rate [ 102 H 98 Brachial] Heart Rate [ 48 L Monitoring electrodes] Respiratory 16 18 20 Rate Blood Pressure 103/59 L 125/74 94/52 L [Right Brachial artery] O2 Saturation 93 97 Oxygen O2 Source Room air I&O (Last 24 Hrs): Intake and Output Totals x24h 05/28/21 05/29/21 05/30/21 23:59 23:59 23:59 Intake Total 3405.333 2254 1440 Output Total 1450 1825 1350 Balance 1955.333 429 90 General: Alert, Oriented x3 HEENT: Mucous membr. moist/pink, Other (PAle) Neck: Supple, No JVD Neuro: Alert, Non Focal Cardiovascular: Other (3/6 syst murmurIrreg irreg,) Respiratory: No respiratory distress, Breath sounds nml Abdomen: Soft Genitourinary: Other (in placeFoley) Extremities: Other (2+ lower leg and posterior thigh edema. 1+ hand edema.) - Results Results: Laboratory Results WBC 16.3 x10^3/uL (4.8-10.8) H 05/30/21 05:36 RBC 3.71 10^6/uL (4.70-6.10) L 05/30/21 05:36 Hgb 12.1 g/dL (14.0-18.0) L 05/30/21 05:36 Hct 35.4 % (42.0-52.0) L 05/30/21 05:36 MCV 95.4 fL (80.0-94.0) H 05/30/21 05:36 MCH 32.6 pg (27.0-31.0) H 05/30/21 05:36 MCHC 34.2 g/dL (32.0-36.0) 05/30/21 05:36 RDW 15.0 % (12.0-15.0) 05/30/21 05:36 Plt Count 343 10^3/uL (130-450) 05/30/21 05:36 MPV 11.0 fL (7.4-11.4) 05/30/21 05:36 Neut # (Auto) Not Reportable 05/30/21 05:36 Lymph # (Auto) Not Reportable 05/30/21 05:36 [place] # (Auto) Not Reportable 05/30/21 05:36 Eos # (Auto) Not Reportable 05/30/21 05:36 Baso # (Auto) Not Reportable 05/30/21 05:36 Absolute Nucleated RBC Not Reportable 05/30/21 05:36 Total Counted 100 05/30/21 05:36 Band Neuts % (Manual) 2 % (0-10) 05/30/21 05:36 Abnorm Lymph % (Manual) 0 % 05/30/21 05:36 Metamyelocytes % 1 % (-0) H 05/21/21 05:10 Myelocytes % 1 % (-0) H 05/30/21 05:36 Nucleated RBC % Not Reportable 05/30/21 05:36 Neutrophils # (Manual) 14.3 10^3/uL (1.5-6.6) H 05/30/21 05:36 Lymphocytes # (Manual) 1.3 10^3/uL (1.5-3.5) L 05/30/21 05:36 Monocytes # (Manual) 0.5 10^3/uL (0.0-1.0) 05/30/21 05:36 Eosinophils # (Manual) 0.0 10^3/uL (0-0.7) 05/30/21 05:36 Basophils # (Manual) 0.0 10^3/uL (0-0.1) 05/30/21 05:36 Differential Comment MANUAL DIFFERENTIAL 05/30/21 05:36 Manual Slide Review Indicated 05/28/21 06:43 WBC Morphology NORMAL APPEARANCE (NORMAL) 05/29/21 06:15 Platelet Estimate NORMAL (130-450,000) (NORMAL) 05/30/21 05:36 Platelet Morphology NORMAL TOSHIA (NORMAL) 05/29/21 06:15 RBC Morph Micro Appear NORMAL APPEARANCE (NORMAL) 05/30/21 05:36 PT 22.0 secs (9.9-12.6) H 05/30/21 13:10 INR 2.1 (0.8-1.2) H 05/30/21 13:10 Anti-Xa Level 0.4 U/mL (-0.7) 05/24/21 05:45 Bld Gas Analysis Time 0545 05/19/21 05:35 Sample Site RIGHT RADIAL 05/19/21 05:35 ABG pH 7.42 (7.35-7.45) 05/19/21 05:35 ABG pCO2 36 mmHg (34-45) 05/19/21 05:35 ABG pO2 71 mmHg (80-100) L 05/19/21 05:35 ABG HCO3 22.4 mmol/L (22.0-26.0) 05/19/21 05:35 ABG Total CO2 23.5 MMOL/L (21.0-29.0) 05/19/21 05:35 ABG O2 Saturation 95 % (94-98) 05/19/21 05:35 ABG Base Excess -1.7 mmol/L (-2.0-3.0) 05/19/21 05:35 Fernando Test POSITIVE 05/19/21 05:35 O2 Delivery Device NON REBREATHER MASK 05/19/21 05:35 O2 Liters/Min 15.00 LPM 05/19/21 05:35 FiO2 100.00 05/19/21 05:35 Sodium 139 mmol/L (135-145) 05/30/21 05:36 Potassium 3.4 mmol/L (3.5-5.0) L 05/30/21 05:36 Chloride 106 mmol/L (101-111) 05/30/21 05:36 Carbon Dioxide 23 mmol/L (21-32) 05/30/21 05:36 Anion Gap 10.0 (6-13) 05/30/21 05:36 BUN 27 mg/dL (6-20) H 05/30/21 05:36 Creatinine 1.0 mg/dL (0.6-1.2) 05/30/21 05:36 Estimated GFR (MDRD) 70 (>89) L 05/30/21 05:36 Glucose 195 mg/dL (70-100) H 05/30/21 05:36 Lactic Acid 1.5 mmol/L (0.5-2.2) 05/21/21 09:08 Calcium 7.3 mg/dL (8.5-10.3) L 05/30/21 05:36 Phosphorus 3.5 mg/dL (2.5-4.6) 05/30/21 05:36 Magnesium 1.9 mg/dL (1.7-2.8) 05/30/21 05:36 Total Bilirubin 0.9 mg/dL (0.2-1.0) 05/18/21 21:45 AST 18 IU/L (10-42) 05/18/21 21:45 ALT 18 IU/L (10-60) 05/18/21 21:45 Alkaline Phosphatase 43 IU/L (42-121) 05/18/21 21:45 Troponin I High Sens 6861.0 ng/L (2.3-19.7) H* 05/21/21 12:13 B-Natriuretic Peptide 1426 pg/mL (5-100) H 05/19/21 17:40 Total Protein 5.8 g/dL (6.7-8.2) L 05/18/21 21:45 Albumin 2.0 g/dL (3.2-5.5) L 05/30/21 05:36 Globulin 2.4 g/dL (2.1-4.2) 05/18/21 21:45 Albumin/Globulin Ratio 1.4 (1.0-2.2) 05/18/21 21:45 Lipase 24 U/L (22-51) 05/18/21 21:45 Urine Color YELLOW 05/29/21 13:49 Urine Clarity HAZY (CLEAR) 05/29/21 13:49 Urine pH 5.5 PH (5.0-7.5) 05/29/21 13:49 Ur Specific [place] 1.015 (1.002-1.030) 05/29/21 13:49 Urine Protein 100 mg/dL (NEGATIVE) H 05/29/21 13:49 Urine Glucose (UA) 100 mg/dL (NEGATIVE) H 05/29/21 13:49 Urine Ketones TRACE mg/dL (NEGATIVE) 05/29/21 13:49 Urine Occult Blood LARGE (NEGATIVE) H 05/29/21 13:49 Urine Nitrite NEGATIVE (NEGATIVE) 05/29/21 13:49 Urine Bilirubin NEGATIVE (NEGATIVE) 05/29/21 13:49 Urine Urobilinogen 0.2 (NORMAL) E.U./dL (NORMAL) 05/29/21 13:49 Ur Leukocyte Esterase NEGATIVE (NEGATIVE) 05/29/21 13:49 Urine RBC 11-25 /HPF (0-5) H 05/29/21 13:49 Urine WBC 0-3 /HPF (0-3) 05/29/21 13:49 Ur Squamous Epith Cells NONE SEEN (<= Few) 05/29/21 13:49 Urine Bacteria Rare /HPF (None Seen) 05/29/21 13:49 Urine Casts 0-2 Course Granular /LPF 05/29/21 13:49 Ur Microscopic Review NOT INDICATED 05/19/21 06:05 Urine Culture Comments NOT INDICATED 05/29/21 13:49 Nasal Screen MRSA (PCR) NEGATIVE (NEGATIVE) 05/19/21 06:00 Stl C. diff Tox B Gene NEGATIVE (NEGATIVE) 05/27/21 13:15 Last Dose Date UNK 05/23/21 07:36 Last Dose Time UNK 05/23/21 07:36 Vancomycin Trough 10.7 ug/mL (10.0-20.0) 05/23/21 07:36 - Procedures Procedures: Procedures BYPASS DESCENDING COLON TO CUTANEOUS, OPEN APPROACH (05/14/21) CATARAC PHACOEMULS/ASPIR (12/28/14) EXCISION OF LEFT LOBE LIVER, OPEN APPROACH, DIAGNOSTIC (05/14/21) EXCISION OF SIGMOID COLON, ENDO, DIAGN (05/14/21) INSERT LENS AT CATAR EXT (12/28/14) IRRIGATE OF PERITON CAV USING IRRIGAT, PERC APPROACH, DIAGN (05/14/21)
[2021-05-30] MEDS: INSULIN GLARGINE 300 UNIT/3 ML PEN SUBQ SCH (21:49)
[2021-05-30] MEDS: ATORVASTATIN 40 MG TABLET PO SCH (21:50)
[2021-05-31] MEDS ORDERED: D5NS W/20 MEQ KCL 1,000 ML IV SCH (00:01)
[2021-05-31] MEDS: SODIUM CHLORIDE FLUSH 0.9% 10 ML SYRINGE IVP SCH ×4 (00:10→23:57)
[2021-05-31] MEDS: PIPERACILLIN/TAZOBACTAM 3.375 GM in SODIUM CHLORIDE 0.9% MINIBAG 100 ML IV SCH ×5 (00:10→23:57)
[2021-05-31] MEDS: INSULIN REGULAR HUMAN 300 UNIT/3 ML VIAL SUBQ SCH ×2 (00:15→06:47)
[2021-05-31] MEDS: VANCOMYCIN INJ 1 GM in SODIUM CHLORIDE 0.9% 250 ML IV SCH ×2 (00:52→13:43)
[2021-05-31] MEDS: ACETAMINOPHEN 325 MG TABLET PO PRN ×2 (00:58→20:39)
[2021-05-31] MEDS: metroNIDAZOLE 500 MG/100 ML 500 MG/100 ML BAG IV SCH ×3 (05:34→21:48)
[2021-05-31 06:00] LABS: BASOPHILS % (AUTO) 0.3 %; EOSINOPHILS % (AUTO) 0.7 %; HCT - HEMATOCRIT 33.3 % (42.0-52.0); HGB - HEMOGLOBIN 11.3 g/dL (14.0-18.0); LYMPHOCYTES % (AUTO) 8.3 %; MEAN CORPUSCULAR HEMOGLOBIN 32.5 pg (27.0-31.0); MEAN CORPUSCULAR HGB CONC 33.9 g/dL (32.0-36.0); MEAN CORPUSCULAR VOLUME 95.7 fL (80.0-94.0); MEAN PLATELET VOLUME 11.1 fL (7.4-11.4); MONOCYTES % (AUTO) 8.5 %; NEUTROPHILS % (AUTO) 81.3 %; PLT - PLATELET COUNT 302 10^3/uL (130-450); RED BLOOD COUNT 3.48 10^6/uL (4.70-6.10); WHITE BLOOD COUNT 12.1 x10^3/uL (4.8-10.8)
[2021-05-31 06:03] LABS: ABNORMAL LYMPHS % (MANUAL) 0 %
[2021-05-31 06:21] LABS: CALCIUM 7.6 mg/dL (8.5-10.3); MAGNESIUM 1.8 mg/dL (1.7-2.8); PHOSPHORUS 2.3 mg/dL (2.5-4.6); POTASSIUM 2.9 mmol/L (3.5-5.0)
[2021-05-31 06:30] LABS: INR 1.8 (0.8-1.2); PT - PROTHROMBIN TIME 19.5 secs (9.9-12.6)
[2021-05-31] MEDS: SUCRALFATE 1 GM/10 ML UDC PO SCH ×4 (06:47→21:48)
[2021-05-31] MEDS: PANTOPRAZOLE 40 MG TABLET PO SCH ×2 (06:48→10:02)
[2021-05-31 06:55] LABS: BAND NEUTROPHILS % (MANUAL) 4 %; DIFFERENTIAL COMMENT MANUAL DIFFERENTIAL; LYMPHOCYTES # (MANUAL) 0.4 10^3/uL (1.5-3.5); LYMPHOCYTES % (MANUAL) 3 %; MONOCYTES # (MANUAL) 1.3 10^3/uL (0.0-1.0); NEUTROPHILS # (MANUAL) 10.4 10^3/uL (1.5-6.6)
[2021-05-31] MEDS: polyethylene glycoL 3350 17 GM PACKET PO SCH (09:58)
[2021-05-31] MEDS: METOPROLOL SUCCINATE 25 MG TABLET PO SCH (09:59)
[2021-05-31] MEDS: MAGNESIUM OXIDE 400 MG TABLET PO SCH (09:59)
[2021-05-31] MEDS: TAMSULOSIN 0.4 MG CAPSULE PO SCH (10:00)
[2021-05-31] MEDS: CHOLECALCIFEROL 400 UNIT TABLET PO SCH (10:00)
[2021-05-31] MEDS: guaiFENesin 600 MG TABLET PO SCH ×2 (10:01→21:48)
[2021-05-31] MEDS: FUROSEMIDE 20 MG TABLET PO SCH (10:01)
[2021-05-31] MEDS: MULTIVITAMIN W/MINERALS TABLET PO SCH (10:01)
[2021-05-31] MEDS: LACTOBACILLUS RHAMNOSUS GG CAPSULE PO SCH (10:02)
[2021-05-31] MEDS: ASPIRIN EC 81 MG TABLET PO SCH (10:05)
[2021-05-31] MEDS: APIXABAN 5 MG TABLET PO SCH ×2 (10:06→21:48)
[2021-05-31] MEDS: INSULIN ASPART 300 UNIT/3 ML PEN SUBQ SCH ×3 (12:15→20:51)
[2021-05-31 13:16] LABS: VANCOMYCIN,TROUGH 18.9 ug/mL (10.0-20.0)
[2021-05-31] MEDS: SODIUM CHLORIDE 0.9% 250 ML IV PRN (18:43)
--- NOTE | 2021-05-31 19:48 | PROVIDER PROGRESS NOTE ---
Assessment/Plan - Problem List (1) Bacteremia Assessment/Plan: Blood culture at admission grew gram variable bacilli. Repeat blood cultures have been negative, but one blood cx (for anaerobes) had to be sent out to [facility] in [place] He had been on empiric cefepime and Flagyl for a presumed GI source. WBC trended down today, so after dicsussion with Dr Lee (Dr Trujillo spoke with him today), previous plans for percutaneous drainage of abscess by IR was aborted in favor of continuing conservative management with IV Abx and monitoring until Thursday. Cont Zosyn, Flagyl, add vancomycin. (2) Leukocytosis Assessment/Plan: Because of continued high and fluctuating WBCs, and Bands of 2 today, he underwent a chest x-ray today that showed pleural effusions and atelectasis but no infiltrate. A urinalysis was done that showed no pyuria. The Hernadez catheter did not need to be changed. He underwent 1 blood culture anew today. The right IJ CVP catheter was removed and the tip sent for culture today. Abdominal CT with contrast was ordered today and this showed multiple abscess pockets in the abdomen, all containing air which is a concern for anaerobic abscesses. See above WBC down today to 15 from 20 Cont current IV Abx and monitor closely (3) Urinary retention with incomplete bladder emptying Assessment/Plan: Hx of retention w/ difficult previous Hernadez insertion Maintain current Hernadez (4) Acute on chronic systolic heart failure Assessment/Plan: Fluid overloaded 2/2 fluid resuscitation for sepsis in setting of CHF Cont diuresis Albumin low at 2.0 Will start IV albumin Monitor weights and I/O's (5) Atrial fibrillation Assessment/Plan: Rate controlled Cont current meds Hold anticoagulation on Thursday night in case pt again needs procedure/abscess drainage (6) Colon cancer Assessment/Plan: New Dx Needs oncology referral at d/c (7) Status post colostomy Assessment/Plan: Appreciate gen surg follow up No current issues related to colostomy (8) Aortic stenosis Assessment/Plan: Stable but presents risks for surgery As above, cont diuresis (9) Diabetes mellitus type 2, controlled Assessment/Plan: As per Hx Continue with carb controlled diet and sliding scale insulin coverage - Current Meds Current Meds: Current Medications Generic Name Dose Route Start Last Admin Trade Name Freq PRN Reason Stop Dose Admin Acetaminophen 650 mg 05/18/21 23:57 05/31/21 00:58 Acetaminophen 325 Mg Tablet PO 650 mg Q4HR PRN Administration Pain 1 to 4 Apixaban 5 mg 05/31/21 09:00 05/31/21 10:06 Apixaban 5 Mg Tablet PO 5 mg BID DOROTHEA Administration Aspirin 81 mg 05/31/21 09:00 05/31/21 10:05 Aspirin Ec 81 Mg Tablet PO 81 mg DAILY DOROTHEA Administration Atorvastatin Calcium 40 mg 05/22/21 21:00 05/30/21 21:50 Atorvastatin 40 Mg Tablet PO 40 mg QPM DOROTHEA Administration Calcium Carbonate/Glycine 500 mg 05/21/21 05:20 05/30/21 10:56 Calcium Carbonate Chew 500 Mg Tablet PO 500 mg BID PRN Administration NEEDED PER PROVIDER ORDERS Cholecalciferol 800 unit 05/29/21 11:00 05/31/21 10:00 Cholecalciferol 400 Unit Tablet PO 800 unit DAILY DOROTHEA Administration Furosemide 20 mg 05/28/21 12:00 05/31/21 10:01 Furosemide 20 Mg Tablet PO 20 mg DAILY DOROTHEA Administration Guaifenesin 600 mg 05/23/21 21:00 05/31/21 10:01 Guaifenesin 600 Mg Tablet PO 600 mg BID DOROTHEA Administration Metronidazole 500 mg in 100 mls @ 100 mls/hr 05/19/21 06:00 05/31/21 17:04 Flagyl 500 Mg/100 Ml IV Infused Q8H DOROTHEA Infusion Piperacillin Sod/Tazobactam 100 mls @ 200 mls/hr 05/29/21 12:00 05/31/21 18:42 Sod 3.375 gm/ Sodium Chloride IV Infused Q6H DOROTHEA Infusion Vancomycin HCl 1 gm/ Sodium 250 mls @ 167 mls/hr 05/30/21 01:00 05/31/21 15:34 Chloride IV Infused Q12H DOROTHEA Infusion Sodium Chloride 250 mls @ 20 mls/hr 05/29/21 20:49 05/31/21 18:43 Normal Saline 0.9% IV 10 mls/hr Q24H PRN Administration TKO RATE Insulin Aspart 1 - 5 unit 05/31/21 12:00 05/31/21 17:14 Insulin Aspart 300 Unit/3 Ml Pen SUBQ 4 unit 0800,1200,1700,2100 DOROTHEA Administration Protocol Insulin Glargine 6 unit 05/28/21 21:00 05/30/21 21:49 Insulin Glargine 300 Unit/3 Ml Pen SUBQ 6 unit QPM DOROTHEA Administration Lactobacillus Rhamnosus 1 cap 05/30/21 12:00 05/31/21 10:02 Lactobacillus Rhamnosus Gg Capsule PO 1 cap DAILY DOROTHEA Administration Magnesium Oxide 400 mg 05/29/21 12:00 05/31/21 09:59 Magnesium Oxide 400 Mg Tablet PO 400 mg DAILYWM DOROTHEA Administration Metoprolol Succinate 25 mg 05/28/21 12:01 05/31/21 09:59 Metoprolol Succinate 25 Mg Tablet PO 25 mg DAILY DOROTHEA Administration Mineral Oil 1 applic 05/24/21 14:36 05/28/21 21:43 Min Oil/Dimethicon/Coconut Oil 92 Gm Tube TOP 1 applic PRN PRN Administration Skin Care Multivitamins/Minerals 1 tab 05/25/21 08:00 05/31/21 10:01 Multivitamin W/Minerals Tablet PO 1 tab DAILYWM DOROTHEA Administration Ondansetron HCl 4 mg 05/18/21 23:57 05/21/21 11:48 Ondansetron 4 Mg/2 Ml Vial IVP 4 mg Q6HR PRN Administration Nausea / Vomiting Oxycodone HCl 5 mg 05/21/21 14:23 05/27/21 13:48 Oxycodone 5 Mg Tablet PO 5 mg Q4HR PRN Administration PAIN Pantoprazole Sodium 40 mg 05/27/21 10:00 05/31/21 10:02 Pantoprazole 40 Mg Tablet PO 40 mg QDAC DOROTHEA Administration Polyethylene Glycol 17 gm 05/23/21 09:00 05/31/21 09:58 Polyethylene Glycol 3350 17 Gm Packet PO 17 gm DAILY DOROTHEA Administration Prochlorperazine Edisylate 10 mg 05/21/21 14:24 05/21/21 15:38 Prochlorperazine 10 Mg/2 Ml Vial IVP 10 mg Q6HR PRN Administration Nausea / Vomiting Sodium Chloride 10 ml 05/19/21 09:00 05/31/21 15:53 Sodium Chloride Flush 0.9% 10 Ml Syringe IVP 10 ml 0100,0900,1700 DOROTHEA Administration Sucralfate 1 gm 05/28/21 08:13 05/31/21 15:53 Sucralfate 1 Gm/10 Ml Udc PO 1 gm 0700,1100,1600,2200 DOROTHEA Administration Tamsulosin HCl 0.4 mg 05/27/21 13:00 05/31/21 10:00 Tamsulosin 0.4 Mg Capsule PO 0.4 mg DAILY DOROTHEA Administration Throat Lozenges 1 lozenge 05/29/21 11:22 05/29/21 12:29 Benzocaine/Menthol Lozenge MM 1 lozenge Q2HR PRN Administration Throat pain - Lab Result Fish Bone Diagrams: 05/31/21 05:45 05/31/21 18:23 Subjective - Subjective Patient Reports: Feeling Better, Resting Comfortably Objective Vital Signs: Vital Signs - 24 hr 05/30/21 05/31/21 05/31/21 21:00 00:00 07:30 Temperature 36.4 C L 36.7 C 36.5 C Heart Rate [ 98 Brachial] Heart Rate [ 50 L 78 Monitoring electrodes] Respiratory 18 16 20 Rate Blood Pressure [Left Brachial artery] Blood Pressure 115/69 100/56 L 116/65 [Right Brachial artery] O2 Saturation 97 96 97 05/31/21 16:00 Temperature 36.5 C Heart Rate [ Brachial] Heart Rate [ 94 Monitoring electrodes] Respiratory 19 Rate Blood Pressure 112/69 [Left Brachial artery] Blood Pressure [Right Brachial artery] O2 Saturation 96 Oxygen O2 Source Room air I&O (Last 24 Hrs): Intake and Output Totals x24h 05/29/21 05/30/21 05/31/21 23:59 23:59 23:59 Intake Total 2254 2290 2300 Output Total 1825 2150 1125 Balance 131 571 1603 General: Alert HEENT: Other (very [place]) Neck: Supple Neuro: Alert Cardiovascular: Regular rate, Other (Irreg Rythm Holosystolic murmur, III/) Respiratory: Chest non-tender, No respiratory distress, Breath sounds nml Abdomen: Normal bowel sounds, Soft Extremities: Other (Bilateral lower extremity edema) Skin: No rashes (Few mild excoriations with evidence of venous stasis) - Results Results: Laboratory Results WBC 12.1 x10^3/uL (4.8-10.8) H 05/31/21 05:45 RBC 3.48 10^6/uL (4.70-6.10) L 05/31/21 05:45 Hgb 11.3 g/dL (14.0-18.0) L 05/31/21 05:45 Hct 33.3 % (42.0-52.0) L 05/31/21 05:45 MCV 95.7 fL (80.0-94.0) H 05/31/21 05:45 MCH 32.5 pg (27.0-31.0) H 05/31/21 05:45 MCHC 33.9 g/dL (32.0-36.0) 05/31/21 05:45 RDW 15.0 % (12.0-15.0) 05/31/21 05:45 Plt Count 302 10^3/uL (130-450) 05/31/21 05:45 MPV 11.1 fL (7.4-11.4) 05/31/21 05:45 Neut # (Auto) Not Reportable 05/31/21 05:45 Lymph # (Auto) Not Reportable 05/31/21 05:45 Bell # (Auto) Not Reportable 05/31/21 05:45 Eos # (Auto) Not Reportable 05/31/21 05:45 Baso # (Auto) Not Reportable 05/31/21 05:45 Absolute Nucleated RBC Not Reportable 05/31/21 05:45 Total Counted 100 05/31/21 05:45 Band Neuts % (Manual) 4 % (0-10) 05/31/21 05:45 Abnorm Lymph % (Manual) 0 % 05/31/21 05:45 Metamyelocytes % 1 % (-0) H 05/21/21 05:10 Myelocytes % 1 % (-0) H 05/30/21 05:36 Nucleated RBC % Not Reportable 05/31/21 05:45 Neutrophils # (Manual) 10.4 10^3/uL (1.5-6.6) H 05/31/21 05:45 Lymphocytes # (Manual) 0.4 10^3/uL (1.5-3.5) L 05/31/21 05:45 Monocytes # (Manual) 1.3 10^3/uL (0.0-1.0) H 05/31/21 05:45 Eosinophils # (Manual) 0.0 10^3/uL (0-0.7) 05/31/21 05:45 Basophils # (Manual) 0.0 10^3/uL (0-0.1) 05/31/21 05:45 Differential Comment MANUAL DIFFERENTIAL 05/31/21 05:45 Manual Slide Review Indicated 05/28/21 06:43 WBC Morphology NORMAL APPEARANCE (NORMAL) 05/29/21 06:15 Platelet Estimate NORMAL (130-450,000) (NORMAL) 05/30/21 05:36 Platelet Morphology NORMAL TOSHIA (NORMAL) 05/29/21 06:15 RBC Morph Micro Appear NORMAL APPEARANCE (NORMAL) 05/30/21 05:36 PT 19.5 secs (9.9-12.6) H 05/31/21 05:45 INR 1.8 (0.8-1.2) H 05/31/21 05:45 Anti-Xa Level 0.4 U/mL (-0.7) 05/24/21 05:45 Bld Gas Analysis Time 0545 05/19/21 05:35 Sample Site RIGHT RADIAL 05/19/21 05:35 ABG pH 7.42 (7.35-7.45) 05/19/21 05:35 ABG pCO2 36 mmHg (34-45) 05/19/21 05:35 ABG pO2 71 mmHg (80-100) L 05/19/21 05:35 ABG HCO3 22.4 mmol/L (22.0-26.0) 05/19/21 05:35 ABG Total CO2 23.5 MMOL/L (21.0-29.0) 05/19/21 05:35 ABG O2 Saturation 95 % (94-98) 05/19/21 05:35 ABG Base Excess -1.7 mmol/L (-2.0-3.0) 05/19/21 05:35 Fernando Test POSITIVE 05/19/21 05:35 O2 Delivery Device NON REBREATHER MASK 05/19/21 05:35 O2 Liters/Min 15.00 LPM 05/19/21 05:35 FiO2 100.00 05/19/21 05:35 Sodium 140 mmol/L (135-145) 05/31/21 05:45 Potassium 3.2 mmol/L (3.5-5.0) L 05/31/21 18:23 Chloride 109 mmol/L (101-111) 05/31/21 05:45 Carbon Dioxide 25 mmol/L (21-32) 05/31/21 05:45 Anion Gap 6.0 (6-13) 05/31/21 05:45 BUN 29 mg/dL (6-20) H 05/31/21 05:45 Creatinine 1.0 mg/dL (0.6-1.2) 05/31/21 05:45 Estimated GFR (MDRD) 70 (>89) L 05/31/21 05:45 Glucose 211 mg/dL (70-100) H 05/31/21 05:45 Lactic Acid 1.5 mmol/L (0.5-2.2) 05/21/21 09:08 Calcium 7.6 mg/dL (8.5-10.3) L 05/31/21 05:45 Phosphorus 2.3 mg/dL (2.5-4.6) L 05/31/21 05:45 Magnesium 1.8 mg/dL (1.7-2.8) 05/31/21 05:45 Total Bilirubin 0.9 mg/dL (0.2-1.0) 05/18/21 21:45 AST 18 IU/L (10-42) 05/18/21 21:45 ALT 18 IU/L (10-60) 05/18/21 21:45 Alkaline Phosphatase 43 IU/L (42-121) 05/18/21 21:45 Troponin I High Sens 6861.0 ng/L (2.3-19.7) H* 05/21/21 12:13 B-Natriuretic Peptide 1426 pg/mL (5-100) H 05/19/21 17:40 Total Protein 5.8 g/dL (6.7-8.2) L 05/18/21 21:45 Albumin 2.0 g/dL (3.2-5.5) L 05/30/21 05:36 Globulin 2.4 g/dL (2.1-4.2) 05/18/21 21:45 Albumin/Globulin Ratio 1.4 (1.0-2.2) 05/18/21 21:45 Lipase 24 U/L (22-51) 05/18/21 21:45 Urine Color YELLOW 05/29/21 13:49 Urine Clarity HAZY (CLEAR) 05/29/21 13:49 Urine pH 5.5 PH (5.0-7.5) 05/29/21 13:49 Ur Specific [place] 1.015 (1.002-1.030) 05/29/21 13:49 Urine Protein 100 mg/dL (NEGATIVE) H 05/29/21 13:49 Urine Glucose (UA) 100 mg/dL (NEGATIVE) H 05/29/21 13:49 Urine Ketones TRACE mg/dL (NEGATIVE) 05/29/21 13:49 Urine Occult Blood LARGE (NEGATIVE) H 05/29/21 13:49 Urine Nitrite NEGATIVE (NEGATIVE) 05/29/21 13:49 Urine Bilirubin NEGATIVE (NEGATIVE) 05/29/21 13:49 Urine Urobilinogen 0.2 (NORMAL) E.U./dL (NORMAL) 05/29/21 13:49 Ur Leukocyte Esterase NEGATIVE (NEGATIVE) 05/29/21 13:49 Urine RBC 11-25 /HPF (0-5) H 05/29/21 13:49 Urine WBC 0-3 /HPF (0-3) 05/29/21 13:49 Ur Squamous Epith Cells NONE SEEN (<= Few) 05/29/21 13:49 Urine Bacteria Rare /HPF (None Seen) 05/29/21 13:49 Urine Casts 0-2 Course Granular /LPF 05/29/21 13:49 Ur Microscopic Review NOT INDICATED 05/19/21 06:05 Urine Culture Comments NOT INDICATED 05/29/21 13:49 Nasal Screen MRSA (PCR) NEGATIVE (NEGATIVE) 05/19/21 06:00 Stl C. diff Tox B Gene NEGATIVE (NEGATIVE) 05/27/21 13:15 Last Dose Date Not Reportable 05/31/21 12:59 Last Dose Time Not Reportable 05/31/21 12:59 Vancomycin Trough 18.9 ug/mL (10.0-20.0) 05/31/21 12:59 - Procedures Procedures: Procedures BYPASS DESCENDING COLON TO CUTANEOUS, OPEN APPROACH (05/14/21) CATARAC PHACOEMULS/ASPIR (12/28/14) EXCISION OF LEFT LOBE LIVER, OPEN APPROACH, DIAGNOSTIC (05/14/21) EXCISION OF SIGMOID COLON, ENDO, DIAGN (05/14/21) INSERT LENS AT CATAR EXT (12/28/14) IRRIGATE OF PERITON CAV USING IRRIGAT, PERC APPROACH, DIAGN (05/14/21) ABX Reporting Has patient been on IV antibiotics over the past 48 hours?: Yes Current Medications - Current Medications Current Medications: Current Medications Generic Name Dose Route Start Last Admin Trade Name Telly PRN Reason Stop Dose Admin Acetaminophen 650 mg 05/18/21 23:57 05/31/21 00:58 Acetaminophen 325 Mg Tablet PO 650 mg Q4HR PRN Administration Pain 1 to 4 Apixaban 5 mg 05/31/21 09:00 05/31/21 10:06 Apixaban 5 Mg Tablet PO 5 mg BID DOROTHEA Administration Aspirin 81 mg 05/31/21 09:00 05/31/21 10:05 Aspirin Ec 81 Mg Tablet PO 81 mg DAILY DOROTHEA Administration Atorvastatin Calcium 40 mg 05/22/21 21:00 05/30/21 21:50 Atorvastatin 40 Mg Tablet PO 40 mg QPM DOROTHEA Administration Calcium Carbonate/Glycine 500 mg 05/21/21 05:20 05/30/21 10:56 Calcium Carbonate Chew 500 Mg Tablet PO 500 mg BID PRN Administration NEEDED PER PROVIDER ORDERS Cholecalciferol 800 unit 05/29/21 11:00 05/31/21 10:00 Cholecalciferol 400 Unit Tablet PO 800 unit DAILY DOROTHEA Administration Furosemide 20 mg 05/28/21 12:00 05/31/21 10:01 Furosemide 20 Mg Tablet PO 20 mg DAILY DOROTHEA Administration Guaifenesin 600 mg 05/23/21 21:00 05/31/21 10:01 Guaifenesin 600 Mg Tablet PO 600 mg BID DOROTHEA Administration Metronidazole 500 mg in 100 mls @ 100 mls/hr 05/19/21 06:00 05/31/21 17:04 Flagyl 500 Mg/100 Ml IV Infused Q8H DOROTHEA Infusion Piperacillin Sod/Tazobactam 100 mls @ 200 mls/hr 05/29/21 12:00 05/31/21 18:42 Sod 3.375 gm/ Sodium Chloride IV Infused Q6H DOROTHEA Infusion Vancomycin HCl 1 gm/ Sodium 250 mls @ 167 mls/hr 05/30/21 01:00 05/31/21 15:34 Chloride IV Infused Q12H DOROTHEA Infusion Sodium Chloride 250 mls @ 20 mls/hr 05/29/21 20:49 05/31/21 18:43 Normal Saline 0.9% IV 10 mls/hr Q24H PRN Administration TKO RATE Insulin Aspart 1 - 5 unit 05/31/21 12:00 05/31/21 17:14 Insulin Aspart 300 Unit/3 Ml Pen SUBQ 4 unit 0800,1200,1700,2100 DOROTHEA Administration Protocol Insulin Glargine 6 unit 05/28/21 21:00 05/30/21 21:49 Insulin Glargine 300 Unit/3 Ml Pen SUBQ 6 unit QPM DOROTHEA Administration Lactobacillus Rhamnosus 1 cap 05/30/21 12:00 05/31/21 10:02 Lactobacillus Rhamnosus Gg Capsule PO 1 cap DAILY DOROTHEA Administration Magnesium Oxide 400 mg 05/29/21 12:00 05/31/21 09:59 Magnesium Oxide 400 Mg Tablet PO 400 mg DAILYWM DOROTHEA Administration Metoprolol Succinate 25 mg 05/28/21 12:01 05/31/21 09:59 Metoprolol Succinate 25 Mg Tablet PO 25 mg DAILY DOROTHEA Administration Mineral Oil 1 applic 05/24/21 14:36 05/28/21 21:43 Min Oil/Dimethicon/Coconut Oil 92 Gm Tube TOP 1 applic PRN PRN Administration Skin Care Multivitamins/Minerals 1 tab 05/25/21 08:00 05/31/21 10:01 Multivitamin W/Minerals Tablet PO 1 tab DAILYWM DOROTHEA Administration Ondansetron HCl 4 mg 05/18/21 23:57 05/21/21 11:48 Ondansetron 4 Mg/2 Ml Vial IVP 4 mg Q6HR PRN Administration Nausea / Vomiting Oxycodone HCl 5 mg 05/21/21 14:23 05/27/21 13:48 Oxycodone 5 Mg Tablet PO 5 mg Q4HR PRN Administration PAIN Pantoprazole Sodium 40 mg 05/27/21 10:00 05/31/21 10:02 Pantoprazole 40 Mg Tablet PO 40 mg QDAC DOROTHEA Administration Polyethylene Glycol 17 gm 05/23/21 09:00 05/31/21 09:58 Polyethylene Glycol 3350 17 Gm Packet PO 17 gm DAILY DOROTHEA Administration Prochlorperazine Edisylate 10 mg 05/21/21 14:24 05/21/21 15:38 Prochlorperazine 10 Mg/2 Ml Vial IVP 10 mg Q6HR PRN Administration Nausea / Vomiting Sodium Chloride 10 ml 05/19/21 09:00 05/31/21 15:53 Sodium Chloride Flush 0.9% 10 Ml Syringe IVP 10 ml 0100,0900,1700 DOROTHEA Administration Sucralfate 1 gm 05/28/21 08:13 05/31/21 15:53 Sucralfate 1 Gm/10 Ml Udc PO 1 gm 0700,1100,1600,2200 DOROTHEA Administration Tamsulosin HCl 0.4 mg 05/27/21 13:00 05/31/21 10:00 Tamsulosin 0.4 Mg Capsule PO 0.4 mg DAILY DOROTHEA Administration Throat Lozenges 1 lozenge 05/29/21 11:22 05/29/21 12:29 Benzocaine/Menthol Lozenge MM 1 lozenge Q2HR PRN Administration Throat pain
[2021-05-31] MEDS: INSULIN GLARGINE 300 UNIT/3 ML PEN SUBQ SCH (20:53)
[2021-05-31] MEDS: ATORVASTATIN 40 MG TABLET PO SCH (21:48)
[2021-06-01] MEDS: VANCOMYCIN INJ 1 GM in SODIUM CHLORIDE 0.9% 250 ML IV SCH ×2 (00:33→13:17)
[2021-06-01] MEDS: metroNIDAZOLE 500 MG/100 ML 500 MG/100 ML BAG IV SCH ×3 (06:31→21:55)
[2021-06-01] MEDS: PANTOPRAZOLE 40 MG TABLET PO SCH (06:31)
[2021-06-01] MEDS: SUCRALFATE 1 GM/10 ML UDC PO SCH ×4 (06:31→20:05)
[2021-06-01] MEDS: PIPERACILLIN/TAZOBACTAM 3.375 GM in SODIUM CHLORIDE 0.9% MINIBAG 100 ML IV SCH ×3 (06:31→18:10)
[2021-06-01 07:22] LABS: BASOPHILS % (AUTO) 0.3 %; EOSINOPHILS # (AUTO) 0.1 10^3/uL (0.0-0.7); EOSINOPHILS % (AUTO) 0.9 %; HCT - HEMATOCRIT 33.5 % (42.0-52.0); HGB - HEMOGLOBIN 10.9 g/dL (14.0-18.0); LYMPHOCYTES # (AUTO) 1.2 10^3/uL (1.5-3.5); LYMPHOCYTES % (AUTO) 9.4 %; MEAN CORPUSCULAR HEMOGLOBIN 31.5 pg (27.0-31.0); MEAN CORPUSCULAR HGB CONC 32.5 g/dL (32.0-36.0); MEAN CORPUSCULAR VOLUME 96.8 fL (80.0-94.0); MEAN PLATELET VOLUME 11.3 fL (7.4-11.4); MONOCYTES # (AUTO) 1.1 10^3/uL (0.0-1.0); MONOCYTES % (AUTO) 8.8 %; NEUTROPHILS # (AUTO) 9.8 10^3/uL (1.5-6.6); NEUTROPHILS % (AUTO) 79.4 %; PLT - PLATELET COUNT 306 10^3/uL (130-450); RED BLOOD COUNT 3.46 10^6/uL (4.70-6.10); RED CELL DISTRIBUTION WIDTH 15.4 % (12.0-15.0); WHITE BLOOD COUNT 12.3 x10^3/uL (4.8-10.8)
[2021-06-01 07:34] LABS: CALCIUM 7.4 mg/dL (8.5-10.3); CREATININE 0.9 mg/dL (0.6-1.2); MAGNESIUM 1.9 mg/dL (1.7-2.8); POTASSIUM 2.9 mmol/L (3.5-5.0)
[2021-06-01] MEDS: INSULIN ASPART 300 UNIT/3 ML PEN SUBQ SCH ×5 (08:56→20:48)
[2021-06-01] MEDS: CHOLECALCIFEROL 400 UNIT TABLET PO SCH (08:57)
[2021-06-01] MEDS: ALBUMIN 25% 12.5 GM/50 ML VIAL IV SCH (08:57)
[2021-06-01] MEDS: APIXABAN 5 MG TABLET PO SCH ×2 (09:00→20:05)
[2021-06-01] MEDS: FUROSEMIDE 20 MG TABLET PO SCH (09:00)
[2021-06-01] MEDS: LACTOBACILLUS RHAMNOSUS GG CAPSULE PO SCH (09:00)
[2021-06-01] MEDS: MULTIVITAMIN W/MINERALS TABLET PO SCH (09:00)
[2021-06-01] MEDS: METOPROLOL SUCCINATE 25 MG TABLET PO SCH (09:01)
[2021-06-01] MEDS: MAGNESIUM OXIDE 400 MG TABLET PO SCH (09:01)
[2021-06-01] MEDS: ASPIRIN EC 81 MG TABLET PO SCH (09:01)
[2021-06-01] MEDS: TAMSULOSIN 0.4 MG CAPSULE PO SCH (09:02)
[2021-06-01] MEDS: guaiFENesin 600 MG TABLET PO SCH ×2 (09:02→20:05)
[2021-06-01] MEDS: polyethylene glycoL 3350 17 GM PACKET PO SCH (09:02)
[2021-06-01] MEDS: SODIUM CHLORIDE FLUSH 0.9% 10 ML SYRINGE IVP SCH ×2 (09:03→16:28)
[2021-06-01] MEDS: POTASSIUM CHLOR 10 MEQ/100 ML 10 MEQ/100 ML BAG IV SCH ×4 (10:56→14:26)
[2021-06-01] MEDS: POTASSIUM CHLORIDE 20 MEQ TABLET PO SCH ×2 (12:24→16:28)
--- NOTE | 2021-06-01 13:59 | PROVIDER PROGRESS NOTE ---
Progress Note Subjective 89-year-old male readmitted with shock following discharge from palliative diverting loop colostomy (see below): Pre-Op Diagnosis: Obstructing sigmoid colonic mass; likely metastatic disease hepatic mets Procedure Performed: 1. Diagnostic laparoscopy 2. Laparoscopic-assisted loop colostomy 3. Laparoscopic assisted Left lobe of liver core biopsies 4. Laparoscopic assisted peritoneal washings and aspiration 5. Transversus abdominis plane block per anesthesia 6. Open umbilical hernia repair Since readmission the patient had been on multiple pressors following massive fluid resuscitation. Patient had blood cultures positive for gram valuable bacilli. Had been plans for central venous access. NSTEMI secondary to demand ischemia in the setting of CHF exacerbation, aortic stenosis, atrial fibrillation (paroxysmal). Known metastatic colon cancer with abnormal imaging consistent with hepatic and splenic metastases although intraoperative biopsy negative for malignancy. Son and daughter at bedside patient overall doing much improved. Currently off pressors. Persistent leukocytosis, now increased to 20. Please see imaging from below. Called for IR drainage consultation. Discussed with Dr. Knox. He adamantly insisted that these were the consequence of perforation. I suggested that clinically the patient had no signs concerning for peritonitis, had no resection, was only notable for core needle biopsy and these were likely hematoma in a patient anticoagulated following NSTEMI given how the largest collection was subcapsular by the liver by my estimation. Objective Zeinab hemodynamically acceptable. General Appearance: positive: No acute distress Eyes Bilateral: positive: Normal inspection ENT: positive: ENT inspection nml Neck: positive: Nml inspection Respiratory: positive: Chest non-tender, No respiratory distress, Breath sounds nml. negative: Wheezes, Rales, Rhonchi Cardiovascular: positive: Regular rate & rhythm Abdomen: positive: No distention, Other. negative: Guarding, Rebound Extremities: positive: Non-tender, Full ROM, Nml appearance Neurologic/Psychiatric: positive: Oriented x3, CN's nml (2-12) Stoma pink and productive of flatus. Positive for Brown stool. Impression/Plan 89-year-old male readmitted with shock following discharge from palliative diverting loop colostomy. Obstructing colon cancer. Metastatic. Liver biopsy nondiagnostic for metastases although imaging consistent with splenic and hepatic metastases. CT chest with no evidence of pulmonary metastases. NSTEMI, CHF exacerbation, aortic stenosis, atrial fibrillation. Bacteremia. Repeat imaging concerning for possible abscess; discussed at length with interventional radiologist and I am not convinced these reflect the consequence of perforation though given the significance of the patient's hypotension ischemic necrosis is not unlikely. However in the setting of a benign abdomen and known recent surgery, during which liver biopsies performed are consistent with a subcapsular collection, I do believe that any intervention with associated risk should be approached with a healthy degree of trepidation in this tenuous gentleman. In retrospect although the mass appeared resectable laparoscopically, he most certainly would not have survived anything more than we had performed which was specifically catered to his presentation with metastases and his debilitated, malnourished state. Thus I do remain confident that we have performed the most appropriate intervention in the setting of his complex presentation and that stenting would actually have been even more likely to inspire a more profound inflammatory and septic response with associated risk of perforation being exceedingly high. (1) GI - IVF, bowel regimen, advance diet as tolerated. GI ppx. Opiate sparring analgesia. (2) SURGERY - May need port for palliative chemotherapy pending oncology referral. In the setting of bacteremia would consider removal of central venous catheter at soonest with a line change. We will continue to monitor and trend fever graft and white blood cell counts. Although initially on admission there was no evidence of abdominal source for patient's sepsis - no fluid collections, abscesses, evidence of perforation. However recent imaging shows fluid collections. I am not averse to consideration for drainage for diagnostic purposes, as this would not be therapeutic given the inability to completely isolate all fluid collections in this patient with known anasarca, recent surgery, and likely postoperative short-term adhesions. I do believe that this is generally a consequence of the patient who had had a liver biopsy and had undergone systemic anticoagulation with likely consequence of postprocedural hematoma. (3) Renal/Lytes - continue IVF. Renal indices within normal limits. Trial of void. (4) Respiratory - O2 as necessary. Continue IS. (5) Heme - Will continue with DVT ppx. H/H stable. (6) Cardiovascular - HD acceptable. (7) Neuro - Opiate sparring analgesia. Antispasmodics with Robaxin. Neuropathic agents. (8) PT OT and discharge planning likely within 24 hours (9) Infectious DISEASE - Follow-up cultures; continue broad-spectrum antibiotics. In the setting of bacteremia would consider removal of central venous catheter at soonest with a line change. We will continue to monitor and trend fever graph and white blood cell counts. May 22, 2021 CT abdomen pelvis: 1. Dilated loops of small bowel in the left abdomen. Small air-fluid levels. Findings suspicious for adynamic ileus versus small bowel obstruction. Gaseous distention of the stomach. 2. Moderate volume of ascites, increased. Anasarca. 3. Hypodense hepatic lesions most compatible with metastatic disease. Is not w ell evaluated on this exam due to contrast bolus timing. 5. Small volume of pneumoperitoneum is decreased. This is likely iatrogenic from recent colectomy/colostomy. May 29, 2021 CT abdomen pelvis: 1. Interval development of several peripherally enhancing intraperitoneal fluid collections and air collections consistent with abscesses, particularly surrounding the liver and of the right lower quadrant. 2. Stable bilateral pleural effusions. 3. Persistent anasarca. 4. Decreased caliber of several small bowel loops suggesting resolving ileus. 5. Cholelithiasis 6. Liver and spleen abscesses or metastasis. Please note that voice recognition software was used to transcribe this note and inadvertent errors might persist in spite of review and editing. I am obliged to you for your attention. I am thankful to you for allowing me to participate with you in this care of this patient.
--- NOTE | 2021-06-01 17:35 | HISTORY & PHYSICAL EXAMINATION ---
Chief Complaint - Chief Complaint Chief Complaint: not feeling well History of Present Illness - Admitted From Admitted From:: ED - History Obtained From Records Reviewed: yes History obtained from: pt and family Exam Limitations: none - History of Present Illness HPI Comment/Other: Went home doing well following loop colostomy for obstructing colon cancer and came back several hours later not feeling well History - Past Medical History Cardiovascular: reports: Hypertension, High cholesterol, Atrial fibrillation, Murmur Respiratory: reports: Other Neuro: reports: None Endocrine/Autoimmune: reports: Type 2 diabetes GI: reports: GERD, Diverticulitis, Other (colon cancer with liver mets. ) JR. SYSTEMS ADMINISTRATOR: reports: None : reports: Benign prostate hypertrophy, Retention, Nocturia, Frequency HEENT: reports: Chronic vision loss, Chronic sinusitis, Macular degeneration, Chronic hearing loss Psych: reports: None Musculoskeletal: reports: None Derm: reports: None MRSA Hx?: No - Past Surgical History General: reports: Other HEENT: reports: Cataracts, Tonsil/Adenoidectomy Derm: reports: Other - Family & Social History Family History: Mother: , Father: Family History Comment/Other: Mother: lived until age 94, HTN. Father: Had rectal cancer, at age 62 from other causes. 2 brothers: both smoked, of CAD, aortic anerysm Social History Notes: The patient is retired and lives alone since being 8 years ago when his from lung CA. He is retired after working off duty, and at [employer] since 1995. 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 He enjoys cross word puzzles, taking care of his home but gave up mowing his lawn last summer due to his age. He works out at [employer] work out [employer] several times per week. He has very supportive and attentive neighbors close by. He has a great relationship with is daughter and son who live near [place]. He states that he often drives to [place] to visit. He denies tobacco or illicit drug use. He admits to one glass of wine nightly. He wishes to be a FULL code. - Substance History Use: Uses substance without health or social issues: NONE - POLST Patient has POLST: No POLST Status: Full Code Meds/Allgy - Home Medications Home Medications: Ambulatory Orders Medication Instructions Recorded Confirmed Aspirin [Adult Low Dose Aspirin EC] 81 mg PO DAILY 01/10/20 05/18/21 Doxazosin Mesylate 8 mg PO DAILY 01/10/20 05/18/21 Multivit-Min/FA/Lycopen/Lutein 1 each PO DAILY 01/10/20 05/18/21 [Centrum Silver Men Tablet] Rosuvastatin Calcium 20 mg PO DAILY 01/10/20 05/18/21 Lisinopril [Zestril] 10 mg PO DAILY #30 tablet 01/11/20 05/18/21 metFORMIN [Glucophage] 250 mg PO BIDWM 05/13/21 05/18/21 - Allergies Allergies/Adverse Reactions: Allergies Allergy/AdvReac Type Severity Reaction Status Date / Time No Known Drug Allergies Allergy Verified 05/13/21 13:20 Review of Systems - Other Findings Other Findings: 10 pt ros as above otherwise unremarkable Exam - Vital Signs Reviewed Vital Signs: Yes Vital Signs: Vital Signs x48h Temp Pulse Resp BP Pulse Ox 06/01/21 16:00 36.2 C L 104 H 19 109/70 98 06/01/21 11:59 36.8 C 84 19 112/59 L 97 - Physical Exam General Appearance: positive: Alert, Mild distress Eyes Bilateral: positive: PERRL, EOMI ENT: positive: No signs of dehydration Neck: positive: No JVD Respiratory: positive: No respiratory distress, Breath sounds nml Cardiovascular: positive: Irregularly irregular Abdomen: positive: Non-tender, No distention, Other (pink warm functional stoma) Neurologic/Psychiatric: positive: Oriented x3 Conclusion/Plan - Problem List (1) Aortic stenosis Conclusion/Plan: Went home in very good condition earlier and comes back many hours later not feeling well and with low blood pressure and irregular heart rate. Benign abdomen. Plan medicine consult - Lab Results Fish Bones: 06/01/21 06:40 06/01/21 06:40
[2021-06-01] MEDS: ATORVASTATIN 40 MG TABLET PO SCH (20:05)
--- NOTE | 2021-06-01 20:20 | PROVIDER PROGRESS NOTE ---
Assessment/Plan - Problem List (1) Bacteremia Assessment/Plan: Blood culture at admission grew gram variable bacilli. Repeat blood cultures have been negative, but one blood cx (for anaerobes) had to be sent out to [facility] in [place] He had been on empiric cefepime and Flagyl for a presumed GI source. WBC trended down today, so after dicsussion with Dr Lee (Dr Trujillo spoke with him today), previous plans for percutaneous drainage of abscess by IR was aborted in favor of continuing conservative management with IV Abx and monitoring until Thursday. Cont Zosyn, Flagyl, add vancomycin. (2) Leukocytosis Assessment/Plan: WBC Stable at 12 Cont current IV Abx and monitor closely If increases, may need to have drainage of abscesses (3) Urinary retention with incomplete bladder emptying Assessment/Plan: Hx of retention w/ difficult previous Hernadez insertion Maintain current Hernadez (4) Acute on chronic systolic heart failure Assessment/Plan: Fluid overloaded 2/2 fluid resuscitation for sepsis in setting of CHF Cont diuresis Albumin low at 2.0 Will start IV albumin Monitor weights and I/O's (5) Atrial fibrillation Assessment/Plan: Rate controlled Cont current meds Hold anticoagulation on Thursday night in case pt again needs procedure/abscess drainage (6) Colon cancer Assessment/Plan: New Dx Needs oncology referral at d/c (7) Status post colostomy Assessment/Plan: Appreciate gen surg follow up No current issues related to colostomy (8) Aortic stenosis Assessment/Plan: Stable but presents risks for surgery As above, cont diuresis (9) Diabetes mellitus type 2, controlled Assessment/Plan: As per Hx Continue with carb controlled diet and sliding scale insulin coverage - Current Meds Current Meds: Current Medications Generic Name Dose Route Start Last Admin Trade Name Freq PRN Reason Stop Dose Admin Acetaminophen 650 mg 05/18/21 23:57 05/31/21 20:39 Acetaminophen 325 Mg Tablet PO 650 mg Q4HR PRN Administration Pain 1 to 4 Apixaban 5 mg 05/31/21 09:00 06/01/21 09:00 Apixaban 5 Mg Tablet PO 5 mg BID DOROTHEA Administration Aspirin 81 mg 05/31/21 09:00 06/01/21 09:01 Aspirin Ec 81 Mg Tablet PO 81 mg DAILY DOROTHEA Administration Atorvastatin Calcium 40 mg 05/22/21 21:00 05/31/21 21:48 Atorvastatin 40 Mg Tablet PO 40 mg QPM DOROTHEA Administration Calcium Carbonate/Glycine 500 mg 05/21/21 05:20 05/30/21 10:56 Calcium Carbonate Chew 500 Mg Tablet PO 500 mg BID PRN Administration NEEDED PER PROVIDER ORDERS Cholecalciferol 800 unit 05/29/21 11:00 06/01/21 08:57 Cholecalciferol 400 Unit Tablet PO 800 unit DAILY DOROTHEA Administration Furosemide 20 mg 05/28/21 12:00 06/01/21 09:00 Furosemide 20 Mg Tablet PO 20 mg DAILY DOROTHEA Administration Guaifenesin 600 mg 05/23/21 21:00 06/01/21 09:02 Guaifenesin 600 Mg Tablet PO 600 mg BID DOROTHEA Administration Metronidazole 500 mg in 100 mls @ 100 mls/hr 05/19/21 06:00 06/01/21 16:00 Flagyl 500 Mg/100 Ml IV Infused Q8H DOROTHEA Infusion Piperacillin Sod/Tazobactam 100 mls @ 200 mls/hr 05/29/21 12:00 06/01/21 18:40 Sod 3.375 gm/ Sodium Chloride IV Infused Q6H DOROTHEA Infusion Vancomycin HCl 1 gm/ Sodium 250 mls @ 167 mls/hr 05/30/21 01:00 06/01/21 14:58 Chloride IV Infused Q12H DOROTHEA Infusion Sodium Chloride 250 mls @ 20 mls/hr 05/29/21 20:49 05/31/21 18:43 Normal Saline 0.9% IV 10 mls/hr Q24H PRN Administration TKO RATE Albumin Human 12.5 gm in 50 mls @ 50 mls/hr 06/01/21 09:00 06/01/21 13:30 Albuminar-25 IV 06/03/21 08:59 Infused DAILY DOROTHEA Infusion Insulin Aspart 1 - 5 unit 05/31/21 12:00 06/01/21 16:29 Insulin Aspart 300 Unit/3 Ml Pen SUBQ 3 unit 0800,1200,1700,2100 DOROTHEA Administration Protocol Insulin Glargine 6 unit 05/28/21 21:00 05/31/21 20:53 Insulin Glargine 300 Unit/3 Ml Pen SUBQ 6 unit QPM DOROTHEA Administration Lactobacillus Rhamnosus 1 cap 05/30/21 12:00 06/01/21 09:00 Lactobacillus Rhamnosus Gg Capsule PO 1 cap DAILY DOROTHEA Administration Magnesium Oxide 400 mg 05/29/21 12:00 06/01/21 09:01 Magnesium Oxide 400 Mg Tablet PO 400 mg DAILYWM DOROTHEA Administration Metoprolol Succinate 25 mg 05/28/21 12:01 06/01/21 09:01 Metoprolol Succinate 25 Mg Tablet PO 25 mg DAILY DOROTHEA Administration Mineral Oil 1 applic 05/24/21 14:36 05/28/21 21:43 Min Oil/Dimethicon/Coconut Oil 92 Gm Tube TOP 1 applic PRN PRN Administration Skin Care Multivitamins/Minerals 1 tab 05/25/21 08:00 06/01/21 09:00 Multivitamin W/Minerals Tablet PO 1 tab DAILYWM DORTOHEA Administration Ondansetron HCl 4 mg 05/18/21 23:57 05/21/21 11:48 Ondansetron 4 Mg/2 Ml Vial IVP 4 mg Q6HR PRN Administration Nausea / Vomiting Oxycodone HCl 5 mg 05/21/21 14:23 05/27/21 13:48 Oxycodone 5 Mg Tablet PO 5 mg Q4HR PRN Administration PAIN Pantoprazole Sodium 40 mg 05/27/21 10:00 06/01/21 06:31 Pantoprazole 40 Mg Tablet PO 40 mg QDAC DOROTHEA Administration Polyethylene Glycol 17 gm 05/23/21 09:00 06/01/21 09:02 Polyethylene Glycol 3350 17 Gm Packet PO 17 gm DAILY DOROTHEA Administration Potassium Chloride 20 meq 06/01/21 12:00 06/01/21 16:28 Potassium Chloride 20 Meq Tablet PO 20 meq BIDWM DOROTHEA Administration Prochlorperazine Edisylate 10 mg 05/21/21 14:24 05/21/21 15:38 Prochlorperazine 10 Mg/2 Ml Vial IVP 10 mg Q6HR PRN Administration Nausea / Vomiting Sodium Chloride 10 ml 05/19/21 09:00 06/01/21 16:28 Sodium Chloride Flush 0.9% 10 Ml Syringe IVP 10 ml 0100,0900,1700 DOROTHEA Administration Sucralfate 1 gm 05/28/21 08:13 06/01/21 16:28 Sucralfate 1 Gm/10 Ml Udc PO 1 gm 0700,1100,1600,2200 DOROTHEA Administration Tamsulosin HCl 0.4 mg 05/27/21 13:00 06/01/21 09:02 Tamsulosin 0.4 Mg Capsule PO 0.4 mg DAILY DOROTHEA Administration Throat Lozenges 1 lozenge 05/29/21 11:22 05/29/21 12:29 Benzocaine/Menthol Lozenge MM 1 lozenge Q2HR PRN Administration Throat pain - Lab Result Fish Bone Diagrams: 06/01/21 06:40 06/01/21 18:00 - Additional Planning My Orders: My Active Orders 06/01/21 09:00 Albumin 25% [Albuminar-25] 12.5 gm in 50 ml IV DAILY 06/01/21 19:20 Message to Nursing [RC] QSHIFT Subjective - Subjective Patient Reports: Feeling Better, No Complaints Objective Vital Signs: Vital Signs - 24 hr 05/31/21 05/31/21 06/01/21 20:36 23:41 07:41 Temperature 37.0 C 36.4 C L 36.3 C L Heart Rate [ 68 82 Brachial] Heart Rate [ 60 Monitoring electrodes] Respiratory 18 20 17 Rate Blood Pressure 125/78 110/69 [Left Brachial artery] Blood Pressure 108/77 [Right Brachial artery] O2 Saturation 95 95 98 06/01/21 06/01/21 11:59 16:00 Temperature 36.8 C 36.2 C L Heart Rate [ Brachial] Heart Rate [ 84 104 H Monitoring electrodes] Respiratory 19 19 Rate Blood Pressure 112/59 L 109/70 [Left Brachial artery] Blood Pressure [Right Brachial artery] O2 Saturation 97 98 Oxygen O2 Source Room air I&O (Last 24 Hrs): Intake and Output Totals x24h 05/30/21 05/31/21 06/01/21 23:59 23:59 23:59 Intake Total 2290 2400 1970 Output Total 2150 1750 1250 Balance 140 650 720 General: Alert Cardiovascular: Regular rate (Systolic murmuer III/) Abdomen: Normal bowel sounds, Soft, Other (Colostomy with stool output, CDI) Genitourinary: Normal Inspection Skin: No rashes - Results Results: Laboratory Results WBC 12.3 x10^3/uL (4.8-10.8) H 06/01/21 06:40 RBC 3.46 10^6/uL (4.70-6.10) L 06/01/21 06:40 Hgb 10.9 g/dL (14.0-18.0) L 06/01/21 06:40 Hct 33.5 % (42.0-52.0) L 06/01/21 06:40 MCV 96.8 fL (80.0-94.0) H 06/01/21 06:40 MCH 31.5 pg (27.0-31.0) H 06/01/21 06:40 MCHC 32.5 g/dL (32.0-36.0) 06/01/21 06:40 RDW 15.4 % (12.0-15.0) H 06/01/21 06:40 Plt Count 306 10^3/uL (130-450) 06/01/21 06:40 MPV 11.3 fL (7.4-11.4) 06/01/21 06:40 Neut # (Auto) 9.8 10^3/uL (1.5-6.6) H 06/01/21 06:40 Lymph # (Auto) 1.2 10^3/uL (1.5-3.5) L 06/01/21 06:40 [place] # (Auto) 1.1 10^3/uL (0.0-1.0) H 06/01/21 06:40 Eos # (Auto) 0.1 10^3/uL (0.0-0.7) 06/01/21 06:40 Baso # (Auto) 0.0 10^3/uL (0.0-0.1) 06/01/21 06:40 Absolute Nucleated RBC 0.00 x10^3/uL 06/01/21 06:40 Total Counted 100 05/31/21 05:45 Band Neuts % (Manual) 4 % (0-10) 05/31/21 05:45 Abnorm Lymph % (Manual) 0 % 05/31/21 05:45 Metamyelocytes % 1 % (-0) H 05/21/21 05:10 Myelocytes % 1 % (-0) H 05/30/21 05:36 Nucleated RBC % 0.0 /100WBC 06/01/21 06:40 Neutrophils # (Manual) 10.4 10^3/uL (1.5-6.6) H 05/31/21 05:45 Lymphocytes # (Manual) 0.4 10^3/uL (1.5-3.5) L 05/31/21 05:45 Monocytes # (Manual) 1.3 10^3/uL (0.0-1.0) H 05/31/21 05:45 Eosinophils # (Manual) 0.0 10^3/uL (0-0.7) 05/31/21 05:45 Basophils # (Manual) 0.0 10^3/uL (0-0.1) 05/31/21 05:45 Differential Comment MANUAL DIFFERENTIAL 05/31/21 05:45 Manual Slide Review Indicated 05/28/21 06:43 WBC Morphology NORMAL APPEARANCE (NORMAL) 05/29/21 06:15 Platelet Estimate NORMAL (130-450,000) (NORMAL) 05/30/21 05:36 Platelet Morphology NORMAL TOSHIA (NORMAL) 05/29/21 06:15 RBC Morph Micro Appear NORMAL APPEARANCE (NORMAL) 05/30/21 05:36 PT 19.5 secs (9.9-12.6) H 05/31/21 05:45 INR 1.8 (0.8-1.2) H 05/31/21 05:45 Anti-Xa Level 0.4 U/mL (-0.7) 05/24/21 05:45 Bld Gas Analysis Time 0545 05/19/21 05:35 Sample Site RIGHT RADIAL 05/19/21 05:35 ABG pH 7.42 (7.35-7.45) 05/19/21 05:35 ABG pCO2 36 mmHg (34-45) 05/19/21 05:35 ABG pO2 71 mmHg (80-100) L 05/19/21 05:35 ABG HCO3 22.4 mmol/L (22.0-26.0) 05/19/21 05:35 ABG Total CO2 23.5 MMOL/L (21.0-29.0) 05/19/21 05:35 ABG O2 Saturation 95 % (94-98) 05/19/21 05:35 ABG Base Excess -1.7 mmol/L (-2.0-3.0) 05/19/21 05:35 Fernando Test POSITIVE 05/19/21 05:35 O2 Delivery Device NON REBREATHER MASK 05/19/21 05:35 O2 Liters/Min 15.00 LPM 05/19/21 05:35 FiO2 100.00 05/19/21 05:35 Sodium 143 mmol/L (135-145) 06/01/21 06:40 Potassium 3.4 mmol/L (3.5-5.0) L 06/01/21 18:00 Chloride 113 mmol/L (101-111) H 06/01/21 06:40 Carbon Dioxide 27 mmol/L (21-32) 06/01/21 06:40 Anion Gap 3.0 (6-13) L 06/01/21 06:40 BUN 23 mg/dL (6-20) H 06/01/21 06:40 Creatinine 0.9 mg/dL (0.6-1.2) 06/01/21 06:40 Estimated GFR (MDRD) 79 (>89) L 06/01/21 06:40 Glucose 186 mg/dL (70-100) H 06/01/21 06:40 Lactic Acid 1.5 mmol/L (0.5-2.2) 05/21/21 09:08 Calcium 7.4 mg/dL (8.5-10.3) L 06/01/21 06:40 Phosphorus 2.0 mg/dL (2.5-4.6) L 06/01/21 06:40 Magnesium 1.9 mg/dL (1.7-2.8) 06/01/21 06:40 Total Bilirubin 0.9 mg/dL (0.2-1.0) 05/18/21 21:45 AST 18 IU/L (10-42) 05/18/21 21:45 ALT 18 IU/L (10-60) 05/18/21 21:45 Alkaline Phosphatase 43 IU/L (42-121) 05/18/21 21:45 Troponin I High Sens 6861.0 ng/L (2.3-19.7) H* 05/21/21 12:13 B-Natriuretic Peptide 1426 pg/mL (5-100) H 05/19/21 17:40 Total Protein 5.8 g/dL (6.7-8.2) L 05/18/21 21:45 Albumin 2.0 g/dL (3.2-5.5) L 05/30/21 05:36 Globulin 2.4 g/dL (2.1-4.2) 05/18/21 21:45 Albumin/Globulin Ratio 1.4 (1.0-2.2) 05/18/21 21:45 Lipase 24 U/L (22-51) 05/18/21 21:45 Urine Color YELLOW 05/29/21 13:49 Urine Clarity HAZY (CLEAR) 05/29/21 13:49 Urine pH 5.5 PH (5.0-7.5) 05/29/21 13:49 Ur Specific [place] 1.015 (1.002-1.030) 05/29/21 13:49 Urine Protein 100 mg/dL (NEGATIVE) H 05/29/21 13:49 Urine Glucose (UA) 100 mg/dL (NEGATIVE) H 05/29/21 13:49 Urine Ketones TRACE mg/dL (NEGATIVE) 05/29/21 13:49 Urine Occult Blood LARGE (NEGATIVE) H 05/29/21 13:49 Urine Nitrite NEGATIVE (NEGATIVE) 05/29/21 13:49 Urine Bilirubin NEGATIVE (NEGATIVE) 05/29/21 13:49 Urine Urobilinogen 0.2 (NORMAL) E.U./dL (NORMAL) 05/29/21 13:49 Ur Leukocyte Esterase NEGATIVE (NEGATIVE) 05/29/21 13:49 Urine RBC 11-25 /HPF (0-5) H 05/29/21 13:49 Urine WBC 0-3 /HPF (0-3) 05/29/21 13:49 Ur Squamous Epith Cells NONE SEEN (<= Few) 05/29/21 13:49 Urine Bacteria Rare /HPF (None Seen) 05/29/21 13:49 Urine Casts 0-2 Course Granular /LPF 05/29/21 13:49 Ur Microscopic Review NOT INDICATED 05/19/21 06:05 Urine Culture Comments NOT INDICATED 05/29/21 13:49 Nasal Screen MRSA (PCR) NEGATIVE (NEGATIVE) 05/19/21 06:00 Stl C. diff Tox B Gene NEGATIVE (NEGATIVE) 05/27/21 13:15 Last Dose Date Not Reportable 05/31/21 12:59 Last Dose Time Not Reportable 05/31/21 12:59 Vancomycin Trough 18.9 ug/mL (10.0-20.0) 05/31/21 12:59 - Procedures Procedures: Procedures BYPASS DESCENDING COLON TO CUTANEOUS, OPEN APPROACH (05/14/21) CATARAC PHACOEMULS/ASPIR (12/28/14) EXCISION OF LEFT LOBE LIVER, OPEN APPROACH, DIAGNOSTIC (05/14/21) EXCISION OF SIGMOID COLON, ENDO, DIAGN (05/14/21) INSERT LENS AT CATAR EXT (12/28/14) IRRIGATE OF PERITON CAV USING IRRIGAT, PERC APPROACH, DIAGN (05/14/21) ABX Reporting Has patient been on IV antibiotics over the past 48 hours?: Yes Current Medications - Current Medications Current Medications: Current Medications Generic Name Dose Route Start Last Admin Trade Name Freq PRN Reason Stop Dose Admin Acetaminophen 650 mg 05/18/21 23:57 05/31/21 20:39 Acetaminophen 325 Mg Tablet PO 650 mg Q4HR PRN Administration Pain 1 to 4 Apixaban 5 mg 05/31/21 09:00 06/01/21 20:05 Apixaban 5 Mg Tablet PO 5 mg BID DOROTHEA Administration Aspirin 81 mg 05/31/21 09:00 06/01/21 09:01 Aspirin Ec 81 Mg Tablet PO 81 mg DAILY DOROTHEA Administration Atorvastatin Calcium 40 mg 05/22/21 21:00 06/01/21 20:05 Atorvastatin 40 Mg Tablet PO 40 mg QPM DOROTHEA Administration Calcium Carbonate/Glycine 500 mg 05/21/21 05:20 05/30/21 10:56 Calcium Carbonate Chew 500 Mg Tablet PO 500 mg BID PRN Administration NEEDED PER PROVIDER ORDERS Cholecalciferol 800 unit 05/29/21 11:00 06/01/21 08:57 Cholecalciferol 400 Unit Tablet PO 800 unit DAILY DOROTHEA Administration Furosemide 20 mg 05/28/21 12:00 06/01/21 09:00 Furosemide 20 Mg Tablet PO 20 mg DAILY DOROTHEA Administration Guaifenesin 600 mg 05/23/21 21:00 06/01/21 20:05 Guaifenesin 600 Mg Tablet PO 600 mg BID DOROTHEA Administration Metronidazole 500 mg in 100 mls @ 100 mls/hr 05/19/21 06:00 06/01/21 16:00 Flagyl 500 Mg/100 Ml IV Infused Q8H DOROTHEA Infusion Piperacillin Sod/Tazobactam 100 mls @ 200 mls/hr 05/29/21 12:00 06/01/21 18:40 Sod 3.375 gm/ Sodium Chloride IV Infused Q6H DOROTHEA Infusion Vancomycin HCl 1 gm/ Sodium 250 mls @ 167 mls/hr 05/30/21 01:00 06/01/21 14:58 Chloride IV Infused Q12H DOROTHEA Infusion Sodium Chloride 250 mls @ 20 mls/hr 05/29/21 20:49 05/31/21 18:43 Normal Saline 0.9% IV 10 mls/hr Q24H PRN Administration TKO RATE Albumin Human 12.5 gm in 50 mls @ 50 mls/hr 06/01/21 09:00 06/01/21 13:30 Albuminar-25 IV 06/03/21 08:59 Infused DAILY DOROTHEA Infusion Insulin Aspart 1 - 5 unit 05/31/21 12:00 06/01/21 16:29 Insulin Aspart 300 Unit/3 Ml Pen SUBQ 3 unit 0800,1200,1700,2100 DOROTHEA Administration Protocol Insulin Glargine 6 unit 05/28/21 21:00 05/31/21 20:53 Insulin Glargine 300 Unit/3 Ml Pen SUBQ 6 unit QPM DOROTHEA Administration Lactobacillus Rhamnosus 1 cap 05/30/21 12:00 06/01/21 09:00 Lactobacillus Rhamnosus Gg Capsule PO 1 cap DAILY DOROTHEA Administration Magnesium Oxide 400 mg 05/29/21 12:00 06/01/21 09:01 Magnesium Oxide 400 Mg Tablet PO 400 mg DAILYWM DOROTHEA Administration Metoprolol Succinate 25 mg 05/28/21 12:01 06/01/21 09:01 Metoprolol Succinate 25 Mg Tablet PO 25 mg DAILY DOROTHEA Administration Mineral Oil 1 applic 05/24/21 14:36 05/28/21 21:43 Min Oil/Dimethicon/Coconut Oil 92 Gm Tube TOP 1 applic PRN PRN Administration Skin Care Multivitamins/Minerals 1 tab 05/25/21 08:00 06/01/21 09:00 Multivitamin W/Minerals Tablet PO 1 tab DAILYWM DOROTHEA Administration Non-Formulary Medication 1 each 06/01/21 21:00 06/01/21 20:05 Non Formulary Med PO 1 each HS DOROTHEA Administration Ondansetron HCl 4 mg 05/18/21 23:57 05/21/21 11:48 Ondansetron 4 Mg/2 Ml Vial IVP 4 mg Q6HR PRN Administration Nausea / Vomiting Oxycodone HCl 5 mg 05/21/21 14:23 05/27/21 13:48 Oxycodone 5 Mg Tablet PO 5 mg Q4HR PRN Administration PAIN Pantoprazole Sodium 40 mg 05/27/21 10:00 06/01/21 06:31 Pantoprazole 40 Mg Tablet PO 40 mg QDAC DOROTHEA Administration Polyethylene Glycol 17 gm 05/23/21 09:00 06/01/21 09:02 Polyethylene Glycol 3350 17 Gm Packet PO 17 gm DAILY DOROTHEA Administration Potassium Chloride 20 meq 06/01/21 12:00 06/01/21 16:28 Potassium Chloride 20 Meq Tablet PO 20 meq BIDWM DOROTHEA Administration Prochlorperazine Edisylate 10 mg 05/21/21 14:24 05/21/21 15:38 Prochlorperazine 10 Mg/2 Ml Vial IVP 10 mg Q6HR PRN Administration Nausea / Vomiting Sodium Chloride 10 ml 05/19/21 09:00 06/01/21 16:28 Sodium Chloride Flush 0.9% 10 Ml Syringe IVP 10 ml 0100,0900,1700 DOROTHEA Administration Sucralfate 1 gm 05/28/21 08:13 06/01/21 20:05 Sucralfate 1 Gm/10 Ml Udc PO 1 gm 0700,1100,1600,2200 DOROTHEA Administration Tamsulosin HCl 0.4 mg 05/27/21 13:00 06/01/21 09:02 Tamsulosin 0.4 Mg Capsule PO 0.4 mg DAILY DOROTHEA Administration Throat Lozenges 1 lozenge 05/29/21 11:22 05/29/21 12:29 Benzocaine/Menthol Lozenge MM 1 lozenge Q2HR PRN Administration Throat pain
[2021-06-01] MEDS: INSULIN GLARGINE 300 UNIT/3 ML PEN SUBQ SCH (20:46)
[2021-06-01] MEDS ORDERED: NON FORMULARY MED PO SCH (21:00)
[2021-06-02] MEDS: SODIUM CHLORIDE FLUSH 0.9% 10 ML SYRINGE IVP SCH ×3 (00:17→16:17)
[2021-06-02] MEDS: PIPERACILLIN/TAZOBACTAM 3.375 GM in SODIUM CHLORIDE 0.9% MINIBAG 100 ML IV SCH ×4 (00:17→17:44)
[2021-06-02] MEDS: VANCOMYCIN INJ 1 GM in SODIUM CHLORIDE 0.9% 250 ML IV SCH (00:55)
[2021-06-02] MEDS: metroNIDAZOLE 500 MG/100 ML 500 MG/100 ML BAG IV SCH ×3 (06:13→22:09)
[2021-06-02 06:32] LABS: BASOPHILS # (AUTO) 0.1 10^3/uL (0.0-0.1); BASOPHILS % (AUTO) 0.4 %; EOSINOPHILS # (AUTO) 0.1 10^3/uL (0.0-0.7); EOSINOPHILS % (AUTO) 0.9 %; HCT - HEMATOCRIT 33.3 % (42.0-52.0); LYMPHOCYTES # (AUTO) 1.2 10^3/uL (1.5-3.5); LYMPHOCYTES % (AUTO) 10.6 %; MEAN CORPUSCULAR HEMOGLOBIN 31.9 pg (27.0-31.0); MEAN CORPUSCULAR VOLUME 96.5 fL (80.0-94.0); MEAN PLATELET VOLUME 11.6 fL (7.4-11.4); MONOCYTES # (AUTO) 1.1 10^3/uL (0.0-1.0); MONOCYTES % (AUTO) 9.7 %; NEUTROPHILS # (AUTO) 9.1 10^3/uL (1.5-6.6); NEUTROPHILS % (AUTO) 77.6 %; PLT - PLATELET COUNT 286 10^3/uL (130-450); RED BLOOD COUNT 3.45 10^6/uL (4.70-6.10); RED CELL DISTRIBUTION WIDTH 15.4 % (12.0-15.0); WHITE BLOOD COUNT 11.8 x10^3/uL (4.8-10.8)
[2021-06-02 06:40] LABS: CALCIUM 7.3 mg/dL (8.5-10.3); CREATININE 0.9 mg/dL (0.6-1.2); MAGNESIUM 1.8 mg/dL (1.7-2.8); PHOSPHORUS 2.1 mg/dL (2.5-4.6)
[2021-06-02] MEDS: SUCRALFATE 1 GM/10 ML UDC PO SCH ×4 (06:46→22:09)
[2021-06-02] MEDS: PANTOPRAZOLE 40 MG TABLET PO SCH (06:46)
[2021-06-02] MEDS: INSULIN ASPART 300 UNIT/3 ML PEN SUBQ SCH ×5 (08:40→22:07)
[2021-06-02] MEDS: ALBUMIN 25% 12.5 GM/50 ML VIAL IV SCH (08:41)
[2021-06-02] MEDS: FUROSEMIDE 20 MG TABLET PO SCH (08:42)
[2021-06-02] MEDS: APIXABAN 5 MG TABLET PO SCH ×2 (08:42→20:07)
[2021-06-02] MEDS: METOPROLOL SUCCINATE 25 MG TABLET PO SCH (08:42)
[2021-06-02] MEDS: LACTOBACILLUS RHAMNOSUS GG CAPSULE PO SCH (08:42)
[2021-06-02] MEDS: CHOLECALCIFEROL 400 UNIT TABLET PO SCH (08:42)
[2021-06-02] MEDS: MULTIVITAMIN W/MINERALS TABLET PO SCH (08:43)
[2021-06-02] MEDS: MAGNESIUM OXIDE 400 MG TABLET PO SCH (08:43)
[2021-06-02] MEDS: guaiFENesin 600 MG TABLET PO SCH ×2 (08:43→20:07)
[2021-06-02] MEDS: POTASSIUM CHLORIDE 20 MEQ TABLET PO SCH ×2 (08:43→16:17)
[2021-06-02] MEDS: ASPIRIN EC 81 MG TABLET PO SCH (08:43)
[2021-06-02] MEDS: TAMSULOSIN 0.4 MG CAPSULE PO SCH (08:43)
[2021-06-02] MEDS: polyethylene glycoL 3350 17 GM PACKET PO SCH (08:44)
--- NOTE | 2021-06-02 10:09 | PROVIDER PROGRESS NOTE ---
Subjective - Prog Note Date Prog Note Date: 06/02/21 - Subjective Pt reports feeling: Improved (resting comfortably. spoke to daughter. ambulating safely. tolerating diet well. stoma functional.) Objective - Vital Signs/Intake & Output Reviewed Vital Signs: Yes Vital Signs: Vital Signs x48h Temp Pulse Resp BP Pulse Ox 06/02/21 08:10 36.4 C L 100 16 139/79 H 97 Intake & Output: Intake & Output 05/30/21 05/31/21 06/01/21 06/02/21 23:59 23:59 23:59 23:59 Intake Total 2290 2400 1970 1170 Output Total 2150 1750 1250 1025 Balance 140 650 720 145 - Objective General Appearance: positive: No acute distress Abdomen: positive: No distention, Other (stoma functional) - Lab Results Fish Bones: 06/02/21 05:35 06/02/21 05:35 Other Labs: Lab Results x24hrs 06/02/21 06/02/21 06/02/21 Range/Units 05:35 05:35 05:35 WBC 11.8 H (4.8-10.8) x10^3/uL RBC 3.45 L (4.70-6.10) 10^6/uL Hgb 11.0 L (14.0-18.0) g/dL Hct 33.3 L (42.0-52.0) % MCV 96.5 H (80.0-94.0) fL MCH 31.9 H (27.0-31.0) pg MCHC 33.0 (32.0-36.0) g/dL RDW 15.4 H (12.0-15.0) % Plt Count 286 (130-450) 10^3/uL MPV 11.6 H (7.4-11.4) fL Neut # (Auto) 9.1 H (1.5-6.6) 10^3/uL Lymph # (Auto) 1.2 L (1.5-3.5) 10^3/uL [place] # (Auto) 1.1 H (0.0-1.0) 10^3/uL Eos # (Auto) 0.1 (0.0-0.7) 10^3/uL Baso # (Auto) 0.1 (0.0-0.1) 10^3/uL Absolute Nucleated RBC 0.00 x10^3/uL Nucleated RBC % 0.0 /100WBC Sodium 140 (135-145) mmol/L Potassium 3.0 L (3.5-5.0) mmol/L Chloride 109 (101-111) mmol/L Carbon Dioxide 24 (21-32) mmol/L Anion Gap 7.0 (6-13) BUN 19 (6-20) mg/dL Creatinine 0.9 (0.6-1.2) mg/dL Estimated GFR (MDRD) 79 L (>89) Glucose 85 (70-100) mg/dL Calcium 7.3 L (8.5-10.3) mg/dL Phosphorus 2.1 L (2.5-4.6) mg/dL Magnesium 1.8 (1.7-2.8) mg/dL Albumin 1.9 L (3.2-5.5) g/dL 06/01/21 Range/Units 18:00 WBC (4.8-10.8) x10^3/uL RBC (4.70-6.10) 10^6/uL Hgb (14.0-18.0) g/dL Hct (42.0-52.0) % MCV (80.0-94.0) fL MCH (27.0-31.0) pg MCHC (32.0-36.0) g/dL RDW (12.0-15.0) % Plt Count (130-450) 10^3/uL MPV (7.4-11.4) fL Neut # (Auto) (1.5-6.6) 10^3/uL Lymph # (Auto) (1.5-3.5) 10^3/uL [place] # (Auto) (0.0-1.0) 10^3/uL Eos # (Auto) (0.0-0.7) 10^3/uL Baso # (Auto) (0.0-0.1) 10^3/uL Absolute Nucleated RBC x10^3/uL Nucleated RBC % /100WBC Sodium (135-145) mmol/L Potassium 3.4 L (3.5-5.0) mmol/L Chloride (101-111) mmol/L Carbon Dioxide (21-32) mmol/L Anion Gap (6-13) BUN (6-20) mg/dL Creatinine (0.6-1.2) mg/dL Estimated GFR (MDRD) (>89) Glucose (70-100) mg/dL Calcium (8.5-10.3) mg/dL Phosphorus (2.5-4.6) mg/dL Magnesium (1.7-2.8) mg/dL Albumin (3.2-5.5) g/dL Assessment/Plan - Problem List (1) Aortic stenosis Impression: much improved. daughter feels comfortable with him going home with her in a couple days
[2021-06-02 13:00] LABS: VANCOMYCIN,TROUGH 25.7 ug/mL (10.0-20.0)
[2021-06-02] MEDS: SODIUM CHLORIDE 0.9% 250 ML IV PRN (17:44)
[2021-06-02] MEDS: VANCOMYCIN INJ 1 GM, VANCOMYCIN INJ 500 MG in SODIUM CHLORIDE 0.9% 500 ML IV SCH (20:07)
[2021-06-02] MEDS: ATORVASTATIN 40 MG TABLET PO SCH (20:07)
[2021-06-02] MEDS: MELATONIN 5 MG PO SCH (20:14)
--- NOTE | 2021-06-02 21:04 | PROVIDER PROGRESS NOTE ---
Assessment/Plan - Problem List (1) Intra-abdominal abscess Assessment/Plan: Patient with recently discovered intra-abdominal abscesses, seen on CT scan. With subsequent bacteremia on IV antibiotics since admission. Plan initially was for possible IR drainage of abscesses however because of the high risk nature of this procedure it was decided that after the patient began to show signs of clinical improvement and WBC count improved, to hold off and continue conservative observation over the weekend pending clinical course of the possibility of discharge on antibiotics versus revisiting plan of drainage. Over the weekend, patient continued to improve and is close to baseline health status. After discussing this with patient and his son in the room, they have decided that at this point they are no longer interested in pursuing any procedures while in hospital especially given how much better he looks in the fact that the WBC has improved significantly. Continue IV antibiotics with further definitive discharge planning per day team tomorrow. (2) Bacteremia Assessment/Plan: Blood culture at admission grew gram variable bacilli. Repeat blood cultures snider ve been negative, but one blood cx (for anaerobes) had to be sent out to [facility] in [place] He had been on empiric cefepime and Flagyl for a presumed GI source. As above, continue antibiotic treatment and likely to DC home in the next couple of days on oral antibiotics. Cont Zosyn, Flagyl, add vancomycin. (3) Leukocytosis Assessment/Plan: Roddy to above. WBC trending down. Continue to monitor. (4) Urinary retention with incomplete bladder emptying Assessment/Plan: Stable Continue Hernadez (5) Acute on chronic systolic heart failure Assessment/Plan: Not in acute exacerbation. Clinically seems to be closer to euvolemia today. Continue medical diuresis and albumin. (6) Atrial fibrillation Assessment/Plan: Rate controlled. Continue current meds (7) Colon cancer Assessment/Plan: Has plans for oncology appointment after discharge (8) Status post colostomy Assessment/Plan: No problems related to colostomy since admission (9) Aortic stenosis Assessment/Plan: Full. Continue current meds and monitor fluid status (10) Diabetes mellitus type 2, controlled Assessment/Plan: Stable continue sliding scale - Current Meds Current Meds: Current Medications Generic Name Dose Route Start Last Admin Trade Name Freq PRN Reason Stop Dose Admin Acetaminophen 650 mg 05/18/21 23:57 05/31/21 20:39 Acetaminophen 325 Mg Tablet PO 650 mg Q4HR PRN Administration Pain 1 to 4 Apixaban 5 mg 05/31/21 09:00 06/02/21 20:07 Apixaban 5 Mg Tablet PO 5 mg BID DOROTHEA Administration Aspirin 81 mg 05/31/21 09:00 06/02/21 08:43 Aspirin Ec 81 Mg Tablet PO 81 mg DAILY DOROTHEA Administration Atorvastatin Calcium 40 mg 05/22/21 21:00 06/02/21 20:07 Atorvastatin 40 Mg Tablet PO 40 mg QPM DOROTHEA Administration Calcium Carbonate/Glycine 500 mg 05/21/21 05:20 05/30/21 10:56 Calcium Carbonate Chew 500 Mg Tablet PO 500 mg BID PRN Administration NEEDED PER PROVIDER ORDERS Cholecalciferol 800 unit 05/29/21 11:00 06/02/21 08:42 Cholecalciferol 400 Unit Tablet PO 800 unit DAILY DOROTHEA Administration Furosemide 20 mg 05/28/21 12:00 06/02/21 08:42 Furosemide 20 Mg Tablet PO 20 mg DAILY DOROTHEA Administration Guaifenesin 600 mg 05/23/21 21:00 06/02/21 20:07 Guaifenesin 600 Mg Tablet PO 600 mg BID DOROTHEA Administration Metronidazole 500 mg in 100 mls @ 100 mls/hr 05/19/21 06:00 06/02/21 15:06 Flagyl 500 Mg/100 Ml IV Infused Q8H DOROTHEA Infusion Piperacillin Sod/Tazobactam 100 mls @ 200 mls/hr 05/29/21 12:00 06/02/21 18:14 Sod 3.375 gm/ Sodium Chloride IV Infused Q6H DOROTHEA Infusion Sodium Chloride 250 mls @ 20 mls/hr 05/29/21 20:49 06/02/21 17:44 Normal Saline 0.9% IV 10 mls/hr Q24H PRN Administration TKO RATE Albumin Human 12.5 gm in 50 mls @ 50 mls/hr 06/01/21 09:00 06/02/21 09:42 Albuminar-25 IV 06/03/21 08:59 Infused DAILY DOROTHEA Infusion Vancomycin HCl 1 gm/ 500 mls @ 250 mls/hr 06/02/21 20:00 06/02/21 20:07 Vancomycin HCl 500 mg/ Sodium IV 250 mls/hr Chloride Q18H DOROTHEA Administration Insulin Aspart 1 - 5 unit 05/31/21 12:00 06/02/21 16:30 Insulin Aspart 300 Unit/3 Ml Pen SUBQ 2 unit 0800,1200,1700,2100 DOROTHEA Administration Protocol Insulin Glargine 6 unit 05/28/21 21:00 06/01/21 20:46 Insulin Glargine 300 Unit/3 Ml Pen SUBQ 6 unit QPM DOROTHEA Administration Lactobacillus Rhamnosus 1 cap 05/30/21 12:00 06/02/21 08:42 Lactobacillus Rhamnosus Gg Capsule PO 1 cap DAILY DOROTHEA Administration Magnesium Oxide 400 mg 05/29/21 12:00 06/02/21 08:43 Magnesium Oxide 400 Mg Tablet PO 400 mg DAILYWM DOROTHEA Administration Metoprolol Succinate 25 mg 05/28/21 12:01 06/02/21 08:42 Metoprolol Succinate 25 Mg Tablet PO 25 mg DAILY DOROTHEA Administration Mineral Oil 1 applic 05/24/21 14:36 05/28/21 21:43 Min Oil/Dimethicon/Coconut Oil 92 Gm Tube TOP 1 applic PRN PRN Administration Skin Care Multivitamins/Minerals 1 tab 05/25/21 08:00 06/02/21 08:43 Multivitamin W/Minerals Tablet PO 1 tab DAILYWM DOROTHEA Administration Pt Own Med 1 each 06/02/21 21:00 06/02/21 20:14 Melatonin 5mg PO 1 each QPM DOROTHEA Administration Ondansetron HCl 4 mg 05/18/21 23:57 05/21/21 11:48 Ondansetron 4 Mg/2 Ml Vial IVP 4 mg Q6HR PRN Administration Nausea / Vomiting Oxycodone HCl 5 mg 05/21/21 14:23 05/27/21 13:48 Oxycodone 5 Mg Tablet PO 5 mg Q4HR PRN Administration PAIN Pantoprazole Sodium 40 mg 05/27/21 10:00 06/02/21 06:46 Pantoprazole 40 Mg Tablet PO Not Given QDAC DOROTHEA Polyethylene Glycol 17 gm 05/23/21 09:00 06/02/21 08:44 Polyethylene Glycol 3350 17 Gm Packet PO Not Given DAILY DOROTHEA Potassium Chloride 20 meq 06/01/21 12:00 06/02/21 16:17 Potassium Chloride 20 Meq Tablet PO 20 meq BIDWM DOROTHEA Administration Prochlorperazine Edisylate 10 mg 05/21/21 14:24 05/21/21 15:38 Prochlorperazine 10 Mg/2 Ml Vial IVP 10 mg Q6HR PRN Administration Nausea / Vomiting Sodium Chloride 10 ml 05/19/21 09:00 06/02/21 16:17 Sodium Chloride Flush 0.9% 10 Ml Syringe IVP Not Given 0100,0900,1700 DOROTHEA Sucralfate 1 gm 05/28/21 08:13 06/02/21 16:17 Sucralfate 1 Gm/10 Ml Udc PO 1 gm 0700,1100,1600,2200 DOROTHEA Administration Tamsulosin HCl 0.4 mg 05/27/21 13:00 06/02/21 08:43 Tamsulosin 0.4 Mg Capsule PO 0.4 mg DAILY DOROTHEA Administration Throat Lozenges 1 lozenge 05/29/21 11:22 05/29/21 12:29 Benzocaine/Menthol Lozenge MM 1 lozenge Q2HR PRN Administration Throat pain - Lab Result Lab results reviewed: Yes Fish Bone Diagrams: 06/02/21 05:35 06/02/21 05:35 Subjective - Subjective Patient Reports: Feeling Better Objective Vital Signs: Vital Signs - 24 hr 06/01/21 06/02/21 06/02/21 23:55 08:10 16:32 Temperature 36.5 C 36.4 C L 36.5 C Heart Rate [ 99 Brachial] Heart Rate [ 63 100 Monitoring electrodes] Respiratory 19 16 20 Rate Blood Pressure 111/64 [Left Brachial artery] Blood Pressure 139/79 H 108/59 L [Right Brachial artery] O2 Saturation 96 97 99 Oxygen O2 Source Room air I&O (Last 24 Hrs): Intake and Output Totals x24h 05/31/21 06/01/21 06/02/21 23:59 23:59 23:59 Intake Total 2400 1970 1790 Output Total 1750 1250 1625 Balance 650 720 165 General: Alert, Oriented x3, Cooperative HEENT: Atraumatic Neck: Supple Cardiovascular: Normal S1, Normal S2 Respiratory: Chest non-tender, No respiratory distress, Breath sounds nml Abdomen: Normal bowel sounds, Soft, Other (Colostomy putting out liquidy brown stool, CDI) Extremities: Other (Bilateral 3+ pitting edema) - Results Results: Laboratory Results WBC 11.8 x10^3/uL (4.8-10.8) H 06/02/21 05:35 RBC 3.45 10^6/uL (4.70-6.10) L 06/02/21 05:35 Hgb 11.0 g/dL (14.0-18.0) L 06/02/21 05:35 Hct 33.3 % (42.0-52.0) L 06/02/21 05:35 MCV 96.5 fL (80.0-94.0) H 06/02/21 05:35 MCH 31.9 pg (27.0-31.0) H 06/02/21 05:35 MCHC 33.0 g/dL (32.0-36.0) 06/02/21 05:35 RDW 15.4 % (12.0-15.0) H 06/02/21 05:35 Plt Count 286 10^3/uL (130-450) 06/02/21 05:35 MPV 11.6 fL (7.4-11.4) H 06/02/21 05:35 Neut # (Auto) 9.1 10^3/uL (1.5-6.6) H 06/02/21 05:35 Lymph # (Auto) 1.2 10^3/uL (1.5-3.5) L 06/02/21 05:35 [place] # (Auto) 1.1 10^3/uL (0.0-1.0) H 06/02/21 05:35 Eos # (Auto) 0.1 10^3/uL (0.0-0.7) 06/02/21 05:35 Baso # (Auto) 0.1 10^3/uL (0.0-0.1) 06/02/21 05:35 Absolute Nucleated RBC 0.00 x10^3/uL 06/02/21 05:35 Total Counted 100 05/31/21 05:45 Band Neuts % (Manual) 4 % (0-10) 05/31/21 05:45 Abnorm Lymph % (Manual) 0 % 05/31/21 05:45 Metamyelocytes % 1 % (-0) H 05/21/21 05:10 Myelocytes % 1 % (-0) H 05/30/21 05:36 Nucleated RBC % 0.0 /100WBC 06/02/21 05:35 Neutrophils # (Manual) 10.4 10^3/uL (1.5-6.6) H 05/31/21 05:45 Lymphocytes # (Manual) 0.4 10^3/uL (1.5-3.5) L 05/31/21 05:45 Monocytes # (Manual) 1.3 10^3/uL (0.0-1.0) H 05/31/21 05:45 Eosinophils # (Manual) 0.0 10^3/uL (0-0.7) 05/31/21 05:45 Basophils # (Manual) 0.0 10^3/uL (0-0.1) 05/31/21 05:45 Differential Comment MANUAL DIFFERENTIAL 05/31/21 05:45 Manual Slide Review Indicated 05/28/21 06:43 WBC Morphology NORMAL APPEARANCE (NORMAL) 05/29/21 06:15 Platelet Estimate NORMAL (130-450,000) (NORMAL) 05/30/21 05:36 Platelet Morphology NORMAL TOSHIA (NORMAL) 05/29/21 06:15 RBC Morph Micro Appear NORMAL APPEARANCE (NORMAL) 05/30/21 05:36 PT 19.5 secs (9.9-12.6) H 05/31/21 05:45 INR 1.8 (0.8-1.2) H 05/31/21 05:45 Anti-Xa Level 0.4 U/mL (-0.7) 05/24/21 05:45 Bld Gas Analysis Time 0545 05/19/21 05:35 Sample Site RIGHT RADIAL 05/19/21 05:35 ABG pH 7.42 (7.35-7.45) 05/19/21 05:35 ABG pCO2 36 mmHg (34-45) 05/19/21 05:35 ABG pO2 71 mmHg (80-100) L 05/19/21 05:35 ABG HCO3 22.4 mmol/L (22.0-26.0) 05/19/21 05:35 ABG Total CO2 23.5 MMOL/L (21.0-29.0) 05/19/21 05:35 ABG O2 Saturation 95 % (94-98) 05/19/21 05:35 ABG Base Excess -1.7 mmol/L (-2.0-3.0) 05/19/21 05:35 Fernando Test POSITIVE 05/19/21 05:35 O2 Delivery Device NON REBREATHER MASK 05/19/21 05:35 O2 Liters/Min 15.00 LPM 05/19/21 05:35 FiO2 100.00 05/19/21 05:35 Sodium 140 mmol/L (135-145) 06/02/21 05:35 Potassium 3.0 mmol/L (3.5-5.0) L 06/02/21 05:35 Chloride 109 mmol/L (101-111) 06/02/21 05:35 Carbon Dioxide 24 mmol/L (21-32) 06/02/21 05:35 Anion Gap 7.0 (6-13) 06/02/21 05:35 BUN 19 mg/dL (6-20) 06/02/21 05:35 Creatinine 0.9 mg/dL (0.6-1.2) 06/02/21 05:35 Estimated GFR (MDRD) 79 (>89) L 06/02/21 05:35 Glucose 85 mg/dL (70-100) 06/02/21 05:35 Lactic Acid 1.5 mmol/L (0.5-2.2) 05/21/21 09:08 Calcium 7.3 mg/dL (8.5-10.3) L 06/02/21 05:35 Phosphorus 2.1 mg/dL (2.5-4.6) L 06/02/21 05:35 Magnesium 1.8 mg/dL (1.7-2.8) 06/02/21 05:35 Total Bilirubin 0.9 mg/dL (0.2-1.0) 05/18/21 21:45 AST 18 IU/L (10-42) 05/18/21 21:45 ALT 18 IU/L (10-60) 05/18/21 21:45 Alkaline Phosphatase 43 IU/L (42-121) 05/18/21 21:45 Troponin I High Sens 6861.0 ng/L (2.3-19.7) H* 05/21/21 12:13 B-Natriuretic Peptide 1426 pg/mL (5-100) H 05/19/21 17:40 Total Protein 5.8 g/dL (6.7-8.2) L 05/18/21 21:45 Albumin 1.9 g/dL (3.2-5.5) L 06/02/21 05:35 Globulin 2.4 g/dL (2.1-4.2) 05/18/21 21:45 Albumin/Globulin Ratio 1.4 (1.0-2.2) 05/18/21 21:45 Lipase 24 U/L (22-51) 05/18/21 21:45 Urine Color YELLOW 05/29/21 13:49 Urine Clarity HAZY (CLEAR) 05/29/21 13:49 Urine pH 5.5 PH (5.0-7.5) 05/29/21 13:49 Ur Specific [place] 1.015 (1.002-1.030) 05/29/21 13:49 Urine Protein 100 mg/dL (NEGATIVE) H 05/29/21 13:49 Urine Glucose (UA) 100 mg/dL (NEGATIVE) H 05/29/21 13:49 Urine Ketones TRACE mg/dL (NEGATIVE) 05/29/21 13:49 Urine Occult Blood LARGE (NEGATIVE) H 05/29/21 13:49 Urine Nitrite NEGATIVE (NEGATIVE) 05/29/21 13:49 Urine Bilirubin NEGATIVE (NEGATIVE) 05/29/21 13:49 Urine Urobilinogen 0.2 (NORMAL) E.U./dL (NORMAL) 05/29/21 13:49 Ur Leukocyte Esterase NEGATIVE (NEGATIVE) 05/29/21 13:49 Urine RBC 11-25 /HPF (0-5) H 05/29/21 13:49 Urine WBC 0-3 /HPF (0-3) 05/29/21 13:49 Ur Squamous Epith Cells NONE SEEN (<= Few) 05/29/21 13:49 Urine Bacteria Rare /HPF (None Seen) 05/29/21 13:49 Urine Casts 0-2 Course Granular /LPF 05/29/21 13:49 Ur Microscopic Review NOT INDICATED 05/19/21 06:05 Urine Culture Comments NOT INDICATED 05/29/21 13:49 Nasal Screen MRSA (PCR) NEGATIVE (NEGATIVE) 05/19/21 06:00 Stl C. diff Tox B Gene NEGATIVE (NEGATIVE) 05/27/21 13:15 Last Dose Date 06/02/21 06/02/21 12:30 Last Dose Time 0253 06/02/21 12:30 Vancomycin Trough 25.7 ug/mL (10.0-20.0) H* 06/02/21 12:30 - Procedures Procedures: Procedures BYPASS DESCENDING COLON TO CUTANEOUS, OPEN APPROACH (05/14/21) CATARAC PHACOEMULS/ASPIR (12/28/14) EXCISION OF LEFT LOBE LIVER, OPEN APPROACH, DIAGNOSTIC (05/14/21) EXCISION OF SIGMOID COLON, ENDO, DIAGN (05/14/21) INSERT LENS AT CATAR EXT (12/28/14) IRRIGATE OF PERITON CAV USING IRRIGAT, PERC APPROACH, DIAGN (05/14/21) ABX Reporting Has patient been on IV antibiotics over the past 48 hours?: Yes Current Medications - Current Medications Current Medications: Current Medications Generic Name Dose Route Start Last Admin Trade Name Freq PRN Reason Stop Dose Admin Acetaminophen 650 mg 05/18/21 23:57 05/31/21 20:39 Acetaminophen 325 Mg Tablet PO 650 mg Q4HR PRN Administration Pain 1 to 4 Apixaban 5 mg 05/31/21 09:00 06/02/21 20:07 Apixaban 5 Mg Tablet PO 5 mg BID DOROTHEA Administration Aspirin 81 mg 05/31/21 09:00 06/02/21 08:43 Aspirin Ec 81 Mg Tablet PO 81 mg DAILY DOROTHEA Administration Atorvastatin Calcium 40 mg 05/22/21 21:00 06/02/21 20:07 Atorvastatin 40 Mg Tablet PO 40 mg QPM DOROTHEA Administration Calcium Carbonate/Glycine 500 mg 05/21/21 05:20 05/30/21 10:56 Calcium Carbonate Chew 500 Mg Tablet PO 500 mg BID PRN Administration NEEDED PER PROVIDER ORDERS Cholecalciferol 800 unit 05/29/21 11:00 06/02/21 08:42 Cholecalciferol 400 Unit Tablet PO 800 unit DAILY DOROTHEA Administration Furosemide 20 mg 05/28/21 12:00 06/02/21 08:42 Furosemide 20 Mg Tablet PO 20 mg DAILY DOROTHEA Administration Guaifenesin 600 mg 05/23/21 21:00 06/02/21 20:07 Guaifenesin 600 Mg Tablet PO 600 mg BID DOROTHEA Administration Metronidazole 500 mg in 100 mls @ 100 mls/hr 05/19/21 06:00 06/02/21 15:06 Flagyl 500 Mg/100 Ml IV Infused Q8H DOROTHEA Infusion Piperacillin Sod/Tazobactam 100 mls @ 200 mls/hr 05/29/21 12:00 06/02/21 18:14 Sod 3.375 gm/ Sodium Chloride IV Infused Q6H DOROTHEA Infusion Sodium Chloride 250 mls @ 20 mls/hr 05/29/21 20:49 06/02/21 17:44 Normal Saline 0.9% IV 10 mls/hr Q24H PRN Administration TKO RATE Albumin Human 12.5 gm in 50 mls @ 50 mls/hr 06/01/21 09:00 06/02/21 09:42 Albuminar-25 IV 06/03/21 08:59 Infused DAILY DOROTHEA Infusion Vancomycin HCl 1 gm/ 500 mls @ 250 mls/hr 06/02/21 20:00 06/02/21 20:07 Vancomycin HCl 500 mg/ Sodium IV 250 mls/hr Chloride Q18H DOROTHEA Administration Insulin Aspart 1 - 5 unit 05/31/21 12:00 06/02/21 16:30 Insulin Aspart 300 Unit/3 Ml Pen SUBQ 2 unit 0800,1200,1700,2100 DOROTHEA Administration Protocol Insulin Glargine 6 unit 05/28/21 21:00 06/01/21 20:46 Insulin Glargine 300 Unit/3 Ml Pen SUBQ 6 unit QPM DOROTHEA Administration Lactobacillus Rhamnosus 1 cap 05/30/21 12:00 06/02/21 08:42 Lactobacillus Rhamnosus Gg Capsule PO 1 cap DAILY DOROTHEA Administration Magnesium Oxide 400 mg 05/29/21 12:00 06/02/21 08:43 Magnesium Oxide 400 Mg Tablet PO 400 mg DAILYWM DOROTHEA Administration Metoprolol Succinate 25 mg 05/28/21 12:01 06/02/21 08:42 Metoprolol Succinate 25 Mg Tablet PO 25 mg DAILY DOROTHEA Administration Mineral Oil 1 applic 05/24/21 14:36 05/28/21 21:43 Min Oil/Dimethicon/Coconut Oil 92 Gm Tube TOP 1 applic PRN PRN Administration Skin Care Multivitamins/Minerals 1 tab 05/25/21 08:00 06/02/21 08:43 Multivitamin W/Minerals Tablet PO 1 tab DAILYWM DOROTHEA Administration Pt Own Med 1 each 06/02/21 21:00 06/02/21 20:14 Melatonin 5mg PO 1 each QPM DOROTHEA Administration Ondansetron HCl 4 mg 05/18/21 23:57 05/21/21 11:48 Ondansetron 4 Mg/2 Ml Vial IVP 4 mg Q6HR PRN Administration Nausea / Vomiting Oxycodone HCl 5 mg 05/21/21 14:23 05/27/21 13:48 Oxycodone 5 Mg Tablet PO 5 mg Q4HR PRN Administration PAIN Pantoprazole Sodium 40 mg 05/27/21 10:00 06/02/21 06:46 Pantoprazole 40 Mg Tablet PO Not Given QDAC DOROTHEA Polyethylene Glycol 17 gm 05/23/21 09:00 06/02/21 08:44 Polyethylene Glycol 3350 17 Gm Packet PO Not Given DAILY DOROTHEA Potassium Chloride 20 meq 06/01/21 12:00 06/02/21 16:17 Potassium Chloride 20 Meq Tablet PO 20 meq BIDWM DOROTHEA Administration Prochlorperazine Edisylate 10 mg 05/21/21 14:24 05/21/21 15:38 Prochlorperazine 10 Mg/2 Ml Vial IVP 10 mg Q6HR PRN Administration Nausea / Vomiting Sodium Chloride 10 ml 05/19/21 09:00 06/02/21 16:17 Sodium Chloride Flush 0.9% 10 Ml Syringe IVP Not Given 0100,0900,1700 DOROTHEA Sucralfate 1 gm 05/28/21 08:13 06/02/21 16:17 Sucralfate 1 Gm/10 Ml Udc PO 1 gm 0700,1100,1600,2200 DOROTHEA Administration Tamsulosin HCl 0.4 mg 05/27/21 13:00 06/02/21 08:43 Tamsulosin 0.4 Mg Capsule PO 0.4 mg DAILY DOROTHEA Administration Throat Lozenges 1 lozenge 05/29/21 11:22 05/29/21 12:29 Benzocaine/Menthol Lozenge MM 1 lozenge Q2HR PRN Administration Throat pain
[2021-06-02] MEDS: INSULIN GLARGINE 300 UNIT/3 ML PEN SUBQ SCH (22:08)
[2021-06-03] MEDS: PIPERACILLIN/TAZOBACTAM 3.375 GM in SODIUM CHLORIDE 0.9% MINIBAG 100 ML IV SCH ×4 (00:22→18:08)
[2021-06-03] MEDS: metroNIDAZOLE 500 MG/100 ML 500 MG/100 ML BAG IV SCH ×2 (06:51→14:20)
[2021-06-03] MEDS: PANTOPRAZOLE 40 MG TABLET PO SCH (06:53)
[2021-06-03] MEDS: SODIUM CHLORIDE FLUSH 0.9% 10 ML SYRINGE IVP SCH ×3 (06:53→15:52)
[2021-06-03] MEDS: SUCRALFATE 1 GM/10 ML UDC PO SCH ×4 (06:56→21:11)
[2021-06-03] MEDS: INSULIN ASPART 300 UNIT/3 ML PEN SUBQ SCH ×4 (08:26→21:09)
[2021-06-03] MEDS: METOPROLOL SUCCINATE 25 MG TABLET PO SCH (08:27)
[2021-06-03] MEDS: ASPIRIN EC 81 MG TABLET PO SCH (08:27)
[2021-06-03] MEDS: ACETAMINOPHEN 325 MG TABLET PO PRN (08:27)
[2021-06-03] MEDS: APIXABAN 5 MG TABLET PO SCH ×2 (08:27→21:11)
[2021-06-03] MEDS: MULTIVITAMIN W/MINERALS TABLET PO SCH (08:27)
[2021-06-03] MEDS: MAGNESIUM OXIDE 400 MG TABLET PO SCH (08:27)
[2021-06-03] MEDS: guaiFENesin 600 MG TABLET PO SCH ×2 (08:27→21:11)
[2021-06-03] MEDS: TAMSULOSIN 0.4 MG CAPSULE PO SCH ×2 (08:28→08:45)
[2021-06-03] MEDS: POTASSIUM CHLORIDE 20 MEQ TABLET PO SCH ×2 (08:28→17:07)
[2021-06-03] MEDS: LACTOBACILLUS RHAMNOSUS GG CAPSULE PO SCH (08:29)
[2021-06-03] MEDS: polyethylene glycoL 3350 17 GM PACKET PO SCH ×2 (08:29→08:45)
[2021-06-03] MEDS: CHOLECALCIFEROL 400 UNIT TABLET PO SCH (08:29)
[2021-06-03] MEDS: FUROSEMIDE 20 MG TABLET PO SCH (08:29)
[2021-06-03 11:27] LABS: BASOPHILS # (AUTO) 0.1 10^3/uL (0.0-0.1); BASOPHILS % (AUTO) 0.6 %; EOSINOPHILS # (AUTO) 0.1 10^3/uL (0.0-0.7); EOSINOPHILS % (AUTO) 0.4 %; HCT - HEMATOCRIT 36.7 % (42.0-52.0); HGB - HEMOGLOBIN 11.9 g/dL (14.0-18.0); LYMPHOCYTES % (AUTO) 6.7 %; MEAN CORPUSCULAR HEMOGLOBIN 31.8 pg (27.0-31.0); MEAN CORPUSCULAR HGB CONC 32.4 g/dL (32.0-36.0); MEAN CORPUSCULAR VOLUME 98.1 fL (80.0-94.0); MEAN PLATELET VOLUME 11.6 fL (7.4-11.4); MONOCYTES # (AUTO) 1.3 10^3/uL (0.0-1.0); MONOCYTES % (AUTO) 8.8 %; NEUTROPHILS # (AUTO) 11.8 10^3/uL (1.5-6.6); NEUTROPHILS % (AUTO) 82.7 %; PLT - PLATELET COUNT 277 10^3/uL (130-450); RED BLOOD COUNT 3.74 10^6/uL (4.70-6.10); RED CELL DISTRIBUTION WIDTH 15.7 % (12.0-15.0); WHITE BLOOD COUNT 14.2 x10^3/uL (4.8-10.8)
[2021-06-03 11:39] LABS: CALCIUM 7.8 mg/dL (8.5-10.3); MAGNESIUM 1.8 mg/dL (1.7-2.8); PHOSPHORUS 2.6 mg/dL (2.5-4.6); POTASSIUM 4.1 mmol/L (3.5-5.0)
[2021-06-03] MEDS: VANCOMYCIN INJ 1 GM, VANCOMYCIN INJ 500 MG in SODIUM CHLORIDE 0.9% 500 ML IV SCH (15:24)
[2021-06-03] MEDS: INSULIN GLARGINE 300 UNIT/3 ML PEN SUBQ SCH (21:09)
[2021-06-03] MEDS: metroNIDAZOLE 250 MG TABLET PO SCH (21:10)
[2021-06-03] MEDS: AMOX/CLAV 875 MG/125 MG TABLET PO SCH (21:10)
[2021-06-03] MEDS: ATORVASTATIN 40 MG TABLET PO SCH (21:11)
[2021-06-03] MEDS: MELATONIN 5 MG PO SCH (21:11)
--- NOTE | 2021-06-03 23:32 | PROVIDER PROGRESS NOTE ---
Assessment/Plan - Problem List (1) Intra-abdominal abscess Assessment/Plan: Patient with recently discovered intra-abdominal abscesses, seen on CT scan. With subsequent bacteremia on IV antibiotics since admission. Plan initially was for possible IR drainage of abscesses however because of the high risk nature of this procedure it was decided that after the patient began to show signs of clinical improvement and WBC count improved, to hold off and continue conservative observation over the weekend pending clinical course of the possibility of discharge on antibiotics versus revisiting plan of drainage. Over the weekend, patient continued to improve and is close to baseline health status. After discussing this with patient and his son in the room, they have decided that at this point they are no longer interested in pursuing any procedures while in hospital especially given how much better he looks in the fact that the WBC has improved significantly. Patient is clinically doing better and although he did have a minor increase in WBC count today Will trial on transition to oral antibiotics as he has been afebrile and symptomatically still feeling very well, and if not continuing this trend or otherwise having concerning symptoms, may be ready for discharge home in 1 to 2 days on oral antibiotics. Transitioned to p.o. Flagyl and Augmentin. PICC line has been misplaced, for now given plan for oral antibiotics will hold off on replacing. (2) Bacteremia Assessment/Plan: Blood culture at admission grew gram variable bacilli. Repeat blood cultures have been negative, but one blood cx (for anaerobes) had to be sent out to [facility] in [place] He had been on empiric cefepime and Flagyl for a presumed GI source. As above, continue antibiotic treatment and likely to DC home in the next couple of days on oral antibiotics. Cont Flagyl and Augmentin. (3) Leukocytosis Assessment/Plan: Was trending down slowly over the last few days but increased from 11.8-14.2 today Unclear if this is truly a marker of worsening infection gnosis other clinical indicators are improving Repeat labs in the morning, consider resuming IV antibiotics should this worsen (4) Urinary retention with incomplete bladder emptying Assessment/Plan: Stable Continue Hernadez catheter (5) Acute on chronic systolic heart failure Assessment/Plan: Anasarca/edema worsening today Increase torsemide from 20 mg to 40 mg daily (6) Atrial fibrillation Assessment/Plan: Rate controlled. Continue current meds. (7) Colon cancer Assessment/Plan: Has plans for oncology appointment after discharge (8) Status post colostomy Assessment/Plan: No problems related to colostomy since admission (9) Aortic stenosis Assessment/Plan: Stable Continue current meds and monitor fluid status (10) Diabetes mellitus type 2, controlled Assessment/Plan: Stable Cont sliding scale - Current Meds Current Meds: Current Medications Generic Name Dose Route Start Last Admin Trade Name Freq PRN Reason Stop Dose Admin Acetaminophen 650 mg 05/18/21 23:57 06/03/21 08:27 Acetaminophen 325 Mg Tablet PO 650 mg Q4HR PRN Administration Pain 1 to 4 Amoxicillin/Clavulanate Potassium 1 tab 06/03/21 21:00 06/03/21 21:10 Amox/Clav 875 Mg/125 Mg Tablet PO 1 tab BID DOROTHEA Administration Apixaban 5 mg 05/31/21 09:00 06/03/21 21:11 Apixaban 5 Mg Tablet PO 5 mg BID DOROTHEA Administration Aspirin 81 mg 05/31/21 09:00 06/03/21 08:27 Aspirin Ec 81 Mg Tablet PO 81 mg DAILY DOROTHEA Administration Atorvastatin Calcium 40 mg 05/22/21 21:00 06/03/21 21:11 Atorvastatin 40 Mg Tablet PO 40 mg QPM DOROTHEA Administration Calcium Carbonate/Glycine 500 mg 05/21/21 05:20 05/30/21 10:56 Calcium Carbonate Chew 500 Mg Tablet PO 500 mg BID PRN Administration NEEDED PER PROVIDER ORDERS Cholecalciferol 800 unit 05/29/21 11:00 06/03/21 08:29 Cholecalciferol 400 Unit Tablet PO 800 unit DAILY DOROTHEA Administration Furosemide 20 mg 05/28/21 12:00 06/03/21 08:29 Furosemide 20 Mg Tablet PO 20 mg DAILY DOROTHEA Administration Guaifenesin 600 mg 05/23/21 21:00 06/03/21 21:11 Guaifenesin 600 Mg Tablet PO 600 mg BID DOROTHEA Administration Sodium Chloride 250 mls @ 20 mls/hr 05/29/21 20:49 06/03/21 22:03 Normal Saline 0.9% IV Infused Q24H PRN Infusion TKO RATE Vancomycin HCl 1 gm/ 500 mls @ 250 mls/hr 06/02/21 20:00 06/03/21 17:24 Vancomycin HCl 500 mg/ Sodium IV Infused Chloride Q18H DOROTHEA Infusion Insulin Aspart 1 - 5 unit 05/31/21 12:00 06/03/21 21:09 Insulin Aspart 300 Unit/3 Ml Pen SUBQ 3 unit 0800,1200,1700,2100 DOROTHEA Administration Protocol Insulin Glargine 6 unit 05/28/21 21:00 06/03/21 21:09 Insulin Glargine 300 Unit/3 Ml Pen SUBQ 6 unit QPM DOROTHEA Administration Lactobacillus Rhamnosus 1 cap 05/30/21 12:00 06/03/21 08:29 Lactobacillus Rhamnosus Gg Capsule PO 1 cap DAILY DOROTHEA Administration Magnesium Oxide 400 mg 05/29/21 12:00 06/03/21 08:27 Magnesium Oxide 400 Mg Tablet PO 400 mg DAILYWM DOROTHEA Administration Metoprolol Succinate 25 mg 05/28/21 12:01 06/03/21 08:27 Metoprolol Succinate 25 Mg Tablet PO Not Given DAILY DOROTHEA Metronidazole 500 mg 06/03/21 21:00 06/03/21 21:10 Metronidazole 250 Mg Tablet PO 500 mg Q8H DOROTHEA Administration Mineral Oil 1 applic 05/24/21 14:36 05/28/21 21:43 Min Oil/Dimethicon/Coconut Oil 92 Gm Tube TOP 1 applic PRN PRN Administration Skin Care Multivitamins/Minerals 1 tab 05/25/21 08:00 06/03/21 08:27 Multivitamin W/Minerals Tablet PO 1 tab DAILYWM DOROTHEA Administration Pt Own Med 1 each 06/02/21 21:00 06/03/21 21:11 Melatonin 5mg PO 1 each QPM DOROTHEA Administration Ondansetron HCl 4 mg 05/18/21 23:57 05/21/21 11:48 Ondansetron 4 Mg/2 Ml Vial IVP 4 mg Q6HR PRN Administration Nausea / Vomiting Oxycodone HCl 5 mg 05/21/21 14:23 05/27/21 13:48 Oxycodone 5 Mg Tablet PO 5 mg Q4HR PRN Administration PAIN Pantoprazole Sodium 40 mg 05/27/21 10:00 06/03/21 06:53 Pantoprazole 40 Mg Tablet PO 40 mg QDAC DOROTHEA Administration Polyethylene Glycol 17 gm 05/23/21 09:00 06/03/21 08:45 Polyethylene Glycol 3350 17 Gm Packet PO Not Given DAILY DOROTHEA Potassium Chloride 20 meq 06/01/21 12:00 06/03/21 17:07 Potassium Chloride 20 Meq Tablet PO 20 meq BIDWM DOROTHEA Administration Prochlorperazine Edisylate 10 mg 05/21/21 14:24 05/21/21 15:38 Prochlorperazine 10 Mg/2 Ml Vial IVP 10 mg Q6HR PRN Administration Nausea / Vomiting Sodium Chloride 10 ml 05/19/21 09:00 06/03/21 15:52 Sodium Chloride Flush 0.9% 10 Ml Syringe IVP 10 ml 0100,0900,1700 DOROTHEA Administration Sucralfate 1 gm 05/28/21 08:13 06/03/21 21:11 Sucralfate 1 Gm/10 Ml Udc PO 1 gm 0700,1100,1600,2200 DOROTHEA Administration Tamsulosin HCl 0.4 mg 05/27/21 13:00 06/03/21 08:45 Tamsulosin 0.4 Mg Capsule PO 0.4 mg DAILY DOROTHEA Administration Throat Lozenges 1 lozenge 05/29/21 11:22 05/29/21 12:29 Benzocaine/Menthol Lozenge MM 1 lozenge Q2HR PRN Administration Throat pain - Lab Result Lab results reviewed: Yes Fish Bone Diagrams: 06/03/21 11:20 06/03/21 11:20 - Additional Planning My Orders: My Active Orders 06/03/21 21:00 Amox/Clav 875/125 [Augmentin 875/125 Tab] 1 tab PO BID metroNIDAZOLE [Flagyl] 500 mg PO Q8H Objective Vital Signs: Vital Signs - 24 hr 06/03/21 06/03/21 06/03/21 03:36 07:48 16:00 Temperature 36.4 C L 36.3 C L 36.3 C L Heart Rate [ 100 105 H 101 H Brachial] Respiratory 20 18 18 Rate Blood Pressure 123/77 106/66 123/76 [Right Brachial artery] O2 Saturation 97 96 97 Oxygen O2 Source Room air I&O (Last 24 Hrs): Intake and Output Totals x24h 06/01/21 06/02/21 06/03/21 23:59 23:59 23:59 Intake Total 1970 2390 2568 Output Total 1250 1975 1525 Balance 532 335 9261 - Results Results: Laboratory Results WBC 14.2 x10^3/uL (4.8-10.8) H 06/03/21 11:20 RBC 3.74 10^6/uL (4.70-6.10) L 06/03/21 11:20 Hgb 11.9 g/dL (14.0-18.0) L 06/03/21 11:20 Hct 36.7 % (42.0-52.0) L 06/03/21 11:20 MCV 98.1 fL (80.0-94.0) H 06/03/21 11:20 MCH 31.8 pg (27.0-31.0) H 06/03/21 11:20 MCHC 32.4 g/dL (32.0-36.0) 06/03/21 11:20 RDW 15.7 % (12.0-15.0) H 06/03/21 11:20 Plt Count 277 10^3/uL (130-450) 06/03/21 11:20 MPV 11.6 fL (7.4-11.4) H 06/03/21 11:20 Neut # (Auto) 11.8 10^3/uL (1.5-6.6) H 06/03/21 11:20 Lymph # (Auto) 1.0 10^3/uL (1.5-3.5) L 06/03/21 11:20 [place] # (Auto) 1.3 10^3/uL (0.0-1.0) H 06/03/21 11:20 Eos # (Auto) 0.1 10^3/uL (0.0-0.7) 06/03/21 11:20 Baso # (Auto) 0.1 10^3/uL (0.0-0.1) 06/03/21 11:20 Absolute Nucleated RBC 0.00 x10^3/uL 06/03/21 11:20 Total Counted 100 05/31/21 05:45 Band Neuts % (Manual) 4 % (0-10) 05/31/21 05:45 Abnorm Lymph % (Manual) 0 % 05/31/21 05:45 Metamyelocytes % 1 % (-0) H 05/21/21 05:10 Myelocytes % 1 % (-0) H 05/30/21 05:36 Nucleated RBC % 0.0 /100WBC 06/03/21 11:20 Neutrophils # (Manual) 10.4 10^3/uL (1.5-6.6) H 05/31/21 05:45 Lymphocytes # (Manual) 0.4 10^3/uL (1.5-3.5) L 05/31/21 05:45 Monocytes # (Manual) 1.3 10^3/uL (0.0-1.0) H 05/31/21 05:45 Eosinophils # (Manual) 0.0 10^3/uL (0-0.7) 05/31/21 05:45 Basophils # (Manual) 0.0 10^3/uL (0-0.1) 05/31/21 05:45 Differential Comment MANUAL DIFFERENTIAL 05/31/21 05:45 Manual Slide Review Indicated 05/28/21 06:43 WBC Morphology NORMAL APPEARANCE (NORMAL) 05/29/21 06:15 Platelet Estimate NORMAL (130-450,000) (NORMAL) 05/30/21 05:36 Platelet Morphology NORMAL TOSHIA (NORMAL) 05/29/21 06:15 RBC Morph Micro Appear NORMAL APPEARANCE (NORMAL) 05/30/21 05:36 PT 19.5 secs (9.9-12.6) H 05/31/21 05:45 INR 1.8 (0.8-1.2) H 05/31/21 05:45 Anti-Xa Level 0.4 U/mL (-0.7) 05/24/21 05:45 Bld Gas Analysis Time 0545 05/19/21 05:35 Sample Site RIGHT RADIAL 05/19/21 05:35 ABG pH 7.42 (7.35-7.45) 05/19/21 05:35 ABG pCO2 36 mmHg (34-45) 05/19/21 05:35 ABG pO2 71 mmHg (80-100) L 05/19/21 05:35 ABG HCO3 22.4 mmol/L (22.0-26.0) 05/19/21 05:35 ABG Total CO2 23.5 MMOL/L (21.0-29.0) 05/19/21 05:35 ABG O2 Saturation 95 % (94-98) 05/19/21 05:35 ABG Base Excess -1.7 mmol/L (-2.0-3.0) 05/19/21 05:35 Fernando Test POSITIVE 05/19/21 05:35 O2 Delivery Device NON REBREATHER MASK 05/19/21 05:35 O2 Liters/Min 15.00 LPM 05/19/21 05:35 FiO2 100.00 05/19/21 05:35 Sodium 139 mmol/L (135-145) 06/03/21 11:20 Potassium 4.1 mmol/L (3.5-5.0) 06/03/21 11:20 Chloride 110 mmol/L (101-111) 06/03/21 11:20 Carbon Dioxide 23 mmol/L (21-32) 06/03/21 11:20 Anion Gap 6.0 (6-13) 06/03/21 11:20 BUN 23 mg/dL (6-20) H 06/03/21 11:20 Creatinine 1.0 mg/dL (0.6-1.2) 06/03/21 11:20 Estimated GFR (MDRD) 70 (>89) L 06/03/21 11:20 Glucose 216 mg/dL (70-100) H 06/03/21 11:20 Lactic Acid 1.5 mmol/L (0.5-2.2) 05/21/21 09:08 Calcium 7.8 mg/dL (8.5-10.3) L 06/03/21 11:20 Phosphorus 2.6 mg/dL (2.5-4.6) 06/03/21 11:20 Magnesium 1.8 mg/dL (1.7-2.8) 06/03/21 11:20 Total Bilirubin 0.9 mg/dL (0.2-1.0) 05/18/21 21:45 AST 18 IU/L (10-42) 05/18/21 21:45 ALT 18 IU/L (10-60) 05/18/21 21:45 Alkaline Phosphatase 43 IU/L (42-121) 05/18/21 21:45 Troponin I High Sens 6861.0 ng/L (2.3-19.7) H* 05/21/21 12:13 B-Natriuretic Peptide 1426 pg/mL (5-100) H 05/19/21 17:40 Total Protein 5.8 g/dL (6.7-8.2) L 05/18/21 21:45 Albumin 1.9 g/dL (3.2-5.5) L 06/02/21 05:35 Globulin 2.4 g/dL (2.1-4.2) 05/18/21 21:45 Albumin/Globulin Ratio 1.4 (1.0-2.2) 05/18/21 21:45 Lipase 24 U/L (22-51) 05/18/21 21:45 Urine Color YELLOW 05/29/21 13:49 Urine Clarity HAZY (CLEAR) 05/29/21 13:49 Urine pH 5.5 PH (5.0-7.5) 05/29/21 13:49 Ur Specific [place] 1.015 (1.002-1.030) 05/29/21 13:49 Urine Protein 100 mg/dL (NEGATIVE) H 05/29/21 13:49 Urine Glucose (UA) 100 mg/dL (NEGATIVE) H 05/29/21 13:49 Urine Ketones TRACE mg/dL (NEGATIVE) 05/29/21 13:49 Urine Occult Blood LARGE (NEGATIVE) H 05/29/21 13:49 Urine Nitrite NEGATIVE (NEGATIVE) 05/29/21 13:49 Urine Bilirubin NEGATIVE (NEGATIVE) 05/29/21 13:49 Urine Urobilinogen 0.2 (NORMAL) E.U./dL (NORMAL) 05/29/21 13:49 Ur Leukocyte Esterase NEGATIVE (NEGATIVE) 05/29/21 13:49 Urine RBC 11-25 /HPF (0-5) H 05/29/21 13:49 Urine WBC 0-3 /HPF (0-3) 05/29/21 13:49 Ur Squamous Epith Cells NONE SEEN (<= Few) 05/29/21 13:49 Urine Bacteria Rare /HPF (None Seen) 05/29/21 13:49 Urine Casts 0-2 Course Granular /LPF 05/29/21 13:49 Ur Microscopic Review NOT INDICATED 05/19/21 06:05 Urine Culture Comments NOT INDICATED 05/29/21 13:49 Nasal Screen MRSA (PCR) NEGATIVE (NEGATIVE) 05/19/21 06:00 Stl C. diff Tox B Gene NEGATIVE (NEGATIVE) 05/27/21 13:15 Last Dose Date 06/02/21 06/02/21 12:30 Last Dose Time 0253 06/02/21 12:30 Vancomycin Trough 25.7 ug/mL (10.0-20.0) H* 06/02/21 12:30 - Procedures Procedures: Procedures BYPASS DESCENDING COLON TO CUTANEOUS, OPEN APPROACH (05/14/21) CATARAC PHACOEMULS/ASPIR (12/28/14) EXCISION OF LEFT LOBE LIVER, OPEN APPROACH, DIAGNOSTIC (05/14/21) EXCISION OF SIGMOID COLON, ENDO, DIAGN (05/14/21) INSERT LENS AT CATAR EXT (12/28/14) IRRIGATE OF PERITON CAV USING IRRIGAT, PERC APPROACH, DIAGN (05/14/21) ABX Reporting Has patient been on IV antibiotics over the past 48 hours?: Yes
[2021-06-04] MEDS: SODIUM CHLORIDE FLUSH 0.9% 10 ML SYRINGE IVP SCH ×4 (01:25→23:27)
[2021-06-04] MEDS: metroNIDAZOLE 250 MG TABLET PO SCH ×3 (05:00→21:40)
[2021-06-04 05:34] LABS: BASOPHILS # (AUTO) 0.1 10^3/uL (0.0-0.1); BASOPHILS % (AUTO) 0.7 %; EOSINOPHILS # (AUTO) 0.8 10^3/uL (0.0-0.7); EOSINOPHILS % (AUTO) 7.6 %; HCT - HEMATOCRIT 33.7 % (42.0-52.0); HGB - HEMOGLOBIN 11.3 g/dL (14.0-18.0); LYMPHOCYTES # (AUTO) 1.1 10^3/uL (1.5-3.5); LYMPHOCYTES % (AUTO) 10.6 %; MEAN CORPUSCULAR HEMOGLOBIN 32.3 pg (27.0-31.0); MEAN CORPUSCULAR HGB CONC 33.5 g/dL (32.0-36.0); MEAN CORPUSCULAR VOLUME 96.3 fL (80.0-94.0); MEAN PLATELET VOLUME 11.8 fL (7.4-11.4); NEUTROPHILS % (AUTO) 70.4 %; PLT - PLATELET COUNT 264 10^3/uL (130-450); RED CELL DISTRIBUTION WIDTH 15.7 % (12.0-15.0)
[2021-06-04 05:48] LABS: ALBUMIN 2.1 g/dL (3.2-5.5); ALBUMIN/GLOBULIN RATIO 0.8 (1.0-2.2); BILIRUBIN,TOTAL 0.6 mg/dL (0.2-1.0); CALCIUM 7.7 mg/dL (8.5-10.3); CREATININE 0.9 mg/dL (0.6-1.2); PHOSPHORUS 2.5 mg/dL (2.5-4.6); POTASSIUM 3.6 mmol/L (3.5-5.0); TOTAL PROTEIN 4.6 g/dL (6.7-8.2)
[2021-06-04] MEDS: SUCRALFATE 1 GM/10 ML UDC PO SCH ×4 (06:44→21:40)
[2021-06-04] MEDS: PANTOPRAZOLE 40 MG TABLET PO SCH ×2 (06:44→10:54)
--- NOTE | 2021-06-04 09:17 | PROVIDER PROGRESS NOTE ---
Progress Note Subjective 89-year-old male readmitted with shock following discharge from palliative diverting loop colostomy (see below): Pre-Op Diagnosis: Obstructing sigmoid colonic mass; likely metastatic disease hepatic mets Procedure Performed: 1. Diagnostic laparoscopy 2. Laparoscopic-assisted loop colostomy 3. Laparoscopic assisted Left lobe of liver core biopsies 4. Laparoscopic assisted peritoneal washings and aspiration 5. Transversus abdominis plane block per anesthesia 6. Open umbilical hernia repair Since readmission the patient had been on multiple pressors following massive fluid resuscitation. Patient had blood cultures positive for gram valuable bacilli. Had been plans for central venous access. NSTEMI secondary to demand ischemia in the setting of CHF exacerbation, aortic stenosis, atrial fibrillation (paroxysmal). Known metastatic colon cancer with abnormal imaging consistent with hepatic and splenic metastases although intraoperative biopsy negative for malignancy. Son and daughter at bedside patient overall doing much improved. Currently off pressors. Persistent leukocytosis, increased to 20. Please see imaging from below. Called for IR drainage consultation. Discussed with Dr. Knox. He adamantly insisted that these were the consequence of perforation. I suggested that clinically the patient had no signs concerning for peritonitis, had no resection, was only notable for core needle biopsy and these were likely hematoma in a patient anticoagulated following NSTEMI given how the largest collection was subcapsular by the liver by my estimation. Reconsidered IR drainage for abdominal fluid collection and have deferred especially given White count has decreased to 12. [place] removed. Stoma bolster removed. Appliance changed by me. Patient overall doing surprisingly well. Objective Zeinab hemodynamically acceptable. General Appearance: positive: No acute distress Eyes Bilateral: positive: Normal inspection ENT: positive: ENT inspection nml Neck: positive: Nml inspection Respiratory: positive: Chest non-tender, No respiratory distress, Breath sounds nml. negative: Wheezes, Rales, Rhonchi Cardiovascular: positive: Regular rate & rhythm Abdomen: positive: No distention, Other. negative: Guarding, Rebound Extremities: positive: Non-tender, Full ROM, Nml appearance Neurologic/Psychiatric: positive: Oriented x3, CN's nml (2-12) Stoma pink and productive of flatus. Positive for Brown stool. Impression/Plan 89-year-old male readmitted with shock following discharge from palliative diverting loop colostomy. Obstructing colon cancer. Metastatic. Liver biopsy nondiagnostic for metastases although imaging consistent with splenic and hepatic metastases. CT chest with no evidence of pulmonary metastases. NSTEMI, CHF exacerbation, aortic stenosis, atrial fibrillation. Bacteremia. Repeat imaging concerning for possible abscess; discussed at length with interventional radiologist and I am not convinced these reflect the consequence of perforation though given the significance of the patient's hypotension ischemic necrosis is not unlikely. However in the setting of a benign abdomen and known recent surgery, during which liver biopsies performed are consistent with a subcapsular collection, I do believe that any intervention with associated risk should be approached with a healthy degree of trepidation in this tenuous gentleman. In retrospect although the mass appeared resectable laparoscopically, he most certainly would not have survived anything more than we had performed which was specifically catered to his presentation with metastases and his debilitated, malnourished state. Thus I do remain confident that we have performed the most appropriate intervention in the setting of his complex presentation and that stenting would actually have been even more likely to inspire a more profound inflammatory and septic response with associated risk of perforation being exceedingly high. Patient currently doing exceedingly well. Leukocytosis resolving. Have deferred IR drainage. Continue current management. Discharge planning. (1) GI - IVF, bowel regimen, advance diet as tolerated. GI ppx. Opiate sparring analgesia. (2) SURGERY - May need port for palliative chemotherapy pending oncology referral. In the setting of bacteremia would consider removal of central venous catheter at soonest with a line change. We will continue to monitor and trend fever graft and white blood cell counts. Although initially on admission there was no evidence of abdominal source for patient's sepsis - no fluid collections, abscesses, evidence of perforation. However recent imaging shows fluid collections. I am not averse to consideration for drainage for diagnostic purposes, as this would not be therapeutic given the inability to completely isolate all fluid collections in this patient with known anasarca, recent surgery, and likely postoperative short-term adhesions. I do believe that this is generally a consequence of the patient who had had a liver biopsy and had undergone systemic anticoagulation with likely consequence of postprocedural hematoma. I agree that we should reconsider and defer interventional radiograph graphic drainage especially given the leukocytosis has significantly resolved. (3) Renal/Lytes - continue IVF. Renal indices within normal limits. Trial of void. (4) Respiratory - O2 as necessary. Continue IS. (5) Heme - Will continue with DVT ppx. H/H stable. (6) Cardiovascular - HD acceptable. (7) Neuro - Opiate sparring analgesia. Antispasmodics with Robaxin. Neuropathic agents. (8) PT OT and discharge planning likely within 24 hours (9) Infectious DISEASE - Follow-up cultures; continue broad-spectrum antibiotics. In the setting of bacteremia would consider removal of central venous catheter at soonest with a line change. We will continue to monitor and trend fever graph and white blood cell counts. Defer interventional radiographic CT-guided drainage. Consider de-escalation of antibiotic therapy to oral and monitor for continued response to therapy. May 22, 2021 CT abdomen pelvis: 1. Dilated loops of small bowel in the left abdomen. Small air-fluid levels. Findings suspicious for adynamic ileus versus small bowel obstruction. Gaseous distention of the stomach. 2. Moderate volume of ascites, increased. Anasarca. 3. Hypodense hepatic lesions most compatible with metastatic disease. Is not well evaluated on this exam due to contrast bolus timing. 5. Small volume of pneumoperitoneum is decreased. This is likely iatrogenic from recent colectomy/colostomy. May 29, 2021 CT abdomen pelvis: 1. Interval development of several peripherally enhancing intraperitoneal fluid collections and air collections consistent with abscesses, particularly surrounding the liver and of the right lower quadrant. 2. Stable bilateral pleural effusions. 3. Persistent anasarca. 4. Decreased caliber of several small bowel loops suggesting resolving ileus. 5. Cholelithiasis 6. Liver and spleen abscesses or metastasis. Please note that voice recognition software was used to transcribe this note and inadvertent errors might persist in spite of review and editing. I am obliged to you for your attention. I am thankful to you for allowing me to participate with you in this care of this patient.
[2021-06-04] MEDS: INSULIN ASPART 300 UNIT/3 ML PEN SUBQ SCH ×4 (09:40→21:35)
[2021-06-04] MEDS: CHOLECALCIFEROL 400 UNIT TABLET PO SCH (10:53)
[2021-06-04] MEDS: FUROSEMIDE 20 MG TABLET PO SCH (10:55)
[2021-06-04] MEDS: POTASSIUM CHLORIDE 20 MEQ TABLET PO SCH ×2 (10:56→17:30)
[2021-06-04] MEDS: AMOX/CLAV 875 MG/125 MG TABLET PO SCH ×2 (10:56→21:35)
[2021-06-04] MEDS: ASPIRIN EC 81 MG TABLET PO SCH (10:56)
[2021-06-04] MEDS: MULTIVITAMIN W/MINERALS TABLET PO SCH (10:57)
[2021-06-04] MEDS: TAMSULOSIN 0.4 MG CAPSULE PO SCH (10:57)
[2021-06-04] MEDS: APIXABAN 5 MG TABLET PO SCH ×2 (10:57→21:40)
[2021-06-04] MEDS: guaiFENesin 600 MG TABLET PO SCH ×2 (10:57→21:40)
[2021-06-04] MEDS: MAGNESIUM OXIDE 400 MG TABLET PO SCH (10:57)
[2021-06-04] MEDS: METOPROLOL SUCCINATE 25 MG TABLET PO SCH (10:58)
[2021-06-04] MEDS: LACTOBACILLUS RHAMNOSUS GG CAPSULE PO SCH (10:58)
[2021-06-04] MEDS: polyethylene glycoL 3350 17 GM PACKET PO SCH (11:00)
--- NOTE | 2021-06-04 11:30 | XRAY Report ---
PROCEDURE: Chest 1 View X-Ray INDICATIONS: cough, wheezing TECHNIQUE: One view of the chest was acquired. COMPARISON: . FINDINGS: Surgical changes and devices: Left-sided PICC line is stable. Lungs and pleura: Small left and trace right pleural effusions. Increased bibasilar opacification, le ft greater than right. Mediastinum: Mediastinal contours appear normal. Heart size is normal. Bones and chest wall: No suspicious bony lesions. Overlying soft tissues appear unremarkable. IMPRESSION: Bibasilar opacities, left greater than right, which could represent atelectasis, aspiration or pneumo jameel.. Reviewed by: Jacinta Kaba MD, PhD on 06/04/2021 11:28 AM PDT Approved by: Jacinta Kaba MD, PhD on 06/04/2021 11:28 AM PDT Station ID: [id number]
[2021-06-04 13:31] LABS: ESTIMATED AVERAGE GLUCOSE 174 mg/dL (70-100); HEMOGLOBIN A1c% 7.7 % (4.27-6.07)
--- NOTE | 2021-06-04 17:15 | PROVIDER PROGRESS NOTE ---
Assessment/Plan - Problem List (1) Intra-abdominal abscess Assessment/Plan: 06/04 Patient denies abdominal pain, Patient has no fever, patient WBC become normal range, Patient tolerated regular diet without nausea or vomiting. Patient intravenous antibiotics already changed to oral antibiotics, We will continue oral antibiotics Flagyl and Augmentin. PICC line has been misplaced. Since the patient had bacteremia in previous, we will discontinue PICC line. Since patient clinically has significantly improved, will not plan to have new imaging study. (2) Bacteremia 06/04 Patient has no fever, WBC in the normal range. Blood culture at admission grew gram variable bacilli. Repeat blood cultures have been negative, but one blood cx (for anaerobes) had to be sent out to [facility]. pt had been on empiric cefepime and Flagyl for a presumed GI source. will Continue Flagyl and Augmentin. (3)profound weakness 06/04 Patient present profound weakness, We will continue physical therapist and occupational therapist. We will follow up with PT/OT recommendations (4) Leukocytosis 06/04 resolved (5) Urinary retention with incomplete bladder emptying Assessment/Plan: Stable, Continue Hernadez catheter. in the previoius, The son and daughter at bedside and the family friend by phone requested that the Hernadez catheter not be taken out because it was very difficult to insert because of obstruction. Continue with Hernadez care, Follow-up urologist as outpatient to manage (6) Acute on chronic systolic heart failure Assessment/Plan: improved. Anasarca/edema is reduced today. In echo study, patient show 40 to 45% EF, with moderate abnormal right heart pressure. Also patient has a history of liver metastatic disease, And colon cancer, Status post of colon resection. 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 Continue current meds. (8) Colon cancer Assessment/Plan: Has plans for oncology appointment after discharge in early June, Status post of colon resection (9) Status post colostomy Assessment/Plan: colostomy site is clear, no infection indicated. Patient's daughter had extensive education on the change of colostomy bag (10) Aortic stenosis Assessment/Plan: Stable Continue current meds and monitor fluid status, Follow-up lightning rod installer as outpatient (11) Diabetes mellitus type 2, controlled Assessment/Plan: Stable Continue sliding scale (12)SOB pt show shortness of breath, will check CXR. Patient is already on antibiotics, also patient had Lasix (13)liver metastatses CT Of abdomen show liver metastases, secondary to colon cancer likely. Patient's daughter report to continue to fight for the cancer, had an appointment to see oncologist on early June. Patient's daughter declined to have palliative care consult at this moment. - Current Meds Current Meds: Current Medications Generic Name Dose Route Start Last Admin Trade Name Telly PRN Reason Stop Dose Admin Acetaminophen 650 mg 05/18/21 23:57 06/03/21 08:27 Acetaminophen 325 Mg Tablet PO 650 mg Q4HR PRN Administration Pain 1 to 4 Amoxicillin/Clavulanate Potassium 1 tab 06/03/21 21:00 06/04/21 10:56 Amox/Clav 875 Mg/125 Mg Tablet PO 1 tab BID DOROTHEA Administration Apixaban 5 mg 05/31/21 09:00 06/04/21 10:57 Apixaban 5 Mg Tablet PO 5 mg BID DOROTHEA Administration Aspirin 81 mg 05/31/21 09:00 06/04/21 10:56 Aspirin Ec 81 Mg Tablet PO 81 mg DAILY DOROTHEA Administration Atorvastatin Calcium 40 mg 05/22/21 21:00 06/03/21 21:11 Atorvastatin 40 Mg Tablet PO 40 mg QPM DOROTHEA Administration Calcium Carbonate/Glycine 500 mg 05/21/21 05:20 05/30/21 10:56 Calcium Carbonate Chew 500 Mg Tablet PO 500 mg BID PRN Administration NEEDED PER PROVIDER ORDERS Cholecalciferol 800 unit 05/29/21 11:00 06/04/21 10:53 Cholecalciferol 400 Unit Tablet PO 800 unit DAILY DOROTHEA Administration Furosemide 40 mg 06/04/21 09:00 06/04/21 10:55 Furosemide 20 Mg Tablet PO 40 mg DAILY DOROTHEA Administration Guaifenesin 600 mg 05/23/21 21:00 06/04/21 10:57 Guaifenesin 600 Mg Tablet PO 600 mg BID DOROTHEA Administration Sodium Chloride 250 mls @ 20 mls/hr 05/29/21 20:49 06/03/21 22:03 Normal Saline 0.9% IV Infused Q24H PRN Infusion TKO RATE Insulin Aspart 1 - 5 unit 05/31/21 12:00 06/04/21 13:13 Insulin Aspart 300 Unit/3 Ml Pen SUBQ 2 unit 0800,1200,1700,2100 DOROTHEA Administration Protocol Insulin Glargine 6 unit 05/28/21 21:00 06/03/21 21:09 Insulin Glargine 300 Unit/3 Ml Pen SUBQ 6 unit QPM DOROTHEA Administration Lactobacillus Rhamnosus 1 cap 05/30/21 12:00 06/04/21 10:58 Lactobacillus Rhamnosus Gg Capsule PO 1 cap DAILY DOROTHEA Administration Magnesium Oxide 400 mg 05/29/21 12:00 06/04/21 10:57 Magnesium Oxide 400 Mg Tablet PO 400 mg DAILYWM DOROTHEA Administration Metoprolol Succinate 25 mg 05/28/21 12:01 06/04/21 10:58 Metoprolol Succinate 25 Mg Tablet PO 25 mg DAILY DOROTHEA Administration Metronidazole 500 mg 06/03/21 21:00 06/04/21 13:14 Metronidazole 250 Mg Tablet PO 500 mg Q8H DOROTHEA Administration Mineral Oil 1 applic 05/24/21 14:36 05/28/21 21:43 Min Oil/Dimethicon/Coconut Oil 92 Gm Tube TOP 1 applic PRN PRN Administration Skin Care Multivitamins/Minerals 1 tab 05/25/21 08:00 06/04/21 10:57 Multivitamin W/Minerals Tablet PO 1 tab DAILYWM DOROTHEA Administration Pt Own Med 1 each 06/02/21 21:00 06/03/21 21:11 Melatonin 5mg PO 1 each QPM DOROTHEA Administration Ondansetron HCl 4 mg 05/18/21 23:57 05/21/21 11:48 Ondansetron 4 Mg/2 Ml Vial IVP 4 mg Q6HR PRN Administration Nausea / Vomiting Oxycodone HCl 5 mg 05/21/21 14:23 05/27/21 13:48 Oxycodone 5 Mg Tablet PO 5 mg Q4HR PRN Administration PAIN Pantoprazole Sodium 40 mg 05/27/21 10:00 06/04/21 10:54 Pantoprazole 40 Mg Tablet PO 40 mg QDAC DOROTHEA Administration Polyethylene Glycol 17 gm 05/23/21 09:00 06/04/21 11:00 Polyethylene Glycol 3350 17 Gm Packet PO Not Given DAILY DOROTHEA Potassium Chloride 20 meq 06/01/21 12:00 06/04/21 10:56 Potassium Chloride 20 Meq Tablet PO 20 meq BIDWM DOROTHEA Administration Prochlorperazine Edisylate 10 mg 05/21/21 14:24 05/21/21 15:38 Prochlorperazine 10 Mg/2 Ml Vial IVP 10 mg Q6HR PRN Administration Nausea / Vomiting Sodium Chloride 10 ml 05/19/21 09:00 06/04/21 10:59 Sodium Chloride Flush 0.9% 10 Ml Syringe IVP Not Given 0100,0900,1700 DOROTHEA Sucralfate 1 gm 05/28/21 08:13 06/04/21 16:45 Sucralfate 1 Gm/10 Ml Udc PO 1 gm 0700,1100,1600,2200 DOROTHEA Administration Tamsulosin HCl 0.4 mg 05/27/21 13:00 06/04/21 10:57 Tamsulosin 0.4 Mg Capsule PO 0.4 mg DAILY DOROTHEA Administration Throat Lozenges 1 lozenge 05/29/21 11:22 05/29/21 12:29 Benzocaine/Menthol Lozenge MM 1 lozenge Q2HR PRN Administration Throat pain - Lab Result Fish Bone Diagrams: 06/04/21 04:55 06/04/21 04:55 - Additional Planning My Orders: My Active Orders 06/05/21 05:00 BMP - BASIC METABOLIC PANEL [CHEM] DAILYLAB CBC - COMP BLD CT W/AUTO DIFF [HEME] DAILYLAB 06/06/21 05:00 BMP - BASIC METABOLIC PANEL [CHEM] DAILYLAB CBC - COMP BLD CT W/AUTO DIFF [HEME] DAILYLAB 06/07/21 05:00 BMP - BASIC METABOLIC PANEL [CHEM] DAILYLAB CBC - COMP BLD CT W/AUTO DIFF [HEME] DAILYLAB 06/08/21 05:00 BMP - BASIC METABOLIC PANEL [CHEM] DAILYLAB CBC - COMP BLD CT W/AUTO DIFF [HEME] DAILYLAB 06/09/21 05:00 BMP - BASIC METABOLIC PANEL [CHEM] DAILYLAB CBC - COMP BLD CT W/AUTO DIFF [HEME] DAILYLAB Subjective - Subjective Patient Reports: Feeling Better Objective Vital Signs: Vital Signs - 24 hr 06/04/21 06/04/21 06/04/21 00:00 07:37 16:00 Temperature 36.6 C 36.3 C L 36.6 C Heart Rate [ 92 Brachial] Heart Rate [ 91 Monitoring electrodes] Heart Rate [ 108 H Radial] Respiratory 16 16 18 Rate Blood Pressure 109/62 [Left Brachial artery] Blood Pressure 112/72 123/58 L [Right Radial artery] O2 Saturation 96 93 98 Oxygen O2 Source Room air I&O (Last 24 Hrs): Intake and Output Totals x24h 06/02/21 06/03/21 06/04/21 23:59 23:59 23:59 Intake Total 2390 2568 580 Output Total 1975 1525 350 Balance 415 1043 230 General: Alert, Cooperative, No acute distress HEENT: Atraumatic Neck: Supple Lymphatic: no adenopathy Neuro: Alert, Non Focal Cardiovascular: Regular rate, Normal S1, Normal S2 Respiratory: Chest non-tender, Other (diminished lung sound at right lower lobe) Abdomen: Normal bowel sounds, Soft, No tenderness Extremities: Normal pulses - Results Results: Laboratory Results WBC 10.0 x10^3/uL (4.8-10.8) 06/04/21 04:55 RBC 3.50 10^6/uL (4.70-6.10) L 06/04/21 04:55 Hgb 11.3 g/dL (14.0-18.0) L 06/04/21 04:55 Hct 33.7 % (42.0-52.0) L 06/04/21 04:55 MCV 96.3 fL (80.0-94.0) H 06/04/21 04:55 MCH 32.3 pg (27.0-31.0) H 06/04/21 04:55 MCHC 33.5 g/dL (32.0-36.0) 06/04/21 04:55 RDW 15.7 % (12.0-15.0) H 06/04/21 04:55 Plt Count 264 10^3/uL (130-450) 06/04/21 04:55 MPV 11.8 fL (7.4-11.4) H 06/04/21 04:55 Neut # (Auto) 7.0 10^3/uL (1.5-6.6) H 06/04/21 04:55 Lymph # (Auto) 1.1 10^3/uL (1.5-3.5) L 06/04/21 04:55 Bea[place]gard # (Auto) 1.0 10^3/uL (0.0-1.0) 06/04/21 04:55 Eos # (Auto) 0.8 10^3/uL (0.0-0.7) H 06/04/21 04:55 Baso # (Auto) 0.1 10^3/uL (0.0-0.1) 06/04/21 04:55 Absolute Nucleated RBC 0.00 x10^3/uL 06/04/21 04:55 Total Counted 100 05/31/21 05:45 Band Neuts % (Manual) 4 % (0-10) 05/31/21 05:45 Abnorm Lymph % (Manual) 0 % 05/31/21 05:45 Metamyelocytes % 1 % (-0) H 05/21/21 05:10 Myelocytes % 1 % (-0) H 05/30/21 05:36 Nucleated RBC % 0.0 /100WBC 06/04/21 04:55 Neutrophils # (Manual) 10.4 10^3/uL (1.5-6.6) H 05/31/21 05:45 Lymphocytes # (Manual) 0.4 10^3/uL (1.5-3.5) L 05/31/21 05:45 Monocytes # (Manual) 1.3 10^3/uL (0.0-1.0) H 05/31/21 05:45 Eosinophils # (Manual) 0.0 10^3/uL (0-0.7) 05/31/21 05:45 Basophils # (Manual) 0.0 10^3/uL (0-0.1) 05/31/21 05:45 Differential Comment MANUAL DIFFERENTIAL 05/31/21 05:45 Manual Slide Review Indicated 05/28/21 06:43 WBC Morphology NORMAL APPEARANCE (NORMAL) 05/29/21 06:15 Platelet Estimate NORMAL (130-450,000) (NORMAL) 05/30/21 05:36 Platelet Morphology NORMAL TOSHIA (NORMAL) 05/29/21 06:15 RBC Morph Micro Appear NORMAL APPEARANCE (NORMAL) 05/30/21 05:36 PT 19.5 secs (9.9-12.6) H 05/31/21 05:45 INR 1.8 (0.8-1.2) H 05/31/21 05:45 Anti-Xa Level 0.4 U/mL (-0.7) 05/24/21 05:45 Bld Gas Analysis Time 0545 05/19/21 05:35 Sample Site RIGHT RADIAL 05/19/21 05:35 ABG pH 7.42 (7.35-7.45) 05/19/21 05:35 ABG pCO2 36 mmHg (34-45) 05/19/21 05:35 ABG pO2 71 mmHg (80-100) L 05/19/21 05:35 ABG HCO3 22.4 mmol/L (22.0-26.0) 05/19/21 05:35 ABG Total CO2 23.5 MMOL/L (21.0-29.0) 05/19/21 05:35 ABG O2 Saturation 95 % (94-98) 05/19/21 05:35 ABG Base Excess -1.7 mmol/L (-2.0-3.0) 05/19/21 05:35 Fernando Test POSITIVE 05/19/21 05:35 O2 Delivery Device NON REBREATHER MASK 05/19/21 05:35 O2 Liters/Min 15.00 LPM 05/19/21 05:35 FiO2 100.00 05/19/21 05:35 Sodium 142 mmol/L (135-145) 06/04/21 04:55 Potassium 3.6 mmol/L (3.5-5.0) 06/04/21 04:55 Chloride 114 mmol/L (101-111) H 06/04/21 04:55 Carbon Dioxide 25 mmol/L (21-32) 06/04/21 04:55 Anion Gap 3.0 (6-13) L 06/04/21 04:55 BUN 22 mg/dL (6-20) H 06/04/21 04:55 Creatinine 0.9 mg/dL (0.6-1.2) 06/04/21 04:55 Estimated GFR (MDRD) 79 (>89) L 06/04/21 04:55 Glucose 185 mg/dL (70-100) H 06/04/21 04:55 Estimat Average Glucose 174 mg/dL (70-100) H 06/04/21 04:55 Hemoglobin A1c % 7.7 % (4.27-6.07) H 06/04/21 04:55 Lactic Acid 1.5 mmol/L (0.5-2.2) 05/21/21 09:08 Calcium 7.7 mg/dL (8.5-10.3) L 06/04/21 04:55 Phosphorus 2.5 mg/dL (2.5-4.6) 06/04/21 04:55 Magnesium 2.0 mg/dL (1.7-2.8) 06/04/21 04:55 Total Bilirubin 0.6 mg/dL (0.2-1.0) 06/04/21 04:55 AST 18 IU/L (10-42) 06/04/21 04:55 ALT 15 IU/L (10-60) 06/04/21 04:55 Alkaline Phosphatase 53 IU/L (42-121) 06/04/21 04:55 Troponin I High Sens 6861.0 ng/L (2.3-19.7) H* 05/21/21 12:13 B-Natriuretic Peptide 1426 pg/mL (5-100) H 05/19/21 17:40 Total Protein 4.6 g/dL (6.7-8.2) L 06/04/21 04:55 Albumin 2.1 g/dL (3.2-5.5) L 06/04/21 04:55 Globulin 2.5 g/dL (2.1-4.2) 06/04/21 04:55 Albumin/Globulin Ratio 0.8 (1.0-2.2) L 06/04/21 04:55 Lipase 24 U/L (22-51) 05/18/21 21:45 Urine Color YELLOW 05/29/21 13:49 Urine Clarity HAZY (CLEAR) 05/29/21 13:49 Urine pH 5.5 PH (5.0-7.5) 05/29/21 13:49 Ur Specific [place] 1.015 (1.002-1.030) 05/29/21 13:49 Urine Protein 100 mg/dL (NEGATIVE) H 05/29/21 13:49 Urine Glucose (UA) 100 mg/dL (NEGATIVE) H 05/29/21 13:49 Urine Ketones TRACE mg/dL (NEGATIVE) 05/29/21 13:49 Urine Occult Blood LARGE (NEGATIVE) H 05/29/21 13:49 Urine Nitrite NEGATIVE (NEGATIVE) 05/29/21 13:49 Urine Bilirubin NEGATIVE (NEGATIVE) 05/29/21 13:49 Urine Urobilinogen 0.2 (NORMAL) E.U./dL (NORMAL) 05/29/21 13:49 Ur Leukocyte Esterase NEGATIVE (NEGATIVE) 05/29/21 13:49 Urine RBC 11-25 /HPF (0-5) H 05/29/21 13:49 Urine WBC 0-3 /HPF (0-3) 05/29/21 13:49 Ur Squamous Epith Cells NONE SEEN (<= Few) 05/29/21 13:49 Urine Bacteria Rare /HPF (None Seen) 05/29/21 13:49 Urine Casts 0-2 Course Granular /LPF 05/29/21 13:49 Ur Microscopic Review NOT INDICATED 05/19/21 06:05 Urine Culture Comments NOT INDICATED 05/29/21 13:49 Nasal Screen MRSA (PCR) NEGATIVE (NEGATIVE) 05/19/21 06:00 Stl C. diff Tox B Gene NEGATIVE (NEGATIVE) 05/27/21 13:15 Last Dose Date 06/02/21 06/02/21 12:30 Last Dose Time 0253 06/02/21 12:30 Vancomycin Trough 25.7 ug/mL (10.0-20.0) H* 06/02/21 12:30 - Procedures Procedures: Procedures BYPASS DESCENDING COLON TO CUTANEOUS, OPEN APPROACH (05/14/21) CATARAC PHACOEMULS/ASPIR (12/28/14) EXCISION OF LEFT LOBE LIVER, OPEN APPROACH, DIAGNOSTIC (05/14/21) EXCISION OF SIGMOID COLON, ENDO, DIAGN (05/14/21) INSERT LENS AT CATAR EXT (12/28/14) IRRIGATE OF PERITON CAV USING IRRIGAT, PERC APPROACH, DIAGN (05/14/21) ABX Reporting Has patient been on IV antibiotics over the past 48 hours?: Yes Current Medications - Current Medications Current Medications: Active Medications Acetaminophen (Acetaminophen 325 Mg Tablet) 650 mg PO Q4HR PRN PRN Reason: Pain 1 to 4 Last Admin: 06/03/21 08:27 Dose: 650 mg Documented by: Amoxicillin/Clavulanate Potassium (Amox/Clav 875 Mg/125 Mg Tablet) 1 tab PO BID [facility] Last Admin: 06/04/21 10:56 Dose: 1 tab Documented by: Apixaban (Apixaban 5 Mg Tablet) 5 mg PO BID [facility] Last Admin: 06/04/21 10:57 Dose: 5 mg Documented by: Aspirin (Aspirin Ec 81 Mg Tablet) 81 mg PO DAILY [facility] Last Admin: 06/04/21 10:56 Dose: 81 mg Documented by: Atorvastatin Calcium (Atorvastatin 40 Mg Tablet) 40 mg PO QPM [facility] Last Admin: 06/03/21 21:11 Dose: 40 mg Documented by: Calcium Carbonate/Glycine (Calcium Carbonate Chew 500 Mg Tablet) 500 mg PO BID PRN PRN Reason: NEEDED PER PROVIDER ORDERS Last Admin: 05/30/21 10:56 Dose: 500 mg Documented by: Carboxymethylcellulose (Carboxymethylcellulose Ophth Drops) 1 drops EACHEYE PRN PRN PRN Reason: Dry Eye Cholecalciferol (Cholecalciferol 400 Unit Tablet) 800 unit PO DAILY [facility] Last Admin: 06/04/21 10:53 Dose: 800 unit Documented by: Furosemide (Furosemide 20 Mg Tablet) 40 mg PO DAILY [facility] Last Admin: 06/04/21 10:55 Dose: 40 mg Documented by: Guaifenesin (Guaifenesin 600 Mg Tablet) 600 mg PO BID [facility] Last Admin: 06/04/21 10:57 Dose: 600 mg Documented by: Hydromorphone HCl (Hydromorphone 0.5 Mg/0.5 Ml Syringe) 0.5 mg IVP Q8H PRN PRN Reason: Pain 8 to 10 Sodium Chloride (Normal Saline 0.9%) 250 mls @ 20 mls/hr IV Q24H PRN PRN Reason: TKO RATE Last Infusion: 06/03/21 22:03 Dose: Infused Documented by: Insulin Aspart (Insulin Aspart 300 Unit/3 Ml Pen) 1 - 5 unit SUBQ 0800,1200,1700,2100 [facility]; Protocol Last Admin: 06/04/21 17:30 Dose: 3 unit Documented by: Insulin Glargine (Insulin Glargine 300 Unit/3 Ml Pen) 6 unit SUBQ QPM [facility] Last Admin: 06/03/21 21:09 Dose: 6 unit Documented by: Lactobacillus Rhamnosus (Lactobacillus Rhamnosus Gg Capsule) 1 cap PO DAILY [facility] Last Admin: 06/04/21 10:58 Dose: 1 cap Documented by: Magnesium Oxide (Magnesium Oxide 400 Mg Tablet) 400 mg PO DAILYWM [facility] Last Admin: 06/04/21 10:57 Dose: 400 mg Documented by: Metoprolol Succinate (Metoprolol Succinate 25 Mg Tablet) 25 mg PO DAILY [facility] Last Admin: 06/04/21 10:58 Dose: 25 mg Documented by: Metronidazole (Metronidazole 250 Mg Tablet) 500 mg PO Q8H [facility] Last Admin: 06/04/21 13:14 Dose: 500 mg Documented by: Mineral Oil (Min Oil/Dimethicon/Coconut Oil 92 Gm Tube) 1 applic TOP PRN PRN PRN Reason: Skin Care Last Admin: 05/28/21 21:43 Dose: 1 applic Documented by: Multi-Ingredient Ointment (Zinc Oxide 20% Oint 30 Gm Tube) 1 applic TOP PRN PRN PRN Reason: Skin Care Multivitamins/Minerals (Multivitamin W/Minerals Tablet) 1 tab PO DAILYWM [facility] Last Admin: 06/04/21 10:57 Dose: 1 tab Documented by: Pt Own Med (Melatonin 5mg) 1 each PO QPM [facility] Last Admin: 06/03/21 21:11 Dose: 1 each Documented by: Ondansetron HCl (Ondansetron Odt 4 Mg Tablet) 4 mg TL Q6HR PRN PRN Reason: Nausea / Vomiting Ondansetron HCl (Ondansetron 4 Mg/2 Ml Vial) 4 mg IVP Q6HR PRN PRN Reason: Nausea / Vomiting Last Admin: 05/21/21 11:48 Dose: 4 mg Documented by: Oxycodone HCl (Oxycodone 5 Mg Tablet) 5 mg PO Q4HR PRN PRN Reason: PAIN Last Admin: 05/27/21 13:48 Dose: 5 mg Documented by: Pantoprazole Sodium (Pantoprazole 40 Mg Tablet) 40 mg PO QDAC [facility] Last Admin: 06/04/21 10:54 Dose: 40 mg Documented by: Polyethylene Glycol (Polyethylene Glycol 3350 17 Gm Packet) 17 gm PO DAILY [facility] Last Admin: 06/04/21 11:00 Dose: Not Given Documented by: Potassium Chloride (Potassium Chloride 20 Meq Tablet) 20 meq PO BIDWM [facility] Last Admin: 06/04/21 17:30 Dose: 20 meq Documented by: Prochlorperazine Edisylate (Prochlorperazine 10 Mg/2 Ml Vial) 10 mg IVP Q6HR PRN PRN Reason: Nausea / Vomiting Last Admin: 05/21/21 15:38 Dose: 10 mg Documented by: Sodium Chloride (Sodium Chloride Flush 0.9% 10 Ml Syringe) 10 ml IVP 0100,0900,1700 [facility] Last Admin: 06/04/21 17:31 Dose: Not Given Documented by: Sucralfate (Sucralfate 1 Gm/10 Ml Udc) 1 gm PO 0700,1100,1600,2200 [facility] Last Admin: 06/04/21 16:45 Dose: 1 gm Documented by: Tamsulosin HCl (Tamsulosin 0.4 Mg Capsule) 0.4 mg PO DAILY [facility] Last Admin: 06/04/21 10:57 Dose: 0.4 mg Documented by: Throat Lozenges (Benzocaine/Menthol Lozenge) 1 lozenge MM Q2HR PRN PRN Reason: Throat pain Last Admin: 05/29/21 12:29 Dose: 1 lozenge Documented by: Aspirin [Adult Low Dose Aspirin EC] 81 mg PO DAILY 01/10/20 Doxazosin Mesylate 8 mg PO DAILY 01/10/20 Multivit-Min/FA/Lycopen/Lutein [Centrum Silver Men Tablet] 1 each PO DAILY 01/10/20 Rosuvastatin Calcium 20 mg PO DAILY 01/10/20 metFORMIN [Glucophage] 250 mg PO BIDWM 05/13/21
[2021-06-04] MEDS: INSULIN GLARGINE 300 UNIT/3 ML PEN SUBQ SCH (21:34)
[2021-06-04] MEDS: MELATONIN 5 MG PO SCH (21:40)
[2021-06-04] MEDS: ATORVASTATIN 40 MG TABLET PO SCH (21:40)
[2021-06-04] MEDS: MIN OIL/DIMETHICON/COCONUT OIL 92 GM TUBE TOP PRN (22:40)
[2021-06-05] MEDS: PANTOPRAZOLE 40 MG TABLET PO SCH (06:18)
[2021-06-05] MEDS: SUCRALFATE 1 GM/10 ML UDC PO SCH ×2 (06:18→10:59)
[2021-06-05] MEDS: metroNIDAZOLE 250 MG TABLET PO SCH ×2 (06:18→12:18)
[2021-06-05 06:21] LABS: BASOPHILS % (AUTO) 0.6 %; EOSINOPHILS % (AUTO) 0.6 %; HCT - HEMATOCRIT 32.7 % (42.0-52.0); HGB - HEMOGLOBIN 11.2 g/dL (14.0-18.0); LYMPHOCYTES % (AUTO) 9.5 %; MEAN CORPUSCULAR HEMOGLOBIN 32.8 pg (27.0-31.0); MEAN CORPUSCULAR HGB CONC 34.3 g/dL (32.0-36.0); MEAN CORPUSCULAR VOLUME 95.9 fL (80.0-94.0); MEAN PLATELET VOLUME 11.4 fL (7.4-11.4); MONOCYTES % (AUTO) 9.8 %; PLT - PLATELET COUNT 263 10^3/uL (130-450); RED BLOOD COUNT 3.41 10^6/uL (4.70-6.10); RED CELL DISTRIBUTION WIDTH 15.9 % (12.0-15.0); WHITE BLOOD COUNT 9.9 x10^3/uL (4.8-10.8)
[2021-06-05 06:27] LABS: ABNORMAL LYMPHS % (MANUAL) 0 %; BAND NEUTROPHILS % (MANUAL) 0 %
[2021-06-05 06:29] LABS: CALCIUM 7.7 mg/dL (8.5-10.3); CREATININE 0.9 mg/dL (0.6-1.2); POTASSIUM 3.4 mmol/L (3.5-5.0)
[2021-06-05] MEDS: INSULIN ASPART 300 UNIT/3 ML PEN SUBQ SCH ×2 (08:06→12:21)
[2021-06-05] MEDS ORDERED: POTASSIUM CHLORIDE 20 MEQ TABLET PO ONE (08:28)
[2021-06-05 09:22] VITALS: BP 110/58
[2021-06-05 09:52] LABS: BASOPHILS # (MANUAL) 0.2 10^3/uL (0-0.1); BASOPHILS % (MANUAL) 2 %; LYMPHOCYTES # (MANUAL) 1.1 10^3/uL (1.5-3.5); LYMPHOCYTES % (MANUAL) 11 %; MONOCYTES # (MANUAL) 1.3 10^3/uL (0.0-1.0); NEUTROPHILS # (MANUAL) 7.3 10^3/uL (1.5-6.6)
[2021-06-05 09:53] LABS: DIFFERENTIAL COMMENT MANUAL DIFFERENTIAL; PLATELET ESTIMATE, MANUAL NORMAL (130-450,000) (NORMAL); PLATELET MORPHOLOGY NORMAL APPEARANCE (NORMAL); RBC MORPHOLOGY (MULTIPLE) NORMAL APPEARANCE (NORMAL); WBC MORPHOLOGY (MULTIPLE) NORMAL APPEARANCE (NORMAL)
--- NOTE | 2021-06-05 10:32 | Discharge Plan ---
Discharge Plan Problem Reviewed?: Yes Disposition: Home Health Service Condition: Stable Prescriptions: Amox/Clav 875/125 [Augmentin 875/125 Tab] 1 tab PO BID #14 tablet Lactobacillus Rhamnosus GG [Culturelle] 1 cap PO DAILY #30 cap Apixaban [Eliquis] 5 mg PO BID #30 tablet metroNIDAZOLE [Flagyl] 500 mg PO Q8H 7 Days #42 tablet metFORMIN [Glucophage] 500 mg PO BIDWM #60 tab Potassium Chloride [K-Dur] 20 meq PO BIDWM #30 tablet Furosemide [Lasix] 40 mg PO DAILY #60 tablet Pantoprazole [Protonix] 40 mg PO QDAC #30 tablet Metoprolol Succinate [Toprol Xl] 25 mg PO DAILY #30 tablet Diet: Diabetic Activity Restrictions: Activity as Tolerated Shower Restrictions: No (fall precaution) Instruction Topics: Pantoprazole tablets, Metronidazole tablets or capsules, Apixaban oral tablets, Metoprolol tablets, Amoxicillin Clavulanic Acid tablets, Furosemide tablets Health Concerns: metastatic colon cancer, colostomy care, interval abdominal abscesses, heart failure, aortic stenosis, atrial fibrillation Plan of Treatment: You present metastatic colon cancer with abnormal imaging consistent with hepatic and splenic metastases although intraoperative biopsy show negative for malignancy. you may followup with oncologist on early June appointment for further management. You developed bacteremia and interval abdominal abscesses. you had great improvement. now you tolerated diet, you have no fever and your WBC is in the normal arrange. You walked with PT/OT in hallway. Antibiotics are prescribed for you to finish the treatment course. You may followup with your PCP continue management. You have colostomy. Home health RN is arranged for colostomy care, you may follow up with surgeon for further management. You are found to have congestive heart failure with fluid retention, and Atrial fibrillation. You are prescribed new medications metoprolol, Lasix, and Eliquis. You may follow-up with [facility] for further management You have Hernadez catheter for urinary retention now. Home health RN will help care for you. You may follow-up with your urologist as outpatient for further management. Care Goals: Stabilization and improvement of your medical conditions Assessment: discussed the care plan with you, and your son and daughter, answered your quest ions, you understood. Additional Instructions or Follow Up instructions: You may followup with your PCP in one week and have blood work, followup with oncologist, surgeon, [facility] and urologist as out-pt. Should your symptoms return or worsen, you may present ER or call 911 to get help. Follow-Up Care: Outpatient Rehab - PT, Outpatient Rehab - OT, Home Health - RN No Smoking: If you smoke, Please STOP! Call for help. Follow-up with: Anuj Umaña MD [Primary Care Provider] -
[2021-06-05] MEDS: CHOLECALCIFEROL 400 UNIT TABLET PO SCH (10:50)
[2021-06-05] MEDS: LACTOBACILLUS RHAMNOSUS GG CAPSULE PO SCH (10:52)
[2021-06-05] MEDS: APIXABAN 5 MG TABLET PO SCH (10:52)
[2021-06-05] MEDS: METOPROLOL SUCCINATE 25 MG TABLET PO SCH (10:52)
[2021-06-05] MEDS: MAGNESIUM OXIDE 400 MG TABLET PO SCH (10:54)
[2021-06-05] MEDS: AMOX/CLAV 875 MG/125 MG TABLET PO SCH (10:57)
[2021-06-05] MEDS: ASPIRIN EC 81 MG TABLET PO SCH (10:58)
[2021-06-05] MEDS: POTASSIUM CHLORIDE 20 MEQ TABLET PO SCH (10:58)
[2021-06-05] MEDS: FUROSEMIDE 20 MG TABLET PO SCH (10:58)
[2021-06-05] MEDS: guaiFENesin 600 MG TABLET PO SCH (10:58)
[2021-06-05] MEDS: TAMSULOSIN 0.4 MG CAPSULE PO SCH (10:59)
[2021-06-05] MEDS: MULTIVITAMIN W/MINERALS TABLET PO SCH (10:59)
[2021-06-05] MEDS: polyethylene glycoL 3350 17 GM PACKET PO SCH ×2 (10:59→15:01)
[2021-06-05] MEDS: SODIUM CHLORIDE FLUSH 0.9% 10 ML SYRINGE IVP SCH (11:04)
--- NOTE | 2021-06-05 11:53 | DISCHARGE SUMMARY ---
"Discharge Summary Admit Date: 05/19/21 Discharge Date: 06/05/21 Discharging Provider: Issac Lutz Primary Care Provider: Mitchell Blackwood Condition at Discharge: Stable Discharge Disposition: Home Health Service Discharge Facility Name: home - DIAGNOSES Discharge Diagnoses with Status of Each Condition: (1) Intra-abdominal abscess Patient tolerated diet without abdominal pain, nausea or vomiting. Patient has no fever, patient WBC are at normal range, Patient is prescribed oral antibiotics Flagyl and Augmentin. PICC line has been misplaced. Since the patient had bacteremia in previous, we will discontinue PICC line. Since patient clinically has significantly improved, will not plan to have new imaging study. (2) Bacteremia initial blood culture show gram variable bacilli, repeated blood culture reveals negative for bacteremia. Patient has no fever, WBC in the normal range. Patient walk at hallway. Patient is prescribed antibiotics d/c to home. (3)weakness significantly improved. pt walked at hallway. Pt had PT/OT Evaluation and treatment in the hospital (4) Leukocytosis resolved (5) Urinary retention with incomplete bladder emptying pt has Dupont care, Home health RN is arranged for pt's dupont care, Follow-up urologist as outpatient to manage. Dupont catheter is also requested by patient's family (6) Acute on chronic systolic heart failure improved significantly. Anasarca/edema is reduced significantly. In echo study, patient show 40 to 45% EF, with moderate abnormal right heart pressure. Also patient has history of liver metastatic disease, And colon cancer, Status post of colon resection. 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 pt is prescribed Lasix 40 mg daily (7) Atrial fibrillation Rate controlled. pt is prescribed Metoprolol and Eliquis, Follow-up packaging supervisor for management (8) Colon cancer Status post of colon resection. pt Has plans to see oncology appointment after discharge in early June, (9) Status post colostomy Patient tolerated regular diet, without abdominal pain, nausea or vomiting and, with bowel movement in ostomy bad. colostomy site is clear, no infection indicated. Patient's daughter had extensive education on the change of colostomy bag. Home health RN is arranged for ostomy care as well (10) Aortic stenosis Stable. Echo show patient had moderate aortic stenosis. Patient and patient family know patient's this condition and pt will Follow-up packaging supervisor as outpatient (11) Diabetes mellitus type 2, controlled Stable, controlled glucose level. Continue home Metformin, A1C is 7.7 (12)liver metastatses CT Of abdomen show liver metastases. Patient's daughter pt has an appointment to see oncologist on early June. Patient's daughter declined to have palliative care consult at this moment. - HPI History of Present Illness: refer from Dr. Amaris Trujillo's HPI on 05/19/21 This is an 89-year-old WM with history of diabetes on Metformin, hypertension on lisinopril, hyperlipidemia on Crestor, aortic stenosis mild-moderate by Echo done 12/2019, who was recently admitted with an obstructing sigmoid mass and underwent a loop colostomy 2 days ago. Metastases were found. 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 The patient and family had training for colostomy care. He was discharged yesterday. He developed abdominal pain upon return home and presented to the emergency room yesterday evening and is admitted on the surgical service. Several hours after admission the RN informed the surgeon that the patient's blood pressure was 79/40. IV fluids of D5 LR are infusing at 100 cc/hr. A Medicine consult has been requested to evaluate and manage hypotension. Review of the recent events from his chart show: The patient had normal sinus rhythm on his EKG in December 2019. A telemetry strip from the admission 3 days ago shows that he was in atrial fib. He was not on telemetry during that hospitalization 3 days ago. The progress notes indicate that he was in regular rate and rhythm however. The EKG on presentation last night shows that he is in atrial fib and also findings of low voltage in the limb leads, inferior Q waves with ST elevation in lead II and also diffusely flat T waves, suggesting ischemia, which are all new findings since his 12-lead EKG from December 2019. There is no past cardiac history. There was no recent preop evaluation by Medicine, no new Echo or stress testing results in [facility]. The surgical repo rt shows that he had uncomplicated procedure and was able to pass flatus and was discharged yesterday daytime in stable condition. A CT abdomen was done and showed recto-sigmoid colitis, free air in the abdomen, bilateral moderate pleural effusions. Labs from this admission show that his lactic acid is normal, hemoglobin is 13.8 (and was 13 at discharge yesterday), normal white blood count, and no fever. - CONSULTS | PROCEDURES Consultations: Dr. Peterson Procedures: underwent a loop colostomy - HOSPITAL COURSE Hospital Course: Initially pt was recently admitted with an obstructing sigmoid mass and underwent a loop colostomy and biopsy. 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 The patient and family was trained at that time for colostomy care. Then pt was discharged. He developed abdominal pain upon return home and presented to the emergency room and is admitted on the surgical service. Then patient developed hypotension, septic shock, NSTEMI. Patient was in ICU care. Patient also develop bacteremia, abdominal abscesses. After 18 days treated in hospital, patient can walk in the hallway, Patient's WBC become normal, patient has no fever, Patient tolerated regular diet without nausea, vomiting or abdominal pain. patient ostomy bag has bowel movements. Patient became hemodynamically stable. In detail hospital course please also review summary of discharge diagnosis - ALLERGIES Allergies/Adverse Reactions: Allergies Allergy/AdvReac Type Severity Reaction Status Date / Time No Known Drug Allergies Allergy Verified 06/07/21 10:08 - MEDICATIONS Home Medications: Ambulatory Orders Medication Instructions Recorded Confirmed Aspirin [Adult Low Dose Aspirin EC] 81 mg PO DAILY 01/10/20 06/07/21 Doxazosin Mesylate 8 mg PO DAILY 01/10/20 06/07/21 Multivit-Min/FA/Lycopen/Lutein 1 each PO DAILY 01/10/20 06/07/21 [Centrum Silver Men Tablet] Rosuvastatin Calcium 20 mg PO DAILY 01/10/20 06/07/21 Lisinopril [Zestril] 10 mg PO DAILY #30 tablet 01/11/20 06/07/21 Amox/Clav 875/125 [Augmentin 1 tab PO BID #14 tablet 06/05/21 06/07/21 875/125 Tab] Apixaban [Eliquis] 5 mg PO BID #30 tablet 06/05/21 06/07/21 Furosemide [Lasix] 40 mg PO DAILY #60 tablet 06/05/21 06/07/21 Lactobacillus Rhamnosus GG 1 cap PO DAILY #30 cap 06/05/21 06/07/21 [Culturelle] Metoprolol Succinate [Toprol Xl] 25 mg PO DAILY #30 tablet 06/05/21 06/07/21 Pantoprazole [Protonix] 40 mg PO QDAC #30 tablet 06/05/21 06/07/21 Potassium Chloride [K-Dur] 20 meq PO BIDWM #30 tablet 06/05/21 06/07/21 metFORMIN [Glucophage] 500 mg PO BIDWM #60 tab 06/05/21 06/07/21 metroNIDAZOLE [Flagyl] 500 mg PO Q8H 7 Days #42 tablet 06/05/21 06/07/21 Furosemide [Lasix] 20 mg PO DAILY 06/07/21 06/07/21 - PHYSICAL EXAM AT DISCHARGE General Appearance: positive: No acute distress, Alert. negative: Lethargic Eyes Bilateral: positive: Normal inspection, PERRL, No lid inflammation ENT: positive: ENT inspection nml, No signs of dehydration. negative: Purulent nasal drainage Neck: positive: Nml inspection, Trachea midline. negative: Thyromegaly, Tracheal deviation Respiratory: positive: Chest non-tender, No respiratory distress. negative: Wheezes Cardiovascular: positive: Regular rate & rhythm, Systolic murmur. negative: Tachycardia, Bradycardia Peripheral Pulses: positive: 2+ Abdomen: positive: Non-tender, Nml bowel sounds, No distention, Other (ostomy bag at left middle. The skin around ostomy bag is clear without indication of infection). negative: Tenderness Back: positive: Nml inspection Skin: positive: Color nml, Warm, Dry. negative: Cyanosis Extremities: positive: Non-tender, Full ROM, Nml appearance. negative: Calf tenderness Neurologic/Psychiatric: positive: Motor nml, Sensation nml, Mood/affect nml. negative: Weakness, Sensory loss, Facial droop, Slurred/abnml speech - LABS Result Diagrams: 06/05/21 06:15 06/05/21 06:15 - FOLLOW UP Follow Up: You present metastatic colon cancer with abnormal imaging consistent with he patic and splenic metastases although intraoperative biopsy show negative for malignancy. you may followup with oncologist on early June appointment for further management. You developed bacteremia and interval abdominal abscesses. you had great improvement. now you tolerated diet, you have no fever and your WBC is in the normal arrange. You walked with PT/OT in hallway. Antibiotics are prescribed for you to finish the treatment course. You may followup with your PCP continue management. You have colostomy. Home health RN is arranged for colostomy care, you may follow up with surgeon for further management. You are found to have congestive heart failure with fluid retention, and Atrial fibrillation. You are prescribed new medications metoprolol, Lasix, and Eliquis. You may follow-up with packaging supervisor for further management You have Dupont catheter for urinary retention now. Home health RN will help care for you. You may follow-up with your urologist as outpatient for further management. You may followup with your PCP in one week and have blood work, followup with oncologist, surgeon, packaging supervisor and urologist as out-pt. Should your symptoms return or worsen, you may present ER or call 911 to get help. - TIME SPENT Time Spent in Discharge (Minutes): 45"
== END 2021-06-05 16:50 | disposition home health service (06) | DRG 871 ==
LOC: EDUNIT# → ED 21:21 → MS2 23:57 → OBSVTOIN 05-19 05:19 → ICU 05-19 05:51 → MS3 05-25 22:06
PROVIDERS: ADMIT Internal Medicine; ATTEND Nurse Practitioner Gerontology
PROC: 02H633Z Insertion of Infusion Device into Right Atrium, Percutaneous Approach (ICD-10-PCS; principal; 2021-05-19)
PROC: 02HV33Z Insertion of Infusion Device into Superior Vena Cava, Percutaneous Approach (ICD-10-PCS; 2021-05-19)
DX: R10.9 Unspecified abdominal pain (principal); I10 Essential (primary) hypertension; E78.00 Pure hypercholesterolemia, unspecified; A41.9 Sepsis, unspecified organism; C18.9 Malignant neoplasm of colon, unspecified; K65.1 Peritoneal abscess; R65.21 Severe sepsis with septic shock; I21.A1 Myocardial infarction type 2; I50.23 Acute on chronic systolic (congestive) heart failure; J96.01 Acute respiratory failure with hypoxia; J18.9 Pneumonia, unspecified organism; R57.0 Cardiogenic shock; T81.40XA Infection following a procedure, unspecified, initial encounter; C18.7 Malignant neoplasm of sigmoid colon; C78.7 Secondary malignant neoplasm of liver and intrahepatic bile duct; C78.89 Secondary malignant neoplasm of other digestive organs; J90 Pleural effusion, not elsewhere classified; I42.0 Dilated cardiomyopathy; K91.30 Postprocedural intestinal obstruction, unspecified as to partial versus complete; J98.11 Atelectasis; E46 Unspecified protein-calorie malnutrition; Z68.1 Body mass index [BMI] 19.9 or less, adult; R53.1 Weakness; I11.0 Hypertensive heart disease with heart failure; I35.0 Nonrheumatic aortic (valve) stenosis; Z79.84 Long term (current) use of oral hypoglycemic drugs; Z79.82 Long term (current) use of aspirin; E11.9 Type 2 diabetes mellitus without complications; E78.5 Hyperlipidemia, unspecified; Z93.3 Colostomy status; N40.1 Benign prostatic hyperplasia with lower urinary tract symptoms; R33.8 Other retention of urine; R35.0 Frequency of micturition; R35.1 Nocturia; K21.9 Gastro-esophageal reflux disease without esophagitis; Y95 Nosocomial condition; K52.9 Noninfective gastroenteritis and colitis, unspecified; I48.0 Paroxysmal atrial fibrillation; D72.829 Elevated white blood cell count, unspecified
CPT/HCPCS: 36415; 36600; 51798; 71045; 71046; 74018; 74177; 80048; 80053; 80202; 81001; 81003; 81599; 82040; 82272; 82803; 83036; 83605; 83690; 83735; 83880; 84100; 84132; 84484; 85025; 85520; 85610; 87040; 87071; 87150; 87493; 93005; 93306; 93970; 96365; 96366; 96375; 96376; 97110; 97116; 97161; 97530; 99284; 99285; A6250; A9270; G0378; J0131; J1170; J1815; J3370; P9047; Q9967; 87070; 87086; 87205

== ENCOUNTER 2021-06-07 09:52 | Emergency (ER) | payer MEDICARE, OTHER ==
[2021-06-07] MEDS ORDERED: SODIUM CHLORIDE 0.9% 1,000 ML IV STA (10:56)
[2021-06-07 11:19] LABS: BASOPHILS % (AUTO) 0.3 %; EOSINOPHILS % (AUTO) 0.1 %; HCT - HEMATOCRIT 38.3 % (42.0-52.0); HGB - HEMOGLOBIN 12.6 g/dL (14.0-18.0); LYMPHOCYTES # (AUTO) 0.6 10^3/uL (1.5-3.5); LYMPHOCYTES % (AUTO) 5.4 %; MEAN CORPUSCULAR HEMOGLOBIN 32.1 pg (27.0-31.0); MEAN CORPUSCULAR HGB CONC 32.9 g/dL (32.0-36.0); MEAN CORPUSCULAR VOLUME 97.5 fL (80.0-94.0); MEAN PLATELET VOLUME 11.6 fL (7.4-11.4); MONOCYTES # (AUTO) 0.9 10^3/uL (0.0-1.0); MONOCYTES % (AUTO) 7.7 %; NEUTROPHILS # (AUTO) 9.5 10^3/uL (1.5-6.6); NEUTROPHILS % (AUTO) 85.8 %; PLT - PLATELET COUNT 315 10^3/uL (130-450); RED BLOOD COUNT 3.93 10^6/uL (4.70-6.10); RED CELL DISTRIBUTION WIDTH 16.2 % (12.0-15.0); WHITE BLOOD COUNT 11.1 x10^3/uL (4.8-10.8)
[2021-06-07 11:23] LABS: BILIRUBIN,URINE NEGATIVE (NEGATIVE); GLUCOSE, URINE (UA) 250 mg/dL (NEGATIVE); KETONES,URINE (UA) NEGATIVE (NEGATIVE); LEUKOCYTE ESTERASE, URINE SMALL (NEGATIVE); NITRITE,URINE NEGATIVE (NEGATIVE); OCCULT BLOOD,URINE LARGE (NEGATIVE); PROTEIN,URINE TRACE mg/dL (NEGATIVE); UROBILINOGEN,URINE 0.2 (NORMAL) E.U./dL (NORMAL)
[2021-06-07 11:24] LABS: CLARITY,URINE CLOUDY (CLEAR)
[2021-06-07] MEDS ORDERED: IOVERSOL 320 50 ML VIAL ONE ×3 (11:26→19:50)
[2021-06-07] MEDS ORDERED: IOVERSOL 320 100 ML VIAL IVP ONE ×2 (11:26→13:57)
[2021-06-07 11:34] LABS: BACTERIA,URINE Rare /HPF (None Seen); RBC,URINE 0-5 /HPF (0-5); SQUAMOUS EPITHELIAL CELL,UR NONE SEEN (<= Few); YEAST,URINE PRESENT
[2021-06-07 11:34] LABS: ALBUMIN 2.4 g/dL (3.2-5.5); ALBUMIN/GLOBULIN RATIO 0.8 (1.0-2.2); BILIRUBIN,TOTAL 0.9 mg/dL (0.2-1.0); CALCIUM 8.5 mg/dL (8.5-10.3); CREATININE 1.1 mg/dL (0.6-1.2); POTASSIUM 3.9 mmol/L (3.5-5.0); TOTAL PROTEIN 5.4 g/dL (6.7-8.2)
--- NOTE | 2021-06-07 11:35 | ED Physician Documentation ---
History of Present Illness - Stated complaint Stated Complaint: UNABLE TO DIGEST - Chief complaint Chief Complaint: Abd Pain - History obtained from History obtained from: Patient, Family - History of Present Illness Timing: Today Pain level max: 0 Pain level now: 0 - Additonal information Additional information: 89-year-old male with a recent history of colon cancer, diverting colostomy, multiple intra-abdominal abscesses in the recent hospital stay, discharged 2 days ago. Very little output from his colostomy in the past 2 days. Started having vomiting as well. No fevers. He spoke with his surgeon, Dr. Lee, who recommended he come to the emergency department for evaluation. Patient is accompanied by his family. Review of Systems Ten Systems: 10 systems reviewed and negative Constitutional: denies: Fever, Chills Respiratory: denies: Cough GI: denies: Nausea, Vomiting Skin: denies: Rash Musculoskeletal: denies: Neck pain, Back pain Neurologic: denies: Headache PD PAST MEDICAL HISTORY - Past Medical History Cardiovascular: Hypertension, High cholesterol, Atrial fibrillation, Murmur Respiratory: Other Neuro: None Endocrine/Autoimmune: Type 2 diabetes GI: GERD, Diverticulitis, Other [employer]: None : Benign prostate hypertrophy, Retention, Nocturia, Frequency HEENT: Chronic vision loss, Chronic sinusitis, Macular degeneration, Chronic hearing loss Psych: None Musculoskeletal: None Derm: None - Past Surgical History Past Surgical History: Yes General: Other HEENT: Cataracts, Tonsil/Adenoidectomy Derm: Other - Present Medications Home Medications: Ambulatory Orders Medication Instructions Recorded Confirmed Aspirin [Adult Low Dose Aspirin EC] 81 mg PO DAILY 01/10/20 06/07/21 Doxazosin Mesylate 8 mg PO DAILY 01/10/20 06/07/21 Multivit-Min/FA/Lycopen/Lutein 1 each PO DAILY 01/10/20 06/07/21 [Centrum Silver Men Tablet] Rosuvastatin Calcium 20 mg PO DAILY 01/10/20 06/07/21 Lisinopril [Zestril] 10 mg PO DAILY #30 tablet 01/11/20 06/07/21 Amox/Clav 875/125 [Augmentin 1 tab PO BID #14 tablet 06/05/21 06/07/21 875/125 Tab] Apixaban [Eliquis] 5 mg PO BID #30 tablet 06/05/21 06/07/21 Furosemide [Lasix] 40 mg PO DAILY #60 tablet 06/05/21 06/07/21 Lactobacillus Rhamnosus GG 1 cap PO DAILY #30 cap 06/05/21 06/07/21 [Culturelle] Metoprolol Succinate [Toprol Xl] 25 mg PO DAILY #30 tablet 06/05/21 06/07/21 Pantoprazole [Protonix] 40 mg PO QDAC #30 tablet 06/05/21 06/07/21 Potassium Chloride [K-Dur] 20 meq PO BIDWM #30 tablet 06/05/21 06/07/21 metFORMIN [Glucophage] 500 mg PO BIDWM #60 tab 06/05/21 06/07/21 metroNIDAZOLE [Flagyl] 500 mg PO Q8H 7 Days #42 tablet 06/05/21 06/07/21 Furosemide [Lasix] 20 mg PO DAILY 06/07/21 06/07/21 - Allergies Allergies/Adverse Reactions: Allergies Allergy/AdvReac Type Severity Reaction Status Date / Time No Known Drug Allergies Allergy Verified 06/07/21 10:08 - Social History Does the pt smoke?: No Smoking Status: Never smoker Does the pt drink ETOH?: Yes Does the pt have substance abuse?: No - Immunizations Immunizations are current?: No Immunizations: TDAP >10years/unknown - POLST Patient has POLST: No POLST Status: Full Code PD ED PE NORMAL - Vitals Vital signs reviewed: Yes - General General: Alert and oriented X 3, No acute distress - HEENT HEENT: Moist mucous membranes - Neck Neck: Supple, no meningeal sign - Cardiac Cardiac: RRR - Respiratory Respiratory: No respiratory distress, Clear bilaterally - Abdomen Abdomen: Soft, Non tender, Non distended, Other (ostomy in LLQ without peritoneal signs, scant output. ) - Back Back: No CVA TTP, No spinal TTP - Derm Derm: Warm and dry - Extremities Extremities: No edema - Neuro Neuro: Alert and oriented X 3 Results - Vitals Vitals: Vital Signs - 24 hr 06/07/21 06/07/21 06/07/21 09:59 11:23 13:00 Temperature 36.7 C Heart Rate 103 H 105 H 98 Respiratory 20 15 20 Rate Blood Pressure 120/80 111/66 125/76 O2 Saturation 95 94 94 06/07/21 06/07/21 15:00 17:00 Temperature 36.5 C 36.6 C Heart Rate 114 H 112 H Respiratory 20 18 Rate Blood Pressure 123/73 110/80 O2 Saturation 93 96 Oxygen O2 Source Room air - Labs Labs: Laboratory Tests 06/07/21 06/07/21 06/07/21 11:04 11:11 11:11 WBC 11.1 H RBC 3.93 L Hgb 12.6 L Hct 38.3 L MCV 97.5 H MCH 32.1 H MCHC 32.9 RDW 16.2 H Plt Count 315 MPV 11.6 H Neut # (Auto) 9.5 H Lymph # (Auto) 0.6 L [place] # (Auto) 0.9 Eos # (Auto) 0.0 Baso # (Auto) 0.0 Absolute Nucleated RBC 0.00 Nucleated RBC % 0.0 Sodium 141 Potassium 3.9 Chloride 103 Carbon Dioxide 27 Anion Gap 11.0 BUN 28 H Creatinine 1.1 Estimated GFR (MDRD) 63 L Glucose 242 H Calcium 8.5 Total Bilirubin 0.9 AST 18 ALT 17 Alkaline Phosphatase 58 Total Protein 5.4 L Albumin 2.4 L Globulin 3.0 Albumin/Globulin Ratio 0.8 L Lipase 69 H Urine Color YELLOW Urine Clarity CLOUDY Urine pH 5.0 Ur Specific [place] 1.025 Urine Protein TRACE Urine Glucose (UA) 250 H Urine Ketones NEGATIVE Urine Occult Blood LARGE H Urine Nitrite NEGATIVE Urine Bilirubin NEGATIVE Urine Urobilinogen 0.2 (NORMAL) Ur Leukocyte Esterase SMALL H Urine RBC 0-5 Urine WBC 11-25 H Ur Squamous Epith Cells NONE SEEN Urine Bacteria Rare Urine Yeast PRESENT Ur Microscopic Review INDICATED Urine Culture Comments INDICATED - Rads (name of study) CT abd/pelvis Radiology: Prelim report reviewed, EMP read contemporaneously, See rad report PD MEDICAL DECISION MAKING - ED course Complexity details: reviewed old records, reviewed results, re-evaluated patient, considered differential, d/w patient, d/w family, d/w wine consultant ED course: I contacted Dr. Lee, the patient's surgeon shortly after arrival, a CT of the abdomen was ordered with oral and stomal Contrast. The radiologist was concerned about stomal contrast before knowing if there was an obstruction directly behind the stoma. Therefore oral contrast was used. The oral contrast never left the stomach on CT. Findings consistent with a bowel obstruction. NG tube was placed as the patient began to vomit in the emergency department. About 1 L of stomach contents immediately removed. Patient feels better. Dr. Lee came and evaluated the patient after his surgical case, he states that he will be back in a few hours after his next case for reevaluation. The patient will be signed out to the oncoming emergency department physician awaiting final disposition. This document was made in part using voice recognition software. While efforts are made to proofread this document, sound alike and grammatical errors may occur. ABDOMEN: Lung bases: Moderate bilateral pleural effusions and bibasilar atelectasis. Normal heart size. Small pericardial effusion. Solid organs: Again noted are multiple low density lesions in the liver which most likely represent metastatic lesions. Gallbladder is surrounded by fluid, likely incidentally surrounded by ascites. Biliary system is non dilated. Pancreas enhances normally. No adrenal nodules. Kidneys demonstrate normal size and enhancement, without hydronephrosis. Peritoneum and bowel: Multiple well-formed abscess cavities are identified as described below: Abscess 1: Right subcapsular beneath the diaphragm, 7.5 x 10.4 x 12.0 cm. This previously measured 3.5 x 9.6 x 11.4 cm. Abscess 2: Inferior right subcapsular, adjacent to the inferior aspect of the posterior segment of the right lobe of the liver, currently measuring 5.6 x 4.6 x 13.7 cm. This was also previously present and sizable. Abscess 3: Right lower quadrant. Currently 7.3 x 5.7 x 6.7 cm. Also previously large. Abscess 4: Presacral, new. Approximately 9.1 x 5.6 x 3.0 cm. Abscess 5: Midline anterior upper pelvis, also previously present, 3.8 x 3.5 cm. Again noted is the presence of a colostomy. Multiple dilated loops of proximal small bowel likely represent the presence of a small bowel obstruction. Nodes and vessels: No retroperitoneal or mesenteric adenopathy by size criteria. Aorta and inferior vena cava are normal in size. Miscellaneous: No ventral hernias. PELVIS: Genitourinary: A Hernadez catheter is present in the bladder. The bladder has air within it, presumed related to the Hernadez. The prostate is enlarged. Miscellaneous: No inguinal hernias or adenopathy. Bones: No suspicious bony lesions. No vertebral body compression fractures. IMPRESSION: 1. Numerous abdominal abscess cavities, as described above, for which were previously present, and one of which is new. 2. Development of small bowel obstruction. 3. Moderate bilateral pleural effusions, bibasilar atelectasis 4. Probable liver metastatic disease again noted.. Departure - Departure Clinical Impression: Small bowel obstruction, Intra-abdominal abscess, Dehydration Vomiting Qualifiers: Vomiting type: unspecified Vomiting Intractability: non-intractable Nausea presence: with nausea Qualified Code(s): R11.2 - Nausea with vomiting, uns pecified Condition: Stable
[2021-06-07] MEDS: IOVERSOL 320 50 ML VIAL PO ONE ×2 (13:58→21:10)
--- NOTE | 2021-06-07 14:07 | CT Report ---
PROCEDURE: Abdomen/Pelvis W INDICATIONS: colostomy, vomiting CONTRAST: IV CONTRAST: Optiray 320 ml: 100 PO CONTRAST: Optiray 320 ml50 TECHNIQUE: After the administration of contrast, 5 mm thick sections acquired from the diaphragms to the sym physis. 5 mm thick coronal and sagittal reformats were acquired. For radiation dose reduction, the following was used: automated exposure control, adjustment of mA and/or kV according to patient size . COMPARISON: 05/29/2021. FINDINGS: Image quality: Excellent. ABDOMEN: Lung bases: Moderate bilateral pleural effusions and bibasilar atelectasis. Normal heart size. Small pericardial effusion. Solid organs: Again noted are multiple low density lesions in the liver which most likely represent m etastatic lesions. Gallbladder is surrounded by fluid, likely incidentally surrounded by ascites. Bi liary system is non dilated. Pancreas enhances normally. No adrenal nodules. Kidneys demonstrate n ormal size and enhancement, without hydronephrosis. Peritoneum and bowel: Multiple well-formed abscess cavities are identified as described below: Abscess 1: Right subcapsular beneath the diaphragm, 7.5 x 10.4 x 12.0 cm. This previously measured 3. 5 x 9.6 x 11.4 cm. Abscess 2: Inferior right subcapsular, adjacent to the inferior aspect of the posterior segment of th e right lobe of the liver, currently measuring 5.6 x 4.6 x 13.7 cm. This was also previously present and sizable. Abscess 3: Right lower quadrant. Currently 7.3 x 5.7 x 6.7 cm. Also previously large. Abscess 4: Presacral, new. Approximately 9.1 x 5.6 x 3.0 cm. Abscess 5: Midline anterior upper pelvis, also previously present, 3.8 x 3.5 cm. Again noted is the presence of a colostomy. Multiple dilated loops of proximal small bowel likely rep resent the presence of a small bowel obstruction. Nodes and vessels: No retroperitoneal or mesenteric adenopathy by size criteria. Aorta and inferior vena cava are normal in size. Miscellaneous: No ventral hernias. PELVIS: Genitourinary: A Hernadez catheter is present in the bladder. The bladder has air within it, presumed re lated to the Hernadez. The prostate is enlarged. Miscellaneous: No inguinal hernias or adenopathy. Bones: No suspicious bony lesions. No vertebral body compression fractures. IMPRESSION: 1. Numerous abdominal abscess cavities, as described above, for which were previously present, and on e of which is new. 2. Development of small bowel obstruction. 3. Moderate bilateral pleural effusions, bibasilar atelectasis 4. Probable liver metastatic disease again noted.. Reviewed by: Ambrocio Arredondo MD on 06/07/2021 2:05 PM PDT Approved by: Ambrocio Arredondo MD on 06/07/2021 2:05 PM PDT Station ID: [id number]
[2021-06-07] MEDS ORDERED: ONDANSETRON 4 MG/2 ML VIAL IVP STA (15:12)
[2021-06-07 20:04] LABS: B. PARAPERTUSSIS- RESP PCR PAN NOT DETECTED; B. PERTUSSIS- RESP PCR PANEL NOT DETECTED; C. PNEUMONIAE- RESP PCR PANEL NOT DETECTED; CORONAVIRUS 229E-RESP PCR NOT DETECTED; CORONAVIRUS HKU1-RESP PCR NOT DETECTED; CORONAVIRUS NL63-RESP PCR NOT DETECTED; CORONAVIRUS OC43-RESP PCR NOT DETECTED; HUMAN METAPNEUMOVIRUS NOT DETECTED; INFLUENZA A- RESP PCR PANEL NOT DETECTED; INFLUENZA B - RESP PCR PANEL NOT DETECTED; M. PNEUMONIAE- RESP PCR PANEL NOT DETECTED; PARAINFLUENZA VIRUS 1 NOT DETECTED; PARAINFLUENZA VIRUS 2 NOT DETECTED; PARAINFLUENZA VIRUS 3 NOT DETECTED; PARAINFLUENZA VIRUS 4 NOT DETECTED; RHINOVIRUS/ENTEROVIRUS NOT DETECTED; RSV- RESP PCR PANEL NOT DETECTED; SARS-CoV-2 -RESP PCR PANEL NOT DETECTED
--- NOTE | 2021-06-07 21:56 | CT Report ---
PROCEDURE: Abdomen/Pelvis WO INDICATIONS: PO contrast only per Dr. Lee TECHNIQUE: Noncontrast 5 mm thick sections acquired from the diaphragms to the symphysis. 5 mm coronal and sagi ttal reformats were then performed. For radiation dose reduction, the following was used: automated exposure control, adjustment of mA and/or kV according to patient size. COMPARISON: None. FINDINGS: Image quality: Diminished by absence of intravenous contrast. Oral contrast was utilized. ABDOMEN: Lung bases: Lung bases are clear atelectatic with adjacent pleural fluid interdigitating within the areas of atelectasis as was previously the case. Heart size is normal. Solid organs: Liver and spleen are normal in size, and there are again noted to be subhepatic this i s best seen centered on CT series 3 image 18. The subhepatic abscess. Gallbladder contains small gregor cifications within the gallbladder neck. Pancreas is normal in contours. No adrenal nodules. Kidne ys are normal in size, without hydronephrosis or nephrolithiasis. Peritoneum and bowel: Unenhanced bowel loops demonstrate normal wall thickness and caliber. No free fluid or air. What appears to be an enteric feeding tube extends into the left midabdomen, through an ostomy site seen centered on series 3 image 47. Oral contrast has transited through the small sreekanth l into the pelvis. Nodes and vessels: No retroperitoneal or mesenteric adenopathy by size criteria. Aorta and inferior vena cava are normal in caliber. Miscellaneous: No ventral hernias. PELVIS: Genitourinary: Bladder wall thickness is normal. A Hernadez catheter partially empties the bladder lum en. At the right lower pelvis anterolaterally there is an additional presumed abscess cavity seen amilcar tered on series 3 image 72 measuring up to 6.5 cm in maximal dimension. Miscellaneous: No inguinal hernias or adenopathy. Body wall anasarca is again seen. Bones: No suspicious bony lesions. No vertebral body compression fractures. IMPRESSION: 1. Multifocal intraperitoneal abscess cavity is again noted, intrahepatic abscess also again seen. Th e prior study from 05/29/2021 allowing better visualization of the boundaries of abscess cavities due to use of intravenous contrast. No definite reduction in size of abscess cavities is seen when the di fferences in technique are taken into account. 2. Dependent layering gallstones within the gallbladder neck. No definite acute cholecystitis or bili irma obstruction. 3. Generalized body wall anasarca, peritoneal anasarca involving the mesentery and omentum also appea rs present. It is difficult in this setting to differentiate between anasarca and peritonitis. 4. The prior CT scanning from 05/29/2021 and appeared to show hepatic metastatic disease. Within the p emiliano at the peritoneal reflection level of the sigmoid colon a heterogeneously enhancing mass had be en present on that CT scanning. By appearance this can again be seen within the posterior lower nataly n of the pelvis. Reviewed by: Leroy Camacho MD on 06/07/2021 9:55 PM PDT Approved by: Leroy Camacho MD on 06/07/2021 9:55 PM PDT Station ID: [id number]
--- NOTE | 2021-06-07 22:00 | ED Physician Documentation ---
ED Addendum - Addendum Addendum: 06/07/21 21:59 Dr. maradiaga called in regards to repeat CT which has PO contrast throughout the intestines. I d/w Dr. Lee who recommends the patient be dc'd and start miralax/colace bid and f/u in surgery clinic thursday. return precautions given. 06/07/21 22:07
[2021-06-07] MEDS ORDERED: METOPROLOL 5 MG/5 ML VIAL IVP STA (22:34)
[2021-06-07] MEDS ORDERED: INSULIN REGULAR HUMAN 100 UNIT/1 ML 10 ML MDV SUBQ STA (22:56)
[2021-06-07 23:53] VITALS: BP 108/73
== END 2021-06-07 23:51 | disposition home or self-care (01) ==
LOC: ED 09:52
DX: K56.609 Unspecified intestinal obstruction, unspecified as to partial versus complete obstruction (principal); Z93.3 Colostomy status; I10 Essential (primary) hypertension; I48.91 Unspecified atrial fibrillation; E11.9 Type 2 diabetes mellitus without complications; Z79.84 Long term (current) use of oral hypoglycemic drugs; Z20.822 Contact with and (suspected) exposure to COVID-19
CPT/HCPCS: 36415; 74176; 74177; 80053; 81001; 83690; 85025; 87086; 87631; 96361; 96374; 96375; 99283; 99284; J1815; Q9967; 0202U; 81003

== ENCOUNTER 2021-06-09 19:19 | Outpatient (CLI) | payer MEDICARE, OTHER | END 2021-06-09 19:20 | disposition critical access hospital (66) | LOC: EMS 19:19 | DX: R04.2 Hemoptysis (principal); R06.02 Shortness of breath | CPT/HCPCS: A0425; A0427 ==

== ENCOUNTER 2021-06-09 19:44 | Inpatient (IN) | payer MEDICARE, OTHER ==
--- NOTE | 2021-06-09 20:05 | ED Physician Documentation ---
PD HPI DYSPNEA - Stated complaint Stated Complaint: SOA - Chief complaint Chief Complaint: Resp - History obtained from History obtained from: Patient, Family, EMS - Additional information Additional information: 89-year-old gentleman with recent diagnosis of stage IV colon cancer. He had prolonged admission from 19 May to the for intra-abdominal abscesses and bacteremia. He also has a history of EF of 45% with moderate aortic stenosis, atrial fibrillation on Eliquis. He returns tonight because he hasn't been eating and barely drinking and now is short of breath with cough and potential asp iration and sats of 80% on room air. 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 : Benign prostate hypertrophy, Retention, Nocturia, Frequency HEENT: Chronic vision loss, Chronic sinusitis, Macular degeneration, Chronic hearing loss Psych: None Musculoskeletal: None Derm: None - Past Surgical History Past Surgical History: Yes General: Other HEENT: Cataracts, Tonsil/Adenoidectomy Derm: Other - Present Medications Home Medications: Ambulatory Orders Medication Instructions Recorded Confirmed Aspirin [Adult Low Dose Aspirin EC] 81 mg PO DAILY 01/10/20 06/09/21 Doxazosin Mesylate 8 mg PO DAILY 01/10/20 06/09/21 Multivit-Min/FA/Lycopen/Lutein 1 each PO DAILY 01/10/20 06/09/21 [Centrum Silver Men Tablet] Lisinopril [Zestril] 10 mg PO DAILY #30 tablet 01/11/20 06/09/21 Amox/Clav 875/125 [Augmentin 1 tab PO BID #14 tablet 06/05/21 06/09/21 875/125 Tab] Apixaban [Eliquis] 5 mg PO BID #30 tablet 06/05/21 06/09/21 Lactobacillus Rhamnosus GG 1 cap PO DAILY #30 cap 06/05/21 06/09/21 [Culturelle] Metoprolol Succinate [Toprol Xl] 25 mg PO DAILY #30 tablet 06/05/21 06/09/21 Pantoprazole [Protonix] 40 mg PO QDAC #30 tablet 06/05/21 06/09/21 Potassium Chloride [K-Dur] 20 meq PO BIDWM #30 tablet 06/05/21 06/09/21 metFORMIN [Glucophage] 500 mg PO BIDWM #60 tab 06/05/21 06/09/21 Docusate Sodium 100Mg Capsule 100 mg PO BID PRN #30 tab 06/07/21 06/09/21 [Colace 100Mg Capsule] Furosemide [Lasix] 20 mg PO DAILY 06/07/21 06/09/21 polyethylene glycoL 3350 [Miralax] 17 gm PO BID PRN #238 gm 06/07/21 06/09/21 - Allergies Allergies/Adverse Reactions: Allergies Allergy/AdvReac Type Severity Reaction Status Date / Time No Known Drug Allergies Allergy Verified 06/09/21 19:55 - Social History Does the pt smoke?: No Smoking Status: Never smoker Does the pt drink ETOH?: Yes Does the pt have substance abuse?: No - Immunizations Immunizations are current?: No Immunizations: TDAP >10years/unknown - POLST Patient has POLST: No POLST Status: Full Code PD ED PE NORMAL - Vitals Vital signs reviewed: Yes - General General: Other (Labored breathing, appears ill) - HEENT HEENT: PERRL, EOMI - Neck Neck: Supple, no meningeal sign, No bony TTP - Cardiac Cardiac: Other (Irregularly irregular, details hard to establish because of rhonchorous loud breathing) - Respiratory Respiratory: Other (Quite rhonchorous throughout, tachypneic) - Abdomen Abdomen: Other (Unclear if he has bowel tones because of his loud breathing, nontender, ostomy without any output in the bag.) - Back Back: No CVA TTP, No spinal TTP - Derm Derm: Normal color, Warm and dry - Extremities Extremities: Other (He has peripheral anasarca) - Neuro Eye Opening: Spontaneous Motor: Obeys Commands Results - Vitals Vitals: Vital Signs - 24 hr 06/09/21 06/09/21 06/09/21 19:45 19:55 20:00 Temperature 36.2 C L Heart Rate 104 H 111 H 107 H Respiratory 30 H 30 H 28 H Rate Blood Pressure 114/59 L 114/59 L 95/55 L O2 Saturation 94 94 95 06/09/21 06/09/21 20:15 21:00 Temperature Heart Rate 104 H 112 H Respiratory 27 H 29 H Rate Blood Pressure 111/69 96/68 O2 Saturation 93 99 Oxygen O2 Source Simple Mask Oxygen Flow Rate 15 - EKG (time done) 1948 Rate: Rate (enter#) (109) Rhythm: Atrial fibrillation (w pvc) [place]: Normal QRS: Normal Ischemia: Non specific changes - Labs Labs: Laboratory Tests 06/09/21 06/09/21 06/09/21 20:40 20:49 20:49 WBC 12.8 H RBC 4.13 L Hgb 13.5 L Hct 41.6 L MCV 100.7 H MCH 32.7 H MCHC 32.5 RDW 16.5 H Plt Count 319 MPV 11.6 H Neut # (Auto) 11.2 H Lymph # (Auto) 0.6 L Johnston # (Auto) 0.6 Eos # (Auto) 0.3 Baso # (Auto) 0.0 Absolute Nucleated RBC 0.00 Nucleated RBC % 0.0 Sodium 139 Potassium 4.4 Chloride 100 L Carbon Dioxide 28 Anion Gap 11.0 BUN 35 H Creatinine 1.1 Estimated GFR (MDRD) 63 L Glucose 180 H Lactic Acid Calcium 8.3 L Total Bilirubin 1.3 H AST 27 ALT 18 Alkaline Phosphatase 66 Troponin I High Sens 61.8 H* B-Natriuretic Peptide Total Protein 6.2 L Albumin 2.6 L Globulin 3.6 Albumin/Globulin Ratio 0.7 L 06/09/21 06/09/21 20:49 21:07 WBC RBC Hgb Hct MCV MCH MCHC RDW Plt Count MPV Neut # (Auto) Lymph # (Auto) Johnston # (Auto) Eos # (Auto) Baso # (Auto) Absolute Nucleated RBC Nucleated RBC % Sodium Potassium Chloride Carbon Dioxide Anion Gap BUN Creatinine Estimated GFR (MDRD) Glucose Lactic Acid 3.8 H* Calcium Total Bilirubin AST ALT Alkaline Phosphatase Troponin I High Sens B-Natriuretic Peptide 315 H Total Protein Albumin Globulin Albumin/Globulin Ratio - Rads (name of study) 1v chest Radiology: EMP read contemporaneously PD MEDICAL DECISION MAKING - ED course ED course: 89-year-old gentleman has a complicated recent past medical history but presents tonight with respiratory distress likely due to aspiration pneumonia. BNP and troponin are only modestly elevated and much better than on previous admission. Chest x-ray read as probably viral pneumonitis but given the overall syndrome, I think it is more of an aspiration picture. Dr. Lee is consulted given the ongoing intra-abdominal issues and placing an NG tube at bedside and Dr. Shaffer is admitting. Departure - Departure Disposition: 66 [facility] DC/Xfer Clinical Impression: Hypoxemia Atrial fibrillation Qualifiers: Atrial fibrillation type: unspecified Qualified Code(s): I48.91 - Unspecified atrial fibrillation Aspiration pneumonia Qualifiers: Aspiration pneumonia type: unspecified Laterality: bilateral Lung location: lower lobe of lung Qualified Code(s): J69.0 - Pneumonitis due to inhalation of food and vomit Condition: Serious
--- NOTE | 2021-06-09 20:19 | XRAY Report ---
PROCEDURE: Chest 1 View X-Ray INDICATIONS: Chest Pain TECHNIQUE: One view of the chest was acquired. COMPARISON: FINDINGS: Surgical changes and devices: None. Lungs and pleura: No pleural effusions or pneumothorax. Lungs are abnormal, worsening from 1 with significant in decrease in severity of patchy bilateral airspace disease in a pattern suggesti ve of atypical/viral pneumonia.. Mediastinum: Mediastinal contours appear normal. Heart size is normal. Bones and chest wall: No suspicious bony lesions. Overlying soft tissues appear unremarkable. IMPRESSION: Significant interval worsening of bilateral patchy alveolar airspace disease suggestive of atypical/v iral pneumonia. Reviewed by: Leroy Camacho MD on 06/09/2021 8:18 PM PDT Approved by: Leroy Camacho MD on 06/09/2021 8:18 PM PDT Station ID: [id number]
[2021-06-09 20:54] LABS: BASOPHILS % (AUTO) 0.3 %; EOSINOPHILS # (AUTO) 0.3 10^3/uL (0.0-0.7); EOSINOPHILS % (AUTO) 2.1 %; HCT - HEMATOCRIT 41.6 % (42.0-52.0); HGB - HEMOGLOBIN 13.5 g/dL (14.0-18.0); LYMPHOCYTES # (AUTO) 0.6 10^3/uL (1.5-3.5); LYMPHOCYTES % (AUTO) 4.6 %; MEAN CORPUSCULAR HEMOGLOBIN 32.7 pg (27.0-31.0); MEAN CORPUSCULAR HGB CONC 32.5 g/dL (32.0-36.0); MEAN CORPUSCULAR VOLUME 100.7 fL (80.0-94.0); MEAN PLATELET VOLUME 11.6 fL (7.4-11.4); MONOCYTES # (AUTO) 0.6 10^3/uL (0.0-1.0); NEUTROPHILS # (AUTO) 11.2 10^3/uL (1.5-6.6); NEUTROPHILS % (AUTO) 87.5 %; PLT - PLATELET COUNT 319 10^3/uL (130-450); RED BLOOD COUNT 4.13 10^6/uL (4.70-6.10); RED CELL DISTRIBUTION WIDTH 16.5 % (12.0-15.0); WHITE BLOOD COUNT 12.8 x10^3/uL (4.8-10.8)
[2021-06-09 21:09] LABS: ALBUMIN 2.6 g/dL (3.2-5.5); ALBUMIN/GLOBULIN RATIO 0.7 (1.0-2.2); BILIRUBIN,TOTAL 1.3 mg/dL (0.2-1.0); CALCIUM 8.3 mg/dL (8.5-10.3); CREATININE 1.1 mg/dL (0.6-1.2); POTASSIUM 4.4 mmol/L (3.5-5.0); TOTAL PROTEIN 6.2 g/dL (6.7-8.2)
[2021-06-09] MEDS ORDERED: AMPICILLIN/SULBACTAM 3 GM in SODIUM CHLORIDE 0.9% MINIBAG 100 ML IV STA (21:24)
[2021-06-09 21:36] LABS: LACTIC ACID, VENOUS 3.8 mmol/L (0.5-2.2)
[2021-06-09] MEDS ORDERED: SODIUM CHLORIDE 0.9% 500 ML IV STA (21:37)
[2021-06-09 22:07] LABS: B. PARAPERTUSSIS- RESP PCR PAN NOT DETECTED; B. PERTUSSIS- RESP PCR PANEL NOT DETECTED; C. PNEUMONIAE- RESP PCR PANEL NOT DETECTED; CORONAVIRUS 229E-RESP PCR NOT DETECTED; CORONAVIRUS HKU1-RESP PCR NOT DETECTED; CORONAVIRUS NL63-RESP PCR NOT DETECTED; CORONAVIRUS OC43-RESP PCR NOT DETECTED; HUMAN METAPNEUMOVIRUS NOT DETECTED; INFLUENZA A- RESP PCR PANEL NOT DETECTED; INFLUENZA B - RESP PCR PANEL NOT DETECTED; M. PNEUMONIAE- RESP PCR PANEL NOT DETECTED; PARAINFLUENZA VIRUS 1 NOT DETECTED; PARAINFLUENZA VIRUS 2 NOT DETECTED; PARAINFLUENZA VIRUS 3 NOT DETECTED; PARAINFLUENZA VIRUS 4 NOT DETECTED; RHINOVIRUS/ENTEROVIRUS NOT DETECTED; RSV- RESP PCR PANEL NOT DETECTED; SARS-CoV-2 -RESP PCR PANEL NOT DETECTED
[2021-06-09] MEDS ORDERED: ACETAMINOPHEN 325 MG TABLET PO PRN (22:20)
[2021-06-09] MEDS ORDERED: MORPHINE 2 MG/ML CARPUJECT IVP PRN (22:20)
[2021-06-09] MEDS ORDERED: ONDANSETRON 4 MG/2 ML VIAL IVP PRN (22:20)
--- NOTE | 2021-06-09 22:25 | HISTORY & PHYSICAL EXAMINATION ---
Chief Complaint - Chief Complaint Chief Complaint: Shortness of breath History of Present Illness - Admitted From Admitted From:: Home - History Obtained From Records Reviewed: Yes History obtained from: Patient, Family, ER Physician, EMR Exam Limitations: Patient is in respiratory distress and so history from him is limited. - History of Present Illness HPI Comment/Other: This is a 89-year-old male with a past medical history significant for chronic systolic heart failure with an ejection fraction of 40%, atrial fibrillation, metastatic colon cancer, aortic stenosis who had a prolonged hospitalization earlier this month after undergoing a loop colostomy for bowel obstruction secondary to the colon cancer. He was seen in the emergency department 2 days ago due to nausea/vomiting and decreased ostomy output. He underwent a CT with p.o. contrast which showed no evidence of obstruction and he was ultimately discharged home on a bowel regimen. Most of the history tonight is obtained from the patient's son as the patient is in some distress and is quite fatigued. His son tells me the patient been doing well since discharge from the emergency department. The patient had limited p.o. intake and did not take any of his pills since the emergency department visit as he was concerned about potentially vomiting. He has had a good appetite and wants to eat but his biggest fear is anything he attempts to swallow will cause him to vomit. Today he was doing well up until about 5 PM when he was sitting upright. His son believes that he aspirated on his secretions as he heard him aspirate and suddenly became quite short of breath. He was immediately brought to the emergency department. The patient currently denies any chest pain, abdominal pain. He does report feeling short of breath. He has been telling his son over the past 24 to 48 hours that he "just wants to ." The patient once again today tells me that he just "wants to ." The patient has made it quite clear that he does not want CPR and after further discussion with his son, intubation is also not within the goals of care. The patient is agreeable to IV antibiotics and he would like to see how his condition is over next 24 hours. He is potentially open to the idea of abdominal drainage of the suspected abscess but he is also willing to consider focusing on his comfort. In the emergency department, he was noted to be afebrile but he was tachycardic with a heart rate in the 110s. He was in atrial fibrillation. He was tac hypneic and hypoxic requiring 3 L of oxygen to maintain a saturation in the 90s. Chest x-ray revealed bilateral infiltrates which was worse compared to prior imaging. Review of the CT from his previous emergency room visit revealed no evidence of obstruction but there were multiple fluid collections concerning for potential abscess. Given his respiratory failure and concern for aspiration pneumonia, medicine was consulted for admission. The patient is a DNR and does not want intubation. Please see advanced care planning for further documentation. 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 His father had a history of rectal cancer. Living arrangement: At home Living Situation: With family Social History Notes: Social history obtained from the patient's son and the EMR given the patient is in distress and unable to contribute to this. The patient currently lives at home alone since his about 8 years ago due to lung cancer. His son and daughter have been staying with him over the past few weeks since his hospitalization. 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 He never smoked. - Substance History Use: Uses substance without health or social issues: NONE - POLST Patient has POLST: No POLST Status: Full Code Meds/Allgy - Home Medications Home Medications: Ambulatory Orders Medication Instructions Recorded Confirmed Aspirin [Adult Low Dose Aspirin EC] 81 mg PO DAILY 01/10/20 06/09/21 Doxazosin Mesylate 8 mg PO DAILY 01/10/20 06/09/21 Multivit-Min/FA/Lycopen/Lutein 1 each PO DAILY 01/10/20 06/09/21 [Centrum Silver Men Tablet] Lisinopril [Zestril] 10 mg PO DAILY #30 tablet 01/11/20 06/09/21 Amox/Clav 875/125 [Augmentin 1 tab PO BID #14 tablet 06/05/21 06/09/21 875/125 Tab] Apixaban [Eliquis] 5 mg PO BID #30 tablet 06/05/21 06/09/21 Lactobacillus Rhamnosus GG 1 cap PO DAILY #30 cap 06/05/21 06/09/21 [Culturelle] Metoprolol Succinate [Toprol Xl] 25 mg PO DAILY #30 tablet 06/05/21 06/09/21 Pantoprazole [Protonix] 40 mg PO QDAC #30 tablet 06/05/21 06/09/21 Potassium Chloride [K-Dur] 20 meq PO BIDWM #30 tablet 06/05/21 06/09/21 metFORMIN [Glucophage] 500 mg PO BIDWM #60 tab 06/05/21 06/09/21 Docusate Sodium 100Mg Capsule 100 mg PO BID PRN #30 tab 06/07/21 06/09/21 [Colace 100Mg Capsule] Furosemide [Lasix] 20 mg PO DAILY 06/07/21 06/09/21 polyethylene glycoL 3350 [Miralax] 17 gm PO BID PRN #238 gm 06/07/21 06/09/21 - Allergies Allergies/Adverse Reactions: Allergies Allergy/AdvReac Type Severity Reaction Status Date / Time No Known Drug Allergies Allergy Verified 06/09/21 19:55 Review of Systems - Cardiovascular Cariovascular: reports: Edema. denies: Chest pain - Respiratory Respiratory: reports: SOB at rest, SOB with exertion - Gastrointestinal Gastrointestinal: reports: Other (Decreased ostomy output.). denies: Abdominal pain, Nausea, Vomiting - All Other Systems All Other Systems: reports: Other (Review of systems is limited due to his respiratory distress.) Prior Level of Functionality: He is normally independent with his ADLs. Since his most recent hospitalization, he has been using a walker to ambulate. Exam - Vital Signs Reviewed Vital Signs: Yes Vital Signs: Vital Signs x48h Temp Pulse Resp BP Pulse Ox 06/09/21 22:00 116 H 34 H 122/63 100 06/09/21 21:30 111 H 28 H 103/80 99 06/09/21 21:00 112 H 29 H 96/68 99 06/09/21 20:15 104 H 27 H 111/69 93 06/09/21 20:00 107 H 28 H 95/55 L 95 06/09/21 19:55 111 H 30 H 114/59 L 94 06/09/21 19:45 36.2 C L 104 H 30 H 114/59 L 94 - Physical Exam General Appearance: positive: Moderate distress, Other (Appears ill and fatigued.) Eyes Bilateral: positive: Conjunctivae nml ENT: positive: Other (Nasal cannula in place. NG tube in place.) Neck: positive: Nml inspection Respiratory: positive: Other (He does appear in distress and is tachypneic. Rhonchi throughout all lung wolf.). negative: No respiratory distress Cardiovascular: positive: Irregularly irregular, Tachycardia, Systolic murmur. negative: No murmur Abdomen: positive: Non-tender, No distention, Abnml bowel sounds (Hypoactive.), Other (Ostomy in place. +1 pitting edema throughout his abdomen.). negative: Tenderness, Guarding, Rebound Skin: positive: Warm, Dry Extremities: positive: Pedal edema (+2 pitting edema in bilateral lower extremities although more prominent in the left lower extremity.) Neurologic/Psychiatric: negative: Disoriented to person, Disoriented to place Sepsis Event Note (H) - Evaluation Current Stage of Sepsis: Sepsis Possible source of Sepsis: positive: Pulmonary - Sepsis Criteria Sepsis Criteria: Recorded Heart Rate greater than 90 bpm, Recorded Respiratory Rate greater than 20, Respiratory: Increasing oxygen requirements, WBC count greater than 12,000 or less than 4000, Metabolic: lactate > 2 mmol/L Conclusion/Plan - Problem List (1) Sepsis Conclusion/Plan: He appears to be septic given elevated white count, tachycardia, lactic acid. This may be secondary to aspiration pneumonia or the intra-abdominal abscess. He is on Unasyn IV empirically. Blood cultures have been ordered and are pending. Given elevated lactic acid, we will gently hydrate him and recheck in 3 hours. We did not administer a large bolus due to the fact that he is normotensive and his history of heart failure. He is also quite edematous throughout his lower extremities and abdomen. (2) Acute respiratory failure with hypoxia Conclusion/Plan: He is requiring 3 L of oxygen which is an improvement given he was initially on a nonrebreather. This appears to be secondary to aspiration pneumonia rather than heart failure. We will continue him on Unasyn IV and continue supplemental oxygen. The patient is a DNR and does not want intubation. (3) Aspiration pneumonia Conclusion/Plan: This is the cause of his respiratory failure. His chest x-ray reveals bilateral infiltrates. His respiratory PCR panel is negative and I do not believe he is in heart failure. He is requiring 3 L of oxygen at the moment. We will continue him on Unasyn IV given the concern for aspiration. Continue supplemental oxygen. Qualifiers: Aspiration pneumonia type: unspecified Laterality: bilateral Lung location: lower lobe of lung Qualified Code(s): J69.0 - Pneumonitis due to inhalation of food and vomit (4) Intra-abdominal abscess Conclusion/Plan: CT from the emergency room days ago is concerning for intra-abdominal abscess. I spoke with general surgery at bedside and we will ask if interventional radiology can drain this tomorrow as long as the patient is agreeable to proceed with intervention. We have started him on Unasyn IV empirically. (5) Chronic systolic heart failure Conclusion/Plan: Stable. His last echocardiogram revealed an ejection fraction of 40 to 45%. Although he has lower extremity edema, I do not believe he is in heart failure at this time. His edema is much improved compared to his prior hospitalization and his BNP is only in the 300s. His abnormal x-ray is likely due to aspiration rather than heart failure. We will hold his home diuretics and will gently hydrate him given his decreased p.o. intake over the past few days though suspect he is intravascularly depleted evidenced by the elevated lactic acid. (6) Colon cancer Conclusion/Plan: He has known colon cancer with concerns of metastatic disease to the liver although pathology revealed hemangioma. He is status post loop colostomy. Given the decreased ostomy output, general surgery has placed an NG tube although at this time, he does not appear to have an obstruction. Maintain n.p.o. status. Appreciate general surgery input. (7) Atrial fibrillation Conclusion/Plan: He is on Eliquis at home but has not been taking for the past 40 hours due to decreased p.o. intake due to concerns of potential emesis. His heart rate is currently in the 110s. We will start him on Lopressor 5 mg IV every 6 hours as long as his blood pressure can tolerate it. We will hold his home Eliquis given the may consult interventional radiology for drainage of the abdominal abscess. Qualifiers: Atrial fibrillation type: unspecified Qualified Code(s): I48.91 - Unspecified atrial fibrillation (8) Aortic stenosis Conclusion/Plan: His last echocardiogram revealed moderate aortic stenosis. (9) Chronic indwelling Hernadez catheter Conclusion/Plan: Stable. We will keep the Hernadez catheter in place. - Lab Results Lab results reviewed: Yes Fish Bones: 06/09/21 20:49 06/09/21 20:40 - Diagnostic Imaging Results Diagnostic Imaging Results: positive: Final report reviewed - EKG Results EKG Interpreted Independently: Yes EKG Findings: His EKG reveals atrial relation with PVCs. It is read as acute ischemia but this does not appear to be evident. He has motion artifact. Core Measures - Anticipated LOS I expect patient to be DC'd or transferred within 96 hours.: Yes - Issues Hospital Issues and Management Plan: 89-year-old male with recent diagnosis of colon cancer status post loop colostomy with a prolonged hospitalization presents with shortness of breath found to have aspiration pneumonia. Is also concern for potential abdominal abscess and decreased ostomy output. We will place him on Unasyn IV and consult general surgery as well as intervention radiology for potential drainage of the abscess. - DVT/VTE - Prophylaxis VTE/DVT Device ordered at admit?: Yes VTE/DVT Prophylaxis med ordered at admit?: Yes
--- NOTE | 2021-06-09 22:26 | ADVANCE CARE PLANNING NOTE ---
Advance Care Planning - Planning Encounter Date: 06/09/21 Time: 21:45 Purpose: To clarify goals of care. Parties in Attendance: Myself, Dr. Lee of general surgery, the patient and his son, Cameron. Decisional Capacity of the Patient: The patient has the capacity to make his own medical decisions. - Diagnosis for Encounter (1) Aspiration pneumonia Qualifiers: Aspiration pneumonia type: unspecified Laterality: bilateral Lung location: lower lobe of lung Qualified Code(s): J69.0 - Pneumonitis due to inhalation of food and vomit Summary: He is now admitted today for respiratory failure secondary to aspiration pneumonia. He is requiring submental oxygen and he has been started on IV antibiotics. (2) Colon cancer Summary: This is a new diagnosis for him over the past 30 days after he presented with an obstruction due to this mass. He ultimately underwent a loop colostomy. After a short hospitalization, he was discharged but ultimately needed to be readmitted the day after for hypotension and he had a prolonged hospitalization as outlined below. Pathology came back for adenocarcinoma. There was concern for liver metastasis and the biopsy of this came back as a hemangioma. He has had decreased appetite over the past 40 hours due to concern that he may vomit as he has had limited ostomy output. Imaging has not revealed evidence of obstruction. - Encounter Subjective/Patient's Story: This is obtained from the patient's son who tells me that his father has been quite independent his whole life. He was happily until his about 8 years ago from lung cancer. He saw her struggle through the late stages of her life and made it quite clear that he did not want to go through the same thing. 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 He has been quite active his whole life and continue to work out and take care of his neighbors up until his most recent hospitalization. The patient told his son that he never wanted his children to take care of him as he always wanted to be independent for himself. Objective/Medical Story: The patient has been quite healthy over his years. He had known aortic stenosis for which he was followed by Dr. Herron of [facility] cardiology. He was admitted on May 15 for obstruction secondary to colon cancer. There was concern at that time for metastatic disease given the liver lesions. He underwent a loop colostomy and was discharged shortly after. 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 He then returned the following day due to hypotension and concern for sepsis. He had a prolonged hospitalization where he was treated with IV antibiotics for suspected bacteremia. He also developed acute on chronic systolic heart failure due to the IV hydration he had received he was hypotensive and ultimately required diuresis. He also had urinary retention and required a Hernadez catheter which she was discharged with. He did have an elevated white count during his stay and CT is concerning for potential abdominal abscess but given his white count had improved with IV antibiotics, these were not drained. He has been discharged now less than 1 week. He did return to the emergency department shortly after discharge due to decreased ostomy output associated with vomiting. There was concern for obstruction and he underwent a CT which showed stable fluid collections but no evidence of obstruction. He was given oral contrast and given this appeared that his bowel, he was discharged home on a bowel regimen. He now returns today complaining of shortness of breath after his son believed that he aspirated. Goals of Care: The patient is in distress today but he does have the ability to make his own medical decisions. He tells me "I just want to ." His son tells me that his father also told him this the day prior to admission. Once again his son tells me that he has been very independent throughout his life and his current quality of life would likely not be acceptable for the patient. We discussed CPR and intubation. The patient has made it very clear that he does not want CPR. We discussed intubation and his answer was not so clear about this initially. We discussed what entails of mechanical ventilation and intubation including the need for chemical sedation. After further discussion with the patient and his son, a decision was made to make the patient a DNI as intubation would not be within his goals of care. Plan: We discussed his current clinical condition and the concern for aspiration pneumonia as well as the potential abdominal abscess. The patient is agreeable to trying IV antibiotics overnight to see if his clinical condition will improve and then tomorrow morning we will consider drainage of the abdominal abscess if he wishes to proceed with this. We discussed that at any point in time, we can always transition him to comfort measures with the focus primarily on his comfort and not aggressive measures or treatments such as IV antibiotics and procedures. This was also discussed with his son who is in agreement with this. We will reassess the patient tomorrow and discuss if we still want to proceed with IR. If he has decline at any point during his hospitalization then we can discuss transitioning him to comfort measures. Additional Discussion: We discussed what entails of CPR, mechanical ventilation, intubation. Code Status: Do Not Attempt Resuscitation Time spent on advance care plannin
[2021-06-09] MEDS ORDERED: LACTATED RINGERS 1,000 ML IV SCH ×2 (23:00)
[2021-06-10] MEDS: SODIUM CHLORIDE FLUSH 0.9% 10 ML SYRINGE IVP SCH ×4 (00:35→23:59)
[2021-06-10] MEDS: METOPROLOL 5 MG/5 ML VIAL IVP SCH ×4 (00:35→18:41)
[2021-06-10] MEDS: AMPICILLIN/SULBACTAM 3 GM in SODIUM CHLORIDE 0.9% MINIBAG 100 ML IV SCH ×3 (06:39→18:15)
--- NOTE | 2021-06-10 06:57 | PHARMACY PROGRESS NOTE ---
- Best Possible Medication History Admit Date and Time: 06/09/212219 Processed by: Nursing Medication History completed: Yes Patient Interview: Completed Secondary Source(s): Previous admit records As the person ultimately responsible for medication therapy, providers are able to order a medication from an existing home medication list in [facility] via the "Reconcile Routine" prior to Confirmation of that medication by production support consultant. Such practice is discouraged except when the physician, in their clinical judgment, deems that a medical need exists for a medication without regard to previous use.
[2021-06-10 07:52] LABS: BASOPHILS # (AUTO) 0.1 10^3/uL (0.0-0.1); BASOPHILS % (AUTO) 0.4 %; EOSINOPHILS # (AUTO) 0.3 10^3/uL (0.0-0.7); EOSINOPHILS % (AUTO) 1.9 %; HCT - HEMATOCRIT 34.8 % (42.0-52.0); HGB - HEMOGLOBIN 11.2 g/dL (14.0-18.0); LYMPHOCYTES # (AUTO) 0.6 10^3/uL (1.5-3.5); LYMPHOCYTES % (AUTO) 4.1 %; MEAN CORPUSCULAR HEMOGLOBIN 31.9 pg (27.0-31.0); MEAN CORPUSCULAR HGB CONC 32.2 g/dL (32.0-36.0); MEAN CORPUSCULAR VOLUME 99.1 fL (80.0-94.0); MEAN PLATELET VOLUME 11.6 fL (7.4-11.4); MONOCYTES # (AUTO) 0.7 10^3/uL (0.0-1.0); MONOCYTES % (AUTO) 5.3 %; NEUTROPHILS # (AUTO) 12.2 10^3/uL (1.5-6.6); NEUTROPHILS % (AUTO) 87.8 %; PLT - PLATELET COUNT 224 10^3/uL (130-450); RED BLOOD COUNT 3.51 10^6/uL (4.70-6.10); RED CELL DISTRIBUTION WIDTH 16.6 % (12.0-15.0); WHITE BLOOD COUNT 13.9 x10^3/uL (4.8-10.8)
[2021-06-10 08:00] LABS: CALCIUM 8.2 mg/dL (8.5-10.3); CREATININE 1.1 mg/dL (0.6-1.2); MAGNESIUM 1.9 mg/dL (1.7-2.8); POTASSIUM 3.9 mmol/L (3.5-5.0)
--- NOTE | 2021-06-10 08:41 | CONSULTATION NOTE ---
Referring Provider Name of Referring Provider:: Kelley Consult Date: 06/09/21 Chief Complaint - Chief Complaint Chief Complaint: Respiratory distress History of Present Illness - Admitted From Admitted From:: HOME - History Obtained From Records Reviewed: EMR History obtained from: Patient & Son Exam Limitations: NONE - History of Present Illness HPI Comment/Other: 89-year-old male patient who presented with obstructing rectosigmoid colon cancer on diagnostic colonoscopy. Patient was admitted to the surgical service under my partner Dr. Fiona Gerard nearly one month prior. Patient underwent staging CT work-up without any evidence of pulmonary nodules however there were indeed findings of multiple masses in the liver and spleen concerning for extracolonic metastatic disease. Patient underwent laparoscopic loop colostomy as well as liver biopsy. The latter was nondiagnostic. Patient had rapid resumption of bowel function. He was ultimately discharged however returned with complication of heart failure, amongst others. He had a prolonged hospital stay. He was ultimately discharged to home however he returned in the short interval with what appeared to be bowel obstruction. Contrast challenge on repeat imaging showed progression of enteric dye and thus patient was released from the emergency room. Per his son he has had multiple episodes of emesis and concern for aspiration. He presents to the emergency room with respiratory distress. He also has no bowel output as well. He has not been able to tolerate any oral medication. And currently in his frustration with disease progression he reports a wish to "". History - Past Medical History Cardiovascular: reports: Hypertension, High cholesterol, Atrial fibrillation, Valve disorder Respiratory: reports: Other Neuro: reports: None Endocrine/Autoimmune: reports: Type 2 diabetes GI: reports: GERD, Diverticulitis, Other (Colon cancer) EXPLOSIVE ORDNANCE HANDLER: reports: None : reports: Benign prostate hypertrophy, Retention, Nocturia, Frequency HEENT: reports: Chronic vision loss, Chronic sinusitis, Macular degeneration, Chronic hearing loss Psych: reports: None Musculoskeletal: reports: None Derm: reports: None MRSA Hx?: No Other Past Medical History: colon cancer - Past Surgical History General: reports: Other (Loop colostomy.) HEENT: reports: Cataracts, Tonsil/Adenoidectomy Derm: reports: Other - Family & Social History Family History: Mother: , Father: Family History Comment/Other: Review of prior records reveal that his mother lived until the age of 94 and she had a history of hypertension. His father had a history of rectal cancer. Living arrangement: At home Living Situation: With family Social History Notes: Social history obtained from the patient's son and the EMR given the patient is in distress and unable to contribute to this. The patient currently lives at home alone since his about 8 years ago due to lung cancer. His son and daughter have been staying with him over the past few weeks since his hospitalization. 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 He never smoked. - Substance History Use: Uses substance without health or social issues: NONE - POLST Patient has POLST: No POLST Status: Full Code Meds/Allgy - Home Medications Home Medications: Ambulatory Orders Medication Instructions Recorded Confirmed Aspirin [Adult Low Dose Aspirin EC] 81 mg PO DAILY 01/10/20 06/09/21 Doxazosin Mesylate 8 mg PO DAILY 01/10/20 06/09/21 Multivit-Min/FA/Lycopen/Lutein 1 each PO DAILY 01/10/20 06/09/21 [Centrum Silver Men Tablet] Lisinopril [Zestril] 10 mg PO DAILY #30 tablet 01/11/20 06/09/21 Amox/Clav 875/125 [Augmentin 1 tab PO BID #14 tablet 06/05/21 06/09/21 875/125 Tab] Apixaban [Eliquis] 5 mg PO BID #30 tablet 06/05/21 06/09/21 Lactobacillus Rhamnosus GG 1 cap PO DAILY #30 cap 06/05/21 06/09/21 [Culturelle] Metoprolol Succinate [Toprol Xl] 25 mg PO DAILY #30 tablet 06/05/21 06/09/21 Pantoprazole [Protonix] 40 mg PO QDAC #30 tablet 06/05/21 06/09/21 Potassium Chloride [K-Dur] 20 meq PO BIDWM #30 tablet 06/05/21 06/09/21 metFORMIN [Glucophage] 500 mg PO BIDWM #60 tab 06/05/21 06/09/21 Docusate Sodium 100Mg Capsule 100 mg PO BID PRN #30 tab 06/07/21 06/09/21 [Colace 100Mg Capsule] Furosemide [Lasix] 20 mg PO DAILY 06/07/21 06/09/21 polyethylene glycoL 3350 [Miralax] 17 gm PO BID PRN #238 gm 06/07/21 06/09/21 - Allergies Allergies/Adverse Reactions: Allergies Allergy/AdvReac Type Severity Reaction Status Date / Time No Known Drug Allergies Allergy Verified 06/09/21 19:55 Review of Systems - Constitutional Constitutional: reports: Fatigue, Malaise - Cardiovascular Cariovascular: reports: Irregular heart rate, Edema, Other (Diffuse anasarca) - Respiratory Respiratory: reports: Cough, Wheezing, SOB at rest - Gastrointestinal Gastrointestinal: reports: Nausea, Vomiting. denies: Abdominal pain, Abdominal distention Exam - Vital Signs Vital Signs: Vital Signs x48h Temp Pulse Resp BP Pulse Ox 06/10/21 06:00 36.9 C 105 H 20 115/55 L 91 L 06/10/21 01:20 92/65 - Physical Exam Comments/Other: General Appearance: positive: Mild distress Eyes Bilateral: positive: Normal inspection ENT: positive: ENT inspection nml Neck: positive: Nml inspection Respiratory: positive: Chest non-tender, mild respiratory distress, Breath sounds coarse. Positive: Wheezes, Rales, Rhonchi Cardiovascular: positive: Irregularly irregular Abdomen: positive: No distention, Other. negative: Guarding, Rebound Inspection - Erythema none; Scars trocars well healed Auscultation -normoactive bowel sounds Palpation - Hernias none; Fluctuance none; Induration none; Scar N/A Irrigated stoma multiply. Extremities: positive: Non-tender, Full ROM, Nml appearance Neurologic/Psychiatric: positive: Oriented x3, CN's nml (2-12) Placed nasogastric tube myself at the bedside to 75 cm with return of bilious contents Conclusion and Plan - Lab Results Laboratory Results 06/10/21 07:42: Lactic Acid 2.0 06/10/21 07:42: Sodium 143, Potassium 3.9, Chloride 106, Carbon Dioxide 25, Anion Gap 12.0, BUN 41 H, Creatinine 1.1, Estimated GFR (MDRD) 63 L, Glucose 171 H, Calcium 8.2 L, Magnesium 1.9 06/10/21 07:42: WBC 13.9 H, RBC 3.51 L, Hgb 11.2 L, Hct 34.8 L, MCV 99.1 H, MCH 31.9 H, MCHC 32.2, RDW 16.6 H, Plt Count 224, MPV 11.6 H, Neut # (Auto) 12.2 H, Lymph # (Auto) 0.6 L, Woodruff # (Auto) 0.7, Eos # (Auto) 0.3, Baso # (Auto) 0.1, Absolute Nucleated RBC 0.00, Nucleated RBC % 0.0 06/09/21 23:45: Lactic Acid 3.3 H* 06/09/21 21:07: Lactic Acid 3.8 H* 06/09/21 20:49: B-Natriuretic Peptide 315 H 06/09/21 20:49: Troponin I High Sens 61.8 H* 06/09/21 20:49: WBC 12.8 H, RBC 4.13 L, Hgb 13.5 L, Hct 41.6 L, MCV 100.7 H, MCH 32.7 H, MCHC 32.5, RDW 16.5 H, Plt Count 319, MPV 11.6 H, Neut # (Auto) 11.2 H, Lymph # (Auto) 0.6 L, Woodruff # (Auto) 0.6, Eos # (Auto) 0.3, Baso # (Auto) 0.0, Absolute Nucleated RBC 0.00, Nucleated RBC % 0.0 06/09/21 20:40: Sodium 139, Potassium 4.4, Chloride 100 L, Carbon Dioxide 28, Anion Gap 11.0, BUN 35 H, Creatinine 1.1, Estimated GFR (MDRD) 63 L, Glucose 180 H, Calcium 8.3 L, Total Bilirubin 1.3 H, AST 27, ALT 18, Alkaline Phosphatase 66, Total Protein 6.2 L, Albumin 2.6 L, Globulin 3.6, Albumin/Globulin Ratio 0.7 L 06/09/21 20:15: Nasal Adenovirus (PCR) NOT DETECTED, Nasal B. parapertussis DNA (PCR) NOT DETECTED, Nasal Coronavir 229E PCR NOT DETECTED, Nasal Coronavir HKU1 PCR NOT DETECTED, Nasal Coronavir NL63 PCR NOT DETECTED, Nasal Coronavir OC43 PCR NOT DETECTED, Nasal Enterovir/Rhinovir PCR NOT DETECTED, Nasal Influenza B PCR NOT DETECTED, Nasal Influenza A PCR NOT DETECTED, Nasal Parainfluen 1 PCR NOT DETECTED, Nasal Parainfluen 2 PCR NOT DETECTED, Nasal Parainfluen 3 PCR NOT DETECTED, Nasal Parainfluen 4 PCR NOT DETECTED, Nasal RSV (PCR) NOT DETECTED, Nasal B.pertussis DNA PCR NOT DETECTED, Nasal C.pneumoniae (PCR) NOT DETECTED, Anatoly Human Metapneumo PCR NOT DETECTED, Nasal M.pneumoniae (PCR) NOT DETECTED, Nasal SARS-CoV-2 (PCR) NOT DETECTED - Diagnosis Diagnosis: 1. Congestive heart failure. 2. Metastatic colorectal cancer. 3. Ileus versus obstruction. 4. Anasarca, diffuse. 5. Uropathy with Hernadez catheter. 6. Respiratory failure likely secondary to aspiration - Consultation Note Consultation Note: 89-year-old male with debility secondary to longstanding obstructing colon cancer recently diverted proximally with loop colostomy. Otherwise exceedingly independent male in near his ninth decade of life who tolerated his operative intervention exceedingly well however decompensated in the subacute postoperative period with heart failure. His disease is metastatic by imaging however there has been neither definitive hepatic nor splenic biopsies proving extracolonic malignancy. His ileus is curious given its significant delay in presentation. Imaging on readmission during the latter portion of his hospitalization did reveal fluid collections however the largest was subcapsular and likely a consequence of systemic anticoagulation postoperatively status post liver biopsy. He does indeed have persistent leukocytosis in spite of antibiotics and these fluid collections may be amendable to sampling. I have aggressively irrigated the stoma multiply and will await resumption of bowel function. I recommend nasogastric tube at the current time. - Plan Plan: 1. Bowel rest, nasogastric decompression, IV fluid resuscitation. I have already multiply irrigated the stoma. I believe this is more consistent with ileus than mechanical obstruction. 2. Serial abdominal exams, plain film imaging, possible repeat imaging with CT and contrast challenge. Can consider IR drainage of fluid collections however I believe these are hematomas, though potentially infected (however unlikely). 3. Respiratory management per hospitalist service. Agree with antibiotics. 4. Electrolytes normal at this time we will continue to monitor them with daily lab draws. Continue Hernadez catheter This is a patient exceedingly high functioning preoperatively. He does have a presumptive metastatic colorectal cancer with a pathologically proven primary. Patient has been proximally diverted with loop colostomy. Thus I think it is exceedingly reasonable to consider addressing any correctable pathology however I defer to the hospital service with regard to the extent to which his comorbid states are themselves life limiting. In the meantime, some thought could be given to nutrition consult for possible parenteral nutrition, although in the setting of hepatic metastases this would be contraindicated, or more favorably enteral feeds and/or postpyloric feeds once he has jew of colostomy output and bowel function. Please note that voice recognition software was used to transcribe this note and inadvertent errors might persist in spite of review and editing. I am obliged to you for your attention. I am thankful to you for allowing me to participate with you in this care of this patient.
[2021-06-10] MEDS: ENOXAPARIN 40 MG/0.4 ML SYRINGE SUBQ SCH (09:31)
--- NOTE | 2021-06-10 18:41 | PROVIDER PROGRESS NOTE ---
Subjective - Prog Note Date Prog Note Date: 06/10/21 Prog Note Time: 18:33 - Subjective Pt reports feeling: Worse Subjective: His main complaint centers around the NG tube. He really, really dislikes it. Family has asked us if can be discontinued. Family has also asked if the NG fluid can be cultured. This is the daughter who is speaking to me. When I asked her what she would hope to find out of that she just says that it would "give the more information". I explained to her that this is NG fluid. It goes intermittently clear to brown or yellow depending on the amount of undigested food, bile, etc. is present. Culturing this will not help us in manage him nor would it change our treatment. Son and daughter both state that they are very frustrated. They have received multiple pieces of information that appear to conflict with one another. The son wants more uniform, coordinated care for his father and he is very frustrated that we seem to be running "an operation here" that is not coordinated. 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 He also understands that his father has a 30% chance of survival if they can get him to chemotherapy, surgical resection of the liver mass, if they can get him through this acute episode of care of malnutrition, bowel obstruction, liver abscess, and generally dwindling status. It is not clear why, they expect this patient to have a paracentesis to drain "fluid" from his abdomen. I explained to them that the discussion that has been signed out to me is not a paracentesis but rather interventional radiology procedure to remove some of the multiloculated abscess. The daughter is also concerned that her father has intermittent waxing and waning success with swallowing. In the week between discharge and now, he se emed to be getting better, was eating more. But now he is back to not being able to swallow correctly, having a sore throat. I explained to her that as far as I know from our nutrition services, dating to when he was first admitted for his first surgery, he is always had a swallowing problem. He has had reflux of gastric contents. He has been placed on Carafate in the past just in case. And nutrition services is wondering if he should get a swallow evaluation. To her understanding, her dad did not have a swallowing issue and was fine last week. Daughter also stated that her brother is in contact with many hospitals in [place]. He has many medical friends who have been advising him. This hospital is "a joke" to them. Son again stated that he just wants coordination of information and care and is very angry and frustrated. At this point he left the room. Leaving his sister to speak to me. I shared with her that I can only empathize with the amount of frustration and fear she has for her father. If their lack of trust extends to wanting their father transferred I certainly understood. They just needed to talk amongst themselves and let us know which direction they wanted us to move in. The patient is weak, cachectic, wanting the NG tube out. While he is stating t hat he is miserable, and "wants to ". His son and daughter are not ready to have that discussion. Again in reference to the 30% possibility of survival and they would like to take that 30% because it is "better than 0%". I have spoken to radiology this morning. While they are willing to do abscess drainage, they really want to make sure that all parties understand the pros and cons. Current Medications - Current Medications Current Medications: Active Medications Acetaminophen (Acetaminophen 325 Mg Tablet) 650 mg PO Q4HR PRN PRN Reason: Pain 1 to 4 Enoxaparin Sodium (Enoxaparin 40 Mg/0.4 Ml Syringe) 40 mg SUBQ DAILY [facility] Last Admin: 06/10/21 09:31 Dose: 40 mg Documented by: Ampicillin Sodium/Sulbactam (Sodium 3 gm/ Sodium Chloride) 100 mls @ 200 mls/hr IV Q6HR [facility] Last Admin: 06/10/21 18:15 Dose: 200 mls/hr Documented by: Metoprolol Tartrate (Metoprolol 5 Mg/5 Ml Vial) 5 mg IVP Q6HR [facility] Last Admin: 06/10/21 12:43 Dose: 5 mg Documented by: Morphine Sulfate (Morphine 2 Mg/Ml Carpuject) 2 mg IVP Q2HR PRN PRN Reason: Pain 8 to 10 Ondansetron HCl (Ondansetron 4 Mg/2 Ml Vial) 4 mg IVP Q6HR PRN PRN Reason: Nausea / Vomiting Sodium Chloride (Sodium Chloride Flush 0.9% 10 Ml Syringe) 10 ml IVP PRN PRN PRN Reason: NEEDED PER PROVIDER ORDERS Sodium Chloride (Sodium Chloride Flush 0.9% 10 Ml Syringe) 10 ml IVP 0100,0900,1700 [facility] Last Admin: 06/10/21 18:15 Dose: 10 ml Documented by: Aspirin [Adult Low Dose Aspirin EC] 81 mg PO DAILY 01/10/20 Doxazosin Mesylate 8 mg PO DAILY 01/10/20 Multivit-Min/FA/Lycopen/Lutein [Centrum Silver Men Tablet] 1 each PO DAILY 01/10/20 Furosemide [Lasix] 20 mg PO DAILY 06/07/21 Objective - Vital Signs/Intake & Output Reviewed Vital Signs: Yes Vital Signs: Vital Signs x48h Temp Pulse Pulse Resp BP BP Pulse Ox 06/10/21 18:00 36.4 C L 104 H 24 99/52 L 98 06/10/21 11:39 37 C 91 22 144/49 H 97 Intake & Output: Intake & Output 06/07/21 06/08/21 06/09/21 06/10/21 23:59 23:59 23:59 23:59 Intake Total 600 1300 Output Total 900 1030 Balance -300 270 - Objective General Appearance: positive: Moderate distress (From the NG tube.), Other (Cachectic, elderly gentleman, very fatigued. Just holding his head up on the pillow exhaust him. Trying to speak with a hoarse voice, listen to his kids and understand was going on is also exhausting. He is very deaf.) Eyes Bilateral: positive: PERRL, EOMI ENT: positive: No signs of dehydration Neck: positive: No JVD. negative: Lymphadenopathy (R), Lymphadenopathy (L), Stiff neck Respiratory: positive: No respiratory distress, Wheezes (And scattered.). negative: Rales, Rhonchi Cardiovascular: positive: Regular rate & rhythm, Systolic murmur. negative: Gallop/S4, Friction rub Abdomen: positive: Other (Hypoactive bowel sounds, not distended. NG tube draining intermittent clear or brown fluid. NG drainage about 400 cc since this morning.) Skin: positive: Dry, Pallor Extremities: positive: Pedal edema, Other Neurologic/Psychiatric: positive: CN's nml (2-12) (Except for hoarse voice that I think may be from the NG tube), Motor nml, Disoriented to time, Other (Diffuse. Hard to multitask. The deafness makes it worse.) - Lab Results Fish Bones: 06/10/21 07:42 06/10/21 07:42 Other Labs: Lab Results x24hrs 06/10/21 06/10/21 06/10/21 Range/Units 07:42 07:42 07:42 WBC 13.9 H (4.8-10.8) x10^3/uL RBC 3.51 L (4.70-6.10) 10^6/uL Hgb 11.2 L (14.0-18.0) g/dL Hct 34.8 L (42.0-52.0) % MCV 99.1 H (80.0-94.0) fL MCH 31.9 H (27.0-31.0) pg MCHC 32.2 (32.0-36.0) g/dL RDW 16.6 H (12.0-15.0) % Plt Count 224 (130-450) 10^3/uL MPV 11.6 H (7.4-11.4) fL Neut # (Auto) 12.2 H (1.5-6.6) 10^3/uL Lymph # (Auto) 0.6 L (1.5-3.5) 10^3/uL Edmunds # (Auto) 0.7 (0.0-1.0) 10^3/uL Eos # (Auto) 0.3 (0.0-0.7) 10^3/uL Baso # (Auto) 0.1 (0.0-0.1) 10^3/uL Absolute Nucleated RBC 0.00 x10^3/uL Nucleated RBC % 0.0 /100WBC Sodium 143 (135-145) mmol/L Potassium 3.9 (3.5-5.0) mmol/L Chloride 106 (101-111) mmol/L Carbon Dioxide 25 (21-32) mmol/L Anion Gap 12.0 (6-13) BUN 41 H (6-20) mg/dL Creatinine 1.1 (0.6-1.2) mg/dL Estimated GFR (MDRD) 63 L (>89) Glucose 171 H (70-100) mg/dL Lactic Acid 2.0 (0.5-2.2) mmol/L Calcium 8.2 L (8.5-10.3) mg/dL Magnesium 1.9 (1.7-2.8) mg/dL Total Bilirubin (0.2-1.0) mg/dL AST (10-42) IU/L ALT (10-60) IU/L Alkaline Phosphatase (42-121) IU/L Troponin I High Sens (2.3-19.7) ng/L B-Natriuretic Peptide (5-100) pg/mL Total Protein (6.7-8.2) g/dL Albumin (3.2-5.5) g/dL Globulin (2.1-4.2) g/dL Albumin/Globulin Ratio (1.0-2.2) Nasal Adenovirus (PCR) Nasal B. parapertussis DNA (PCR) Nasal Coronavir 229E PCR Nasal Coronavir HKU1 PCR Nasal Coronavir NL63 PCR Nasal Coronavir OC43 PCR Nasal Enterovir/Rhinovir PCR Nasal Influenza B PCR Nasal Influenza A PCR Nasal Parainfluen 1 PCR Nasal Parainfluen 2 PCR Nasal Parainfluen 3 PCR Nasal Parainfluen 4 PCR Nasal RSV (PCR) Nasal B.pertussis DNA PCR Nasal C.pneumoniae (PCR) Anatoly Human Metapneumo PCR Nasal M.pneumoniae (PCR) Nasal SARS-CoV-2 (PCR) 06/09/21 06/09/21 06/09/21 Range/Units 23:45 21:07 20:49 WBC (4.8-10.8) x10^3/uL RBC (4.70-6.10) 10^6/uL Hgb (14.0-18.0) g/dL Hct (42.0-52.0) % MCV (80.0-94.0) fL MCH (27.0-31.0) pg MCHC (32.0-36.0) g/dL RDW (12.0-15.0) % Plt Count (130-450) 10^3/uL MPV (7.4-11.4) fL Neut # (Auto) (1.5-6.6) 10^3/uL Lymph # (Auto) (1.5-3.5) 10^3/uL Edmunds # (Auto) (0.0-1.0) 10^3/uL Eos # (Auto) (0.0-0.7) 10^3/uL Baso # (Auto) (0.0-0.1) 10^3/uL Absolute Nucleated RBC x10^3/uL Nucleated RBC % /100WBC Sodium (135-145) mmol/L Potassium (3.5-5.0) mmol/L Chloride (101-111) mmol/L Carbon Dioxide (21-32) mmol/L Anion Gap (6-13) BUN (6-20) mg/dL Creatinine (0.6-1.2) mg/dL Estimated GFR (MDRD) (>89) Glucose (70-100) mg/dL Lactic Acid 3.3 H* 3.8 H* (0.5-2.2) mmol/L Calcium (8.5-10.3) mg/dL Magnesium (1.7-2.8) mg/dL Total Bilirubin (0.2-1.0) mg/dL AST (10-42) IU/L ALT (10-60) IU/L Alkaline Phosphatase (42-121) IU/L Troponin I High Sens (2.3-19.7) ng/L B-Natriuretic Peptide 315 H (5-100) pg/mL Total Protein (6.7-8.2) g/dL Albumin (3.2-5.5) g/dL Globulin (2.1-4.2) g/dL Albumin/Globulin Ratio (1.0-2.2) Nasal Adenovirus (PCR) Nasal B. parapertussis DNA (PCR) Nasal Coronavir 229E PCR Nasal Coronavir HKU1 PCR Nasal Coronavir NL63 PCR Nasal Coronavir OC43 PCR Nasal Enterovir/Rhinovir PCR Nasal Influenza B PCR Nasal Influenza A PCR Nasal Parainfluen 1 PCR Nasal Parainfluen 2 PCR Nasal Parainfluen 3 PCR Nasal Parainfluen 4 PCR Nasal RSV (PCR) Nasal B.pertussis DNA PCR Nasal C.pneumoniae (PCR) Anatoly Human Metapneumo PCR Nasal M.pneumoniae (PCR) Nasal SARS-CoV-2 (PCR) 06/09/21 06/09/21 06/09/21 Range/Units 20:49 20:49 20:40 WBC 12.8 H (4.8-10.8) x10^3/uL RBC 4.13 L (4.70-6.10) 10^6/uL Hgb 13.5 L (14.0-18.0) g/dL Hct 41.6 L (42.0-52.0) % MCV 100.7 H (80.0-94.0) fL MCH 32.7 H (27.0-31.0) pg MCHC 32.5 (32.0-36.0) g/dL RDW 16.5 H (12.0-15.0) % Plt Count 319 (130-450) 10^3/uL MPV 11.6 H (7.4-11.4) fL Neut # (Auto) 11.2 H (1.5-6.6) 10^3/uL Lymph # (Auto) 0.6 L (1.5-3.5) 10^3/uL Edmunds # (Auto) 0.6 (0.0-1.0) 10^3/uL Eos # (Auto) 0.3 (0.0-0.7) 10^3/uL Baso # (Auto) 0.0 (0.0-0.1) 10^3/uL Absolute Nucleated RBC 0.00 x10^3/uL Nucleated RBC % 0.0 /100WBC Sodium 139 (135-145) mmol/L Potassium 4.4 (3.5-5.0) mmol/L Chloride 100 L (101-111) mmol/L Carbon Dioxide 28 (21-32) mmol/L Anion Gap 11.0 (6-13) BUN 35 H (6-20) mg/dL Creatinine 1.1 (0.6-1.2) mg/dL Estimated GFR (MDRD) 63 L (>89) Glucose 180 H (70-100) mg/dL Lactic Acid (0.5-2.2) mmol/L Calcium 8.3 L (8.5-10.3) mg/dL Magnesium (1.7-2.8) mg/dL Total Bilirubin 1.3 H (0.2-1.0) mg/dL AST 27 (10-42) IU/L ALT 18 (10-60) IU/L Alkaline Phosphatase 66 (42-121) IU/L Troponin I High Sens 61.8 H* (2.3-19.7) ng/L B-Natriuretic Peptide (5-100) pg/mL Total Protein 6.2 L (6.7-8.2) g/dL Albumin 2.6 L (3.2-5.5) g/dL Globulin 3.6 (2.1-4.2) g/dL Albumin/Globulin Ratio 0.7 L (1.0-2.2) Nasal Adenovirus (PCR) Nasal B. parapertussis DNA (PCR) Nasal Coronavir 229E PCR Nasal Coronavir HKU1 PCR Nasal Coronavir NL63 PCR Nasal Coronavir OC43 PCR Nasal Enterovir/Rhinovir PCR Nasal Influenza B PCR Nasal Influenza A PCR Nasal Parainfluen 1 PCR Nasal Parainfluen 2 PCR Nasal Parainfluen 3 PCR Nasal Parainfluen 4 PCR Nasal RSV (PCR) Nasal B.pertussis DNA PCR Nasal C.pneumoniae (PCR) Anatoly Human Metapneumo PCR Nasal M.pneumoniae (PCR) Nasal SARS-CoV-2 (PCR) 06/09/21 Range/Units 20:15 WBC (4.8-10.8) x10^3/uL RBC (4.70-6.10) 10^6/uL Hgb (14.0-18.0) g/dL Hct (42.0-52.0) % MCV (80.0-94.0) fL MCH (27.0-31.0) pg MCHC (32.0-36.0) g/dL RDW (12.0-15.0) % Plt Count (130-450) 10^3/uL MPV (7.4-11.4) fL Neut # (Auto) (1.5-6.6) 10^3/uL Lymph # (Auto) (1.5-3.5) 10^3/uL Edmunds # (Auto) (0.0-1.0) 10^3/uL Eos # (Auto) (0.0-0.7) 10^3/uL Baso # (Auto) (0.0-0.1) 10^3/uL Absolute Nucleated RBC x10^3/uL Nucleated RBC % /100WBC Sodium (135-145) mmol/L Potassium (3.5-5.0) mmol/L Chloride (101-111) mmol/L Carbon Dioxide (21-32) mmol/L Anion Gap (6-13) BUN (6-20) mg/dL Creatinine (0.6-1.2) mg/dL Estimated GFR (MDRD) (>89) Glucose (70-100) mg/dL Lactic Acid (0.5-2.2) mmol/L Calcium (8.5-10.3) mg/dL Magnesium (1.7-2.8) mg/dL Total Bilirubin (0.2-1.0) mg/dL AST (10-42) IU/L ALT (10-60) IU/L Alkaline Phosphatase (42-121) IU/L Troponin I High Sens (2.3-19.7) ng/L B-Natriuretic Peptide (5-100) pg/mL Total Protein (6.7-8.2) g/dL Albumin (3.2-5.5) g/dL Globulin (2.1-4.2) g/dL Albumin/Globulin Ratio (1.0-2.2) Nasal Adenovirus (PCR) NOT DETECTED Nasal B. parapertussis DNA (PCR) NOT DETECTED Nasal Coronavir 229E PCR NOT DETECTED Nasal Coronavir HKU1 PCR NOT DETECTED Nasal Coronavir NL63 PCR NOT DETECTED Nasal Coronavir OC43 PCR NOT DETECTED Nasal Enterovir/Rhinovir PCR NOT DETECTED Nasal Influenza B PCR NOT DETECTED Nasal Influenza A PCR NOT DETECTED Nasal Parainfluen 1 PCR NOT DETECTED Nasal Parainfluen 2 PCR NOT DETECTED Nasal Parainfluen 3 PCR NOT DETECTED Nasal Parainfluen 4 PCR NOT DETECTED Nasal RSV (PCR) NOT DETECTED Nasal B.pertussis DNA PCR NOT DETECTED Nasal C.pneumoniae (PCR) NOT DETECTED Anatoly Human Metapneumo PCR NOT DETECTED Nasal M.pneumoniae (PCR) NOT DETECTED Nasal SARS-CoV-2 (PCR) NOT DETECTED ABX Reporting Has patient been on IV antibiotics over the past 48 hours?: Yes Sepsis Event Note (H) - Evaluation Current Stage of Sepsis: Sepsis Possible source of Sepsis: positive: Pulmonary - Sepsis Criteria Sepsis Criteria: Recorded Heart Rate greater than 90 bpm, Recorded Respiratory Rate greater than 20, Respiratory: Increasing oxygen requirements, WBC count greater than 12,000 or less than 4000, Metabolic: lactate > 2 mmol/L Assessment/Plan - Problem List (1) Sepsis Impression: He appears to be septic given elevated white count, tachycardia, lactic acid. This may be secondary to aspiration pneumonia or the intra-abdominal abscess. He is on Unasyn IV empirically. Blood cultures have been ordered and are pending. Lactic acid went from 3.82 then 3.3 and then is 2.0 this morning. He has had some bolus fluid. Is on Unasyn. So he has improved from the sepsis but is still weak, malnourished, and will need to have his underlying infection identified and treated. At this time we are going with the fact that he may have aspirated his own saliva. But there is also the question of the abscesses under the liver that are small. Family would like to readdress this tomorrow with a new provider. (2) Acute respiratory failure with hypoxia Conclusion/Plan: Initially on a nonrebreather. Was down to 3 L overnight but then back up to 6 L today. O2 sats are 98%. Respiratory rate is 24 at times. The patient is DNR and does not want intubation. We will continue the Unasyn for possible aspiration pneumonia. (3) Aspiration pneumonia Conclusion/Plan: This is the cause of his respiratory failure. His chest x-ray reveals bilateral infiltrates. His respiratory PCR panel is negative and I do not believe he is in heart failure. Will have swallow evaluation performed at the request of nutrition services. Nutrition services also been consulted to see what we can do to improve his nutrition. TPN was discussed At multidisciplinary rounds this morning. If his swallow mechanism really is impaired, he would be candidate for possible a feeding tube if his got mechanism is still intact. Qualifiers: Aspiration pneumonia type: unspecified Laterality: bilateral Lung location: lower lobe of lung Qualified Code(s): J69.0 - Pneumonitis due to inhalation of food and vomit (4) Intra-abdominal abscess Conclusion/Plan: CT from the emergency room days ago is concerning for intra-abdominal abscess. T he hospitalist spoke to general surgery last night at the bedside. And the idea that interventional radiology could drain these abscesses today was discussed. He is on Unasyn. I did discuss this with interventional radiology. Somehow the family is feeling that "draining fluid" is draining ascites. They are now upset that we would be considering draining these abscesses. If they were not felt large enough to be drained on Thursday, why do we think that they are now drainable on Thursday. I explained that I did not know what the surgeon was thinking since I was not part of that conversation. I just felt like I was following through on signout to investigate possibility of interventional ra diology taking care of the abscesses. They are not sure they want us to move forward with that. They will discuss with a new provider tomorrow. (5) Chronic systolic heart failure Conclusion/Plan: Stable. His last echocardiogram revealed an ejection fraction of 40 to 45%. Although he has lower extremity edema, I do not believe he is in heart failure at this time. His edema is much improved compared to his prior hospitalization and his BNP is only in the 300s. His abnormal x-ray is likely due to aspiration rather than heart failure. He is received about 1300 cc from midnight to right now. He has put out 1030 cc. Trying to balance this intake and output without putting him into congestive heart failure. Diuretics are being held at this time. Check BNP in the morning (6) Colon cancer Conclusion/Plan: He has known colon cancer with concerns of metastatic disease to the liver although pathology revealed hemangioma. He is status post loop colostomy. Given the decreased ostomy output, general surgery has placed an NG tube although at this time, he does not appear to have an obstruction. Maintain n.p.o. status. NG output has changed color throughout the day. Already stated that he is got about 400 cc today. The general surgeon that consulted last night is not on the case at this time. We will have to consult with new general surgeon. (7) Atrial fibrillation Conclusion/Plan: He is on Eliquis at home but has not been taking for the past 40 hours due to decreased p.o. intake due to concerns of potential emesis. His heart rate is currently in the 110s. We will start him on Lopressor 5 mg IV every 6 hours as long as his blood pressure can tolerate it. We will hold his home Eliquis given the may consult interventional radiology for drainage of the abdominal abscess. Qualifiers: Atrial fibrillation type: unspecified Qualified Code(s): I48.91 - Unspecified atrial fibrillation (8) Aortic stenosis Conclusion/Plan: His last echocardiogram revealed moderate aortic stenosis. (9) Chronic indwelling Hernadez catheter Conclusion/Plan: Stable. We will keep the Hernadez catheter in place.
[2021-06-11] MEDS: AMPICILLIN/SULBACTAM 3 GM in SODIUM CHLORIDE 0.9% MINIBAG 100 ML IV SCH ×2 (00:06→06:56)
[2021-06-11] MEDS: METOPROLOL 5 MG/5 ML VIAL IVP SCH ×5 (00:14→23:47)
[2021-06-11] MEDS: SODIUM CHLORIDE FLUSH 0.9% 10 ML SYRINGE IVP PRN ×3 (06:53→11:24)
[2021-06-11] MEDS ORDERED: ZINC OXIDE 20% OINT 30 GM TUBE TOP PRN (07:53)
[2021-06-11 07:57] LABS: BASOPHILS % (AUTO) 0.3 %; HCT - HEMATOCRIT 34.8 % (42.0-52.0); HGB - HEMOGLOBIN 11.1 g/dL (14.0-18.0); LYMPHOCYTES % (AUTO) 5.5 %; MEAN CORPUSCULAR HEMOGLOBIN 32.3 pg (27.0-31.0); MEAN CORPUSCULAR HGB CONC 31.9 g/dL (32.0-36.0); MEAN CORPUSCULAR VOLUME 101.2 fL (80.0-94.0); MEAN PLATELET VOLUME 11.8 fL (7.4-11.4); MONOCYTES % (AUTO) 6.4 %; PLT - PLATELET COUNT 227 10^3/uL (130-450); RED BLOOD COUNT 3.44 10^6/uL (4.70-6.10); RED CELL DISTRIBUTION WIDTH 17.1 % (12.0-15.0); WHITE BLOOD COUNT 11.2 x10^3/uL (4.8-10.8)
[2021-06-11] MEDS ORDERED: PIPERACILLIN/TAZOBACTAM 3.375 GM in SODIUM CHLORIDE 0.9% MINIBAG 100 ML IV ONE (08:00)
[2021-06-11 08:02] LABS: CALCIUM 8.2 mg/dL (8.5-10.3); CREATININE 1.1 mg/dL (0.6-1.2); MAGNESIUM 2.4 mg/dL (1.7-2.8); POTASSIUM 3.7 mmol/L (3.5-5.0); SLIDE REVIEW? Indicated
[2021-06-11 08:03] LABS: ABNORMAL LYMPHS % (MANUAL) 0 %
[2021-06-11 09:04] LABS: BAND NEUTROPHILS % (MANUAL) 5 %; LYMPHOCYTES # (MANUAL) 0.9 10^3/uL (1.5-3.5); LYMPHOCYTES % (MANUAL) 8 %; MONOCYTES # (MANUAL) 0.4 10^3/uL (0.0-1.0); NEUTROPHILS # (MANUAL) 9.9 10^3/uL (1.5-6.6)
[2021-06-11 09:06] LABS: DIFFERENTIAL COMMENT MANUAL DIFFERENTIAL; PLATELET ESTIMATE, MANUAL NORMAL (130-450,000) (NORMAL); PLATELET MORPHOLOGY NORMAL APPEARANCE (NORMAL); WBC MORPHOLOGY (MULTIPLE) NORMAL APPEARANCE (NORMAL)
[2021-06-11] MEDS: SODIUM CHLORIDE FLUSH 0.9% 10 ML SYRINGE IVP SCH ×3 (09:34→23:45)
[2021-06-11] MEDS: ENOXAPARIN 40 MG/0.4 ML SYRINGE SUBQ SCH (09:34)
[2021-06-11] MEDS: PIPERACILLIN/TAZOBACTAM 3.375 GM in SODIUM CHLORIDE 0.9% MINIBAG 100 ML IV SCH ×2 (11:21→18:42)
--- NOTE | 2021-06-11 13:13 | PROVIDER PROGRESS NOTE ---
Subjective - Prog Note Date Prog Note Date: 06/11/21 - Subjective Pt reports feeling: No change Objective - Vital Signs/Intake & Output Reviewed Vital Signs: Yes Vital Signs: Vital Signs x48h Temp Pulse Resp BP BP BP Pulse Ox 06/11/21 11:31 37.0 C 86 18 102/59 L 99 06/11/21 11:20 102/59 L 06/11/21 07:45 36.6 C 84 20 109/78 95 06/11/21 07:08 106 H 105/53 L 06/11/21 07:03 98 107/66 06/11/21 06:58 108/61 06/11/21 06:00 36.2 C L 111 H 20 108/61 98 Intake & Output: Intake & Output 06/08/21 06/09/21 06/10/21 06/11/21 23:59 23:59 23:59 23:59 Intake Total 600 1450 300 Output Total 900 1380 100 Balance -300 70 200 - Objective General Appearance: positive: Alert, Mild distress Eyes Bilateral: positive: PERRL, EOMI Respiratory: positive: No respiratory distress Abdomen: positive: Other (mild distension, no erythema. stoma pink with minimal output) - Lab Results Fish Bones: 06/11/21 07:43 06/11/21 07:43 Other Labs: Lab Results x24hrs 06/11/21 06/11/21 06/11/21 Range/Units 11:27 07:43 07:43 WBC (4.8-10.8) x10^3/uL RBC (4.70-6.10) 10^6/uL Hgb (14.0-18.0) g/dL Hct (42.0-52.0) % MCV (80.0-94.0) fL MCH (27.0-31.0) pg MCHC (32.0-36.0) g/dL RDW (12.0-15.0) % Plt Count (130-450) 10^3/uL MPV (7.4-11.4) fL Neut # (Auto) Lymph # (Auto) Gem # (Auto) Eos # (Auto) Baso # (Auto) Absolute Nucleated RBC Total Counted Band Neuts % (Manual) (0 - 10) % Abnorm Lymph % (Manual) % Nucleated RBC % Neutrophils # (Manual) (1.5-6.6) 10^3/uL Lymphocytes # (Manual) (1.5-3.5) 10^3/uL Monocytes # (Manual) (0.0-1.0) 10^3/uL Eosinophils # (Manual) (0-0.7) 10^3/uL Basophils # (Manual) (0-0.1) 10^3/uL Differential Comment Manual Slide Review WBC Morphology (NORMAL) Platelet Estimate (NORMAL) Platelet Morphology (NORMAL) RBC Morph Micro Appear (NORMAL) Sodium 146 H (135-145) mmol/L Potassium 3.7 (3.5-5.0) mmol/L Chloride 109 (101-111) mmol/L Carbon Dioxide 26 (21-32) mmol/L Anion Gap 11.0 (6-13) BUN 45 H (6-20) mg/dL Creatinine 1.1 (0.6-1.2) mg/dL Estimated GFR (MDRD) 63 L (>89) Glucose 187 H (70-100) mg/dL POC Whole Bld Glucose 168 H (70 - 100) mg/dL Calcium 8.2 L (8.5-10.3) mg/dL Magnesium 2.4 (1.7-2.8) mg/dL B-Natriuretic Peptide 413 H (5-100) pg/mL 06/11/21 06/11/21 06/10/21 Range/Units 07:43 06:55 23:57 WBC 11.2 H (4.8-10.8) x10^3/uL RBC 3.44 L (4.70-6.10) 10^6/uL Hgb 11.1 L (14.0-18.0) g/dL Hct 34.8 L (42.0-52.0) % MCV 101.2 H (80.0-94.0) fL MCH 32.3 H (27.0-31.0) pg MCHC 31.9 L (32.0-36.0) g/dL RDW 17.1 H (12.0-15.0) % Plt Count 227 (130-450) 10^3/uL MPV 11.8 H (7.4-11.4) fL Neut # (Auto) Not Reportable Lymph # (Auto) Not Reportable Gem # (Auto) Not Reportable Eos # (Auto) Not Reportable Baso # (Auto) Not Reportable Absolute Nucleated RBC Not Reportable Total Counted 100 Band Neuts % (Manual) 5 (0 - 10) % Abnorm Lymph % (Manual) 0 % Nucleated RBC % Not Reportable Neutrophils # (Manual) 9.9 H (1.5-6.6) 10^3/uL Lymphocytes # (Manual) 0.9 L (1.5-3.5) 10^3/uL Monocytes # (Manual) 0.4 (0.0-1.0) 10^3/uL Eosinophils # (Manual) 0.0 (0-0.7) 10^3/uL Basophils # (Manual) 0.0 (0-0.1) 10^3/uL Differential Comment MANUAL DIFFERENTIAL Manual Slide Review Indicated WBC Morphology NORMAL APPEARANCE (NORMAL) Platelet Estimate NORMAL (130-450,000) (NORMAL) Platelet Morphology NORMAL APPEARANCE (NORMAL) RBC Morph Micro Appear 1+ ANISOCYTOSIS (NORMAL) Sodium (135-145) mmol/L Potassium (3.5-5.0) mmol/L Chloride (101-111) mmol/L Carbon Dioxide (21-32) mmol/L Anion Gap (6-13) BUN (6-20) mg/dL Creatinine (0.6-1.2) mg/dL Estimated GFR (MDRD) (>89) Glucose (70-100) mg/dL POC Whole Bld Glucose 163 H 200 H (70 - 100) mg/dL Calcium (8.5-10.3) mg/dL Magnesium (1.7-2.8) mg/dL B-Natriuretic Peptide (5-100) pg/mL 06/10/21 Range/Units 07:42 WBC (4.8-10.8) x10^3/uL RBC (4.70-6.10) 10^6/uL Hgb (14.0-18.0) g/dL Hct (42.0-52.0) % MCV (80.0-94.0) fL MCH (27.0-31.0) pg MCHC (32.0-36.0) g/dL RDW (12.0-15.0) % Plt Count (130-450) 10^3/uL MPV (7.4-11.4) fL Neut # (Auto) Lymph # (Auto) Gem # (Auto) Eos # (Auto) Baso # (Auto) Absolute Nucleated RBC Total Counted Band Neuts % (Manual) (0 - 10) % Abnorm Lymph % (Manual) % Nucleated RBC % Neutrophils # (Manual) (1.5-6.6) 10^3/uL Lymphocytes # (Manual) (1.5-3.5) 10^3/uL Monocytes # (Manual) (0.0-1.0) 10^3/uL Eosinophils # (Manual) (0-0.7) 10^3/uL Basophils # (Manual) (0-0.1) 10^3/uL Differential Comment Manual Slide Review WBC Morphology (NORMAL) Platelet Estimate (NORMAL) Platelet Morphology (NORMAL) RBC Morph Micro Appear (NORMAL) Sodium (135-145) mmol/L Potassium (3.5-5.0) mmol/L Chloride (101-111) mmol/L Carbon Dioxide (21-32) mmol/L Anion Gap (6-13) BUN (6-20) mg/dL Creatinine (0.6-1.2) mg/dL Estimated GFR (MDRD) (>89) Glucose (70-100) mg/dL POC Whole Bld Glucose (70 - 100) mg/dL Calcium (8.5-10.3) mg/dL Magnesium (1.7-2.8) mg/dL B-Natriuretic Peptide 357 H (5-100) pg/mL Sepsis Event Note (H) - Evaluation Current Stage of Sepsis: Sepsis Possible source of Sepsis: positive: Pulmonary - Sepsis Criteria Sepsis Criteria: Recorded Heart Rate greater than 90 bpm, Recorded Respiratory Rate greater than 20, Respiratory: Increasing oxygen requirements, WBC count greater than 12,000 or less than 4000, Metabolic: lactate > 2 mmol/L Assessment/Plan - Problem List (1) Colon cancer Impression: He has an ileus and 2 large fluid collections which are looking more infected over time. Spoke with son. They were considering transfer to [facility]. I do believe these fluid collections should be drained. We also briefly discussed I do not believe he would tolerate another surgery such as laparotomy to wash out the abdomen .
[2021-06-11] MEDS ORDERED: IOPAMIDOL-300 100 ML VIAL ONE (14:02)
--- NOTE | 2021-06-11 14:48 | CT Report ---
PROCEDURE: Abdomen/Pelvis W INDICATIONS: Preprocedural imaging of intra-abdominal abscesses CONTRAST: IV CONTRAST: Isovue 300 ml: 100 PO CONTRAST: *NO PO CONTRAST TECHNIQUE: After the administration of intravenous contrast, 5 mm thick sections acquired from the diaphragms to the symphysis. 5 mm thick coronal and sagittal reformats were acquired. For radiation dose reducti on, the following was used: automated exposure control, adjustment of mA and/or kV according to elisa ent size. COMPARISON: CT abdomen and pelvis 06/07/[address] abdomen 05/29/2021 FINDINGS: Image quality: Excellent. ABDOMEN: Lung bases: There are small bilateral pleural effusions with overlying atelectasis and consolidation. There is also patchy mixed groundglass and consolidative airspace opacity in the remaining lungs to varying degrees. Solid organs: There is an increased number of peripherally enhancing liver lesions when compared with the most recent prior study. Previously described hepatic abscess is slightly increased in size. 10. 7 x 12.1 cm maximum axial dimension on series 4 image 21, and spans a craniocaudal dimension of 7.5 c m. There are least 7 additional hepatic hypodensities which have an intermediate density and irregula r shaggy peripheral enhancement suggestive of metastatic disease. For example, a lesion is present on series 4 image 25 in the left hepatic lobe measuring 2.4 cm, one in the central liver on series 5 im age 27 measuring 2.6 cm, another suspected abscess measuring 1.4 cm in the posterior right hepatic lo be on series 4 image 30, and 3 immediately adjacent abscesses each measuring approximately 1.5-1.9 cm on series 4 image 37. Finally, small hypodensity in the inferior most right hepatic lobe measures 1. 2 cm on series 4 image 45. Peritoneum and bowel: There are at least 4 peritoneal fluid collections with peripheral rim enhanceme nt consistent with abscess. One of these is along the right lateral peritoneal compartment and paraco lic gutter abutting the liver measuring approximately 6.4 x 12.27 m maximum axial dimension (series 4 image 49). This spans a craniocaudal dimension of 6.4 cm (series 7 image 17). In the superior perito jackson space on the left there is an abscess measuring 3.5 cm (series 4 image 33). There is another torres pected abscess in the anterior peritoneal space just right of midline on series 4 image 68 measuring approximately 4.4 cm maximum axial dimension. No abnormally dilated loop of bowel. Distal colonic mas s redemonstrated. Extensive colonic diverticula. Nodes and vessels: The IVC is mostly nonopacified and not well evaluated. Extensive aortic atheroscle rosis without aneurysm. Miscellaneous: Diffuse anasarca noted. PELVIS: Genitourinary: Urinary bladder decompressed by Hernadez catheter. Markedly enlarged prostate. Miscellaneous: No threshold enlarged pelvic or inguinal lymph nodes by CT size criteria. Bones: No suspicious lytic or blastic osseous lesion. No acute fracture identified. IMPRESSION: Increased size of right hepatic dome subcapsular abscess. Increased number and size of multiple peritoneal abscesses. 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 Redemonstration of primary colorectal carcinoma mass. Patchy bilateral consolidative and groundglass airspace disease, likely infectious. Small bilateral pleural effusions with adjacent atelectasis and consolidation. Reviewed by: Chan Root MD on 06/11/2021 2:46 PM PDT Approved by: Chan Root MD on 06/11/2021 2:46 PM PDT Station ID: [id number]
[2021-06-11] MEDS ORDERED: IOPAMIDOL-300 100 ML VIAL IVP ONE (14:53)
[2021-06-11] MEDS ORDERED: BUFFERED LIDOCAINE 10 ML SYRINGE ONE (15:28)
--- NOTE | 2021-06-11 16:31 | PROVIDER PROGRESS NOTE ---
Assessment/Plan - Problem List (1) Sepsis Assessment/Plan: White blood cell count this morning was 11.2. Lactic acid 2.0. He is on Zosyn 3.375 g every 6 hours. This is due to aspiration pneumonia and multiple intra abdominal abscesses. Repeat CT of the abdomen/pelvis showed increased size in the right hepatic dome subcapsular abscess, increased number and size of multiple peritoneal abscesses, increased number and conspicuity of multiple hepatic metastasis. Redemonstration of primary colorectal carcinoma mass. It also showed patchy bilateral consolidative and groundglass airspace disease, likely infectious. Small bilateral pleural effusions with adjacent atelectasis and consolidation. The interventional radiologist was consulted. He was able to place a drainage in one of the abscesses at bedside. I had a conversation with the patient'sSon and daughter who wished for continued treatment at the moment and have requested transfer to another facility for higher level of care. They are specifically interested in the patient being transferred to [facility]. I reached out to [facility] but they did not have any bed availability at the moment. We will reach out to them again tomorrow. Owing to patient's significant medical comorbidities he would not be a candidate for surgery. Patient's prognosis is poor. Will attempt to discuss with the patient's family regarding the direction of the patient's care. (2) Intra-abdominal abscess Conclusion/Plan: Repeat CT of the abdomen/pelvis showed increased size in the right hepatic dome subcapsular abscess, increased number and size of multiple peritoneal abscesses, increased number and conspicuity of multiple hepatic metastasis. Redemonstration of primary colorectal carcinoma mass. It also showed patchy bilateral consolidative and groundglass airspace disease, likely infectious. Small bilateral pleural effusions with adjacent atelectasis and consolidation. The interventional radiologist was consulted. He was able to place a drainage in one of the abscesses at bedside. White blood cell count this morning was 11.2. Lactic acid 2.0. He is on Zosyn 3.375 g every 6 hours. (3) Acute respiratory failure with hypoxia Conclusion/Plan: Initially on a nonrebreather. Was down to 3 L overnight but then back up to 6 L today. O2 sats are 98%. Respiratory rate is 24 at times. The patient is DNR and does not want intubation. He is on Zosyn for possible aspiration pneumonia. (4) Aspiration pneumonia Conclusion/Plan: This is the cause of his respiratory failure. His chest x-ray reveals bilateral infiltrates. His respiratory PCR panel is negative and I do not believe he is in heart failure. He was seen by speech therapy for swallow evaluation. Recommendation was for pured diet with nectar thick fluids. This was initiated at dinnertime after placement of percutaneous drainage tube. Qualifiers: Aspiration pneumonia type: unspecified Laterality: bilateral Lung location: lower lobe of lung Qualified Code(s): J69.0 - Pneumonitis due to inhalation of food and vomit (5) Chronic systolic heart failure Conclusion/Plan: Stable. His last echocardiogram revealed an ejection fraction of 40 to 45%. Although he has 2+ lower extremity edema, I do not believe he is in heart failure at this time. His edema is much improved compared to his prior hospitalization and his BNP is only in the 300s. His abnormal x-ray is likely due to aspiration rather than heart failure. He is received about 1300 cc from midnight to right now. He has put out 1030 cc. Trying to balance this intake and output without putting him into congestive heart failure. Diuretics are being held at this time. (6) Colon cancer Conclusion/Plan: Repeat CT of the abdomen/pelvis showed increased size in the right hepatic dome subcapsular abscess, increased number and size of multiple peritoneal abscesses, increased number and conspicuity of multiple hepatic metastasis. Redemonstration of primary colorectal carcinoma mass. It also showed patchy bilateral consolidative and groundglass airspace disease, likely infectious. Small bilateral pleural effusions with adjacent atelectasis and consolidation. The patient has not been stable enough from a medical point of view to make it to an oncology appointment. He is status post loop colostomy. Given the findings of progressing/worsening metastasis and increased abscesses, The patient's prognosis is poor. He would not be a surgical candidate given his medical comorbidities. He is frail, cachectic, malnourished. The possibility of TPN is limited due to patient's CHF. I will attempt to have another conversation with the patient's family tomorrow regarding patient's prognosis and direction of care. Currently, his family has not been willing to consider palliative or hospice care. (7) Atrial fibrillation Conclusion/Plan: Eliquis has been on hold since admission. Initially it was due to poor p.o. intake, nausea, vomiting. Currently it is due to the fact that he just had percutaneous drainage placed this afternoon. His heart rate is currently in the 80-90's. On Lopressor 5 mg IV every 6 hours as long as his blood pressure can tolerate it. Atrial fibrillation type: unspecified Qualified Code(s): I48.91 - Unspecified atrial fibrillation (8) Aortic stenosis Conclusion/Plan: His last echocardiogram revealed moderate aortic stenosis. (9) Chronic indwelling Hernadez catheter Conclusion/Plan: Stable. We will keep the Hernadez catheter in place. (10) Malnourishment: Patient was seen by speech who recommended. Diet and nectar thick liquids. Patient is not an ideal candidate for TPN due to CHF. He would also not be a candidate for a PEG tube given his cancer diagnosis and recent surgery. He did not tolerate an NG tube. - Current Meds Current Meds: Current Medications Generic Name Dose Route Start Last Admin Trade Name Freq PRN Reason Stop Dose Admin Enoxaparin Sodium 40 mg 06/10/21 09:00 06/11/21 09:34 Enoxaparin 40 Mg/0.4 Ml Syringe SUBQ 40 mg DAILY DOROTHEA Administration Piperacillin Sod/Tazobactam 100 mls @ 25 mls/hr 06/11/21 11:00 06/11/21 14:54 Sod 3.375 gm/ Sodium Chloride IV 25 mls/hr Q8H DOROTHEA Infusion Metoprolol Tartrate 5 mg 06/10/21 00:00 06/11/21 11:20 Metoprolol 5 Mg/5 Ml Vial IVP Not Given Q6HR DOROTHEA Morphine Sulfate 2 mg 06/09/21 22:20 06/11/21 03:37 Morphine 2 Mg/Ml Carpuject IVP 2 mg Q2HR PRN Administration Pain 8 to 10 Multi-Ingredient Ointment 1 applic 06/11/21 07:53 06/11/21 11:24 Zinc Oxide 20% Oint 30 Gm Tube TOP 1 applic PRN PRN Administration Skin Care Sodium Chloride 10 ml 06/09/21 22:20 06/11/21 11:24 Sodium Chloride Flush 0.9% 10 Ml Syringe IVP 10 ml PRN PRN Administration NEEDED PER PROVIDER ORDERS Sodium Chloride 10 ml 06/10/21 01:00 06/11/21 09:34 Sodium Chloride Flush 0.9% 10 Ml Syringe IVP 10 ml 0100,0900,1700 DOROTHEA Administration - Lab Result Fish Bone Diagrams: 06/11/21 07:43 06/11/21 07:43 - Additional Planning My Orders: My Active Orders 06/11/21 16:10 PERITONEAL ABSC DRAIN [CT] Routine 06/11/21 Dinner Dysphagia Puree Diet [DIET] 06/11/21 16:24 CUL,BODY FLUID(AEROBIC) [RM] Stat 06/11/21 21:00 guaiFENesin [Mucinex] 600 mg PO BID Subjective - Subjective Patient Reports: Other ( Patient is awake alert, hard of hearing. He is very frail/cachectic. He denies any complaints. There was output noted in the patient's colostomy bag. He has 2+ lower extremity edema.) Objective Vital Signs: Vital Signs - 24 hr 06/10/21 06/10/21 06/10/21 18:00 18:41 18:46 Temperature 36.4 C L Heart Rate [ 104 H 93 Brachial] Heart Rate [ 93 97 Radial] Respiratory 24 Rate Blood Pressure 110/65 Blood Pressure [Left Brachial artery] Blood Pressure 99/52 L [Right Brachial artery] Blood Pressure 110/69 114/65 [Right Radial artery] O2 Saturation 98 06/10/21 06/10/21 06/10/21 18:51 18:56 19:01 Temperature Heart Rate [ Brachial] Heart Rate [ 103 H 104 H 95 Radial] Respiratory Rate Blood Pressure Blood Pressure [Left Brachial artery] Blood Pressure [Right Brachial artery] Blood Pressure 104/69 112/70 121/61 [Right Radial artery] O2 Saturation 06/10/21 06/10/21 06/10/21 19:16 19:31 19:46 Temperature Heart Rate [ Brachial] Heart Rate [ 94 93 89 Radial] Respiratory Rate Blood Pressure Blood Pressure [Left Brachial artery] Blood Pressure [Right Brachial artery] Blood Pressure 112/70 115/70 110/53 L [Right Radial artery] O2 Saturation 06/11/21 06/11/21 06/11/21 00:00 00:14 00:19 Temperature 36.3 C L Heart Rate [ 111 H 95 Brachial] Heart Rate [ Radial] Respiratory 24 Rate Blood Pressure 110/68 Blood Pressure 110/68 98/56 L [Left Brachial artery] Blood Pressure [Right Brachial artery] Blood Pressure [Right Radial artery] O2 Saturation 95 06/11/21 06/11/21 06/11/21 00:24 00:30 00:45 Temperature Heart Rate [ 95 92 96 Brachial] Heart Rate [ Radial] Respiratory Rate Blood Pressure Blood Pressure 102/75 98/55 L 95/66 [Left Brachial artery] Blood Pressure [Right Brachial artery] Blood Pressure [Right Radial artery] O2 Saturation 06/11/21 06/11/21 06/11/21 01:00 01:15 03:33 Temperature Heart Rate [ 91 52 L 108 H Brachial] Heart Rate [ Radial] Respiratory Rate Blood Pressure Blood Pressure 101/55 L 98/58 L 102/60 [Left Brachial artery] Blood Pressure [Right Brachial artery] Blood Pressure [Right Radial artery] O2 Saturation 06/11/21 06/11/21 06/11/21 06:00 06:58 07:03 Temperature 36.2 C L Heart Rate [ 111 H 98 Brachial] Heart Rate [ Radial] Respiratory 20 Rate Blood Pressure 108/61 Blood Pressure 108/61 107/66 [Left Brachial artery] Blood Pressure [Right Brachial artery] Blood Pressure [Right Radial artery] O2 Saturation 98 06/11/21 06/11/21 06/11/21 07:08 07:45 11:20 Temperature 36.6 C Heart Rate [ 106 H 84 Brachial] Heart Rate [ Radial] Respiratory 20 Rate Blood Pressure 102/59 L Blood Pressure 105/53 L 109/78 [Left Brachial artery] Blood Pressure [Right Brachial artery] Blood Pressure [Right Radial artery] O2 Saturation 95 06/11/21 06/11/21 06/11/21 11:31 14:20 16:20 Temperature 37.0 C 36.3 C L Heart Rate [ 86 94 Brachial] Heart Rate [ Radial] Respiratory 18 24 Rate Blood Pressure Blood Pressure 110/58 L [Left Brachial artery] Blood Pressure 102/59 L [Right Brachial artery] Blood Pressure [Right Radial artery] O2 Saturation 99 98 93 Oxygen O2 Source Nasal cannula Oxygen Flow Rate 3 I&O (Last 24 Hrs): Intake and Output Totals x24h 06/09/21 06/10/21 06/11/21 23:59 23:59 23:59 Intake Total 600 1450 372.917 Output Total 900 1380 800 Balance -300 70 -427.083 General: Alert, Oriented x3, Other (Frail, cachexic) HEENT: PERRLA, EOMI Neck: Supple, No JVD Neuro: Alert, Non Focal Cardiovascular: Regular rate, Normal S1, Normal S2, Other (Systolic murmur) Respiratory: No respiratory distress, Other (Coarse breath sounds. Diminished on the right) Abdomen: Normal bowel sounds, Soft, Other (output noted in colostomy bag) Extremities: Other (2+ lower extremity edema) Skin: No rashes, No breakdown, No significant lesion - Results Results: Laboratory Results WBC 11.2 x10^3/uL (4.8-10.8) H 06/11/21 07:43 RBC 3.44 10^6/uL (4.70-6.10) L 06/11/21 07:43 Hgb 11.1 g/dL (14.0-18.0) L 06/11/21 07:43 Hct 34.8 % (42.0-52.0) L 06/11/21 07:43 MCV 101.2 fL (80.0-94.0) H 06/11/21 07:43 MCH 32.3 pg (27.0-31.0) H 06/11/21 07:43 MCHC 31.9 g/dL (32.0-36.0) L 06/11/21 07:43 RDW 17.1 % (12.0-15.0) H 06/11/21 07:43 Plt Count 227 10^3/uL (130-450) 06/11/21 07:43 MPV 11.8 fL (7.4-11.4) H 06/11/21 07:43 Neut # (Auto) Not Reportable 06/11/21 07:43 Lymph # (Auto) Not Reportable 06/11/21 07:43 [place] # (Auto) Not Reportable 06/11/21 07:43 Eos # (Auto) Not Reportable 06/11/21 07:43 Baso # (Auto) Not Reportable 06/11/21 07:43 Absolute Nucleated RBC Not Reportable 06/11/21 07:43 Total Counted 100 06/11/21 07:43 Band Neuts % (Manual) 5 % (0-10) 06/11/21 07:43 Abnorm Lymph % (Manual) 0 % 06/11/21 07:43 Nucleated RBC % Not Reportable 06/11/21 07:43 Neutrophils # (Manual) 9.9 10^3/uL (1.5-6.6) H 06/11/21 07:43 Lymphocytes # (Manual) 0.9 10^3/uL (1.5-3.5) L 06/11/21 07:43 Monocytes # (Manual) 0.4 10^3/uL (0.0-1.0) 06/11/21 07:43 Eosinophils # (Manual) 0.0 10^3/uL (0-0.7) 06/11/21 07:43 Basophils # (Manual) 0.0 10^3/uL (0-0.1) 06/11/21 07:43 Differential Comment MANUAL DIFFERENTIAL 06/11/21 07:43 Manual Slide Review Indicated 06/11/21 07:43 WBC Morphology NORMAL APPEARANCE (NORMAL) 06/11/21 07:43 Platelet Estimate NORMAL (130-450,000) (NORMAL) 06/11/21 07:43 Platelet Morphology NORMAL APPEARANCE (NORMAL) 06/11/21 07:43 RBC Morph Micro Appear 1+ MACROCYTOSIS (NORMAL) 1+ ANISOCYTOSIS (NORMAL) 06/11/21 07:43 RBC Morph Micro Appear 1+ MACROCYTOSIS (NORMAL) 1+ ANISOCYTOSIS (NORMAL) 06/11/21 07:43 Sodium 146 mmol/L (135-145) H 06/11/21 07:43 Potassium 3.7 mmol/L (3.5-5.0) 06/11/21 07:43 Chloride 109 mmol/L (101-111) 06/11/21 07:43 Carbon Dioxide 26 mmol/L (21-32) 06/11/21 07:43 Anion Gap 11.0 (6-13) 06/11/21 07:43 BUN 45 mg/dL (6-20) H 06/11/21 07:43 Creatinine 1.1 mg/dL (0.6-1.2) 06/11/21 07:43 Estimated GFR (MDRD) 63 (>89) L 06/11/21 07:43 Glucose 187 mg/dL (70-100) H 06/11/21 07:43 POC Whole Bld Glucose 168 mg/dL (70 - 100) H 06/11/21 11:27 Lactic Acid 2.0 mmol/L (0.5-2.2) 06/10/21 07:42 Calcium 8.2 mg/dL (8.5-10.3) L 06/11/21 07:43 Magnesium 2.4 mg/dL (1.7-2.8) 06/11/21 07:43 Total Bilirubin 1.3 mg/dL (0.2-1.0) H 06/09/21 20:40 AST 27 IU/L (10-42) 06/09/21 20:40 ALT 18 IU/L (10-60) 06/09/21 20:40 Alkaline Phosphatase 66 IU/L (42-121) 06/09/21 20:40 Troponin I High Sens 61.8 ng/L (2.3-19.7) H* 06/09/21 20:49 B-Natriuretic Peptide 413 pg/mL (5-100) H 06/11/21 07:43 Total Protein 6.2 g/dL (6.7-8.2) L 06/09/21 20:40 Albumin 2.6 g/dL (3.2-5.5) L 06/09/21 20:40 Globulin 3.6 g/dL (2.1-4.2) 06/09/21 20:40 Albumin/Globulin Ratio 0.7 (1.0-2.2) L 06/09/21 20:40 Nasal Adenovirus (PCR) NOT DETECTED 06/09/21 20:15 Nasal B. parapertussis DNA (PCR) NOT DETECTED 06/09/21 20:15 Nasal Coronavir 229E PCR NOT DETECTED 06/09/21 20:15 Nasal Coronavir HKU1 PCR NOT DETECTED 06/09/21 20:15 Nasal Coronavir NL63 PCR NOT DETECTED 06/09/21 20:15 Nasal Coronavir OC43 PCR NOT DETECTED 06/09/21 20:15 Nasal Enterovir/Rhinovir PCR NOT DETECTED 06/09/21 20:15 Nasal Influenza B PCR NOT DETECTED 06/09/21 20:15 Nasal Influenza A PCR NOT DETECTED 06/09/21 20:15 Nasal Parainfluen 1 PCR NOT DETECTED 06/09/21 20:15 Nasal Parainfluen 2 PCR NOT DETECTED 06/09/21 20:15 Nasal Parainfluen 3 PCR NOT DETECTED 06/09/21 20:15 Nasal Parainfluen 4 PCR NOT DETECTED 06/09/21 20:15 Nasal RSV (PCR) NOT DETECTED 06/09/21 20:15 Nasal B.pertussis DNA PCR NOT DETECTED 06/09/21 20:15 Nasal C.pneumoniae (PCR) NOT DETECTED 06/09/21 20:15 Anatoly Human Metapneumo PCR NOT DETECTED 06/09/21 20:15 Nasal M.pneumoniae (PCR) NOT DETECTED 06/09/21 20:15 Nasal SARS-CoV-2 (PCR) NOT DETECTED 06/09/21 20:15 - Procedures Procedures: Procedures BYPASS DESCENDING COLON TO CUTANEOUS, OPEN APPROACH (05/14/21) CATARAC PHACOEMULS/ASPIR (12/28/14) EXCISION OF LEFT LOBE LIVER, OPEN APPROACH, DIAGNOSTIC (05/14/21) EXCISION OF SIGMOID COLON, ENDO, DIAGN (05/14/21) INSERT LENS AT CATAR EXT (12/28/14) IRRIGATE OF PERITON CAV USING IRRIGAT, PERC APPROACH, DIAGN (05/14/21) Sepsis Event Note (H) - Evaluation Current Stage of Sepsis: Sepsis Possible source of Sepsis: positive: Pulmonary - Sepsis Criteria Sepsis Criteria: Recorded Heart Rate greater than 90 bpm, Recorded Respiratory Rate greater than 20, Respiratory: Increasing oxygen requirements, WBC count greater than 12,000 or less than 4000, Metabolic: lactate > 2 mmol/L
[2021-06-11] MEDS ORDERED: BUFFERED LIDOCAINE 10 ML SYRINGE IU ONE (16:34)
--- NOTE | 2021-06-11 16:54 | Ultrasound Report ---
PROCEDURE: Drainage Fluid Collection INDICATIONS: PERITONEAL ABSCESS TECHNIQUE: The patient's abdomen was scanned prior to the procedure to assess for the feasibility of abscess norman inage. A subcapsular hepatic abscess in the right hepatic dome region was identified measuring approx imately 9.7 x 8.3 cm sonographically. This demonstrated multiple septations and the pathway draining this abscess was considered too long and risky given the hepatic vasculature and likelihood of low fl uid output. A separate abscess inferior to the right hepatic lobe was mostly anechoic and measured up to 10 cm, and its superficial location was considered of relatively low risk. The skin of the patient's right upper and lower quadrant were prepped and draped in usual sterile fas hion. Local anesthesia was performed to anesthetize the skin and body wall overlying the abscess. Uti lizing Seldinger technique, a pigtail catheter was inserted into the abscess cavity under real-time s onographic guidance. Approximately 50 cc of purulent fluid was withdrawn from the catheter utilizing a syringe. The catheter was sewn in place and connected to gravity bag drainage. There were no immediate complications. The patient tolerated the procedure well. IMPRESSION: Successful ultrasound-guided drainage of a right upper and lower quadrant peritoneal abscess. Multiple additional intraperitoneal abscesses remain, in addition to a liver abscess and numerous kim er metastases. Reviewed by: Chan Root MD on 06/11/2021 4:52 PM PDT Approved by: Chan Root MD on 06/11/2021 4:52 PM PDT Station ID: [id number]
[2021-06-11] MEDS ORDERED: BENZOCAINE/MENTHOL LOZENGE MM PRN (17:37)
[2021-06-11] MEDS: polyethylene glycoL 3350 17 GM PACKET PO SCH (18:21)
[2021-06-11] MEDS: guaiFENesin 600 MG TABLET PO SCH (20:29)
[2021-06-11] MEDS: INSULIN ASPART 300 UNIT/3 ML PEN SUBQ SCH (21:47)
[2021-06-12] MEDS: PIPERACILLIN/TAZOBACTAM 3.375 GM in SODIUM CHLORIDE 0.9% MINIBAG 100 ML IV SCH ×2 (02:55→11:49)
[2021-06-12] MEDS: METOPROLOL 5 MG/5 ML VIAL IVP SCH ×2 (06:48→11:53)
[2021-06-12 07:24] LABS: CALCIUM 8.1 mg/dL (8.5-10.3); CREATININE 0.9 mg/dL (0.6-1.2); MAGNESIUM 2.4 mg/dL (1.7-2.8)
[2021-06-12 07:43] LABS: BASOPHILS % (AUTO) 0.2 %; EOSINOPHILS # (AUTO) 0.1 10^3/uL (0.0-0.7); EOSINOPHILS % (AUTO) 1.3 %; HCT - HEMATOCRIT 33.2 % (42.0-52.0); HGB - HEMOGLOBIN 10.7 g/dL (14.0-18.0); LYMPHOCYTES # (AUTO) 0.7 10^3/uL (1.5-3.5); LYMPHOCYTES % (AUTO) 7.2 %; MEAN CORPUSCULAR HEMOGLOBIN 32.6 pg (27.0-31.0); MEAN CORPUSCULAR HGB CONC 32.2 g/dL (32.0-36.0); MEAN CORPUSCULAR VOLUME 101.2 fL (80.0-94.0); MEAN PLATELET VOLUME 11.7 fL (7.4-11.4); MONOCYTES # (AUTO) 0.5 10^3/uL (0.0-1.0); MONOCYTES % (AUTO) 5.4 %; NEUTROPHILS % (AUTO) 84.9 %; PLT - PLATELET COUNT 221 10^3/uL (130-450); RED BLOOD COUNT 3.28 10^6/uL (4.70-6.10); RED CELL DISTRIBUTION WIDTH 17.2 % (12.0-15.0); WHITE BLOOD COUNT 9.4 x10^3/uL (4.8-10.8)
[2021-06-12] MEDS ORDERED: DEXTROSE 5%-0.45% NACL 1,000 ML IV SCH (08:00)
[2021-06-12] MEDS: guaiFENesin 600 MG TABLET PO SCH (08:51)
[2021-06-12] MEDS: ENOXAPARIN 40 MG/0.4 ML SYRINGE SUBQ SCH (08:51)
[2021-06-12] MEDS: polyethylene glycoL 3350 17 GM PACKET PO SCH (08:52)
[2021-06-12] MEDS: INSULIN ASPART 300 UNIT/3 ML PEN SUBQ SCH ×2 (08:55→11:54)
[2021-06-12] MEDS: SODIUM CHLORIDE FLUSH 0.9% 10 ML SYRINGE IVP SCH (08:58)
[2021-06-12 11:27] VITALS: BP 107/60
[2021-06-12] MEDS: POTASSIUM CHLOR 10 MEQ/100 ML 10 MEQ/100 ML BAG IV SCH ×2 (11:49→14:23)
--- NOTE | 2021-06-12 14:30 | DISCHARGE SUMMARY ---
Discharge Summary Admit Date: 06/09/21 Discharge Date: 06/12/21 Discharging Provider: Norbert Rush Primary Care Provider: Anuj Umaña Code Status: Do Not Attempt Resuscitation Condition at Discharge: Serious Discharge Disposition: 50 Hospice/Home DC/Xfer - DIAGNOSES Admission Diagnoses: Sepsis Acute respiratory failure with hypoxia Aspiration pneumonia Intra-abdominal abscess Chronic systolic heart failure Colon cancer Atrial fibrillation Aortic stenosis Chronic indwelling Hernadez catheter Discharge Diagnoses with Status of Each Condition: Sepsis Acute respiratory failure with hypoxia: Stable Aspiration pneumonia: Stable Intra-abdominal abscess: Increasing. 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 Atrial fibrillation: Rate controlled Aortic stenosis: Stable Chronic indwelling Ehrnadez catheter - HPI History of Present Illness: This is a 89-year-old male with a past medical history significant for chronic systolic heart failure with an ejection fraction of 40%, atrial fibrillation, metastatic colon cancer, aortic stenosis who had a prolonged hospitalization earlier this month after undergoing a loop colostomy for bowel obstruction secondary to the colon cancer. He was seen in the emergency department 2 days ago due to nausea/vomiting and decreased ostomy output. He underwent a CT with p.o. contrast which showed no evidence of obstruction and he was ultimately discharged home on a bowel regimen. Most of the history tonight is obtained from the patient's son as the patient is in some distress and is quite fatigued. His son tells me the patient been doing well since discharge from the emergency department. The patient had limited p.o. intake and did not take any of his pills since the emergency department visit as he was concerned about potentially vomiting. He has had a good appetite and wants to eat but his biggest fear is anything he attempts to swallow will cause him to vomit. Today he was doing well up until about 5 PM when he was sitting upright. His son believes that he aspirated on his secretions as he heard him aspirate and suddenly became quite short of breath. He was immediately brought to the emergency department. The patient currently denies any chest pain, abdominal pain. He does report feeling short of breath. He has been telling his son over the past 24 to 48 hours that he "just wants to ." The patient once again today tells me that he just "wants to ." The patient has made it quite clear that he does not want CPR and after further discussion with his son, intubation is also not within the goals of care. The patient is agreeable to IV antibiotics and he would like to see how his condition is over next 24 hours. He is potentially open to the idea of abdominal drainage of the suspected abscess but he is also willing to consider focusing on his comfort. In the emergency department, he was noted to be afebrile but he was tachycardic with a heart rate in the 110s. He was in atrial fibrillation. He was tachypneic and hypoxic requiring 3 L of oxygen to maintain a saturation in the 90s. Chest x-ray revealed bilateral infiltrates which was worse compared to prior imaging. Review of the CT from his previous emergency room visit revealed no evidence of obstruction but there were multiple fluid collections concerning for potential abscess. Given his respiratory failure and concern for aspiration pneumonia, medicine was consulted for admission. The patient is a DNR and does not want intubation. Please see advanced care planning for further documentation. - HOSPITAL COURSE Hospital Course: The patient was initially as a started on Unasyn but was subsequently switched to Zosyn. His white blood cell count was 12.8 at admission. The following day it was 13.9. It then steadily improved to 9.4 on 06/12/21 (day of discharge) Repeat CT of the abdomen/pelvis showed increased size in the right hepatic dome subcapsular abscess, increased number and size of multiple peritoneal abscesses, increased number and conspicuity of multiple hepatic metastasis. Redemonstratio n of primary colorectal carcinoma mass. It also showed patchy bilateral consolidative and groundglass airspace disease, likely infectious. Small bilateral pleural effusions with adjacent atelectasis and consolidation. Interventional radiologist was contacted who attempted placement of a percutaneous drainage tube at bedside. 1 drainage tube was placed in one of the abscesses. The right hepatic dome subcapsular abscess could not be accessed with the bedside ultrasound. I have had several conversations with the patient's family regarding his medical condition. To date he has not been able to make it to an initial oncology visit because of multiple complications/issues that have resulted in him returning to the hospital several times in the past 4 weeks for treatment as mentioned in the HPI above. His family's focus is that if he can get the pneumonia treated, improve his n utrition and have his abscesses drained, he can then improve enough to undergo chemotherapy to shrink the cancer and then subsequently undergo surgery. With this thought in mind they requested the patient be transferred to another facility for higher level of care. I made attempts 06/11/21 and 06/12/21 to transfer the patient to [facility] or [facility] but they are at capacity and unable to take on any transfer from other facilities.The patient's name was placed on the queue. with plan to contact us once and availability presents. On 06/12/21 when I rounded, the patient's daughter expressed that the patient was insistent on going home. Her tone suggested a finality. Consequently, with her permission I contacted Dr. Romero with the hospice team who consulted on the patient shortly afterwards. After an extensive conversation with the patient's daughter the tentative/potential plan was to discharge the patient home where he will be seen by the hospice team the following day for hospice admission. Consequently the patient was discharged home BLS. Eliquis and Metformin were discontinued. The percutaneous drainage tube was left in place with plan for hospitalist to pull it out in a couple of days. - ALLERGIES Allergies/Adverse Reactions: Allergies Allergy/AdvReac Type Severity Reaction Status Date / Time No Known Drug Allergies Allergy Verified 06/09/21 19:55 - MEDICATIONS Home Medications: Ambulatory Orders Medication Instructions Recorded Confirmed Multivit-Min/FA/Lycopen/Lutein 1 each PO DAILY 01/10/20 06/09/21 [Centrum Silver Men Tablet] Lactobacillus Rhamnosus GG 1 cap PO DAILY #30 cap 06/05/21 06/09/21 [Culturelle] Metoprolol Succinate [Toprol Xl] 25 mg PO DAILY #30 tablet 06/05/21 06/09/21 Pantoprazole [Protonix] 40 mg PO QDAC #30 tablet 06/05/21 06/09/21 Docusate Sodium 100Mg Capsule 100 mg PO BID PRN #30 tab 06/07/21 06/09/21 [Colace 100Mg Capsule] Furosemide [Lasix] 20 mg PO DAILY 06/07/21 06/09/21 polyethylene glycoL 3350 [Miralax] 17 gm PO BID PRN #238 gm 06/07/21 06/09/21 Amox/Clav 875/125 [Augmentin 1 tab PO BID #14 tablet 06/12/21 875/125 Tab] Guaifenesin/Dextromethorphan 1 each PO BID 14 Days #28 tab 06/12/21 [Guaifenesin-Dm ER 1,200-60 mg] Ondansetron Odt [Zofran Odt] 4 mg TL Q6H PRN 30 Days #30 tablet 06/12/21 - PHYSICAL EXAM AT DISCHARGE General Appearance: positive: No acute distress, Alert, Other (Frail, cachectic, malnourished, Awake. Oriented to self and place but not oriented to reason) Eyes Bilateral: positive: PERRL, EOMI ENT: positive: No signs of dehydration Neck: positive: No JVD, Trachea midline Respiratory: positive: Chest non-tender, No respiratory distress, Other (Coarse breath sounds bilaterally.). negative: Wheezes, Rales, Rhonchi Cardiovascular: positive: Irregularly irregular, Systolic murmur Abdomen: positive: Non-tender, Nml bowel sounds, No distention, Other (Colectomy bag noted with output) Back: positive: Nml inspection Skin: positive: Color nml, No rash, Warm, Dry Extremities: positive: Non-tender, Nml appearance, Pedal edema Neurologic/Psychiatric: positive: Other (Flat affect) - LABS Result Diagrams: 06/12/21 07:08 06/12/21 07:08 - SEPSIS Current Stage of Sepsis: Sepsis Possible source of Sepsis: Pulmonary Sepsis Criteria: Recorded Heart Rate greater than 90 bpm, Recorded Respiratory Rate greater than 20, Respiratory: Increasing oxygen requirements, WBC count greater than 12,000 or less than 4000, Metabolic: lactate > 2 mmol/L - TIME SPENT Time Spent in Discharge (Minutes): 35
--- NOTE | 2021-06-12 14:33 | Discharge Plan ---
Discharge Plan Problem Reviewed?: Yes Disposition: Home, Self Care Condition: Serious Prescriptions: Amox/Clav 875/125 [Augmentin 875/125 Tab] 1 tab PO BID #14 tablet Guaifenesin/Dextromethorphan [Guaifenesin-Dm ER 1,200-60 mg] 1 each PO BID 14 Days #28 tab Ondansetron Odt [Zofran Odt] 4 mg TL Q6H PRN 30 Days #30 tablet PRN Reason: Nausea / Vomiting Diet: Soft (Dysphagia Pureed with [place] Thick Liquids) Activity Restrictions: Activity as Tolerated Health Concerns: You were admitted with sepsis thought to be secondary to aspiration pneumonia. Repeat CT scan of abd showed intra-abdominal abscesses which had increased in size and number. It also showed increased number and conspicuity of multiple hepatic metastasis. You were started on Unasyn which was eventually switched to Zosyn. You were seen by interventional radiology who was able to place a drainage tube in one of the abscesses. For concern with regards to aspiration you were placed on dysphagia/pured diet with nectar thick liquids. MiraLAX was resumed while you were in the hospital and you Has been having good output in your colostomy bag. On the day of discharge you expressed strong wish to go home. As a result you are being discharged home with tentative/potential future plan for hospice admission tomorrow. You will be sent home with continued antibiotics. Augmentin bid X 7 days Your Eliquis and Metformin will be discontinued. We will continue your metoprolol for control of heart rate. No Smoking: If you smoke, Please STOP! Call for help. Follow-up with: Anuj Umaña MD [Primary Care Provider] -
== END 2021-06-12 15:50 | disposition hospice, home (50) | DRG 871 ==
LOC: EDUNIT# → ED 19:44 → MS2 22:20
PROVIDERS: ADMIT Internal Medicine; ATTEND Internal Medicine
PROC: 0W9G30Z Drainage of Peritoneal Cavity with Drainage Device, Percutaneous Approach (ICD-10-PCS; principal; 2021-06-11)
DX: A41.9 Sepsis, unspecified organism (principal); R06.03 Acute respiratory distress; R09.02 Hypoxemia; J69.0 Pneumonitis due to inhalation of food and vomit; C18.9 Malignant neoplasm of colon, unspecified; J96.01 Acute respiratory failure with hypoxia; K65.1 Peritoneal abscess; I10 Essential (primary) hypertension; E11.9 Type 2 diabetes mellitus without complications; K75.0 Abscess of liver; C19 Malignant neoplasm of rectosigmoid junction; C78.7 Secondary malignant neoplasm of liver and intrahepatic bile duct; J90 Pleural effusion, not elsewhere classified; I50.22 Chronic systolic (congestive) heart failure; Z20.822 Contact with and (suspected) exposure to COVID-19; J98.11 Atelectasis; I11.0 Hypertensive heart disease with heart failure; I48.91 Unspecified atrial fibrillation; Z79.01 Long term (current) use of anticoagulants; I35.0 Nonrheumatic aortic (valve) stenosis; N40.1 Benign prostatic hyperplasia with lower urinary tract symptoms; R33.8 Other retention of urine; R35.0 Frequency of micturition; R35.1 Nocturia; H91.93 Unspecified hearing loss, bilateral; Z96.0 Presence of urogenital implants; Z51.5 Encounter for palliative care; Z93.3 Colostomy status
CPT/HCPCS: 10140; 36415; 71045; 74177; 80048; 80053; 83605; 83735; 83880; 84484; 85025; 87040; 87070; 87205; 87631; 92610; 93005; 96365; 99281; 99285; A9270; J1650; J7120; Q9967; 0202U

== ENCOUNTER 2021-06-12 16:05 | Outpatient (CLI) | payer MEDICARE, OTHER | END 2021-06-12 16:06 | disposition home or self-care (01) | LOC: EMS 16:05 | PROVIDERS: ATTEND Internal Medicine | DX: J96.01 Acute respiratory failure with hypoxia (principal); Z74.01 Bed confinement status | CPT/HCPCS: A0425; A0428 ==